=== PATIENT | female | born 1965 | race Caucasian/White ===

== ENCOUNTER → 2017-12-15 09:02 | Outpatient (CLI) | payer OTHER, SELFPAY ==
[2017-12-15 10:01] LABS: Hemoglobin A1C% w Est Avg Glu 5.7 % (4.0-6.0)
[2017-12-15 10:11] LABS: Blood Urea Nitrogen 21 mg/dL (7-17); Carbon Dioxide 35 mmol/L (22-32); Chloride 98 mmol/L (98-107); Cholesterol 270 mg/dL (140-199); Estimated Glomerular Filt Rate > 60.0 mL/min (>60); Glucose 104 mg/dL (70-100); HDL Cholesterol 52 mg/dL (40-60); HEMOLYSIS < 15 (0-50); LDL Cholesterol Calculated 181 mg/dL (<100); Potassium 2.8 mmol/L (3.4-5.1); Sodium 143 mmol/L (137-145); Triglycerides 184 mg/dL (35-150)
[2017-12-15 10:13] LABS: Creatinine Urine Random 208.9 mg/dL
[2017-12-15 10:16] LABS: Microalbumi Creatinin Ratio Ur 6.7 ug/mg CR (<30); Microalbumin Urine Random 1.4 mg/dL (0-1.6)
== END ==
PROVIDERS: Visit Provider Registered Nurse
DX: I10 Essential (primary) hypertension (principal); E66.9 Obesity, unspecified
CPT/HCPCS: 36415; 80048; 80061; 82043; 82570; 83036

== ENCOUNTER → 2019-01-18 13:27 | Outpatient (CLI) | payer OTHER, SELFPAY ==
--- NOTE | 2019-01-18 | DI.RAD.S_ITS ---
PROCEDURE: XR KNEE RT 3V INDICATIONS: RIGHT KNEE PAIN TECHNIQUE: 3 views of the knee were acquired. COMPARISON: None. FINDINGS: Bones: No fractures or dislocations. Small patellar osteophytes. No suspicious bony lesions. Soft tissues: Small joint effusion. No suspicious soft tissue calcifications. IMPRESSION: No fracture or dislocation. Mild osteoarthritis most pronounced in the patellofemoral compartment. Dictated by: Sky Da Silva M.D. on 01/18/2019 at 14:09 Approved by: Sky Da Silva M.D. on 01/18/2019 at 14:10
== END ==
PROVIDERS: PCP Student in an Organized Health Care Education/Training Program; Visit Provider Internal Medicine
DX: M25.561 Pain in right knee (principal); M17.11 Unilateral primary osteoarthritis, right knee; M25.461 Effusion, right knee
CPT/HCPCS: 73562

== ENCOUNTER 2019-04-24 12:09 | Inpatient (IN) | payer OTHER, SELFPAY ==
[2019-04-24] VITALS (8 sets, daily range): BP systolic 100–156; BP diastolic 51–93; PULSE 57–73; RESP 15–21; TEMP 36.7–37.3; O2SAT 98–100; BMI 35.3
[2019-04-24 12:53] LABS: INR 1.1 (0.9-1.3); Prothrombin Time 12.3 SECONDS (10.1-12.7)
[2019-04-24 12:56] LABS: PTT Partial Thromboplastin Tim 27 SECONDS (26.4-36.2)
[2019-04-24 12:59] LABS: Add Manual Diff / Slide Review NO; Basophils Absolute Auto 100 /uL (0-100); Basophils Percent Auto 0.7 % (0-2); Eosinophils Absolute Auto 200 /uL (0-450); Eosinophils Percent Auto 1.8 % (2-4); Hematocrit 29.4 % (36-46); Hemoglobin 8.9 g/dL (12.0-16.0); Lymphocytes Absolute Auto 3700 /uL (1100-4500); Lymphocytes Percent Auto 43.4 % (25-40); Mean Corpuscular HGB Conc 30.2 % (30-36); Mean Corpuscular Hemoglobin 18.8 PG (26-34); Mean Corpuscular Volume 62.3 fL (80-100); Monocytes Absolute Auto 400 /uL (0-900); Monocytes Percent Auto 5.2 % (3-14); Neutrophils Absolute Auto 4200 /uL (1500-7000); Neutrophils Percent Auto 48.9 % (50-75); Platelet Count 434 X10^3/uL (150-400); Red Blood Cell Count 4.71 X10^6/uL (4.0-5.2); Red Cell Distribution Width 20.4 % (11.6-14.8); White Blood Cell Count 8.5 X10^3/uL (4.5-11.0)
[2019-04-24 13:00] LABS: Alanine Aminotransferase 20 IU/L (<35); Albumin 4.7 g/dL (3.5-5.0); Albumin Globulin Ratio 1.3 (1.0-2.8); Alkaline Phosphatase 87 U/L (38-126); Aspartate Aminotransferase 27 IU/L (14-36); Bilirubin Total 0.4 mg/dL (0.2-1.3); Blood Urea Nitrogen 24 mg/dL (7-17); Calcium 11.5 mg/dL (8.4-10.2); Carbon Dioxide 31 mmol/L (22-32); Chloride 97 mmol/L (98-107); Estimated Glomerular Filt Rate > 60.0 mL/min (>60); Globulin 3.6 g/dL (1.7-4.1); Glucose 89 mg/dL (70-100); HEMOLYSIS < 15 (0-50); Sodium 139 mmol/L (137-145); Total Protein 8.3 g/dL (6.3-8.2)
--- NOTE | 2019-04-24 13:03 | DI.CT.S_ITS ---
PROCEDURE: CT ABDOMEN PELVIS W CON INDICATIONS: BRRB, abd pain, multiple abd surgery hx TECHNIQUE: After the administration of intravenous contrast, 5 mm thick sections acquired from the diaphragm to the symphysis. 5 mm coronal and sagittal reformats were acquired. For radiation dose reduction, the following was used: automated exposure control, adjustment of mA and/or kV according to patient size. COMPARISON: None. FINDINGS: Image quality: Excellent. ABDOMEN: Lung bases: Lung bases are clear. Heart size is normal. A small hiatal hernia is incidentally noted. Solid organs: Liver is normal in size and enhancement. Gallbladder has been removed. Biliary system is non dilated. Pancreas enhances normally. Spleen is normal in size and enhancement. No adrenal nodules. Kidneys demonstrate normal size and enhancement, without hydronephrosis. Peritoneum and bowel: Generalized wall thickening and reduced caliber can be seen involving the sigmoid colon and the rectum, including at the level of the anus. Bowel loops otherwise demonstrate normal wall thickness and caliber. No free fluid or air. Nodes and vessels: No retroperitoneal or mesenteric adenopathy by size criteria. Aorta and inferior vena cava are normal in size. Miscellaneous: A mild periumbilical hernia is seen, containing fat. PELVIS: Genitourinary: Bladder wall thickness is normal. Miscellaneous: No inguinal hernias or adenopathy. Bones: No suspicious bony lesions. No vertebral body compression fractures. This patient has transitional lumbar anatomy. For the purposes of this examination, the level with the last pair of ribs is considered to be T12. By this numbering scheme, the S1 level is transitional and lumbarized, particularly on the right side. IMPRESSION: Abnormal distal colon. The appearance is worrisome for ulcerative colitis in this patient with a presenting history of bright red rectal bleeding. Please correlate with known patient history. If clinically appropriate, please consider a lower endoscopy. Incidental note is made of: Small hiatal hernia Cholecystectomy Fat containing periumbilical hernia Partially lumbarized S1 segment Dictated by: Heron Kimble M.D. on 04/24/2019 at 12:30 Approved by: Heron Kimble M.D. on 04/24/2019 at 12:36
[2019-04-24 13:17] LABS: Polychromasia 1+
[2019-04-24 13:18] LABS: Anisocytosis 2+; Hypochromasia 2+; Microcytosis 2+
[2019-04-24] MEDS: ONDANSETRON 4 MG/2 ML INJ IV (13:31)
[2019-04-24] MEDS: SODIUM CHLORIDE 0.9% 1,000 ML 150 ML IV (13:31)
--- NOTE | 2019-04-24 13:55 | ED_ITS ---
HPI - GI Bleed <ROSIE Robins - Last Filed: 04/25/19 02:59> General Chief complaint: GI Bleed Stated complaint: per phy/ rectal bleeding/ pain 1x vomiting 3xmonth Time Seen by Provider: 04/24/19 12:19 Source: patient and family Mode of arrival: Family Vehicle Limitations: no limitations History of Present Illness HPI Narrative: This is a 53-year-old female, nonsmoker, who presents to ED with her daughter with chief complain of bright red rectal bleeding which fills up the toilet bowl for last 3-4 months when she has bowel movements. Patient reports low abdominal pressure discomfort with intermittent chills with nausea and vomiting. Patient denies chest pain, breathing difficulty but at times feels dizzy with changing in position. Patient reports chronic constipation wi th IBS. Patient reports she never had a normal bowel movements in the past and has been having small pebble like stools with significant straining. Patient reports has history of hemorrhoids which has worsened at this time. Patient reports significant abdominal cramping and pressure discomfort in abdomen and rectum region. Patient also has urinary symptoms such urgency. Patient is afraid to eat now because of abdominal discomfort and nausea and has been drinking protein shakes and small amount of soups. Her symptoms has been gotten worse and she has been in bed rest for about a week. Patient states hardly passing flatulence and has increasing belching. Last stool yesterday with a cou ple of al. Patient daily uses stool softener and also takes average 20 pills of [id number] Advils for chronic back pain for last 3-4 years. Patient had colonoscopy in 2006 with GI bleed, nausea/vomiting and abdominal pain but not as intense as now. Related Data Previous Rx's Medication Instructions Recorded docusate sodium 250 mg PO QDAY #30 cap 01/01/16 estradiol 1 mg tablet 1 mg PO QDAY #90 tab 09/07/18 bupropion HCl 150 mg 24 hr tablet, 450 mg PO QAM #90 tab 11/20/18 extended release omeprazole 20 mg capsule,delayed 20 mg PO DAILY #60 cap 11/23/18 release chlorthalidone 25 mg tablet 25 mg PO QAM #14 tab 12/28/18 alprazolam 0.25 mg tablet 0.25 mg PO TID PRN #90 tab 04/12/19 citalopram 20 mg tablet 20 mg PO DAILY #90 tab 04/12/19 Allergies Allergy/AdvReac Type Severity Reaction Status Date / Time codeine Allergy Mild VOMITING Verified 04/24/19 12:27 fluoxetine AdvReac Severe Agitated Verified 04/24/19 12:27 pain contract Allergy Unknown Uncoded 04/24/19 12:27 Review of Systems <Luis CarterROSIE - Last Filed: 04/25/19 02:59> Review of Systems Narrative: General: Denies fever, (+) chills, fatigue, malaise, sweats. HEENT: Denies sinus pain, ear pain, sore throat, difficulty swallowing, dizziness. Respiratory: Denies dyspnea, cough, wheezing, hemoptysis, sputum. Cardiovascular: Denies chest pain, palpitations, orthopnea, edema. Gastrointestinal: See HPI : Reports urinary urgency. Denies dysuria, frequency, incontinence, hematuria, urinary retention. Musculoskeletal: Denies weakness, joint pain or bony pain. Skin: Denies rash, skin lesions, or other. Neurologic: Denies weakness, headache, numbness, change in speech, confusion, seizures, incoordination. Psychiatric: No concerning psychosocial issues. 12-point review of systems is negative except for those stated above. Patient History <Luis CarterROSIE - Last Filed: 04/25/19 02:59> Medical History Anxiety (Chronic 1999) Chronic back pain (Chronic 2008) Depression (Chronic 1999) Endometriosis (Resolved) External hemorrhoid, bleeding (Chronic) Fibroids (Resolved) Hypertension (Chronic) IBS (irritable bowel syndrome) (Chronic 1994) Lumbar spine pain (Chronic) Melanoma of face (Resolved 2013) Migraines (Chronic 1994) Ovarian cyst (Resolved 1984) Urinary incontinence (Chronic) Surgical History Anesthesia (Resolved) History of gynecologic surgery (Resolved 07/07/15) History of ovarian cystectomy (Resolved 1984) Status post delivery (Resolved 1990) Status post delivery (Resolved 1992) Status post colonoscopy (Resolved 10/22/06) Status post hysterectomy (Resolved 2008) Status post laparoscopic cholecystectomy (Resolved 2008) Family History Father Age: 72 Type 1 diabetes Grandfather Cancer Heart disease Hypertension Dementia Grandmother Age: 90 Heart disease Dementia Mother Age: 73 Depression Multiple personality disorder Suicide attempt Sister Age: 47 Depression Sister Homeless Family/Other Family history of thyroid problem Diabetes mellitus Family/Other Diabetes mellitus Family history of thyroid problem Social History household members: spouse and children Smoking Status: Never smoker Smoking Status: Never smoker alcohol intake frequency: 0-2 drinks per day Substance Use Type: does not use Exam <ROSIE Robins - Last Filed: 04/25/19 02:59> Narrative Exam Narrative: GEN: Alert, oriented x 3, well appearing and nourished, and in no acute distress. Head: Normal cephalic, atraumatic. No scalp or temporal tenderness, palpable mass or rash. EYES: Pupils are equal, round, and reactive to light and accommodation. Extraocular muscles are intact bilaterally. There is no subconjunctival hemorr kirit, exudate and sclera non-icteric. ENT: Bilateral auditory canals and tympanic membranes clear. Hearing grossly intact. Nose without bleeding, purulent discharge or deviation. Facial sinuses nontender to palpate. Mucous membrane moist, no mucosal lesion. Throat without erythema, tonsillar hypertrophy or exudate. Uvula in midline, airway patent. Neck: Trachea in midline. No JVD, non-tender without lymphadenopathy. No masses or thyroid megaly. Supple, non-tender and no meningeal signs. CARDIAC: Normal regular rate and rhythm without murmurs, gallops, or rubs. No chest wall tenderness. No peripheral edema, cyanosis or pallor. Capillary refill is less than 2 seconds. RESPIRATORY: Lungs are clear to auscultate bilaterally. No cough, wheezes, rales, or rhonchi. No stridor, respiratory distress, increase work of breathing, or accessary muscle used. ABD: Abdomen soft, mild tender to palpate in lower abdomen and non-distended. No guarding or rebound tenderness to palpate. Bowel sounds are normal in all 4 quadrants. There is no palpable masses or organomegaly. Multiple external hemorrhoids. Positive guaiac stool test. EXT: Full painless ROM of all extremities with no loss of sensation, strength, effusion or edema. SKIN: Warm, dry, normal color for patient. No erythema, lesions or rash over visible areas. BACK: Nontender without deformity or crepitance. No flank tenderness. NEUROLOGICAL: Alert and oriented to place, time and person. Sensation and motor function intact bilaterally. No facial droops, dysphasia. PSYCHIATRIC: Good judgement and reason, without hallucinations, abnormal affect or abnormal behaviors during the examination. Initial Vital Signs Initial Vital Signs: Vital Signs Temperature 98.8 F 04/24/19 12:20 Pulse Rate 73 04/24/19 12:20 Respiratory Rate 15 04/24/19 12:20 Blood Pressure 156/93 H 04/24/19 12:20 Pulse Oximetry 99 04/24/19 12:20 <Margarita Toribio DO - Last Filed: 04/26/19 11:49> Initial Vital Signs Initial Vital Signs: Vital Signs Temperature 98.8 F 04/24/19 12:20 Pulse Rate 73 04/24/19 12:20 Respiratory Rate 15 04/24/19 12:20 Blood Pressure 156/93 H 04/24/19 12:20 Pulse Oximetry 99 04/24/19 12:20 Scores <ROSIE Robins - Last Filed: 04/25/19 02:59> GCS [place] coma scale eye opening: Spontaneous [place] coma scale verbal response: Orientated [place] coma scale motor response: Obey commands [place] coma scale total score: 15 Course <ROSIE Robins - Last Filed: 04/25/19 02:59> Orders Ordered: ED Orders 04/26/19 05:00 CMP [Comprehensive Metabolic Panel] DAILY 04/27/19 05:00 CBC Auto Diff [Complete Blood Count AUTO DIFF] DAILY Magnesium DAILY Acetaminophen (Tylenol) 650 mg PO Q6HR PRN PRN Reason: Fever/Mild Pain (1-3) Alprazolam (Xanax) 0.25 mg PO TID PRN PRN Reason: severe anxiety Last Admin: 04/26/19 04:00 Dose: 0.25 mg Documented by: Admin: 04/25/19 20:07 Dose: 0.25 mg Documented by: Admin: 04/25/19 12:10 Dose: 0.25 mg Documented by: SAL Bupropion HCl (Wellbutrin Xl) 450 mg PO DAILY [facility] Last Admin: 04/26/19 09:47 Dose: 450 mg Documented by: Admin: 04/25/19 08:41 Dose: 450 mg Documented by: SAL Chlorthalidone (Hygroton) 25 mg PO DAILY [facility] Last Admin: 04/26/19 09:47 Dose: 25 mg Documented by: Admin: 04/25/19 08:41 Dose: 25 mg Documented by: SAL Citalopram Hydrobromide (Celexa) 20 mg PO DAILY [facility] Last Admin: 04/26/19 09:47 Dose: 20 mg Documented by: Admin: 04/25/19 08:41 Dose: 20 mg Documented by: SAL Hydromorphone HCl (Dilaudid) 0.5 mg IV Q2H PRN PRN Reason: Breakthrough Pain Last Admin: 04/26/19 09:46 Dose: 0.5 mg Documented by: Admin: 04/26/19 01:01 Dose: 0.5 mg Documented by: Admin: 04/25/19 18:08 Dose: 0.5 mg Documented by: Admin: 04/25/19 08:41 Dose: 0.5 mg Documented by: Admin: 04/25/19 02:14 Dose: 0.5 mg Documented by: Admin: 04/24/19 19:49 Dose: 0.5 mg Documented by: EDWIN Lactated Ringer's (Lactated Ringers) 1,000 mls @ 125 mls/hr IV CONT [facility] Last Admin: 04/26/19 06:52 Dose: 125 mls/hr Documented by: Infusion: 04/26/19 06:52 Dose: 125 mls/hr Documented by: Admin: 04/25/19 23:57 Dose: 125 mls/hr Documented by: Infusion: 04/25/19 21:38 Dose: 125 mls/hr Documented by: Admin: 04/25/19 13:38 Dose: 125 mls/hr Documented by: Infusion: 04/25/19 09:36 Dose: 999 mls/hr Documented by: Infusion: 04/25/19 09:30 Dose: 999 mls/hr Documented by: Infusion: 04/25/19 02:21 Dose: 125 mls/hr Documented by: Admin: 04/25/19 02:15 Dose: 125 mls/hr Documented by: Infusion: 04/25/19 01:45 Dose: 125 mls/hr Documented by: Admin: 04/24/19 17:45 Dose: 125 mls/hr Documented by: HUGO Ondansetron HCl (Zofran) 4 mg IV Q4HR PRN PRN Reason: Nausea And Vomiting Last Admin: 04/25/19 17:03 Dose: 4 mg Documented by: EDWIN Oxycodone HCl (Percolone) 5 mg PO Q3HR PRN PRN Reason: Pain, Moderate (4-6) Last Admin: 04/26/19 06:50 Dose: 5 mg Documented by: Admin: 04/25/19 23:57 Dose: 5 mg Documented by: MARIE Pantoprazole Sodium (Protonix) 40 mg IV BID [facility] Last Admin: 04/26/19 09:54 Dose: 40 mg Documented by: Admin: 04/25/19 20:26 Dose: 40 mg Documented by: Admin: 04/25/19 08:41 Dose: 40 mg Documented by: Admin: 04/24/19 20:35 Dose: 40 mg Documented by: HUGO Polyethylene Glycol/Electrolytes (Golytely Solution) 4,000 ml PO NOW ONE Stop: 04/26/19 14:01 Potassium Chloride (Klor-Con M20) 40 meq PO DAILYCC [facility] Sodium Chloride (Normal Saline 0.9% Flush) 10 ml IV PRN PRN PRN Reason: Flush Sodium Chloride (Normal Saline 0.9% Flush) 10 ml IV BID [facility] Last Admin: 04/26/19 09:48 Dose: 10 ml Documented by: Admin: 04/25/19 20:26 Dose: 10 ml Documented by: EDWIN Discontinued Medications Fentanyl (Sublimaze) 0 mcg IV Q5MIN PRN PRN Reason: Pain, Severe (7-10) Sodium Chloride (Normal Saline 0.9%) 1,000 mls @ 150 mls/hr IV CONT [facility] Last Infusion: 04/24/19 16:31 Dose: 0 mls/hr Documented by: Admin: 04/24/19 13:31 Dose: 150 mls/hr Documented by: GRETCHEN Potassium Chloride 20 meq/ (Sodium Chloride) 260 mls @ 130 mls/hr IV NOW ONE Stop: 04/25/19 09:59 Last Admin: 04/25/19 09:21 Dose: 130 mls/hr Documented by: SAL Cosigned by: NORMA Magnesium Sulfate (Magnesium Sulfate) 2 gm in 50 mls @ 25 mls/hr IV NOW ONE Stop: 04/25/19 08:10 Last Admin: 04/25/19 06:28 Dose: 25 mls/hr Documented by: PIETER Cosigned by: OLVIN Lactated Ringer's (Lactated Ringers) 1,000 mls @ 42 mls/hr IV CONT [facility] Last Admin: 04/25/19 23:27 Dose: Not Given Documented by: MARIE Lorazepam (Ativan) 0.5 mg IV NOW PRN PRN Reason: Anxiety Metoclopramide HCl (Reglan) 10 mg IV NOW PRN PRN Reason: Nausea And Vomiting Morphine Sulfate (Morphine) 4 mg IV NOW ONE Stop: 04/24/19 14:13 Last Admin: 04/24/19 14:58 Dose: 4 mg Documented by: HALI Ondansetron HCl (Zofran) 4 mg IV NOW ONE Stop: 04/24/19 13:04 Last Admin: 04/24/19 13:31 Dose: 4 mg Documented by: GRETCHEN Ondansetron HCl (Zofran) 4 mg IV NOW PRN PRN Reason: Nausea And Vomiting Pantoprazole Sodium (Protonix) 40 mg IV NOW ONE Stop: 04/24/19 15:59 Last Admin: 04/24/19 16:14 Dose: 40 mg Documented by: GRETCHEN Polyethylene Glycol/Electrolytes (Golytely Solution) 4,000 ml PO NOW ONE Stop: 04/24/19 16:09 Last Admin: 04/24/19 17:55 Dose: 4,000 ml Documented by: HUGO Polyethylene Glycol/Electrolytes (Golytely Solution) 2,000 ml PO NOW ONE Stop: 04/25/19 03:26 Last Admin: 04/25/19 03:42 Dose: 2,000 ml Documented by: MPFEFFE Potassium Chloride (Klor-Con M20) 40 meq PO NOW ONE Stop: 04/24/19 14:20 Last Admin: 04/24/19 14:58 Dose: 40 meq Documented by: HALI Vital Signs Vital signs: Vital Signs - 8 hr 04/24/19 12:20 04/24/19 13:00 04/24/19 13:36 Temperature 98.8 F Pulse Rate 73 63 59 L Respiratory Rate 15 18 18 Blood Pressure 156/93 H Blood Pressure [Right Arm] 129/75 131/70 Pulse Oximetry 99 100 99 <Margarita Toribio, - Last Filed: 04/26/19 11:49> Orders Ordered: ED Orders 04/26/19 05:00 CMP [Comprehensive Metabolic Panel] DAILY 04/27/19 05:00 CBC Auto Diff [Complete Blood Count AUTO DIFF] DAILY Magnesium DAILY Acetaminophen (Tylenol) 650 mg PO Q6HR PRN PRN Reason: Fever/Mild Pain (1-3) Alprazolam (Xanax) 0.25 mg PO TID PRN PRN Reason: severe anxiety Last Admin: 04/26/19 04:00 Dose: 0.25 mg Documented by: Admin: 04/25/19 20:07 Dose: 0.25 mg Documented by: Admin: 04/25/19 12:10 Dose: 0.25 mg Documented by: SAL Bupropion HCl (Wellbutrin Xl) 450 mg PO DAILY [facility] Last Admin: 04/26/19 09:47 Dose: 450 mg Documented by: Admin: 04/25/19 08:41 Dose: 450 mg Documented by: SAL Chlorthalidone (Hygroton) 25 mg PO DAILY [facility] Last Admin: 04/26/19 09:47 Dose: 25 mg Documented by: Admin: 04/25/19 08:41 Dose: 25 mg Documented by: SAL Citalopram Hydrobromide (Celexa) 20 mg PO DAILY [facility] Last Admin: 04/26/19 09:47 Dose: 20 mg Documented by: Admin: 04/25/19 08:41 Dose: 20 mg Documented by: SAL Hydromorphone HCl (Dilaudid) 0.5 mg IV Q2H PRN PRN Reason: Breakthrough Pain Last Admin: 01/20/20 09:46 Dose: 0.5 mg Documented by: Admin: 04/26/19 01:01 Dose: 0.5 mg Documented by: Admin: 04/25/19 18:08 Dose: 0.5 mg Documented by: Admin: 04/25/19 08:41 Dose: 0.5 mg Documented by: Admin: 04/25/19 02:14 Dose: 0.5 mg Documented by: Admin: 04/24/19 19:49 Dose: 0.5 mg Documented by: EDWIN Lactated Ringer's (Lactated Ringers) 1,000 mls @ 125 mls/hr IV CONT [facility] Last Admin: 04/26/19 06:52 Dose: 125 mls/hr Documented by: Infusion: 04/26/19 06:52 Dose: 125 mls/hr Documented by: Admin: 04/25/19 23:57 Dose: 125 mls/hr Documented by: Infusion: 04/25/19 21:38 Dose: 125 mls/hr Documented by: Admin: 04/25/19 13:38 Dose: 125 mls/hr Documented by: Infusion: 04/25/19 09:36 Dose: 999 mls/hr Documented by: Infusion: 04/25/19 09:30 Dose: 999 mls/hr Documented by: Infusion: 04/25/19 02:21 Dose: 125 mls/hr Documented by: Admin: 04/25/19 02:15 Dose: 125 mls/hr Documented by: Infusion: 04/25/19 01:45 Dose: 125 mls/hr Documented by: Admin: 04/24/19 17:45 Dose: 125 mls/hr Documented by: HUGO Ondansetron HCl (Zofran) 4 mg IV Q4HR PRN PRN Reason: Nausea And Vomiting Last Admin: 04/25/19 17:03 Dose: 4 mg Documented by: EDWIN Oxycodone HCl (Percolone) 5 mg PO Q3HR PRN PRN Reason: Pain, Moderate (4-6) Last Admin: 04/26/19 06:50 Dose: 5 mg Documented by: Admin: 04/25/19 23:57 Dose: 5 mg Documented by: MARIE Pantoprazole Sodium (Protonix) 40 mg IV BID [facility] Last Admin: 04/26/19 09:54 Dose: 40 mg Documented by: Admin: 04/25/19 20:26 Dose: 40 mg Documented by: Admin: 04/25/19 08:41 Dose: 40 mg Documented by: Admin: 04/24/19 20:35 Dose: 40 mg Documented by: HGUO Polyethylene Glycol/Electrolytes (Golytely Solution) 4,000 ml PO NOW ONE Stop: 04/26/19 14:01 Potassium Chloride (Klor-Con M20) 40 meq PO DAILYCC [facility] Sodium Chloride (Normal Saline 0.9% Flush) 10 ml IV PRN PRN PRN Reason: Flush Sodium Chloride (Normal Saline 0.9% Flush) 10 ml IV BID [facility] Last Admin: 04/26/19 09:48 Dose: 10 ml Documented by: Admin: 04/25/19 20:26 Dose: 10 ml Documented by: EDWIN Discontinued Medications Fentanyl (Sublimaze) 0 mcg IV Q5MIN PRN PRN Reason: Pain, Severe (7-10) Sodium Chloride (Normal Saline 0.9%) 1,000 mls @ 150 mls/hr IV CONT [facility] Last Infusion: 04/24/19 16:31 Dose: 0 mls/hr Documented by: Admin: 04/24/19 13:31 Dose: 150 mls/hr Documented by: GRETCHEN Potassium Chloride 20 meq/ (Sodium Chloride) 260 mls @ 130 mls/hr IV NOW ONE Stop: 04/25/19 09:59 Last Admin: 04/25/19 09:21 Dose: 130 mls/hr Documented by: SAL Cosigned by: NORMA Magnesium Sulfate (Magnesium Sulfate) 2 gm in 50 mls @ 25 mls/hr IV NOW ONE Stop: 04/25/19 08:10 Last Admin: 04/25/19 06:28 Dose: 25 mls/hr Documented by: PIETER Cosigned by: OLVIN Lactated Ringer's (Lactated Ringers) 1,000 mls @ 42 mls/hr IV CONT [facility] Last Admin: 04/25/19 23:27 Dose: Not Given Documented by: MARIE Lorazepam (Ativan) 0.5 mg IV NOW PRN PRN Reason: Anxiety Metoclopramide HCl (Reglan) 10 mg IV NOW PRN PRN Reason: Nausea And Vomiting Morphine Sulfate (Morphine) 4 mg IV NOW ONE Stop: 04/24/19 14:13 Last Admin: 04/24/19 14:58 Dose: 4 mg Documented by: HALI Ondansetron HCl (Zofran) 4 mg IV NOW ONE Stop: 04/24/19 13:04 Last Admin: 04/24/19 13:31 Dose: 4 mg Documented by: GRETCHEN Ondansetron HCl (Zofran) 4 mg IV NOW PRN PRN Reason: Nausea And Vomiting Pantoprazole Sodium (Protonix) 40 mg IV NOW ONE Stop: 04/24/19 15:59 Last Admin: 04/24/19 16:14 Dose: 40 mg Documented by: GRETCHEN Polyethylene Glycol/Electrolytes (Golytely Solution) 4,000 ml PO NOW ONE Stop: 04/24/19 16:09 Last Admin: 04/24/19 17:55 Dose: 4,000 ml Documented by: HUGO Polyethylene Glycol/Electrolytes (Golytely Solution) 2,000 ml PO NOW ONE Stop: 04/25/19 03:26 Last Admin: 04/25/19 03:42 Dose: 2,000 ml Documented by: PIETER Potassium Chloride (Klor-Con M20) 40 meq PO NOW ONE Stop: 04/24/19 14:20 Last Admin: 04/24/19 14:58 Dose: 40 meq Documented by: HALI Vital Signs Vital signs: Vital Signs - 8 hr 04/24/19 12:20 04/24/19 13:00 04/24/19 13:36 Temperature 98.8 F Pulse Rate 73 63 59 L Respiratory Rate 15 18 18 Blood Pressure 156/93 H Blood Pressure [Right Arm] 129/75 131/70 Pulse Oximetry 99 100 99 MDM - GI Bleed <ROSIE Robins - Last Filed: 04/25/19 02:59> Differential Diagnosis Differential diagnosis: Likely hemorrhoids, Upper gastrointestinal hemorrhage, Lower gastrointestinal hemorrhage and other (neoplasm) Medical Records Attestation: I reviewed the patient's medical records. Lab Data Attestation: I reviewed the patient's lab results. Result diagrams: 04/26/19 05:00 04/26/19 05:00 Labs: Lab Results 04/24/19 04/24/19 04/24/19 Range/Units 12:38 12:38 12:38 WBC 8.5 (4.5-11.0) X10^3/uL RBC 4.71 (4.0-5.2) X10^6/uL Hgb 8.9 L (12.0-16.0) g/dL Hct 29.4 L (36-46) % MCV 62.3 L (80-100) fL MCH 18.8 L (26-34) PG MCHC 30.2 (30-36) % RDW 20.4 H (11.6-14.8) % Plt Count 434 H (150-400) X10^3/uL Neut % (Auto) 48.9 L (50-75) % Lymph % (Auto) 43.4 H (25-40) % [place] % (Auto) 5.2 (3-14) % Eos % (Auto) 1.8 L (2-4) % Baso % (Auto) 0.7 (0-2) % Neut # (Auto) 4200 (3352-7088) /uL Lymph # (Auto) 3700 (4474-9837) /uL [place] # (Auto) 400 (0-900) /uL Eos # (Auto) 200 (0-450) /uL Baso # (Auto) 100 (0-100) /uL RBC Morphology See below Polychromasia 1+ H Hypochromasia 2+ H Anisocytosis 2+ H Microcytosis 2+ H PT 12.3 (10.1-12.7) SECONDS INR 1.1 (0.9-1.3) APTT 27 (26.4-36.2) SECONDS Sodium 139 (137-145) mmol/L Potassium 3.0 L (3.4-5.1) mmol/L Chloride 97 L (98-107) mmol/L Carbon Dioxide 31 (22-32) mmol/L BUN 24 H (7-17) mg/dL Creatinine 0.80 (0.52-1.04) mg/dL Estimated GFR > 60.0 (>60) mL/min BUN/Creatinine Ratio 30.0 H (6-22) Glucose 89 (70-100) mg/dL Calcium 11.5 H (8.4-10.2) mg/dL Magnesium (1.6-2.3) mg/dL Total Bilirubin 0.4 (0.2-1.3) mg/dL AST 27 (14-36) IU/L ALT 20 (<35) IU/L Alkaline Phosphatase 87 (38-126) U/L Total Creatine Kinase (30-135) U/L CK-MB (CK-2) CK-MB (CK-2) Rel Index Troponin I (0.01-0.034) ng/mL Total Protein 8.3 H (6.3-8.2) g/dL Albumin 4.7 (3.5-5.0) g/dL Globulin 3.6 (1.7-4.1) g/dL Albumin/Globulin Ratio 1.3 (1.0-2.8) Urine Color Urine Appearance Urine pH (4.5-8.0) Ur Specific [place] (1.000-1.035) Urine Protein (Negative) Urine Glucose (UA) (Negative) g/dL Urine Ketones (NEGATIVE) Urine Occult Blood (Negative) Urine Nitrate (Negative) Urine Bilirubin (NEGATIVE) Urine Urobilinogen (0.2) E.U./dL Ur Leukocyte Esterase (NEGATIVE) Blood Type Antibody Screen Crossmatch 04/24/19 04/24/19 04/24/19 Range/Units 12:38 18:00 20:12 WBC 9.6 (4.5-11.0) X10^3/uL RBC 4.36 (4.0-5.2) X10^6/uL Hgb 8.1 L (12.0-16.0) g/dL Hct 27.0 L (36-46) % MCV 62.0 L (80-100) fL MCH 18.6 L (26-34) PG MCHC 30.0 (30-36) % RDW 20.1 H (11.6-14.8) % Plt Count 391 (150-400) X10^3/uL Neut % (Auto) 50.8 (50-75) % Lymph % (Auto) 41.8 H (25-40) % [place] % (Auto) 4.7 (3-14) % Eos % (Auto) 2.1 (2-4) % Baso % (Auto) 0.6 (0-2) % Neut # (Auto) 4900 (7324-7845) /uL Lymph # (Auto) 4000 (9331-9339) /uL [place] # (Auto) 500 (0-900) /uL Eos # (Auto) 200 (0-450) /uL Baso # (Auto) 100 (0-100) /uL RBC Morphology See below Polychromasia Hypochromasia 2+ H Anisocytosis 3+ H Microcytosis 2+ H PT (10.1-12.7) SECONDS INR (0.9-1.3) APTT (26.4-36.2) SECONDS Sodium (137-145) mmol/L Potassium (3.4-5.1) mmol/L Chloride (98-107) mmol/L Carbon Dioxide (22-32) mmol/L BUN (7-17) mg/dL Creatinine (0.52-1.04) mg/dL Estimated GFR (>60) mL/min BUN/Creatinine Ratio (6-22) Glucose (70-100) mg/dL Calcium (8.4-10.2) mg/dL Magnesium (1.6-2.3) mg/dL Total Bilirubin (0.2-1.3) mg/dL AST (14-36) IU/L ALT (<35) IU/L Alkaline Phosphatase (38-126) U/L Total Creatine Kinase (30-135) U/L CK-MB (CK-2) CK-MB (CK-2) Rel Index Troponin I (0.01-0.034) ng/mL Total Protein (6.3-8.2) g/dL Albumin (3.5-5.0) g/dL Globulin (1.7-4.1) g/dL Albumin/Globulin Ratio (1.0-2.8) Urine Color Yellow Urine Appearance Clear Urine pH 7.5 (4.5-8.0) Ur Specific [place] 1.010 (1.000-1.035) Urine Protein Negative (Negative) Urine Glucose (UA) Negative (Negative) g/dL Urine Ketones Negative (NEGATIVE) Urine Occult Blood Negative (Negative) Urine Nitrate Negative (Negative) Urine Bilirubin Negative (NEGATIVE) Urine Urobilinogen 0.2 (0.2) E.U./dL Ur Leukocyte Esterase Negative (NEGATIVE) Blood Type B Positive Antibody Screen Negative Crossmatch See Detail 04/25/19 04/25/19 04/25/19 Range/Units 05:00 05:00 09:30 WBC 7.5 6.1 (4.5-11.0) X10^3/uL RBC 3.93 L 3.44 L (4.0-5.2) X10^6/uL Hgb 7.4 L 6.5 L* (12.0-16.0) g/dL Hct 24.5 L 21.8 L (36-46) % MCV 62.5 L 63.3 L (80-100) fL MCH 18.9 L 18.8 L (26-34) PG MCHC 30.2 29.7 L (30-36) % RDW 20.3 H 20.2 H (11.6-14.8) % Plt Count 350 298 (150-400) X10^3/uL Neut % (Auto) 44.1 L (50-75) % Lymph % (Auto) 45.9 H (25-40) % [place] % (Auto) 6.0 (3-14) % Eos % (Auto) 3.3 (2-4) % Baso % (Auto) 0.7 (0-2) % Neut # (Auto) 3300 (5048-5273) /uL Lymph # (Auto) 3400 (7549-8254) /uL [place] # (Auto) 400 (0-900) /uL Eos # (Auto) 200 (0-450) /uL Baso # (Auto) 100 (0-100) /uL RBC Morphology See below Polychromasia Hypochromasia 2+ H Anisocytosis 3+ H Microcytosis 2+ H PT (10.1-12.7) SECONDS INR (0.9-1.3) APTT (26.4-36.2) SECONDS Sodium 137 (137-145) mmol/L Potassium 3.2 L (3.4-5.1) mmol/L Chloride 97 L (98-107) mmol/L Carbon Dioxide 31 (22-32) mmol/L BUN 15 (7-17) mg/dL Creatinine 0.80 (0.52-1.04) mg/dL Estimated GFR > 60.0 (>60) mL/min BUN/Creatinine Ratio 18.8 (6-22) Glucose 103 H (70-100) mg/dL Calcium 10.0 (8.4-10.2) mg/dL Magnesium 1.8 (1.6-2.3) mg/dL Total Bilirubin 0.3 (0.2-1.3) mg/dL AST 46 H (14-36) IU/L ALT 29 (<35) IU/L Alkaline Phosphatase 69 (38-126) U/L Total Creatine Kinase (30-135) U/L CK-MB (CK-2) CK-MB (CK-2) Rel Index Troponin I (0.01-0.034) ng/mL Total Protein 6.9 (6.3-8.2) g/dL Albumin 3.9 (3.5-5.0) g/dL Globulin 3.0 (1.7-4.1) g/dL Albumin/Globulin Ratio 1.3 (1.0-2.8) Urine Color Urine Appearance Urine pH (4.5-8.0) Ur Specific [place] (1.000-1.035) Urine Protein (Negative) Urine Glucose (UA) (Negative) g/dL Urine Ketones (NEGATIVE) Urine Occult Blood (Negative) Urine Nitrate (Negative) Urine Bilirubin (NEGATIVE) Urine Urobilinogen (0.2) E.U./dL Ur Leukocyte Esterase (NEGATIVE) Blood Type Antibody Screen Crossmatch 04/25/19 Range/Units 09:30 WBC (4.5-11.0) X10^3/uL RBC (4.0-5.2) X10^6/uL Hgb (12.0-16.0) g/dL Hct (36-46) % MCV (80-100) fL MCH (26-34) PG MCHC (30-36) % RDW (11.6-14.8) % Plt Count (150-400) X10^3/uL Neut % (Auto) (50-75) % Lymph % (Auto) (25-40) % [place] % (Auto) (3-14) % Eos % (Auto) (2-4) % Baso % (Auto) (0-2) % Neut # (Auto) (4681-5962) /uL Lymph # (Auto) (3640-3075) /uL [place] # (Auto) (0-900) /uL Eos # (Auto) (0-450) /uL Baso # (Auto) (0-100) /uL RBC Morphology Polychromasia Hypochromasia Anisocytosis Microcytosis PT (10.1-12.7) SECONDS INR (0.9-1.3) APTT (26.4-36.2) SECONDS Sodium (137-145) mmol/L Potassium (3.4-5.1) mmol/L Chloride (98-107) mmol/L Carbon Dioxide (22-32) mmol/L BUN (7-17) mg/dL Creatinine (0.52-1.04) mg/dL Estimated GFR (>60) mL/min BUN/Creatinine Ratio (6-22) Glucose (70-100) mg/dL Calcium (8.4-10.2) mg/dL Magnesium (1.6-2.3) mg/dL Total Bilirubin (0.2-1.3) mg/dL AST (14-36) IU/L ALT (<35) IU/L Alkaline Phosphatase (38-126) U/L Total Creatine Kinase 79 (30-135) U/L CK-MB (CK-2) TNP CK-MB (CK-2) Rel Index TNP Troponin I < 0.012 (0.01-0.034) ng/mL Total Protein (6.3-8.2) g/dL Albumin (3.5-5.0) g/dL Globulin (1.7-4.1) g/dL Albumin/Globulin Ratio (1.0-2.8) Urine Color Urine Appearance Urine pH (4.5-8.0) Ur Specific [place] (1.000-1.035) Urine Protein (Negative) Urine Glucose (UA) (Negative) g/dL Urine Ketones (NEGATIVE) Urine Occult Blood (Negative) Urine Nitrate (Negative) Urine Bilirubin (NEGATIVE) Urine Urobilinogen (0.2) E.U./dL Ur Leukocyte Esterase (NEGATIVE) Blood Type Antibody Screen Crossmatch Urine Dip Bedside Urine Glucose Negative Bedside Urine Bilirubin - Negative Bedside Urine Ketone - Negative Urine Specific [place] 1.005 Bedside Urine Occult Blood - Negative Bedside Urine pH 8.5 Bedside Urine Protein - Negative Bedside Urine Urobilinogen - Negative Bedside Urine Nitrite - Negative Bedside Urine Leukocytes - Negative Esterase Imaging Data CT scan - abdomen/pelvis: Radiologist's Impression: [address] [address] [address] Scan Report Signed Patient: Frank Vidal RMR#: [id number] : 1965Acct:[id number] Age/Sex: 53 / FDate of Service: 04/24/19 Loc: ED Accession Number: [id number] Procedure: CT abdomen pelvis w con Ordering Provider: Luis Carter PROCEDURE: CT ABDOMEN PELVIS W CON INDICATIONS: BRRB, abd pain, multiple abd surgery hx TECHNIQUE: After the administration of intravenous contrast, 5 mm thick sections acquired from the diaphragm to the symphysis. 5 mm coronal and sagittal reformats were acquired. For radiation dose reduction, the following was used: automated exposure control, adjustment of mA and/or kV according to patient size. COMPARISON: None. FINDINGS: Image quality: Excellent. ABDOMEN: Lung bases: Lung bases are clear. Heart size is normal. A small hiatal hernia is incidentally noted. Solid organs: Liver is normal in size and enhancement. Gallbladder has been removed. Biliary system is non dilated. Pancreas enhances normally. Spleen is normal in size and enhancement. No adrenal nodules. Kidneys demonstrate normal size and enhancement, without hydronephrosis. Peritoneum and bowel: Generalized wall thickening and reduced caliber can be seen involving the sigmoid colon and the rectum, including at the level of the anus. Bowel loops otherwise demonstrate normal wall thickness and caliber. No free fluid or air. Nodes and vessels: No retroperitoneal or mesenteric adenopathy by size criteria. Aorta and inferior vena cava are normal in size. Miscellaneous: A mild periumbilical hernia is seen, containing fat. PELVIS: Genitourinary: Bladder wall thickness is normal. Miscellaneous: No inguinal hernias or adenopathy. Bones: No suspicious bony lesions. No vertebral body compression fractures. This patient has transitional lumbar anatomy. For the purposes of this examination, the level with the last pair of ribs is considered to be T12. By this numbering scheme, the S1 level is transitional and lumbarized, particularly on the right side. IMPRESSION: Abnormal distal colon. The appearance is worrisome for ulcerative colitis in this patient with a presenting history of bright red rectal bleeding. Please correlate with known patient history. If clinically appropriate, please consider a lower endoscopy. Incidental note is made of: Small hiatal hernia Cholecystectomy Fat containing periumbilical hernia Partially lumbarized S1 segment Dictated by: Heron Kimble M.D. on 04/24/2019 at 12:30 Approved by: Heron Kimble M.D. on 04/24/2019 at 12:36 ECG Data Attestation: I personally reviewed and interpreted this ECG as follows: Prior ECG tracings: not available for review Interpretation: SR rate at 73. Normal [place]. No ST elevation or depression [place] int 166, normal QRS duration, QT/QTc 413/438 MDM Narrative Medical decision making narrative: This is 53 year old female who presents to ED with bright red rectal bleeding for last 3-4 months mostly when she has bowel movements. She also states has been taking Advil 20 pills/day over 3-4 years for chronic back pain. Patient reports pressure discomfort in low abdominal region with nausea and vomiting. She reports occasional dizziness with changing in position. Patient has history of IBS and possible ulcerative colitis but has not follow-up with further testing. Last colonoscopy in 2006 due to mild breath similar symptoms. Patient has chronic constipation with very small amount of p ebble like stools. Abdomen exam was soft, mild tenderness in lower abdomen with palpation without distension. Decreased H/H 8.9/29.4 with no leukocytosis. No available CBC to compare. Normal coag. K 3.0 and BUN of 24 with normal GFR and Cr, this may due to upper GI bleed Mildly elevated Ca 11.5. Patient was hydrated with normal saline and medicated with Zofran 4mg, morphine 4mg, oral potassium chloride 40 mEq, pantoprazole IV and started for bowel prep with GoLytely. CT of abd/pelvis shows abnormal distal colon which is worrisome for ulcerative colitis and suggested colonosocpy for further evaluation. Findings were discussed with , general surgeon, and she kindly accepted the patient care for an admission for GI bleed, anemia and for colonoscopy. <Margarita Toribio, - Last Filed: 04/26/19 11:49> Lab Data Labs: Lab Results 04/24/19 04/24/19 04/24/19 Range/Units 12:38 12:38 12:38 WBC 8.5 (4.5-11.0) X10^3/uL RBC 4.71 (4.0-5.2) X10^6/uL Hgb 8.9 L (12.0-16.0) g/dL Hct 29.4 L (36-46) % MCV 62.3 L (80-100) fL MCH 18.8 L (26-34) PG MCHC 30.2 (30-36) % RDW 20.4 H (11.6-14.8) % Plt Count 434 H (150-400) X10^3/uL Neut % (Auto) 48.9 L (50-75) % Lymph % (Auto) 43.4 H (25-40) % [place] % (Auto) 5.2 (3-14) % Eos % (Auto) 1.8 L (2-4) % Baso % (Auto) 0.7 (0-2) % Neut # (Auto) 4200 (7094-3584) /uL Lymph # (Auto) 3700 (5153-6557) /uL [place] # (Auto) 400 (0-900) /uL Eos # (Auto) 200 (0-450) /uL Baso # (Auto) 100 (0-100) /uL RBC Morphology See below Polychromasia 1+ H Hypochromasia 2+ H Anisocytosis 2+ H Microcytosis 2+ H PT 12.3 (10.1-12.7) SECONDS INR 1.1 (0.9-1.3) APTT 27 (26.4-36.2) SECONDS Sodium 139 (137-145) mmol/L Potassium 3.0 L (3.4-5.1) mmol/L Chloride 97 L (98-107) mmol/L Carbon Dioxide 31 (22-32) mmol/L BUN 24 H (7-17) mg/dL Creatinine 0.80 (0.52-1.04) mg/dL Estimated GFR > 60.0 (>60) mL/min BUN/Creatinine Ratio 30.0 H (6-22) Glucose 89 (70-100) mg/dL Calcium 11.5 H (8.4-10.2) mg/dL Magnesium (1.6-2.3) mg/dL Total Bilirubin 0.4 (0.2-1.3) mg/dL AST 27 (14-36) IU/L ALT 20 (<35) IU/L Alkaline Phosphatase 87 (38-126) U/L Total Creatine Kinase (30-135) U/L CK-MB (CK-2) CK-MB (CK-2) Rel Index Troponin I (0.01-0.034) ng/mL Total Protein 8.3 H (6.3-8.2) g/dL Albumin 4.7 (3.5-5.0) g/dL Globulin 3.6 (1.7-4.1) g/dL Albumin/Globulin Ratio 1.3 (1.0-2.8) Urine Color Urine Appearance Urine pH (4.5-8.0) Ur Specific [place] (1.000-1.035) Urine Protein (Negative) Urine Glucose (UA) (Negative) g/dL Urine Ketones (NEGATIVE) Urine Occult Blood (Negative) Urine Nitrate (Negative) Urine Bilirubin (NEGATIVE) Urine Urobilinogen (0.2) E.U./dL Ur Leukocyte Esterase (NEGATIVE) Blood Type Antibody Screen Crossmatch 04/24/19 04/24/19 04/24/19 Range/Units 12:38 18:00 20:12 WBC 9.6 (4.5-11.0) X10^3/uL RBC 4.36 (4.0-5.2) X10^6/uL Hgb 8.1 L (12.0-16.0) g/dL Hct 27.0 L (36-46) % MCV 62.0 L (80-100) fL MCH 18.6 L (26-34) PG MCHC 30.0 (30-36) % RDW 20.1 H (11.6-14.8) % Plt Count 391 (150-400) X10^3/uL Neut % (Auto) 50.8 (50-75) % Lymph % (Auto) 41.8 H (25-40) % [place] % (Auto) 4.7 (3-14) % Eos % (Auto) 2.1 (2-4) % Baso % (Auto) 0.6 (0-2) % Neut # (Auto) 4900 (3556-7524) /uL Lymph # (Auto) 4000 (4218-1898) /uL [place] # (Auto) 500 (0-900) /uL Eos # (Auto) 200 (0-450) /uL Baso # (Auto) 100 (0-100) /uL RBC Morphology See below Polychromasia Hypochromasia 2+ H Anisocytosis 3+ H Microcytosis 2+ H PT (10.1-12.7) SECONDS INR (0.9-1.3) APTT (26.4-36.2) SECONDS Sodium (137-145) mmol/L Potassium (3.4-5.1) mmol/L Chloride (98-107) mmol/L Carbon Dioxide (22-32) mmol/L BUN (7-17) mg/dL Creatinine (0.52-1.04) mg/dL Estimated GFR (>60) mL/min BUN/Creatinine Ratio (6-22) Glucose (70-100) mg/dL Calcium (8.4-10.2) mg/dL Magnesium (1.6-2.3) mg/dL Total Bilirubin (0.2-1.3) mg/dL AST (14-36) IU/L ALT (<35) IU/L Alkaline Phosphatase (38-126) U/L Total Creatine Kinase (30-135) U/L CK-MB (CK-2) CK-MB (CK-2) Rel Index Troponin I (0.01-0.034) ng/mL Total Protein (6.3-8.2) g/dL Albumin (3.5-5.0) g/dL Globulin (1.7-4.1) g/dL Albumin/Globulin Ratio (1.0-2.8) Urine Color Yellow Urine Appearance Clear Urine pH 7.5 (4.5-8.0) Ur Specific [place] 1.010 (1.000-1.035) Urine Protein Negative (Negative) Urine Glucose (UA) Negative (Negative) g/dL Urine Ketones Negative (NEGATIVE) Urine Occult Blood Negative (Negative) Urine Nitrate Negative (Negative) Urine Bilirubin Negative (NEGATIVE) Urine Urobilinogen 0.2 (0.2) E.U./dL Ur Leukocyte Esterase Negative (NEGATIVE) Blood Type B Positive Antibody Screen Negative Crossmatch See Detail 04/25/19 04/25/19 04/25/19 Range/Units 05:00 05:00 09:30 WBC 7.5 6.1 (4.5-11.0) X10^3/uL RBC 3.93 L 3.44 L (4.0-5.2) X10^6/uL Hgb 7.4 L 6.5 L* (12.0-16.0) g/dL Hct 24.5 L 21.8 L (36-46) % MCV 62.5 L 63.3 L (80-100) fL MCH 18.9 L 18.8 L (26-34) PG MCHC 30.2 29.7 L (30-36) % RDW 20.3 H 20.2 H (11.6-14.8) % Plt Count 350 298 (150-400) X10^3/uL Neut % (Auto) 44.1 L (50-75) % Lymph % (Auto) 45.9 H (25-40) % [place] % (Auto) 6.0 (3-14) % Eos % (Auto) 3.3 (2-4) % Baso % (Auto) 0.7 (0-2) % Neut # (Auto) 3300 (1353-1752) /uL Lymph # (Auto) 3400 (4585-4773) /uL [place] # (Auto) 400 (0-900) /uL Eos # (Auto) 200 (0-450) /uL Baso # (Auto) 100 (0-100) /uL RBC Morphology See below Polychromasia Hypochromasia 2+ H Anisocytosis 3+ H Microcytosis 2+ H PT (10.1-12.7) SECONDS INR (0.9-1.3) APTT (26.4-36.2) SECONDS Sodium 137 (137-145) mmol/L Potassium 3.2 L (3.4-5.1) mmol/L Chloride 97 L (98-107) mmol/L Carbon Dioxide 31 (22-32) mmol/L BUN 15 (7-17) mg/dL Creatinine 0.80 (0.52-1.04) mg/dL Estimated GFR > 60.0 (>60) mL/min BUN/Creatinine Ratio 18.8 (6-22) Glucose 103 H (70-100) mg/dL Calcium 10.0 (8.4-10.2) mg/dL Magnesium 1.8 (1.6-2.3) mg/dL Total Bilirubin 0.3 (0.2-1.3) mg/dL AST 46 H (14-36) IU/L ALT 29 (<35) IU/L Alkaline Phosphatase 69 (38-126) U/L Total Creatine Kinase (30-135) U/L CK-MB (CK-2) CK-MB (CK-2) Rel Index Troponin I (0.01-0.034) ng/mL Total Protein 6.9 (6.3-8.2) g/dL Albumin 3.9 (3.5-5.0) g/dL Globulin 3.0 (1.7-4.1) g/dL Albumin/Globulin Ratio 1.3 (1.0-2.8) Urine Color Urine Appearance Urine pH (4.5-8.0) Ur Specific [place] (1.000-1.035) Urine Protein (Negative) Urine Glucose (UA) (Negative) g/dL Urine Ketones (NEGATIVE) Urine Occult Blood (Negative) Urine Nitrate (Negative) Urine Bilirubin (NEGATIVE) Urine Urobilinogen (0.2) E.U./dL Ur Leukocyte Esterase (NEGATIVE) Blood Type Antibody Screen Crossmatch 04/25/19 Range/Units 09:30 WBC (4.5-11.0) X10^3/uL RBC (4.0-5.2) X10^6/uL Hgb (12.0-16.0) g/dL Hct (36-46) % MCV (80-100) fL MCH (26-34) PG MCHC (30-36) % RDW (11.6-14.8) % Plt Count (150-400) X10^3/uL Neut % (Auto) (50-75) % Lymph % (Auto) (25-40) % [place] % (Auto) (3-14) % Eos % (Auto) (2-4) % Baso % (Auto) (0-2) % Neut # (Auto) (6592-5347) /uL Lymph # (Auto) (7083-4687) /uL [place] # (Auto) (0-900) /uL Eos # (Auto) (0-450) /uL Baso # (Auto) (0-100) /uL RBC Morphology Polychromasia Hypochromasia Anisocytosis Microcytosis PT (10.1-12.7) SECONDS INR (0.9-1.3) APTT (26.4-36.2) SECONDS Sodium (137-145) mmol/L Potassium (3.4-5.1) mmol/L Chloride (98-107) mmol/L Carbon Dioxide (22-32) mmol/L BUN (7-17) mg/dL Creatinine (0.52-1.04) mg/dL Estimated GFR (>60) mL/min BUN/Creatinine Ratio (6-22) Glucose (70-100) mg/dL Calcium (8.4-10.2) mg/dL Magnesium (1.6-2.3) mg/dL Total Bilirubin (0.2-1.3) mg/dL AST (14-36) IU/L ALT (<35) IU/L Alkaline Phosphatase (38-126) U/L Total Creatine Kinase 79 (30-135) U/L CK-MB (CK-2) TNP CK-MB (CK-2) Rel Index TNP Troponin I < 0.012 (0.01-0.034) ng/mL Total Protein (6.3-8.2) g/dL Albumin (3.5-5.0) g/dL Globulin (1.7-4.1) g/dL Albumin/Globulin Ratio (1.0-2.8) Urine Color Urine Appearance Urine pH (4.5-8.0) Ur Specific [place] (1.000-1.035) Urine Protein (Negative) Urine Glucose (UA) (Negative) g/dL Urine Ketones (NEGATIVE) Urine Occult Blood (Negative) Urine Nitrate (Negative) Urine Bilirubin (NEGATIVE) Urine Urobilinogen (0.2) E.U./dL Ur Leukocyte Esterase (NEGATIVE) Blood Type Antibody Screen Crossmatch Urine Dip Bedside Urine Glucose Negative Bedside Urine Bilirubin - Negative Bedside Urine Ketone - Negative Urine Specific [place] 1.005 Bedside Urine Occult Blood - Negative Bedside Urine pH 8.5 Bedside Urine Protein - Negative Bedside Urine Urobilinogen - Negative Bedside Urine Nitrite - Negative Bedside Urine Leukocytes - Negative Esterase Discharge Plan Departure Patient Disposition: Admitted as Observation Clinical Impression: Acute GI bleeding Discharge Date/Time: 04/24/19 16:35 Referrals: Tammy Harvey MD [Primary Care Provider] - Admit Date/Time: 04/25/19 14:09 Admit Provider: Kylie Welch
[2019-04-24] MEDS: MORPHINE 4 MG/ML INJ IV (14:58)
[2019-04-24] MEDS: POTASSIUM CHLORIDE 20 MEQ TAB 40 MEQ PO (14:58)
[2019-04-24] MEDS: PANTOPRAZOLE 40 MG VIAL IV ×2 (16:14→20:35)
--- NOTE | 2019-04-24 16:17 | PC.NURSE ---
Luis, [employer] performed hemoccult, it was positive for blood.
--- NOTE | 2019-04-24 16:28 | P.HP_ITS ---
History of Present Illness History of Present Illness Date Patient Seen: 04/24/19 Time Patient Seen: 16:28 Chief complaint: per phy/ rectal bleeding/ pain 1x vomiting 3xmonth Narrative: This is a 53 yo woman with history of obesity, chronic abdominal pain (patient refers to it as IBS), chronic constipation, depression, anxiety, GERD/gastritis, with history of x 4, cholecystectomy, and hysterectomy. She came into the ED today with her daughter for c/o bright red rectal bleeding and clots which fills up the toilet bowl for last 3-4 months when she has bowel movements. She reports lower abdominal pressure and discomfort with intermittent chills with nausea and vomiting. She denies chest pain, breathing difficulty but at times feels dizzy with changing in position. She states that she never has normal bowel movements, but rather they are small pebble like stools with significant straining. She reports a history of hemorrhoids which are bothering her more right now. She reports significant abdominal cramping and pressure with discomfort in the abdomen and rectum region. She describes symptoms of urinary urgency. She is afraid to eat now because of abdominal discomfort and nausea and has been drinking protein shakes and small amount of soups. She feels she is getting worse, and now has significant malaise, and feels she can not keep down much PO intake. She uses stool softener daily and also takes 20 ibuprofen per day for chronic back pain for last 3-4 years. She believes she had a colonoscopy in 2006 for similar symptoms. ROS: General: Denies fever, reports chills, fatigue, malaise, sweats. Reports 13 pound unexplained weight loss in recent months HEENT: Denies sinus pain, ear pain, sore throat, difficulty swallowing, d izziness. Respiratory: Denies dyspnea, cough, wheezing, hemoptysis, sputum. Cardiovascular: Denies chest pain, palpitations, orthopnea, edema. Gastrointestinal: See HPI : Reports urinary urgency. Denies dysuria, frequency, incontinence, hematuria, urinary retention. Musculoskeletal: Reports weakness, denies joint pain or bony pain. Skin: Denies rash, skin lesions, or other. Neurologic: Denies headache, numbness, change in speech, confusion, seizures, incoordination. Psychiatric: Reports depression and anxiety related to deaths of several family members in the past year 12-point review of systems is negative except for those stated above. PE: GENERAL: Pale and ill appearing. Appears stated age. Answers questions promptly and appropriately. Vital signs noted. HENT: Normocephalic, atraumatic. Hearing intact. Oral mucosa is pink and moist. EYES: Conjunctiva pink, sclera white, no periorbital swelling. CARDIOVASCULAR: Regular rate. No pedal edema. RESPIRATORY: Non-tachypneic, breathing comfortably on room air. GASTROINTESTINAL: Abdomen soft, nondistended, moderately TTP in BL lower quadrants Perianal: large soft external hemorrhoids, non-thrombosed, non bleeding; some prolapsing internal hemorrhoids which are excoriated but not actively bleeding NANCY: normal tone; no masses, TTP anterior and posterior midline; Large internal hemorrhoids GENITALURINARY: No flank tenderness. MUSCULOSKELETAL: Equal tone and mass bilaterally. SKIN: Warm, dry, soft, appropriate color for ethnicity. No other lesions, rashes, or wounds. NEURO: Alert and Oriented X 3. No gross sensory deficits, or cognitive issues. PSYCH: perseverating speech, tangential thought processes, depressed mood and affect Patient History Medical History Anxiety (Chronic 1999) Chronic back pain (Chronic 2008) Depression (Chronic 1999) Endometriosis (Resolved) External hemorrhoid, bleeding (Chronic) Fibroids (Resolved) Hypertension (Chronic) IBS (irritable bowel syndrome) (Chronic 1994) Lumbar spine pain (Chronic) Melanoma of face (Resolved 2013) Migraines (Chronic 1994) Ovarian cyst (Resolved 1984) Urinary incontinence (Chronic) Surgical History Anesthesia (Resolved) History of gynecologic surgery (Resolved 07/07/15) History of ovarian cystectomy (Resolved 1984) Status post delivery (Resolved 1990) Status post delivery (Resolved 1992) Status post colonoscopy (Resolved 10/22/06) Status post hysterectomy (Resolved 2008) Status post laparoscopic cholecystectomy (Resolved 2008) Family & Social History Family History Father Age: 72 Type 1 diabetes Grandfather Cancer Heart disease Hypertension Dementia Grandmother Age: 90 Heart disease Dementia Mother Age: 73 Depression Multiple personality disorder Suicide attempt Sister Age: 47 Depression Sister Homeless Family/Other Family history of thyroid problem Diabetes mellitus Family/Other Diabetes mellitus Family history of thyroid problem Safety & Behavioral: Feels Safe in Current Yes Environment Been Physically Hurt or No Threatened By a Person Tobacco & Substance use: Smoking Status Never smoker alcohol intake frequency 0-2 drinks per day Substance Use Type does not use Meds Home Medications and Allergies Home Medications Medication Instructions Recorded Confirmed Type docusate sodium 250 mg PO QDAY #30 cap 01/01/16 04/12/19 Rx estradiol 1 mg tablet 1 mg PO QDAY #90 tab 09/07/18 04/12/19 Rx bupropion HCl 150 mg 24 hr tablet, 450 mg PO QAM #90 tab 11/20/18 04/12/19 Rx extended release omeprazole 20 mg capsule,delayed 20 mg PO DAILY #60 cap 11/23/18 04/12/19 Rx release chlorthalidone 25 mg tablet 25 mg PO QAM #14 tab 12/28/18 04/12/19 Rx alprazolam 0.25 mg tablet 0.25 mg PO TID PRN #90 tab 04/12/19 04/12/19 Rx citalopram 20 mg tablet 20 mg PO DAILY #90 tab 04/12/19 04/12/19 Rx Allergies Allergy/AdvReac Type Severity Reaction Status Date / Time codeine Allergy Mild VOMITING Verified 04/24/19 12:27 fluoxetine AdvReac Severe Agitated Verified 04/24/19 12:27 pain contract Allergy Unknown Uncoded 04/24/19 12:27 Exam Vital Signs (past 8 hours): - 04/24/19 12:20 04/24/19 13:00 04/24/19 13:36 Temperature 98.8 F Pulse Rate 73 63 59 L Respiratory Rate 15 18 18 Blood Pressure 156/93 H Blood Pressure [Right Arm] 129/75 131/70 Pulse Oximetry 99 100 99 04/24/19 15:41 04/24/19 16:00 Temperature 98.3 F Pulse Rate 70 61 Respiratory Rate 18 15 Blood Pressure Blood Pressure [Right Arm] 144/75 H 132/51 L Pulse Oximetry 99 100 Oxygen Delivery Method Room Air Objective Labs Result Diagrams: 04/24/19 12:38 04/24/19 12:38 Labs: Laboratory Results - last 24 hr 04/24/19 04/24/19 04/24/19 12:38 12:38 12:38 WBC 8.5 RBC 4.71 Hgb 8.9 L Hct 29.4 L MCV 62.3 L MCH 18.8 L MCHC 30.2 RDW 20.4 H Plt Count 434 H Neut % (Auto) 48.9 L Lymph % (Auto) 43.4 H [place] % (Auto) 5.2 Eos % (Auto) 1.8 L Baso % (Auto) 0.7 Neut # (Auto) 4200 Lymph # (Auto) 3700 [place] # (Auto) 400 Eos # (Auto) 200 Baso # (Auto) 100 RBC Morphology See below Polychromasia 1+ H Hypochromasia 2+ H Anisocytosis 2+ H Microcytosis 2+ H PT 12.3 INR 1.1 APTT 27 Sodium 139 Potassium 3.0 L Chloride 97 L Carbon Dioxide 31 BUN 24 H Creatinine 0.80 Estimated GFR > 60.0 BUN/Creatinine Ratio 30.0 H Glucose 89 Calcium 11.5 H Total Bilirubin 0.4 AST 27 ALT 20 Alkaline Phosphatase 87 Total Protein 8.3 H Albumin 4.7 Globulin 3.6 Albumin/Globulin Ratio 1.3 Blood Type Antibody Screen 04/24/19 12:38 WBC RBC Hgb Hct MCV MCH MCHC RDW Plt Count Neut % (Auto) Lymph % (Auto) [place] % (Auto) Eos % (Auto) Baso % (Auto) Neut # (Auto) Lymph # (Auto) [place] # (Auto) Eos # (Auto) Baso # (Auto) RBC Morphology Polychromasia Hypochromasia Anisocytosis Microcytosis PT INR APTT Sodium Potassium Chloride Carbon Dioxide BUN Creatinine Estimated GFR BUN/Creatinine Ratio Glucose Calcium Total Bilirubin AST ALT Alkaline Phosphatase Total Protein Albumin Globulin Albumin/Globulin Ratio Blood Type B Positive Antibody Screen Negative Assessment & Plan Assessment and plan (1) Acute GI bleeding: Problem details: Clear liquid diet, bowel prep, upper and lower endoscopy tomorrow once prep is done, recheck hemoglobin tonight and in the morning, type and screen, transfuse if hemoglobin less than 7 or symptomatic Current visit: Yes Status: Acute (2) Major depressive disorder, recurrent episode, moderate with atypical features: Problem details: Continue home meds Current visit: No Status: Acute (3) Essential hypertension: Problem details: Monitor blood pressure Current visit: No Status: None (4) Anemia: Current visit: Yes Status: Acute (5) Abdominal pain: Current visit: Yes Status: Acute (6) Chronic constipation: Current visit: Yes Status: Acute (7) Internal hemorrhoids: Current visit: Yes Status: Acute (8) External hemorrhoids: Current visit: Yes Status: Acute (9) IBS (irritable bowel syndrome): Current visit: No Status: Chronic (10) Urinary urgency: Problem details: Send UA, and culture Current visit: Yes Status: Acute (11) NSAID long-term use: Current visit: Yes Status: Acute Assessment & Plan narrative: This is a 53-year-old woman with chronic abdominal pain, which is now complicated by weight loss, significant anemia, increasing r ectal bleeding and malaise. At this point her symptoms are significant, and her anemia is concerning that she is at risk for significant morbidity a mortality. Therefore we will keep her in the hospital for bowel prep and upper and lower endoscopy. Plan: Clear liquid diet GoLYTELY bowel prep NPO at 6:00 a.m. Repeat labs tonight and in the morning Correct electrolyte Give home psych meds Plan on upper and lower endoscopy tomorrow if bowel prep is completed Hold DVT prophylaxis Send UA and culture No antibiotics for right now PPI double dose Quality VTE Deep Vein Thrombosis/Pulmonary Embolism Present on Admission: No
[2019-04-24] MEDS: LACTATED RINGERS 1,000 ML 125 ML IV (17:45)
[2019-04-24] MEDS: PEG3350/SOD SULF,BICARB,CL/KCL 4,000 ML SOLUTION 4000 ML PO (17:55)
[2019-04-24] MEDS: HYDROMORPHONE 0.5 MG INJ IV (19:49)
[2019-04-24 20:37] LABS: Appearance Urine UA CLEAR; Bilirubin Urine UA NEGATIVE (NEGATIVE); Color Urine UA YELLOW; Glucose Urine UA NEGATIVE (Negative); Ketones Urine UA NEGATIVE (NEGATIVE); Leukocyte Esterase Urine UA NEGATIVE (NEGATIVE); Nitrite Urine UA NEGATIVE (Negative); Occult Blood Urine UA NEGATIVE (Negative); Protein Urine UA NEGATIVE (Negative); Urobilinogen Urine UA 0.2 E.U./dL (0.2)
[2019-04-24 20:39] LABS: pH Urine UA 7.5 (4.5-8.0)
[2019-04-24 20:42] LABS: Add Manual Diff / Slide Review NO; Basophils Absolute Auto 100 /uL (0-100); Basophils Percent Auto 0.6 % (0-2); Eosinophils Absolute Auto 200 /uL (0-450); Eosinophils Percent Auto 2.1 % (2-4); Hemoglobin 8.1 g/dL (12.0-16.0); Lymphocytes Absolute Auto 4000 /uL (1100-4500); Lymphocytes Percent Auto 41.8 % (25-40); Mean Corpuscular Hemoglobin 18.6 PG (26-34); Monocytes Absolute Auto 500 /uL (0-900); Monocytes Percent Auto 4.7 % (3-14); Neutrophils Absolute Auto 4900 /uL (1500-7000); Neutrophils Percent Auto 50.8 % (50-75); Platelet Count 391 X10^3/uL (150-400); Red Blood Cell Count 4.36 X10^6/uL (4.0-5.2); Red Cell Distribution Width 20.1 % (11.6-14.8); White Blood Cell Count 9.6 X10^3/uL (4.5-11.0)
--- NOTE | 2019-04-24 22:44 | PC.NURSE ---
Admit from ER. Bloody stool and constipation for multiple months, new onset vomiting brought patient to ER. Patient is taking bowel prep for AM colonoscopy/EDG. Clear liquid diet until 6am per Dr. Hernandez. Warm blankets and Dilaudid for abdominal pain. Some nausea late in evening but relieved when pain med was given. Hgb came back 8.1. Instructions to call MD for result under 8. Patient in bed, ambulatory to bathroom. Call light within reach.
[2019-04-25] VITALS (31 sets, daily range): BP systolic 79–154; BP diastolic 38–89; PULSE 54–80; RESP 10–20; TEMP 36.1–37.1; O2SAT 91–100
--- NOTE | 2019-04-25 | PATH_ITS ---
[facility] Accession Number: [id number] . 01 Material submitted: . PART A: gastrointestinal site - BIOPSY GASTRIC ANTRUM PART B: gastrointestinal site - GASTRIC POLYPS . 01 Clinical history: . PER PHY/RECTAL BLEEDING/PAIN 1X VOMITING 3X MONTH . 02 Diagnosis: A. Stomach, Antrum, Biopsy: Gastric antral mucosa with mild chronic inflammation and intestinal metaplasia. Intestinal metaplasia present in one of two biopsy fragments. Negative for Helicobacter organisms by immunohistochemistry. Negative for dysplasia or malignancy. . B. Gastric Polyps, Biopsies: Fundic gland polyps. No evidence of Helicobacter organisms on H/E stain. Negative for intestinal metaplasia. Negative for dysplasia and malignancy. [facility] 04/28/2019 1204 Local . 02 Electronically signed: . Neel Nguyen MD, PhD, Pathologist NPI- [id number] . 01 Gross description: . Part A: BIOPSY GASTRIC ANTRUM: Received in formalin are 2 fragment(s) of d[place], soft tissue measuring 0.1 x 0.1 x 0.1 cm to 0.2 x 0.1 x 0.1 cm submitted entirely in 1 cassette(s) Part B: GASTRIC POLYPS: Received in formalin are 2 fragment(s) of dac[place], soft tissue measuring 0.1 x 0.1 x 30.1 cm to 0.2 x 0.2 x 0.2 cm submitted entirely in 1 cassette(s) /[facility] 04/26/2019 1933 Local . 02 Microscopic: . Part A: An immunohistochemical stain was performed to evaluate for Helicobacter organisms and is negative. The control stain showed appropriate reactivity. . * This test was developed and its performance characteristics determined by [facility]. It has not been cleared or approved by the U.S. Food and Drug Administration. The FDA has determined that such clearance or approval is not necessary. This test is used for clinical purposes. It should not be regarded as investigational or for research. . 02 Pathologist provided ICD-10: K31.9, K31.7 . 02 CPT . 124774, 739422, R10144 Performed at: 01 [facility] [address] [id number] MD Patrick Mohr MD Phone: [phone] Performed at: 02 [facility] [address] [place] [id number] MD Joy Bravo MD Phone: [phone]
[2019-04-25] MEDS: HYDROMORPHONE 0.5 MG INJ IV ×3 (02:14→18:08)
[2019-04-25] MEDS: LACTATED RINGERS 1,000 ML 125 ML IV ×3 (02:15→23:57)
[2019-04-25] MEDS: PEG3350/SOD SULF,BICARB,CL/KCL 4,000 ML SOLUTION 2000 ML PO (03:42)
[2019-04-25 05:31] LABS: Add Manual Diff / Slide Review SLIDE REVIEW; Basophils Absolute Auto 100 /uL (0-100); Basophils Percent Auto 0.7 % (0-2); Eosinophils Absolute Auto 200 /uL (0-450); Eosinophils Percent Auto 3.3 % (2-4); Hematocrit 24.5 % (36-46); Hemoglobin 7.4 g/dL (12.0-16.0); Lymphocytes Absolute Auto 3400 /uL (1100-4500); Lymphocytes Percent Auto 45.9 % (25-40); Mean Corpuscular HGB Conc 30.2 % (30-36); Mean Corpuscular Hemoglobin 18.9 PG (26-34); Mean Corpuscular Volume 62.5 fL (80-100); Monocytes Absolute Auto 400 /uL (0-900); Neutrophils Absolute Auto 3300 /uL (1500-7000); Neutrophils Percent Auto 44.1 % (50-75); Platelet Count 350 X10^3/uL (150-400); Red Blood Cell Count 3.93 X10^6/uL (4.0-5.2); Red Cell Distribution Width 20.3 % (11.6-14.8); White Blood Cell Count 7.5 X10^3/uL (4.5-11.0)
[2019-04-25 05:36] LABS: Alanine Aminotransferase 29 IU/L (<35); Albumin 3.9 g/dL (3.5-5.0); Albumin Globulin Ratio 1.3 (1.0-2.8); Alkaline Phosphatase 69 U/L (38-126); Aspartate Aminotransferase 46 IU/L (14-36); BUN Creatinine Ratio 18.8 (6-22); Bilirubin Total 0.3 mg/dL (0.2-1.3); Blood Urea Nitrogen 15 mg/dL (7-17); Carbon Dioxide 31 mmol/L (22-32); Chloride 97 mmol/L (98-107); Estimated Glomerular Filt Rate > 60.0 mL/min (>60); Glucose 103 mg/dL (70-100); HEMOLYSIS < 15 (0-50); Magnesium 1.8 mg/dL (1.6-2.3); Potassium 3.2 mmol/L (3.4-5.1); Sodium 137 mmol/L (137-145); Total Protein 6.9 g/dL (6.3-8.2)
--- NOTE | 2019-04-25 06:03 | PC.NURSE ---
DR. Welch called earlier @ 0320 ordered to give another 2 liters of GoLYTELY to be done by 0600. Pt. already done drinking 2000 ml. of GoLYTELY solution, but her stool still blackish-brown & tarry. She C/O abdominal distention & reported it seems like the GoLYTELY is just set in my stomach & does not go through my intestine . No C/O nausea & no vomiting noted, Dr. Welch notified no new order received. Will monitor.
[2019-04-25] MEDS: MAGNESIUM SULFATE 2 GM/50 ML PIGGYBACK IV (06:28)
[2019-04-25 06:43] LABS: Hypochromasia 2+
[2019-04-25 06:44] LABS: Anisocytosis 3+; Microcytosis 2+
[2019-04-25 06:46] LABS: Anisocytosis 3+; Hypochromasia 2+; Microcytosis 2+
--- NOTE | 2019-04-25 08:04 | P.PN_ITS ---
Subjective Subjective Date Patient Seen: 04/25/19 Time Patient Seen: 08:04 Interval history: Pt took in 6L of golytely prep overnight. Stool is loose, but not clear. Exam Vital Signs (past 8 hours): - 04/25/19 04:10 Temperature 98.4 F Pulse Rate 57 L Respiratory Rate 16 Blood Pressure 118/67 Pulse Oximetry 99 Oxygen Delivery Method Room Air Oxygen Flow Rate 0 Narrative Exam Narrative: GENERAL: Pale and ill appearing. Appears stated age. Answers questions promptly and appropriately. Vital signs noted. HENT: Normocephalic, atraumatic. Hearing intact. Oral mucosa is pink and moist. EYES: Conjunctiva pink, sclera white, no periorbital swelling. CARDIOVASCULAR: Regular rate. No pedal edema. RESPIRATORY: Non-tachypneic, breathing comfortably on room air. GASTROINTESTINAL: Abdomen soft, nondistended, moderately TTP in BL lower quadrants GENITALURINARY: No flank tenderness. MUSCULOSKELETAL: Equal tone and mass bilaterally. SKIN: Warm, dry, soft, appropriate color for ethnicity. No other lesions, rashes, or wounds. NEURO: Alert and Oriented X 3. No gross sensory deficits, or cognitive issues. PSYCH: perseverating speech, tangential thought processes, depressed mood and affect Objective Labs Result Diagrams: 04/25/19 05:00 04/25/19 05:00 Labs: Laboratory Results - last 24 hr 04/24/19 04/24/19 04/24/19 12:38 12:38 12:38 WBC 8.5 RBC 4.71 Hgb 8.9 L Hct 29.4 L MCV 62.3 L MCH 18.8 L MCHC 30.2 RDW 20.4 H Plt Count 434 H Neut % (Auto) 48.9 L Lymph % (Auto) 43.4 H [place] % (Auto) 5.2 Eos % (Auto) 1.8 L Baso % (Auto) 0.7 Neut # (Auto) 4200 Lymph # (Auto) 3700 [place] # (Auto) 400 Eos # (Auto) 200 Baso # (Auto) 100 RBC Morphology See below Polychromasia 1+ H Hypochromasia 2+ H Anisocytosis 2+ H Microcytosis 2+ H PT 12.3 INR 1.1 APTT 27 Sodium 139 Potassium 3.0 L Chloride 97 L Carbon Dioxide 31 BUN 24 H Creatinine 0.80 Estimated GFR > 60.0 BUN/Creatinine Ratio 30.0 H Glucose 89 Calcium 11.5 H Magnesium Total Bilirubin 0.4 AST 27 ALT 20 Alkaline Phosphatase 87 Total Protein 8.3 H Albumin 4.7 Globulin 3.6 Albumin/Globulin Ratio 1.3 Urine Color Urine Appearance Urine pH Ur Specific [place] Urine Protein Urine Glucose (UA) Urine Ketones Urine Occult Blood Urine Nitrate Urine Bilirubin Urine Urobilinogen Ur Leukocyte Esterase Blood Type Antibody Screen Crossmatch 04/24/19 04/24/19 04/24/19 12:38 18:00 20:12 WBC 9.6 RBC 4.36 Hgb 8.1 L Hct 27.0 L MCV 62.0 L MCH 18.6 L MCHC 30.0 RDW 20.1 H Plt Count 391 Neut % (Auto) 50.8 Lymph % (Auto) 41.8 H [place] % (Auto) 4.7 Eos % (Auto) 2.1 Baso % (Auto) 0.6 Neut # (Auto) 4900 Lymph # (Auto) 4000 [place] # (Auto) 500 Eos # (Auto) 200 Baso # (Auto) 100 RBC Morphology See below Polychromasia Hypochromasia 2+ H Anisocytosis 3+ H Microcytosis 2+ H PT INR APTT Sodium Potassium Chloride Carbon Dioxide BUN Creatinine Estimated GFR BUN/Creatinine Ratio Glucose Calcium Magnesium Total Bilirubin AST ALT Alkaline Phosphatase Total Protein Albumin Globulin Albumin/Globulin Ratio Urine Color Yellow Urine Appearance Clear Urine pH 7.5 Ur Specific [place] 1.010 Urine Protein Negative Urine Glucose (UA) Negative Urine Ketones Negative Urine Occult Blood Negative Urine Nitrate Negative Urine Bilirubin Negative Urine Urobilinogen 0.2 Ur Leukocyte Esterase Negative Blood Type B Positive Antibody Screen Negative Crossmatch See Detail 04/25/19 04/25/19 05:00 05:00 WBC 7.5 RBC 3.93 L Hgb 7.4 L Hct 24.5 L MCV 62.5 L MCH 18.9 L MCHC 30.2 RDW 20.3 H Plt Count 350 Neut % (Auto) 44.1 L Lymph % (Auto) 45.9 H [place] % (Auto) 6.0 Eos % (Auto) 3.3 Baso % (Auto) 0.7 Neut # (Auto) 3300 Lymph # (Auto) 3400 [place] # (Auto) 400 Eos # (Auto) 200 Baso # (Auto) 100 RBC Morphology See below Polychromasia Hypochromasia 2+ H Anisocytosis 3+ H Microcytosis 2+ H PT INR APTT Sodium 137 Potassium 3.2 L Chloride 97 L Carbon Dioxide 31 BUN 15 Creatinine 0.80 Estimated GFR > 60.0 BUN/Creatinine Ratio 18.8 Glucose 103 H Calcium 10.0 Magnesium 1.8 Total Bilirubin 0.3 AST 46 H ALT 29 Alkaline Phosphatase 69 Total Protein 6.9 Albumin 3.9 Globulin 3.0 Albumin/Globulin Ratio 1.3 Urine Color Urine Appearance Urine pH Ur Specific [place] Urine Protein Urine Glucose (UA) Urine Ketones Urine Occult Blood Urine Nitrate Urine Bilirubin Urine Urobilinogen Ur Leukocyte Esterase Blood Type Antibody Screen Crossmatch Assessment & Plan Assessment and plan (1) NSAID long-term use: Current visit: Yes Status: Acute (2) Urinary urgency: Problem details: Send UA, and culture Current visit: Yes Status: Acute (3) External hemorrhoids: Current visit: Yes Status: Acute (4) Internal hemorrhoids: Current visit: Yes Status: Acute (5) Chronic constipation: Current visit: Yes Status: Acute (6) Abdominal pain: Current visit: Yes Status: Acute (7) Anemia: Problem details: Hgb now 7.4 from 8.9 on admission. Repeat Hgb set for 10AM. Will transfuse two units if hgb <7 at that time. Current visit: Yes Status: Acute (8) Acute GI bleeding: Problem details: NPO, plan for upper and lower endoscopy this AM around 11:00. Current visit: Yes Status: Acute (9) Major depressive disorder, recurrent episode, moderate with atypical features: Problem details: Continue home meds Current visit: No Status: Acute (10) Essential hypertension: Problem details: Monitor blood pressure Current visit: No Status: None Time Spent With Patient Time with patient: 25 - 35 minutes Quality VTE Deep Vein Thrombosis/Pulmonary Embolism Present on Admission: No
[2019-04-25] MEDS: PANTOPRAZOLE 40 MG VIAL IV ×2 (08:41→20:26)
[2019-04-25] MEDS: CHLORTHALIDONE 25 MG TABLET PO (08:41)
[2019-04-25] MEDS: CITALOPRAM 20 MG TABLET PO (08:41)
[2019-04-25] MEDS: buPROPion XL 150 MG TAB 450 MG PO (08:41)
[2019-04-25] MEDS: POTASSIUM CHLORIDE 20 MEQ in SODIUM CHLORIDE 0.9% 250 ML 130 ML IV (09:21)
[2019-04-25 09:53] LABS: Creatine Kinase 79 U/L (30-135)
--- NOTE | 2019-04-25 10:02 | CM.DANOTE ---
DCP: Case received, EMR reviewed and met with patient. Skip, and other family members in room. Introduced self and role. Was able to briefly obtain baseline history and health information. DCP assessment completed with information currently available. Patient is a 53 year old female who admitted yesterday afternoon to the care of the hospitalist team. PCP: Wes Drew. Payer: confirmed: [facility]. Patient came to the hospital via family vehicle secondary to rectal bleeding, as well as abdominal pain and vomiting. Patient holds diagnosis of acute GI bleed ad well as anemia. She will be having a lower endoscopy today. Patient also has history of depression. Met with patient in her room, she had been up to the restroom shortly prior to visit. She was laying in bed, pleasant, alert and oriented. She is currently employed at [employer], and lives in [place] with her spouse, Skip, who was in room. She is independent with all ADLS. P: DCP to continue to follow closely. Patient should be able to go home when she is medically stable. Alise Carmona RN/Financial Intern
[2019-04-25 10:06] LABS: Troponin I < 0.012 ng/mL (0.01-0.034)
[2019-04-25 10:21] LABS: Hematocrit 21.8 % (36-46); Mean Corpuscular HGB Conc 29.7 % (30-36); Mean Corpuscular Hemoglobin 18.8 PG (26-34); Mean Corpuscular Volume 63.3 fL (80-100); Platelet Count 298 X10^3/uL (150-400); Red Blood Cell Count 3.44 X10^6/uL (4.0-5.2); Red Cell Distribution Width 20.2 % (11.6-14.8); White Blood Cell Count 6.1 X10^3/uL (4.5-11.0)
[2019-04-25 10:23] LABS: Hemoglobin 6.5 g/dL (12.0-16.0)
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
--- NOTE | 2019-04-25 11:08 | DI.RAD.S_ITS ---
PROCEDURE: XR CHEST 1V INDICATIONS: chest pain TECHNIQUE: One view of the chest was acquired. COMPARISON: [facility], , CHEST 1 VIEW, 12/21/2008, 19:11. FINDINGS: Surgical changes and devices: None. Lungs and pleura: Lungs are clear. No pleural effusions or pneumothorax. Mediastinum: Mediastinal contours appear normal. Heart size is normal. Bones and chest wall: No suspicious bony lesions. Age-appropriate bony degenerative changes are seen. Overlying soft tissues appear unremarkable. IMPRESSION: Portable chest within normal limits. Dictated by: Heron Kimble M.D. on 04/25/2019 at 11:54 Approved by: Heron Kimble M.D. on 04/25/2019 at 11:55
[2019-04-25] MEDS: ALPRAZolam 0.25 MG TABLET PO ×2 (12:10→20:07)
--- NOTE | 2019-04-25 14:40 | PC.NURSE ---
Day Shift Alerted by previous shift that bowel prep was not complete. Pt had BM in hat in toilet at change of shift and it was opaque brown liquid stool with bright red blood and a blood clot around quarter size. pt up with SBA. pt c/o pain in abd and NAJERA. she reports NAJERA is related not taking bupropion, this was provided to pt. She received dose of IV dilaudid at 0841. She got up 10-15 min after admin and up to bathroom. In bathrrom she c/o chest pain, tightness in her chest, Little stool and more bright red blood diluted. stool is not clear. Returned pt to bed, check VS, VSS. Notified Dr Welch, stat EKG ordered and order for cardiac labs. Pt in bed and after about 20 min, notified that she is having pain in her R arm, feels like it is inside her arm. VS checked and BP was 83/38 on R arm and 79/49 on L arm. Rechecked a few min later and back up to 102/54. Dr Eagle arrived on floor and updated. Order to start 2 units PRBCs as well. !st unit started at 1000. by the end of the 1st unit infusing, pt is sitting up in bed more and more alert, states she feels better. Started 2nd unit and she tolerated without any transfusion issues. BM drastically slowed down. She did have anxiety issues, medicated with 0.25 mg xanax. She was able to rest. She reports she has not slept last night or the night before for any significant amount of time. Pt down for egd/colonoscopy around 1430. and daughter present on a off during shift. went downstairs with pt for scope.
--- NOTE | 2019-04-25 16:04 | PM.OP.ENDO ---
Operative Date/Time/Diagnoses Date of procedure: 04/25/19 Time of procedure: 16:04 Pre-op diagnosis: GI bleed Post-op diagnosis: other (Large external hemorrhoids, poor prep, no gross evidence of source of bleeding) Procedure & Clinicians Study performed: EGD and colonoscopy to hepatic flexure, biopsies of antrum gastritis and gastric polyps Same procedure as scheduled: Yes Indications: GI bleed, hemoglobin 6.5 Surgeon: Kylie Welch Procedure Notes SCOAP/Timeout: Performed Procedure in detail: The patient was brought to the room and general anesthesia was induced the patient was intubated with an ET tube by . She was then placed in left lateral decubitus position with all bony prominences padded. Once adequately sedated the procedure was begun. A bite block was placed in the mouth to protect the teeth from the scope. The gastroscope was then passed over the tongue and into the esophagus without incident. A tubular view of the esophagus was maintained as the scope was advanced down the esophagus into the stomach. The gastroscope was then passed through the pylorus and into the 1st part of the duodenum. It was flexed into the 2nd part of the duodenum. The duodenal mucosa appeared normal, with no signs of duodenitis or bleeding. There were no lesions seen in the duodenum. The scope was then retracted into the duodenal bulb and then back into the stomach. There was mild gastritis at the antrum and pylorus, and this was biopsied x2 with cold forceps. In the body of the stomach there were several small polyps, these were also biopsied. The scope was flexed to look up at the hiatus, and there was no significant gaping of the mucosa around the scope. Retracted the scope then out of the stomach and into the esophagus. The Z-line appeared regular without significant abnormality. There was no signs of esophagitis. On retracting the scope through the esophagus there were powerful discordant contractions seen around the scope. This may be just secondary to the procedure being done, or baseline esophageal spasm. Once the scope was withdrawn from the mouth the patient was turned and attention was turned to the colonoscopy portion of the procedure. A rectal exam was performed revealing large external hemorrhoids with excoriated prolapsing internal hemorrhoids with stigmata of recent bleeding. The colonoscope was then introduced to the rectum and advanced carefully through the colon. The bowel prep was very poor, and there was solid stool as well as adherent stool to the muhammad of the colon. The scope was advanced to the padded flexure, and no gross blood was seen. The stool appear quite normal. The scope could not be safely advanced any further at this point. The scope was then retracted while rotating side to side and examining each mucosal fold. At the conclusion of the procedure retroflexion was performed and large grade 2-3 internal hemorrhoids with stigmata of bleeding were seen. The scope was then withdrawn from the rectum the procedure was concluded. The patient tolerated the procedure well and was transferred to the PACU in stable condition. Scope withdrawal time: 15 Findings: gastritis, internal hemorrhoids and polyp (Gastric polyps) Specimen(s): other (Gastric polyps, antral biopsies) Complications: none Impression: No significant source of bleeding other than internal and external hemorrhoids, poor view of colon due to poor prep. Post-procedure Plan for aftercare: Repeat bowel prep, and consider Re scope in 1-2 days. Disposition: PACU
[2019-04-25] MEDS: ONDANSETRON 4 MG/2 ML INJ IV (17:03)
--- NOTE | 2019-04-25 17:28 | PC.NURSE ---
Addendum entered by Rosa Castillo R.N. 04/25/19 22:16: Does report pain improved to abdomen although gassy feeling persists. Encouraged warm blankets, position changes, and easy on po fluids. Addendum entered by Rosa Castillo R.N. 04/25/19 22:10: Reports nausea persists as well as bubbly feeling in abdomen. Up to commode multiple times for stool and void. No bloody stools or clots passed this evening shift. Xanax given for c/o nausea. Pt resting quietly in bed with eyes closed on left side. BL calf scd's replaced. Bed alarm set and pt encouraged to call for needs. Addendum entered by Rosa Castillo R.N. 04/25/19 18:28: Dr. Welch has seen pt and pt's spouse this evening shift. Pt off of commode and into bed upon staff's suggestion. 200 cc's liquid stool with golf ball sized solid stool in commode. Pt admits to nausea, but no further emesis. Encouraged pt to go slow with po fluids. Ice chips provided. Pt c/o abdominal pain 8/10 and also states feels gas pain. Encouraged pt to lie on left side with knees drawn up. Warm blankets to abdomen. Refuses scd's at this time. Administered 0.5 mg iv dilaudid to manage pt's pain. Desats with sleep to 86% on room air. Placed on 2L per nc and saturation level increases to mid and upper 90's. Original Note: Pt to room 219 from PACU awake, alert, conversant, pale and c/o nausea. Requests assistance up to commode and has 100 cc emesis. Zofran administered. Lab in to draw CBC as per Dr. Welch. Pt's spouse is present in pt's room and attentive to pt's care.
[2019-04-25 17:29] LABS: Hematocrit 33.2 % (36-46); Hemoglobin 10.2 g/dL (12.0-16.0)
[2019-04-25 17:43] LABS: Creatine Kinase 92 U/L (30-135)
[2019-04-25 17:44] LABS: BUN Creatinine Ratio 15.7 (6-22); Blood Urea Nitrogen 11 mg/dL (7-17); Calcium 10.1 mg/dL (8.4-10.2); Carbon Dioxide 29 mmol/L (22-32); Chloride 104 mmol/L (98-107); Estimated Glomerular Filt Rate > 60.0 mL/min (>60); Glucose 102 mg/dL (70-100); HEMOLYSIS < 15 (0-50); Potassium 3.4 mmol/L (3.4-5.1); Sodium 140 mmol/L (137-145)
[2019-04-25 17:56] LABS: Troponin I < 0.012 ng/mL (0.01-0.034)
[2019-04-25] MEDS: SODIUM CHLORIDE 0.9% FLUSH 10 ML IV (20:26)
[2019-04-25] MEDS: OXYCODONE IR 5 MG TABLET PO (23:57)
[2019-04-26] VITALS (8 sets, daily range): BP systolic 109–119; BP diastolic 55–81; PULSE 55–70; RESP 16–19; TEMP 36.6–37.4; O2SAT 94–98
[2019-04-26] MEDS: HYDROMORPHONE 0.5 MG INJ IV ×2 (01:01→09:46)
[2019-04-26] MEDS: ALPRAZolam 0.25 MG TABLET PO (04:00)
--- NOTE | 2019-04-26 05:59 | PC.NURSE ---
Pt alert and oriented x4. SBA to restroom. Pt refusing tp use call light when getting out of bed. Bed alarm on. Pt reports pain and cramping in abdominal area. Resolved with giving IV dilaudid. Pt also requested xanex for anxiety. Pt reports that she takes xanex TID at home. Pt voiding without difficulty. Pt reports lots of gas in abdomin. Small loose brown bowel movement. Pt has no complaints at this time. WCTM
[2019-04-26 06:05] LABS: Alanine Aminotransferase 35 IU/L (<35); Albumin 3.5 g/dL (3.5-5.0); Albumin Globulin Ratio 1.2 (1.0-2.8); Alkaline Phosphatase 68 U/L (38-126); Aspartate Aminotransferase 36 IU/L (14-36); BUN Creatinine Ratio 14.3 (6-22); Bilirubin Total 0.4 mg/dL (0.2-1.3); Blood Urea Nitrogen 10 mg/dL (7-17); Calcium 9.9 mg/dL (8.4-10.2); Carbon Dioxide 30 mmol/L (22-32); Chloride 101 mmol/L (98-107); Estimated Glomerular Filt Rate > 60.0 mL/min (>60); Glucose 94 mg/dL (70-100); HEMOLYSIS < 15 (0-50); Potassium 3.4 mmol/L (3.4-5.1); Sodium 139 mmol/L (137-145); Total Protein 6.5 g/dL (6.3-8.2)
[2019-04-26 06:17] LABS: Basophils Absolute Auto 0 /uL (0-100); Basophils Percent Auto 0.3 % (0-2); Eosinophils Absolute Auto 300 /uL (0-450); Eosinophils Percent Auto 2.6 % (2-4); Hematocrit 29.2 % (36-46); Hemoglobin 9.1 g/dL (12.0-16.0); Lymphocytes Absolute Auto 2800 /uL (1100-4500); Lymphocytes Percent Auto 25.8 % (25-40); Mean Corpuscular HGB Conc 31.2 % (30-36); Mean Corpuscular Hemoglobin 20.4 PG (26-34); Mean Corpuscular Volume 65.5 fL (80-100); Monocytes Absolute Auto 600 /uL (0-900); Monocytes Percent Auto 5.4 % (3-14); Neutrophils Absolute Auto 7200 /uL (1500-7000); Neutrophils Percent Auto 65.9 % (50-75); Platelet Count 303 X10^3/uL (150-400); Red Blood Cell Count 4.46 X10^6/uL (4.0-5.2); Red Cell Distribution Width 22.5 % (11.6-14.8)
[2019-04-26 06:20] LABS: Add Manual Diff / Slide Review SLIDE REVIEW
[2019-04-26 06:50] LABS: Anisocytosis 3+; Microcytosis 2+
[2019-04-26] MEDS: OXYCODONE IR 5 MG TABLET PO ×4 (06:50→21:13)
[2019-04-26 06:51] LABS: Hypochromasia 2+; Magnesium 2.2 mg/dL (1.6-2.3)
[2019-04-26] MEDS: LACTATED RINGERS 1,000 ML 125 ML IV (06:52)
[2019-04-26 06:53] LABS: Polychromasia 1+
--- NOTE | 2019-04-26 08:25 | P.PN_ITS ---
Subjective Subjective Date Patient Seen: 04/26/19 Time Patient Seen: 08:25 Interval history: Patient feeling better today. Apparently last blood per rectum. No other significant change. Findings on endoscopy show hemorrhoids although large quantity of stool so was difficult to evaluate. Upper endoscopy showed a lot of esophageal spasms but no other changes. No active bleeding. No ulcers. Otherwise feeling better. Less cramping. No other changes. Exam Vital Signs (past 8 hours): - 04/26/19 06:41 04/26/19 06:52 04/26/19 06:57 Temperature 97.8 F Pulse Rate 55 L Respiratory Rate 16 Blood Pressure 112/55 L Pulse Oximetry 94 94 94 Oxygen Delivery Method Nasal Cannula Oxygen Flow Rate 0 Narrative Exam Narrative: Alert female more interactive and less fatigued in appearance no acute distress. Lungs clear. Heart regular rate and rhythm. Abdomen mildly obese positive bowel sounds mild abdominal pain but improved from yesterday. Extremities without cyanosis clubbing edema. Neurologic exam continues to be normal. Psychologically improved today. Objective Labs Result Diagrams: 04/26/19 05:00 04/26/19 05:00 Labs: Laboratory Results - last 24 hr 04/24/19 04/25/19 04/25/19 12:38 09:30 09:30 WBC 6.1 RBC 3.44 L Hgb 6.5 L* Hct 21.8 L MCV 63.3 L MCH 18.8 L MCHC 29.7 L RDW 20.2 H Plt Count 298 Neut % (Auto) Lymph % (Auto) [place] % (Auto) Eos % (Auto) Baso % (Auto) Neut # (Auto) Lymph # (Auto) [place] # (Auto) Eos # (Auto) Baso # (Auto) Sodium Potassium Chloride Carbon Dioxide BUN Creatinine Estimated GFR BUN/Creatinine Ratio Glucose Calcium Magnesium Total Bilirubin AST ALT Alkaline Phosphatase Total Creatine Kinase 79 CK-MB (CK-2) TNP CK-MB (CK-2) Rel Index TNP Troponin I < 0.012 Total Protein Albumin Globulin Albumin/Globulin Ratio Blood Type B Positive Antibody Screen Negative Crossmatch See Detail 04/25/19 04/25/19 04/25/19 17:00 17:00 17:00 WBC RBC Hgb 10.2 L Hct 33.2 L MCV MCH MCHC RDW Plt Count Neut % (Auto) Lymph % (Auto) [place] % (Auto) Eos % (Auto) Baso % (Auto) Neut # (Auto) Lymph # (Auto) [place] # (Auto) Eos # (Auto) Baso # (Auto) Sodium 140 Potassium 3.4 Chloride 104 Carbon Dioxide 29 BUN 11 Creatinine 0.70 Estimated GFR > 60.0 BUN/Creatinine Ratio 15.7 Glucose 102 H Calcium 10.1 Magnesium Total Bilirubin AST ALT Alkaline Phosphatase Total Creatine Kinase 92 CK-MB (CK-2) TNP CK-MB (CK-2) Rel Index TNP Troponin I < 0.012 Total Protein Albumin Globulin Albumin/Globulin Ratio Blood Type Antibody Screen Crossmatch 04/26/19 04/26/19 04/26/19 05:00 05:00 05:00 WBC 11.0 D RBC 4.46 Hgb 9.1 L Hct 29.2 L MCV 65.5 L MCH 20.4 L MCHC 31.2 RDW 22.5 H Plt Count 303 Neut % (Auto) 65.9 D Lymph % (Auto) 25.8 D [place] % (Auto) 5.4 Eos % (Auto) 2.6 Baso % (Auto) 0.3 Neut # (Auto) 7200 H Lymph # (Auto) 2800 [place] # (Auto) 600 Eos # (Auto) 300 Baso # (Auto) 0 Sodium Cancelled 139 Potassium Cancelled 3.4 Chloride Cancelled 101 Carbon Dioxide Cancelled 30 BUN Cancelled 10 Creatinine Cancelled 0.70 Estimated GFR Cancelled > 60.0 BUN/Creatinine Ratio Cancelled 14.3 Glucose Cancelled 94 Calcium Cancelled 9.9 Magnesium 2.2 Total Bilirubin 0.4 AST 36 ALT 35 H Alkaline Phosphatase 68 Total Creatine Kinase CK-MB (CK-2) CK-MB (CK-2) Rel Index Troponin I Total Protein 6.5 Albumin 3.5 Globulin 3.0 Albumin/Globulin Ratio 1.2 Blood Type Antibody Screen Crossmatch Assessment & Plan Assessment & Plan narrative: Chest pain. No recurrence of symptoms. Troponin and CPK were negative on repeat. Do not believe significant cardiac issue. No further workup unless patient has symptoms. I think this was a combination of multiple issues none of which were cardiac. GI bleed. Does not appear to be upper. Lower evaluation was difficult secondary to stool. At this point patient is going to get re-prepped and Libby evaluated tomorrow. Hemorrhoids with only thing found. Will continue to follow as per surgeon. Anemia. Acute blood loss. Patient was 33 yesterday in 29 this morning. Will recheck this afternoon although her bleeding seems to improve. Still concerning with loss. Hypokalemia. Will switch to oral today. Certainly improved. Back pain. Will obtain x-ray today. Follow. Depression. Will discuss with Dr. Vila. I believe this is going to have a huge impact on her ability to get better and I think she will need to be followed by her. We'll see how things go. DVT prophylaxis on SCDs. Disposition certainly will not be leaving until we can get her hematocrit stable. Certain probably Friday or depending on how things go. Quality VTE Deep Vein Thrombosis/Pulmonary Embolism Present on Admission: No
--- NOTE | 2019-04-26 08:31 | DI.RAD.S_ITS ---
PROCEDURE: XR LUMBAR SPINE 2-3V INDICATIONS: chronic back pain TECHNIQUE: 3 views of the lumbar spine were acquired. COMPARISON: [facility], , L-SPINE 2-3 VIEWS, 04/12/2010, 15:54. FINDINGS: Bones: 6 [id number] vertebrae are present, and the report from the similar study on slice 09/15 specify is 6 [id number] vertebral bodies, and this segmentation anatomy will be utilized in this study for consistency. There is normal bony alignment. No vertebral body compression fractures. No suspicious bony lesions. Degenerative disc disease is mild to moderate along the lumbosacral spine and becomes progressively more prominent as the L6-S1 level was approached. Note is made of facet osteoarthritis that becomes more prominent as the lumbosacral junction is reached. Soft tissues: Overlying bowel gas pattern is normal. No suspicious soft tissue calcifications. 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 As noted above the anatomy was described 04/12/10 and the segmentation and description of this study is based on that prior examination. Subluxation has not developed but there has been a mild degree of interval worsening of degenerative disc disease and facet osteoarthritis along the lumbosacral spine. Segmentation anomaly such as is present in this case does predispose to low back pain. Dictated by: Kulwinder Munoz M.D. on 04/26/2019 at 9:22 Approved by: Kulwinder Munoz M.D. on 04/26/2019 at 9:29
[2019-04-26] MEDS: buPROPion XL 150 MG TAB 450 MG PO (09:47)
[2019-04-26] MEDS: CITALOPRAM 20 MG TABLET PO (09:47)
[2019-04-26] MEDS: CHLORTHALIDONE 25 MG TABLET PO (09:47)
[2019-04-26] MEDS: SODIUM CHLORIDE 0.9% FLUSH 10 ML IV ×2 (09:48→22:26)
[2019-04-26] MEDS: PANTOPRAZOLE 40 MG VIAL IV ×2 (09:54→22:26)
--- NOTE | 2019-04-26 15:38 | PM.PNPO.1 ---
Subjective Subjective Date Patient Seen: 04/26/19 Time Patient Seen: 15:38 Interval history: No acute interval events. Yesterday underwent EGD negative colonoscopy nondiagnostic. No bloody bowel movements overnight no emesis. No abdominal pain. Exam Vital Signs (past 8 hours): - 04/26/19 07:50 04/26/19 13:22 Temperature 98.3 F 98.0 F Pulse Rate 62 57 L Respiratory Rate 16 16 Blood Pressure 113/73 109/66 Pulse Oximetry 97 97 Oxygen Delivery Method Nasal Cannula Oxygen Flow Rate 0 Narrative Exam Narrative: General adult female alert oriented no acute distress Chest nonlabored respiration Abdomen soft nontender nondistended Objective Labs Result Diagrams: 04/26/19 05:00 04/26/19 05:00 Labs: Laboratory Results - last 24 hr 04/25/19 04/25/19 04/25/19 17:00 17:00 17:00 WBC RBC Hgb 10.2 L Hct 33.2 L MCV MCH MCHC RDW Plt Count Neut % (Auto) Lymph % (Auto) [place] % (Auto) Eos % (Auto) Baso % (Auto) Neut # (Auto) Lymph # (Auto) [place] # (Auto) Eos # (Auto) Baso # (Auto) RBC Morphology Polychromasia Hypochromasia Anisocytosis Microcytosis Sodium 140 Potassium 3.4 Chloride 104 Carbon Dioxide 29 BUN 11 Creatinine 0.70 Estimated GFR > 60.0 BUN/Creatinine Ratio 15.7 Glucose 102 H Calcium 10.1 Magnesium Total Bilirubin AST ALT Alkaline Phosphatase Total Creatine Kinase 92 CK-MB (CK-2) TNP CK-MB (CK-2) Rel Index TNP Troponin I < 0.012 Total Protein Albumin Globulin Albumin/Globulin Ratio 04/26/19 04/26/19 04/26/19 05:00 05:00 05:00 WBC 11.0 D RBC 4.46 Hgb 9.1 L Hct 29.2 L MCV 65.5 L MCH 20.4 L MCHC 31.2 RDW 22.5 H Plt Count 303 Neut % (Auto) 65.9 D Lymph % (Auto) 25.8 D [place] % (Auto) 5.4 Eos % (Auto) 2.6 Baso % (Auto) 0.3 Neut # (Auto) 7200 H Lymph # (Auto) 2800 [place] # (Auto) 600 Eos # (Auto) 300 Baso # (Auto) 0 RBC Morphology See below Polychromasia 1+ H Hypochromasia 2+ H Anisocytosis 3+ H Microcytosis 2+ H Sodium Cancelled 139 Potassium Cancelled 3.4 Chloride Cancelled 101 Carbon Dioxide Cancelled 30 BUN Cancelled 10 Creatinine Cancelled 0.70 Estimated GFR Cancelled > 60.0 BUN/Creatinine Ratio Cancelled 14.3 Glucose Cancelled 94 Calcium Cancelled 9.9 Magnesium 2.2 Total Bilirubin 0.4 AST 36 ALT 35 H Alkaline Phosphatase 68 Total Creatine Kinase CK-MB (CK-2) CK-MB (CK-2) Rel Index Troponin I Total Protein 6.5 Albumin 3.5 Globulin 3.0 Albumin/Globulin Ratio 1.2 Assessment & Plan Post-op Postoperative Procedures: Procedures Operation Date: 04/25/19 15:05 Actual Procedures Side Surgeon p Esophagogastroduodenoscopy WITH BIOPSY/POLYPECTOMY Not Applicable Kylie Welch MD s Colonoscopy-ATTEMPTED Not Applicable Kylie Welch MD Operation Date: 04/27/19 12:15 <No data on this case meets the specified criteria> Postoperative status narrative: 53-year-old female admitted with GI bleed hemodynamically stable not requiring transfusion. EGD yesterday was negative, colonoscopy was incomplete secondary to inadequate prep. -clear liquid diet, NPO at midnight -bowel prep -colonoscopy 04/27 Quality VTE Deep Vein Thrombosis/Pulmonary Embolism Present on Admission: No
--- NOTE | 2019-04-26 15:43 | CM.DPC ---
DCP Cont: Per MD, pt not medically stable to d/c yet as bowel prep yesterday was not enough to prepare pt for scope and pt to receive additional bowel prep today towards colonoscopy tomorrow. MD had concerns with pt's profound depression and plans to consult with Psychiatrist Dr. Vila today for ongoing assist with med management and treatment. SW called [facility] and confirmed that Dr. Vila aware of pt's admit and confirmed that pt is an established patient of Dr. Vila's and has been attending once a month hour long appointments with her for about a year. Dr. Vila was able to come to the Acute Care for a consult with the pt today and will follow while pt is admitted and will continue to see her in the outpt setting and will let Care Management know if any further needs identified for mental health prior to d/c. Dr. Vila aware that pt has significant grief, trauma, mental health needs to work through senior living. IZABEL updated RN. Plan: SW to follow closely after colonoscopy tomorrow towards determining if pt will still be safe for return home at discharge and any further identified discharge planning needs. Patricia Sharp MSW
[2019-04-26 15:50] LABS: Hematocrit 29.4 % (36-46); Hemoglobin 9.2 g/dL (12.0-16.0)
[2019-04-26] MEDS: PEG3350/SOD SULF,BICARB,CL/KCL 4,000 ML SOLUTION 4000 ML PO (15:54)
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
[2019-04-26] MEDS: MAGNESIUM CITRATE 300 ML SOLUTION PO (22:25)
[2019-04-26] MEDS: CALCIUM CARBONATE 500 MG TAB PO (22:26)
[2019-04-27] VITALS (15 sets, daily range): BP systolic 98–140; BP diastolic 9–82; PULSE 55–64; RESP 11–20; TEMP 35.9–37.3; O2SAT 92–99; BMI 35.3
[2019-04-27] MEDS: OXYCODONE IR 5 MG TABLET PO ×3 (00:03→09:00)
--- NOTE | 2019-04-27 00:51 | PC.NURSE ---
Pt requesting sleep aide. Per Gaudencio MARQUEZ give 3 mg melatonin.
[2019-04-27] MEDS: LACTATED RINGERS 1,000 ML 125 ML IV ×2 (06:28→19:58)
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
[2019-04-27] MEDS: buPROPion XL 150 MG TAB 450 MG PO (09:00)
[2019-04-27] MEDS: POTASSIUM CHLORIDE 20 MEQ TAB 40 MEQ PO (09:00)
[2019-04-27] MEDS: CHLORTHALIDONE 25 MG TABLET PO (09:01)
[2019-04-27] MEDS: CITALOPRAM 20 MG TABLET PO (09:01)
[2019-04-27] MEDS: PANTOPRAZOLE 40 MG VIAL IV ×2 (09:02→20:30)
[2019-04-27] MEDS: SODIUM CHLORIDE 0.9% FLUSH 10 ML IV ×2 (09:02→20:30)
--- NOTE | 2019-04-27 09:02 | PM.PN.1 ---
Subjective Subjective Date Patient Seen: 04/27/19 Time Patient Seen: 09:02 Interval history: The patient is tearful and complaining of pain this morning, and says she is awaiting pain meds. She complains that Crystal Light was put into her bowel prep which was not appealing to her. Exam Vital Signs (past 8 hours): - 04/27/19 05:55 Temperature 98.3 F Pulse Rate 55 L Respiratory Rate 18 Blood Pressure 98/60 Pulse Oximetry 92 Oxygen Delivery Method Room Air Oxygen Flow Rate 0 Narrative Exam Narrative: GENERAL: Tearful. Agitated. Appears stated age. Nontoxic appearing. HENT: Normocephalic, atraumatic. Hearing intact. Oral mucosa is pink and moist. EYES: Conjunctiva pink, sclera white, no periorbital swelling. CARDIOVASCULAR: Slight bradycardia, heart rate 55, similar to previous. No pedal edema. RESPIRATORY: Non-tachypneic, breathing comfortably on room air. GASTROINTESTINAL: Abdomen mildly distended GENITALURINARY: No flank tenderness. MUSCULOSKELETAL: Equal tone and mass bilaterally. SKIN: Warm, dry, soft, appropriate color for ethnicity. No other lesions, rashes, or wounds. NEURO: No gross sensory deficits. PSYCH: Tearful, perseverating, tangential thought processes. Objective Labs Result Diagrams: 04/26/19 15:36 04/26/19 05:00 Labs: Laboratory Results - last 24 hr 04/26/19 04/26/19 05:00 15:36 Hgb 9.2 L Hct 29.4 L RBC Morphology See below Polychromasia 1+ H Hypochromasia 2+ H Anisocytosis 3+ H Microcytosis 2+ H Assessment & Plan Assessment and plan (1) Chronic constipation: Current visit: Yes Status: Acute (2) Abdominal pain: Problem details: Pain meds Current visit: Yes Status: Acute (3) Anemia: Problem details: Hgb stable over the last 2 checks. Patient denies any further bleeding from her bowel movements yesterday and today. Lab still pending this morning. Current visit: Yes Status: Acute (4) Acute GI bleeding: Problem details: NPO, plan for repeat colonoscopy today at 12:15 p.m.. Current visit: Yes Status: Acute (5) Major depressive disorder, recurrent episode, moderate with atypical features: Problem details: Continue home meds Current visit: No Status: Acute Assessment & Plan narrative: This is a 53-year-old woman who came in with an acute GI bleed and history of chronic abdominal pain and chronic constipation. She has been transfused 2 units on this admission, and her hemoglobin seems to be stable for the last 2 checks. We're still awaiting her morning labs, and planning for repeat colonoscopy today. A colonoscopy was attempted on Friday after 6 L of GoLYTELY prep, with solid stool still in the colon. Per the patient she has solid stool come out during her repeat prep yesterday, but no solid stool this morning. She is quite tearful and upset, likely combination of her baseline anxiety and the prolonged hospitalization, as well as distress from her chronic abdominal pain and having to take all the bowel prep again. She is certainly going through a stressful situation, which adds to the difficulty of her baseline depression and anxiety. We'll continue her home antidepressant medications, and any further recs from the psychiatry consult called yesterday. Will keep her hydrated with IV fluids, and NPO until after her colonoscopy procedure today. If I find nothing on her colonoscopy to explain her hemoglobin drop, she may need transfer for small-bowel double balloon enteroscopy or capsule endoscopy. I've discussed this with Dr. Harvey, and she will work on that if were not able to find anything in the colon to explain her bleed. Plan: NPO except for meds, IV fluids Colonoscopy today Do not sit on the toilet for more than 2 minutes at a time if nothing is coming out Walk around frequently Quality VTE Deep Vein Thrombosis/Pulmonary Embolism Present on Admission: No
[2019-04-27 09:27] LABS: Add Manual Diff / Slide Review NO; Basophils Absolute Auto 0 /uL (0-100); Basophils Percent Auto 0.5 % (0-2); Eosinophils Absolute Auto 400 /uL (0-450); Eosinophils Percent Auto 4.8 % (2-4); Hematocrit 32.2 % (36-46); Hemoglobin 9.9 g/dL (12.0-16.0); Lymphocytes Absolute Auto 3100 /uL (1100-4500); Lymphocytes Percent Auto 40.6 % (25-40); Mean Corpuscular HGB Conc 30.9 % (30-36); Mean Corpuscular Hemoglobin 20.3 PG (26-34); Mean Corpuscular Volume 65.8 fL (80-100); Monocytes Absolute Auto 400 /uL (0-900); Monocytes Percent Auto 5.6 % (3-14); Neutrophils Absolute Auto 3700 /uL (1500-7000); Neutrophils Percent Auto 48.5 % (50-75); Platelet Count 340 X10^3/uL (150-400); Red Cell Distribution Width 22.9 % (11.6-14.8); White Blood Cell Count 7.6 X10^3/uL (4.5-11.0)
[2019-04-27 09:41] LABS: Blood Urea Nitrogen 7 mg/dL (7-17); Calcium 10.5 mg/dL (8.4-10.2); Carbon Dioxide 32 mmol/L (22-32); Chloride 102 mmol/L (98-107); Estimated Glomerular Filt Rate > 60.0 mL/min (>60); Glucose 91 mg/dL (70-100); HEMOLYSIS < 15 (0-50); Magnesium 2.1 mg/dL (1.6-2.3); Potassium 3.4 mmol/L (3.4-5.1); Sodium 140 mmol/L (137-145)
[2019-04-27 09:47] LABS: Anisocytosis 2+; Hypochromasia 2+; Polychromasia 1+
[2019-04-27] MEDS: ALPRAZolam 0.25 MG TABLET PO (10:20)
[2019-04-27] MEDS: LACTATED RINGERS 1,000 ML 200 ML IV (10:21)
--- NOTE | 2019-04-27 12:03 | PC.NURSE ---
Addendum entered by Elkin Palomino R.N. 04/27/19 14:59: Patient alert and oriented this shift. Morning meds administered per Dr. Landa. Patient to endoscopy without incident, anticipate return to floor. Original Note: Nurse Note Patient reports latex allergy post admission allergy review. OR called to make aware prior to colonoscopy. Care is ongoing.
--- NOTE | 2019-04-27 12:17 | PM.PREOP ---
Pre-operative Note Interval Note History & Physical reviewed/Exam performed by Physician: Yes Changes to H&P: No ASA Class (for procedural sedation): III
[2019-04-27] MEDS: ONDANSETRON 4 MG/2 ML INJ IV (12:19)
[2019-04-27] MEDS: fentaNYL 250 MCG/5 ML INJ IV (12:23)
[2019-04-27] MEDS: MIDAZOLAM 5 MG/5 ML VIAL IV (12:30)
--- NOTE | 2019-04-27 12:37 | PM.OP.ENDO ---
Operative Date/Time/Diagnoses Date of procedure: 04/27/19 Time of procedure: 12:37 Pre-op diagnosis: GI bleed, chronic constipation Post-op diagnosis: other (incomplete prep) Procedure & Clinicians Study performed: incomplete colonoscopy to rectosigmoid juncition Same procedure as scheduled: No Indications: GI bleed, chronic constipation Surgeon: Kylie Welch Procedure Notes SCOAP/Timeout: Performed Procedure in detail: The patient was brought to the room and placed in left lateral decubitus position with all bony prominences padded. A time-out was performed and then the patient was given procedural sedation starting with 4 mg of Versed and 100 mcg of fentanyl. Total of 5 mg of Versed and 150 micro g of fentanyl were given for the procedure. Vitals were monitored throughout the procedure and remained stable. Once adequately sedated the procedure was begun. A rectal exam was performed revealing large external and internal hemorrhoids with some prolapse of internal hemorrhoids, no active bleeding. The colonoscope was then introduced to the rectum and advanced to rectosigmoid junction. There was a large solid pieces stool which was impassable. I attempted to snare it, was not able to remove it with the snare. At this point the procedure was aborted, and the patient was transferred to the recovery area. We will give some enemas and attempt 1 more time. Sedation minutes: 15 Findings: internal hemorrhoids Specimen(s): none sent Complications: none Impression: Retained solid stool after nearly 10 L of bowel prep. Post-procedure Recommendations: Other recommendation (Enemas in the recovery area and repeat colonoscopy.) Disposition: PACU
[2019-04-27] MEDS: FLEETS ENEMA 2 EACH PR ×2 (13:47→14:04)
--- NOTE | 2019-04-27 14:04 | SUR.PREOP ---
Patient completed first enema without difficulty, self-administered. Patient attempting second enema per orders. Instructed to call nurse when completed. V/U.
[2019-04-27] MEDS: FLEETS ENEMA 1 EACH PR ×2 (14:44→14:45)
--- NOTE | 2019-04-27 14:46 | SUR.PREOP ---
Patient back to bathroom to administer additional two enemas [id number] as ordered. Instructed patient to hold enemas for as long as possible prior to using bathroom. V /U.
--- NOTE | 2019-04-27 16:14 | SUR.PREOP ---
Patient unable to complete prep sufficiently for physician. Physician advising patient that she will need to return to inpatient room to complete an additional prep and will have procedure done the following day. Patient verbalizes understanding. Apologized to patient for delay.
--- NOTE | 2019-04-27 16:17 | CM.DPNOTE ---
DCP: continued: EMR reviewed: noted that Dr. Welch attempted an endoscopy procedure today but this was aborted due to hardened stool. Enemas are in process with plans to try the procedure again. DCP team will continue to follow.
--- NOTE | 2019-04-27 16:28 | SUR.PREOP ---
Report given to SAILAJA Rahman. This nurse transferring patient back to inpatient room.
[2019-04-27] MEDS: HYDROMORPHONE 0.5 MG INJ IV (17:20)
--- NOTE | 2019-04-27 17:40 | PC.NURSE ---
Carol [facility] shift note: 1700 patient returned to room 219 in WC from PACU, Colonoscopy was unsuccessful due to incomplete elimination/clear up. No dizziness, C/O cramping to abdomen, medicated as ordered. at bedside providing supportive care. IVF resumed. Tolerating clear liquid diet.
--- NOTE | 2019-04-27 22:30 | PC.NURSE ---
Carol Ann shift: Moderate amount light brown soft BM, bright blood streak noted with wiping only.
[2019-04-28] VITALS: BP 130/67; PULSE 62; RESP 16; TEMP 36.4; O2SAT 97
[2019-04-28] MEDS: OXYCODONE IR 5 MG TABLET PO ×2 (00:56→20:43)
[2019-04-28] MEDS: LACTATED RINGERS 1,000 ML 125 ML IV ×2 (03:54→15:00)
[2019-04-28 05:41] LABS: Basophils Absolute Auto 100 /uL (0-100); Basophils Percent Auto 0.9 % (0-2); Eosinophils Absolute Auto 500 /uL (0-450); Eosinophils Percent Auto 6.2 % (2-4); Hematocrit 28.9 % (36-46); Lymphocytes Absolute Auto 3200 /uL (1100-4500); Lymphocytes Percent Auto 40.2 % (25-40); Mean Corpuscular Hemoglobin 20.6 PG (26-34); Mean Corpuscular Volume 66.5 fL (80-100); Monocytes Absolute Auto 400 /uL (0-900); Neutrophils Absolute Auto 3800 /uL (1500-7000); Neutrophils Percent Auto 47.7 % (50-75); Platelet Count 301 X10^3/uL (150-400); Red Blood Cell Count 4.34 X10^6/uL (4.0-5.2); Red Cell Distribution Width 23.2 % (11.6-14.8); White Blood Cell Count 8.1 X10^3/uL (4.5-11.0)
[2019-04-28 05:42] LABS: Add Manual Diff / Slide Review SLIDE REVIEW
[2019-04-28 05:47] LABS: BUN Creatinine Ratio 7.5 (6-22); Blood Urea Nitrogen 6 mg/dL (7-17); Calcium 10.1 mg/dL (8.4-10.2); Carbon Dioxide 29 mmol/L (22-32); Chloride 102 mmol/L (98-107); Estimated Glomerular Filt Rate > 60.0 mL/min (>60); Glucose 87 mg/dL (70-100); HEMOLYSIS < 15 (0-50); Magnesium 1.9 mg/dL (1.6-2.3); Potassium 3.5 mmol/L (3.4-5.1); Sodium 138 mmol/L (137-145)
[2019-04-28 06:00] VITALS: BP 108/61; PULSE 51; RESP 16; TEMP 36
[2019-04-28 07:21] LABS: Anisocytosis 2+
--- NOTE | 2019-04-28 07:35 | P.PN_ITS ---
Subjective Subjective Date Patient Seen: 04/28/19 Time Patient Seen: 07:35 Interval history: Patient passed several bloody stools overnight. Hemoglobin remained stable Exam Vital Signs (past 8 hours): - 04/28/19 00:00 04/28/19 06:00 Temperature 97.5 F L 96.8 F L Pulse Rate 62 51 L Respiratory Rate 16 16 Blood Pressure 130/67 108/61 Pulse Oximetry 97 Oxygen Delivery Method Room Air Oxygen Flow Rate 0 Narrative Exam Narrative: GENERAL: Sleeping comfortably HENT: Normocephalic, atraumatic. Hearing intact. Oral mucosa is pink and moist. EYES: Conjunctiva pink, sclera white, no periorbital swelling. CARDIOVASCULAR: Regular rate. No pedal edema. RESPIRATORY: Non-tachypneic, breathing comfortably on room air. GASTROINTESTINAL: Abdomen soft and non-distended GENITALURINARY: No flank tenderness. MUSCULOSKELETAL: Equal tone and mass bilaterally. SKIN: Warm, dry, soft, appropriate color for ethnicity. No other lesions, rashes, or wounds. Objective Labs Result Diagrams: 04/28/19 04:55 04/28/19 04:55 Labs: Laboratory Results - last 24 hr 04/27/19 04/27/19 04/28/19 09:12 09:12 04:55 WBC 7.6 8.1 RBC 4.90 4.34 Hgb 9.9 L 9.0 L Hct 32.2 L 28.9 L MCV 65.8 L 66.5 L MCH 20.3 L 20.6 L MCHC 30.9 31.0 RDW 22.9 H 23.2 H Plt Count 340 301 Neut % (Auto) 48.5 L 47.7 L Lymph % (Auto) 40.6 H 40.2 H Blaine % (Auto) 5.6 5.0 Eos % (Auto) 4.8 H 6.2 H Baso % (Auto) 0.5 0.9 Neut # (Auto) 3700 3800 Lymph # (Auto) 3100 3200 Blaine # (Auto) 400 400 Eos # (Auto) 400 500 H Baso # (Auto) 0 100 RBC Morphology Not Reportable Not Reportable Polychromasia 1+ H Hypochromasia 2+ H Anisocytosis 2+ H 2+ H Sodium 140 Potassium 3.4 Chloride 102 Carbon Dioxide 32 BUN 7 Creatinine 0.70 Estimated GFR > 60.0 BUN/Creatinine Ratio 10.0 Glucose 91 Calcium 10.5 H Magnesium 2.1 04/28/19 04:55 WBC RBC Hgb Hct MCV MCH MCHC RDW Plt Count Neut % (Auto) Lymph % (Auto) Blaine % (Auto) Eos % (Auto) Baso % (Auto) Neut # (Auto) Lymph # (Auto) Blaine # (Auto) Eos # (Auto) Baso # (Auto) RBC Morphology Polychromasia Hypochromasia Anisocytosis Sodium 138 Potassium 3.5 Chloride 102 Carbon Dioxide 29 BUN 6 L Creatinine 0.80 Estimated GFR > 60.0 BUN/Creatinine Ratio 7.5 Glucose 87 Calcium 10.1 Magnesium 1.9 Assessment & Plan Assessment and plan (1) External hemorrhoids: Problem details: Discourage patient from sitting on the toilet for more than 2 minutes at a time Current visit: Yes Status: Acute (2) Internal hemorrhoids: Problem details: Discourage patient from sitting on the toilet for more than 2 minutes at a time Current visit: Yes Status: Acute (3) Chronic constipation: Problem details: Clear liquid diet. Small-bowel follow-through today. Discourage patient from sitting on the toilet for more than 2 minutes at a time Current visit: Yes Status: Acute (4) Abdominal pain: Problem details: Pain meds Current visit: Yes Status: Acute (5) Anemia: Problem details: Hgb stable. Patient continues to put out bloody stool. Current visit: Yes Status: Acute (6) Acute GI bleeding: Problem details: Clear liquid diet. Plan for small-bowel follow-through. Current visit: Yes Status: Acute (7) Major depressive disorder, recurrent episode, moderate with atypical features: Problem details: Continue home meds Current visit: No Status: Acute (8) Essential hypertension: Problem details: Monitor blood pressure Current visit: No Status: None (9) NSAID long-term use: Current visit: Yes Status: Acute Assessment & Plan narrative: This is a 53-year-old woman who came in with an acute GI bleed and history of chronic abdominal pain and chronic constipation. She has been transfused 2 units on this admission, and her hemoglobin seems to be stable for the last few checks. Yesterday I re-attempted colonoscopy after s he had received an additional day of clears an additional bowel prep with 3 more L of GoLYTELY. The patient again had a huge solid stool obstructing her colon and I wasn't able to pass the colonoscope through. After several enemas with minimal stool output we ultimately decided to send her back up to the floor. Overnight she has had several bowel movements, and has had recurrent bleeding. Her hemoglobin is stable right now, and I have ordered a small-bowel follow- through for today for both diagnostic and therapeutic reasons. Hopefully this will show us if there's a particular stenotic area of her bowel, and help to clear out any remaining stool. Depending on the results of that I may consider scoping her this afternoon. The other option is to send her home and do this as an outpatient as her hemoglobin has remained stable. Plan: Clear liquid diet Small-bowel follow-through today Do not sit on the toilet for more than 2 minutes at a time if nothing is coming out Walk around frequently Time Spent With Patient Time with patient: 15-24 minutes Quality VTE Deep Vein Thrombosis/Pulmonary Embolism Present on Admission: No
[2019-04-28] MEDS: PANTOPRAZOLE 40 MG VIAL IV ×2 (07:44→20:48)
[2019-04-28] MEDS: POTASSIUM CHLORIDE 20 MEQ TAB 40 MEQ PO (07:45)
[2019-04-28] MEDS: CITALOPRAM 20 MG TABLET PO (07:45)
[2019-04-28] MEDS: buPROPion XL 150 MG TAB 450 MG PO (07:45)
[2019-04-28] MEDS: CHLORTHALIDONE 25 MG TABLET PO (07:46)
--- NOTE | 2019-04-28 08:00 | DI.RAD.S_ITS ---
PROCEDURE: [place] SMALL BOWEL FOLLOW THROUGH INDICATIONS: partial obstruction of colon COMPARISON: None. FINDINGS: KUB: Preprocedural fairing worker film demonstrates a normal bowel gas pattern. No suspicious abdominal calcifications. Visualized solid organ contours appear normal. No suspicious bony abnormalities. Small bowel: There is normal transit time of barium through the small bowel. Small bowel loops are of normal caliber throughout. Mucosal folds are smooth and of normal thickness. No strictures, intraluminal masses, or extrinsic mass effects are noted. The terminal ileum is identified, and is normal in morphology. IMPRESSION: Normal small bowel follow-through. Normal appearance of the ileocecal valve area and terminal ileum. Dictated by: Kulwinder Munoz M.D. on 04/28/2019 at 9:13 Approved by: Kulwinder Munoz M.D. on 04/28/2019 at 9:14
--- NOTE | 2019-04-28 08:50 | PM.PN.1 ---
Subjective Subjective Date Patient Seen: 04/28/19 Time Patient Seen: 08:50 Interval history: Patient was completing small bowel follow through this morning at time of rounds. I had four enemas yesterday, nothing happened, then after the colonoscopy, I finally released my stool. It had chicken noodle soup in it from last Friday. Patient reports blood followed the stool but then her abdominal pain much improved. NG tube now in place. Plan is for colonoscopy tomorrow. She states that she doesn't have an appetite, some nausea this morning with the contrast, nothing now. Patient needs doctor's note for her insurance company. Exam Vital Signs (past 8 hours): - 04/28/19 06:00 Temperature 96.8 F L Pulse Rate 51 L Respiratory Rate 16 Blood Pressure 108/61 Oxygen Delivery Method Room Air Oxygen Flow Rate 0 Narrative Exam Narrative: GENERAL: Alert and oriented, appearing stated age, in pain. HEENT: Head normocephalic/atraumatic. LUNGS: Clear to ausculation bilaterally, no wheezes, rhonchi or rales. CV: Normal S1 and S2 with regular rate and rhythm, no audible murmurs, rubs or gallops. ABDOMEN: Soft, nontender, nondistended, no organomegaly. Hypoactive bowel sounds. EXTREMITIES: No clubbing, cyanosis, or edema. NEURO: Cranial nerves II through XII grossly intact, no focal deficits. PSYCH: Alert and oriented x 3. SKIN: No concerning lesions. Objective Labs Result Diagrams: 04/28/19 04:55 04/28/19 04:55 Labs: Laboratory Results - last 24 hr 04/27/19 04/27/19 04/28/19 09:12 09:12 04:55 WBC 7.6 8.1 RBC 4.90 4.34 Hgb 9.9 L 9.0 L Hct 32.2 L 28.9 L MCV 65.8 L 66.5 L MCH 20.3 L 20.6 L MCHC 30.9 31.0 RDW 22.9 H 23.2 H Plt Count 340 301 Neut % (Auto) 48.5 L 47.7 L Lymph % (Auto) 40.6 H 40.2 H Denali % (Auto) 5.6 5.0 Eos % (Auto) 4.8 H 6.2 H Baso % (Auto) 0.5 0.9 Neut # (Auto) 3700 3800 Lymph # (Auto) 3100 3200 [place] # (Auto) 400 400 Eos # (Auto) 400 500 H Baso # (Auto) 0 100 RBC Morphology Not Reportable Not Reportable Polychromasia 1+ H Hypochromasia 2+ H Anisocytosis 2+ H 2+ H Sodium 140 Potassium 3.4 Chloride 102 Carbon Dioxide 32 BUN 7 Creatinine 0.70 Estimated GFR > 60.0 BUN/Creatinine Ratio 10.0 Glucose 91 Calcium 10.5 H Magnesium 2.1 04/28/19 04:55 WBC RBC Hgb Hct MCV MCH MCHC RDW Plt Count Neut % (Auto) Lymph % (Auto) Den[place] % (Auto) Eos % (Auto) Baso % (Auto) Neut # (Auto) Lymph # (Auto) [place] # (Auto) Eos # (Auto) Baso # (Auto) RBC Morphology Polychromasia Hypochromasia Anisocytosis Sodium 138 Potassium 3.5 Chloride 102 Carbon Dioxide 29 BUN 6 L Creatinine 0.80 Estimated GFR > 60.0 BUN/Creatinine Ratio 7.5 Glucose 87 Calcium 10.1 Magnesium 1.9 Assessment & Plan Assessment & Plan narrative: Assessment 1. GI bleed. General surgery following. Has underwent EGD/colonoscopy on 04/25, colonoscopy to hepatic flexure secondary to poor prep. EGD significant for possible esophageal spasm. Colonoscopy showed only grade 2-3 internal hemorrhoids with stigmata of bleeding. Repeat colonoscopy yesterday was abandoned secondary to solid stool. Small-bowel follow-through today, colonosocpy tomorrow. Plan: Continue per general surgery. Assessment 2, Anemia, acute blood loss. Hemoglobin/hematocrit trending down again. Plan: General surgery following. Assessment 3: Hypokalemia, resolved. Plan: Continue oral replacement. Assessment 4: Chest pain. No recurrence of symptoms. Troponin and CPK negative on repeat. Etiology likely secondary to combination of multiple issues none of which are cardiac at this point. Plan: No further workup unless patient has symptoms. Assessment 5: Back pain. 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 Subluxation has not developed but there has been a mild degree of interval worsening of degenerative disc disease and facet osteoarthritis along the lumbosacral spine. Radiolation reported that this segmentation anomaly such as is present in this case does predispose to low back pain. Plan: Supportive therapy, pain management as needed. Assessment 6: Depression. Dr. Vila consulting. Plan: Continue per her treatment plan. DVT prophylaxis: SCDs. Code: Full Dispo: Discharge unclear at this point. Will provided medical release note at time of discharge. Quality VTE Deep Vein Thrombosis/Pulmonary Embolism Present on Admission: No
[2019-04-28 09:10] VITALS: BP 106/39; PULSE 55; RESP 18; TEMP 36.9; O2SAT 100
[2019-04-28] MEDS: MAGNESIUM SULFATE 2 GM/50 ML PIGGYBACK IV (09:16)
[2019-04-28] MEDS: ALPRAZolam 0.25 MG TABLET PO ×2 (09:19→18:41)
[2019-04-28] MEDS: HYDROMORPHONE 0.5 MG INJ IV ×6 (09:19→23:00)
[2019-04-28] MEDS: SODIUM CHLORIDE 0.9% FLUSH 10 ML IV ×2 (09:39→20:48)
--- NOTE | 2019-04-28 09:40 | DI.RAD.S_ITS ---
PROCEDURE: XR KUB INDICATIONS: follow up SBFT, look at colon for retained stool/contrast TECHNIQUE: One view of the abdomen acquired. COMPARISON: [facility], , [place] SMALL BOWEL FOLLOW THROUGH, 04/28/2019, 7:57. FINDINGS: Surgical changes and devices: None. Bowel: Small bowel gas pattern is normal, oral contrast from small bowel follow-through examination earlier today remains within the small bowel, which is nondistended. The terminal ileum is visualized, previously the case, and overlap of multiple small bowel loops across the abdomen and pelvis this allows accurate assessment of the colon.. Soft tissues: No suspicious abdominal calcifications. Visualized solid organ contours appear normal in size. Bones: No suspicious bony lesions. IMPRESSION: Expected persistence of oral contrast within the large and small bowel shortly after completion of small bowel follow through examination. If colonic assessment is warranted a dedicated retrograde barium enema should be obtained. Dictated by: Kulwinder Munoz M.D. on 04/28/2019 at 11:15 Approved by: Kulwinder Munoz M.D. on 04/28/2019 at 11:17
--- NOTE | 2019-04-28 10:53 | PC.NURSE ---
Addendum entered by Patricia Ambrose R.N. 04/28/19 15:19: GI/PAIN - given 0.5mg iv dilaudid for oral discomfort and some abd cramping, pt up to br w/300ml stool, clearing to an lissett color with some traces stool particles present. Addendum entered by Patricia Ambrose R.N. 04/28/19 14:46: GI- after ng placed and confirmed by xray, began admin gi prep via ng, pt tolerating approx 2L prior to end of shift, freq liq thin brown stools, not yet clear. Original Note: AM NOTE - pt given meds prior to taken for gi xray, no nausea, did have a 500ml liq brown stool, after return,, incr abd discomfort, anxiety, given prn xanax and 0.5mg iv dilaudid, has had x 2 addl stools, both liq brown, in and dicussed addl prep w/pt and ng ordered to admin prep.
--- NOTE | 2019-04-28 11:08 | CM.DPC ---
DCP Cont: Received call from Dr. Welch, surgeon. She stated that patient was requesting that her HR be called at her work to verify that she is still in hospital. Can verify hospital stay, with limited information. Went and met with patient. Had met her before a few days ago. Was teary. Stated, she is also seeing Dr. Vila, for her sister was murdered, her dad approximately 9 months ago. Patient is requesting that Sky Jackson be called, in HR, so she can ensure that she will stay on their benefits. Received phone number from patient. She mentioned, she probably won't even go anywhere until Friday. Attempted to call Sky at [phone]. Left her a message to call this case manage back, but did not leave any information on patient. P: DCP to continue to follow. Anticipate that patient will be here for a few more days. Alise Carmona RN/Recruitment Officer
[2019-04-28 11:25] VITALS: BP 124/59; PULSE 70; RESP 18; TEMP 37; O2SAT 97
[2019-04-28] MEDS: PEG3350/SOD SULF,BICARB,CL/KCL 4,000 ML SOLUTION 4000 ML PO (11:57)
[2019-04-28] MEDS: LIDOCAINE JELLY 2% 5 ML 1 APPLIC TOP (12:06)
--- NOTE | 2019-04-28 12:21 | DI.RAD.S_ITS ---
PROCEDURE: XR CHEST 1V INDICATIONS: ng placement TECHNIQUE: One view of the chest was acquired. COMPARISON: [facility], , XR CHEST 1V, 04/25/2019, 12:19. [facility], , CHEST 1 VIEW, 12/21/2008, 19:11. FINDINGS: Surgical changes and devices: A esophagogastric tube extends with tip at the gastric antrum area. Oral contrast from small bowel follow-through earlier today can be seen below the diaphragm level. Lungs and pleura: Lungs are clear. No pleural effusions or pneumothorax. Mediastinum: Mediastinal contours appear normal. Heart size is normal considering reduced inspiratory volume. Bones and chest wall: No suspicious bony lesions. Overlying soft tissues appear unremarkable. IMPRESSION: Reduced inspiratory volume, no cardiopulmonary disease is found. Esophagogastric tube extends to the gastric antrum area. Right upper quadrant cholecystectomy clips. Dictated by: Kulwinder Munoz M.D. on 04/28/2019 at 13:03 Approved by: Kulwinder Munoz M.D. on 04/28/2019 at 13:04
--- NOTE | 2019-04-28 12:30 | DI.RAD.S_ITS ---
PROCEDURE: XR KUB INDICATIONS: HAD COLONOSCOPY X2 W FULL PREP, SOLID STOOL STILL PRESENT TECHNIQUE: One view of the abdomen acquired. COMPARISON: [facility], CR, XR KUB, 04/28/2019, 9:47. FINDINGS: Surgical changes and devices: Nasogastric tube in normal position, with tip extending to the gastric antrum. Bowel: Bowel gas pattern is free of evidence of an obstruction or perforation in this patient who has undergone a small bowel follow-through study earlier today. There is a prominent degree of barium oral contrast within the bowel still, as expected. Soft tissues: No suspicious abdominal calcifications. Visualized solid organ contours appear normal in size. Bones: No suspicious bony lesions. IMPRESSION: Nasogastric tube positioning normal with tip at the gastric antrum. Oral contrast from small bowel follow-through examination earlier today remains relatively extensive over the abdomen and pelvis. Dictated by: Kulwinder Munoz M.D. on 04/28/2019 at 13:01 Approved by: Kulwinder Munoz M.D. on 04/28/2019 at 13:03
[2019-04-28 14:01] LABS: Add Manual Diff / Slide Review NO; Basophils Absolute Auto 100 /uL (0-100); Basophils Percent Auto 0.7 % (0-2); Eosinophils Absolute Auto 500 /uL (0-450); Eosinophils Percent Auto 6.3 % (2-4); Hematocrit 29.9 % (36-46); Hemoglobin 9.4 g/dL (12.0-16.0); Lymphocytes Absolute Auto 2500 /uL (1100-4500); Lymphocytes Percent Auto 33.7 % (25-40); Mean Corpuscular HGB Conc 31.3 % (30-36); Mean Corpuscular Hemoglobin 20.8 PG (26-34); Mean Corpuscular Volume 66.6 fL (80-100); Monocytes Absolute Auto 400 /uL (0-900); Monocytes Percent Auto 5.4 % (3-14); Neutrophils Absolute Auto 4000 /uL (1500-7000); Neutrophils Percent Auto 53.9 % (50-75); Platelet Count 332 X10^3/uL (150-400); Red Blood Cell Count 4.49 X10^6/uL (4.0-5.2); Red Cell Distribution Width 23.9 % (11.6-14.8); White Blood Cell Count 7.4 X10^3/uL (4.5-11.0)
[2019-04-28 14:32] LABS: Anisocytosis 2+
[2019-04-28 14:33] LABS: Hypochromasia 2+
[2019-04-28 14:34] LABS: Microcytosis 1+; Polychromasia 1+
[2019-04-28 15:39] VITALS: BMI 35.3
[2019-04-28 16:07] VITALS: BP 131/79; PULSE 59; RESP 20; TEMP 36.4; O2SAT 99
[2019-04-28 19:34] VITALS: BP 131/76; PULSE 54; RESP 21; TEMP 36.8; O2SAT 97
--- NOTE | 2019-04-28 23:32 | PC.NURSE ---
Carol Ann shift note: Patient refused NGT, removed as requested. States she will take Golytely as PO if ordered.
[2019-04-29] VITALS (16 sets, daily range): BP systolic 103–134; BP diastolic 52–81; PULSE 51–70; RESP 12–18; TEMP 36–37.1; O2SAT 94–100; BMI 35.3
--- NOTE | 2019-04-29 | PATH_ITS ---
[facility] Accession Number: [id number] . 01 Material submitted: . PART A: colon - DESCENDING COLON POLYP AT 40CM PART B: colon - COLON BIOPSY AT 35 CM PART C: colon - COLON BIOPSY AT 20 CM . 01 Clinical history: . PER PHY/RECTAL BLEEDING/PAIN 1X VOMITING 3X MONTH . 02 Diagnosis: A. Descending Colon, Polyp at 40 cm, Biopsy: Colonic mucosa with a few small benign lymphoid aggregates and no other diagnostic abnormality. . B. Colon, 35 cm, Biopsy: Colonic mucosa with ischemia-type changes and abundant eosinophils in the submucosa. Please see comment. Negative for granulomas, dysplasia and malignancy. . C. Colon, 20 cm, Biopsy: Colonic mucosa with no diagnostic abnormality. Negative for active, chronic and microscopic colitis. Negative for dysplasia and malignancy. [facility] 05/03/2019 1220 Local . 02 Comment: Part B: The colon biopsy at 35 cm shows ischemia-type changes with ulceration and crypt atrophy. There are also prominent submucosal eosinophils present. No obvious viral cytopathic effects or parasitic organisms are identified. There is no evidence of dysplasia or malignancy. The differential diagnosis of ischemia-type changes includes ischemia due to trauma/prolapse, true vascular ischemia, and ischemia due to infection (i.e., enterohemorrhagic E. coli, C. difficile, etc.). The presence of eosinophils in this biopsy is nonspecific, but may be due to chronic ulceration, infection, medication-related changes or other conditions that cause systemic eosinophilia. . As part of routine quality improvement consultant, Dr. Neel Nguyen also reviewed this case and agrees with the interpretations. Dr. Bravo gave preliminary results to Khushbu in Dr. Welch's office at 9:26 a.m. on 05/03/2019. . 02 Electronically signed: . Joy Bravo MD, Pathologist NPI- [id number] . 01 Gross description: . Part A: DESCENDING COLON POLYP AT 40CM: Received in formalin are 2 fragment(s) of dacosta, soft tissue measuring 0.3 x 0.3 x 0.2 cm to 0.3 x 0.2 x 0.1 cm submitted entirely in 1 cassette(s) Part B: COLON BIOPSY AT 35 CM: Received in formalin are 4 fragment(s) of dacosta, soft tissue measuring 0.3 x 0.3 x 0.2 cm to 0.3 x 0.1 x 0.1 cm submitted entirely in 1 cassette(s) Part C: COLON BIOPSY AT 20 CM: Received in formalin is 1 fragment(s) of dacosta, soft tissue measuring 0.6 x 0.3 x 0.1 cm submitted entirely in 1 cassette(s) /QBJ 04/30/2019 0358 Local . 02 Pathologist provided ICD-10: K92.2, K55.9 . 02 CPT . 361981, [id number], [id number] Performed at: 01 [facility] [address] [id number] MD Patrick Mohr MD Phone: [phone] Performed at: 02 [facility] [place] [id number] [place] [id number] MD Joy Bravo MD Phone: [phone]
[2019-04-29] MEDS: LACTATED RINGERS 1,000 ML 125 ML IV ×3 (00:10→20:24)
--- NOTE | 2019-04-29 00:33 | PC.NURSE ---
Addendum entered by Jolynn Mendiola R.N. 04/29/19 06:30: Up to bathroom earlier and passed just flecks of stool with small amount of liquid rectally. No other stools this shift. Original Note: Patient is alert and oriented. Breath sounds CTA with RA sat of 98%. HRR. Denies nausea. BT hypoactive; did have loose stools with some blood in on previous shift related to Go-Lytely prep. Denies dysuria, frequency or urgency with urination. Able to turn self in bed. Up in room independently. Moderate fall risk so discussed use of bed alarm and patient refuses to have on stating she is steady and denies weakness; states I've been going by myself for the past 5 days. Verbalized agreement to sit on edge of bed when getting up and to call for assist if feeling any dizziness or lightheadedness. Refuses SCD's due to having to get up frequently to bathroom. States abdomen is tender and rates severity as 3/10; had Dilaudid at shift change. BT are hypoactive and abdomen is soft. Plan is to be NPO after 0600 for colonoscopy this morning.
[2019-04-29 05:33] LABS: Basophils Absolute Auto 100 /uL (0-100); Basophils Percent Auto 0.6 % (0-2); Eosinophils Absolute Auto 500 /uL (0-450); Eosinophils Percent Auto 5.6 % (2-4); Hematocrit 27.4 % (36-46); Hemoglobin 8.6 g/dL (12.0-16.0); Lymphocytes Absolute Auto 2800 /uL (1100-4500); Lymphocytes Percent Auto 32.8 % (25-40); Mean Corpuscular HGB Conc 31.5 % (30-36); Mean Corpuscular Hemoglobin 20.9 PG (26-34); Mean Corpuscular Volume 66.2 fL (80-100); Monocytes Absolute Auto 600 /uL (0-900); Monocytes Percent Auto 6.4 % (3-14); Neutrophils Absolute Auto 4700 /uL (1500-7000); Neutrophils Percent Auto 54.6 % (50-75); Platelet Count 292 X10^3/uL (150-400); Red Blood Cell Count 4.14 X10^6/uL (4.0-5.2); Red Cell Distribution Width 23.4 % (11.6-14.8); White Blood Cell Count 8.6 X10^3/uL (4.5-11.0)
[2019-04-29 05:35] LABS: Add Manual Diff / Slide Review SLIDE REVIEW
[2019-04-29 05:42] LABS: Alanine Aminotransferase 28 IU/L (<35); Albumin 3.4 g/dL (3.5-5.0); Albumin Globulin Ratio 1.2 (1.0-2.8); Alkaline Phosphatase 60 U/L (38-126); Aspartate Aminotransferase 27 IU/L (14-36); Bilirubin Total 0.3 mg/dL (0.2-1.3); Blood Urea Nitrogen 7 mg/dL (7-17); Calcium 10.1 mg/dL (8.4-10.2); Carbon Dioxide 30 mmol/L (22-32); Chloride 100 mmol/L (98-107); Estimated Glomerular Filt Rate > 60.0 mL/min (>60); Globulin 2.9 g/dL (1.7-4.1); Glucose 87 mg/dL (70-100); HEMOLYSIS < 15 (0-50); Potassium 3.4 mmol/L (3.4-5.1); Sodium 138 mmol/L (137-145); Total Protein 6.3 g/dL (6.3-8.2)
[2019-04-29] MEDS: PEG3350/SOD SULF,BICARB,CL/KCL 4,000 ML SOLUTION 2000 ML PO (06:10)
--- NOTE | 2019-04-29 06:18 | PC.NURSE ---
This RN spoke with Dr. Conde. New order for 2L golytely via NG. Pt requested NG be removed last evelin. notified and new order to take PO. Pt informed of provider instructions to drink 2L by 0900, then no PO intake after that (NPO). Golytely bottle filled and 2L level marked in black pen. ordered type and screen for 2 units PRBC, Do Not Transfuse at this time. Pt stated she has been able to tolerate previous and golytely and feels hopeful she will be able to drink the remaining 2L at bedside. Provider emphasized its more important that pt stop PO intake by 0900, than consume full 2L. Cup provided for pt use. Will continue to encourage pt and monitor intake. Will report to next nurse all PO intake must stop at 0900.
[2019-04-29] MEDS: buPROPion XL 150 MG TAB 450 MG PO (06:59)
--- NOTE | 2019-04-29 07:26 | P.CONS_ITS ---
History of Present Illness Consult details Date Patient Seen: 04/28/19 Time Patient Seen: 17:10 Chief complaint: per phy/ rectal bleeding/ pain 1x vomiting 3xmonth Reason for consult: depression management Requesting provider: Michael Eagle Narrative: CC: I'm trying not to think about it Updated hospital course: -second scope attempted with inability to visualize, small bowel follow through 04/28 with plan for repeat scope -ongoing bleeding, H&H stable -prn medications: no doses of prn alprazolam on 04/27, 04/28 INTERVIEW: Frank reports feeling ok, NG tube uncomfortable, trying not to think about the possibility of cancer. Period of feeling very anxious yesterday before going to scope, waking up abruptly & having to go down for procedure with no time for prn alprazolam before she left. I was a mess. States that her children & have been very concerned about her; she acknowledges how caring they are but also doesn't want to bother them. Continues to feel depressed but a bit better than 2d ago. Denies SI. Meds Home Medications and Allergies Home Medications Medication Instructions Recorded Confirmed Type docusate sodium 250 mg PO QDAY #30 cap 01/01/16 04/27/19 Rx estradiol 1 mg tablet 1 mg PO QDAY #90 tab 09/07/18 04/27/19 Rx bupropion HCl 150 mg 24 hr tablet, 450 mg PO QAM #90 tab 11/20/18 04/27/19 Rx extended release omeprazole 20 mg capsule,delayed 20 mg PO DAILY #60 cap 11/23/18 04/27/19 Rx release chlorthalidone 25 mg tablet 25 mg PO QAM #14 tab 12/28/18 04/27/19 Rx alprazolam 0.25 mg tablet 0.25 mg PO TID PRN #90 tab 04/12/19 04/27/19 Rx citalopram 20 mg tablet 20 mg PO DAILY #90 tab 04/12/19 04/27/19 Rx Allergies Allergy/AdvReac Type Severity Reaction Status Date / Time latex Allergy Intermediate Rash Verified 04/27/19 12:08 codeine Allergy Mild VOMITING Verified 04/27/19 12:08 fluoxetine AdvReac Severe Agitated Verified 04/27/19 12:08 pain contract Allergy Unknown Uncoded 04/24/19 12:27 Review of Systems Constitutional Constitutional: Reports difficulty sleeping, Reports fatigue, Reports lack of energy and Reports poor appetite Musculoskeletal Musculoskeletal: Reports back pain Psychiatric Psychiatric: Reports as per HPI and Reports anxiety Endocrine Endocrine: Reports fatigue Exam Vital Signs (past 8 hours): - 04/29/19 00:00 04/29/19 04:00 Temperature 97.5 F L 97.1 F L Pulse Rate 68 57 L Respiratory Rate 16 16 Blood Pressure 103/70 118/70 Pulse Oximetry 98 99 Oxygen Delivery Method Room Air Oxygen Flow Rate 0 Narrative Exam Narrative: MENTAL STATUS EXAM: Appearance: improved grooming from previous, hospital garb Behavior: standing up, fair eye contact, no psychomotor slowing, no involuntary movements observed Gait: slow & holding IV pole at times Speech: normal rate & volume Mood: ok Affect: more congruent with content, anxious Thought Process: circumstantial, perseverative Thought Content: denies SI, no evidence of homicidal ideation, denies hallucinations, no evidence of paranoia or delusions Attention: Attentive to interview Orientation: Oriented to person place and time Memory: Intact for interview, not formally tested Insight: fair-Limited Judgment: fair-Limited Objective Labs Result Diagrams: 04/29/19 09:00 04/29/19 04:43 Labs: Laboratory Results - last 24 hr 04/24/19 04/28/19 04/29/19 12:38 12:45 04:43 WBC 7.4 8.6 RBC 4.49 4.14 Hgb 9.4 L 8.6 L Hct 29.9 L 27.4 L MCV 66.6 L 66.2 L MCH 20.8 L 20.9 L MCHC 31.3 31.5 RDW 23.9 H 23.4 H Plt Count 332 292 Neut % (Auto) 53.9 54.6 Lymph % (Auto) 33.7 32.8 [place] % (Auto) 5.4 6.4 Eos % (Auto) 6.3 H 5.6 H Baso % (Auto) 0.7 0.6 Neut # (Auto) 4000 4700 Lymph # (Auto) 2500 2800 [place] # (Auto) 400 600 Eos # (Auto) 500 H 500 H Baso # (Auto) 100 100 RBC Morphology See below Polychromasia 1+ H Hypochromasia 2+ H Anisocytosis 2+ H Microcytosis 1+ H Sodium Potassium Chloride Carbon Dioxide BUN Creatinine Estimated GFR BUN/Creatinine Ratio Glucose Calcium Total Bilirubin AST ALT Alkaline Phosphatase Total Protein Albumin Globulin Albumin/Globulin Ratio Crossmatch See Detail 04/29/19 04/29/19 04:43 06:40 WBC RBC Hgb Hct MCV MCH MCHC RDW Plt Count Neut % (Auto) Lymph % (Auto) [place] % (Auto) Eos % (Auto) Baso % (Auto) Neut # (Auto) Lymph # (Auto) [place] # (Auto) Eos # (Auto) Baso # (Auto) RBC Morphology Polychromasia Hypochromasia Anisocytosis Microcytosis Sodium 138 Potassium 3.4 Chloride 100 Carbon Dioxide 30 BUN 7 Creatinine 0.70 Estimated GFR > 60.0 BUN/Creatinine Ratio 10.0 Glucose 87 Calcium 10.1 Total Bilirubin 0.3 AST 27 ALT 28 Alkaline Phosphatase 60 Total Protein 6.3 Albumin 3.4 L Globulin 2.9 Albumin/Globulin Ratio 1.2 Crossmatch See Detail Assessment & Plan Assessment and plan (1) Acute GI bleeding: Problem details: NPO, repeat colonoscopy today Current visit: Yes Status: Acute (2) Anemia: Problem details: Hgb stable. Patient continues to put out bloody stool. Current visit: Yes Status: Acute (3) Major depressive disorder, recurrent episode, moderate with atypical features: Problem details: Continue home meds Current visit: No Status: Acute (4) Anxiety: Current visit: No Status: None Assessment & Plan narrative: Initial consult assessment: Frank Vidal is a 53-year-old female, followed by myself in outpatient psychiatry clinic, admitted for rectal bleeding and anemia. She has known history of depression & I suspect PTSD. I feel there is some level of passive suicidality in not seeking care for persistent rectal bleeding, but she ultimately agreed to go to hospital with family, and her children provide some protective factors. She is not actively suicidal, and I do not feel that she needs monitoring for self-harm during her medical admission, but I feel that depression & passive SI contributed to significant delay in seeking appropriate care. Multiple losses in the last several years of close relationships (grandmother, sister) are perpetuating factors for depression. She agrees to daily visits during this admission with this continuity writer, and I am hopeful that this can help manage at least some level for anxiety & depression symptoms to help avoid these interfering with her medical care. No current indication for psychotropic medication changes during medical admission, aside from any needed by the primary team (eg NPO status). She has been sensitive to m edication changes in the past year. Also suspect she will need to continue some prn alprazolam for now, she has consistently been taking up to 3-4 times per day recently, and although low dose, would need to monitor for benzodiazepine withdrawal if stopped completely. Update 04/28/19: Some improvement in mood & anxiety symptoms, consistent improvement in anemia may be a helpful factor in this. Less concern about suicidal ideation today; she is more future-oriented. She will continue to need ongoing assessment of mood & safety but this can be accomplished on an outpatient basis. RECOMMENDATIONS: - Continue home psychotropic medications as you are doing: citalopram 20mg daily, bupropion XL 450mg daily, and aloprazolam 0.25mg TID prn severe anxiety - This continuity writer will check-in with patient daily while admitted (with exception of Th/Sat/Sun), and monitor for any active SI; next inpatient visit 04/30/19 - Continue outpatient psychiatric care, will schedule sooner visit upon discharge (next scheduled outpatient visit 06/08/19) Thank you for involving me in this patient's hospital care, I will continue to follow with you. Please contact me at [phone] with any questions or acute concerns. Time Spent With Patient Time with patient: 15-24 minutes
[2019-04-29 07:33] LABS: Anisocytosis 3+; Hypochromasia 2+; Microcytosis 2+
[2019-04-29] MEDS: ALPRAZolam 0.25 MG TABLET PO ×3 (07:42→20:24)
[2019-04-29] MEDS: HYDROMORPHONE 0.5 MG INJ IV (07:42)
[2019-04-29] MEDS: CHLORTHALIDONE 25 MG TABLET PO (07:43)
[2019-04-29] MEDS: SODIUM CHLORIDE 0.9% FLUSH 10 ML IV ×2 (07:44→20:24)
[2019-04-29] MEDS: PANTOPRAZOLE 40 MG VIAL IV ×2 (07:45→20:24)
--- NOTE | 2019-04-29 07:49 | PM.PN.1 ---
Subjective Subjective Date Patient Seen: 04/29/19 Time Patient Seen: 07:50 Interval history: Unable to tolerate NG tube and removed overnight, now using GoLYTELY orally. Reports that her stool is clear and bile colored. Denies any solid stool. Unsure if there's bleeding. Slept poorly, feels a bit more distended today, pain is improved overall. I have had nothing solid to eat for a week now. Reports that she is feeling a little bit emotional, wants to do things right, feeling scared. Exam Vital Signs (past 8 hours): - 04/29/19 00:00 04/29/19 04:00 04/29/19 07:32 Temperature 97.5 F L 97.1 F L 98.0 F Pulse Rate 68 57 L 51 L Respiratory Rate 16 16 18 Blood Pressure 103/70 118/70 133/72 Pulse Oximetry 98 99 97 Oxygen Delivery Method Room Air Oxygen Flow Rate 0 Narrative Exam Narrative: GENERAL: Alert and oriented, appearing stated age, in pain. HEENT: Head normocephalic/atraumatic. NG tube removed. LUNGS: Clear to ausculation bilaterally, no wheezes, rhonchi or rales. CV: Normal S1 and S2 with regular rate and rhythm, no audible murmurs, rubs or gallops. ABDOMEN: Soft, mildly tender, generalized,, mildly distended, no organomegaly. Hypoactive bowel sounds. EXTREMITIES: No clubbing, cyanosis, or edema. NEURO: Cranial nerves II through XII grossly intact, no focal deficits. PSYCH: Alert and oriented x 3. SKIN: No concerning lesions. Objective Labs Result Diagrams: 04/29/19 04:43 04/29/19 04:43 Labs: Laboratory Results - last 24 hr 04/24/19 04/28/19 04/29/19 12:38 12:45 04:43 WBC 7.4 8.6 RBC 4.49 4.14 Hgb 9.4 L 8.6 L Hct 29.9 L 27.4 L MCV 66.6 L 66.2 L MCH 20.8 L 20.9 L MCHC 31.3 31.5 RDW 23.9 H 23.4 H Plt Count 332 292 Neut % (Auto) 53.9 54.6 Lymph % (Auto) 33.7 32.8 [place] % (Auto) 5.4 6.4 Eos % (Auto) 6.3 H 5.6 H Baso % (Auto) 0.7 0.6 Neut # (Auto) 4000 4700 Lymph # (Auto) 2500 2800 [place] # (Auto) 400 600 Eos # (Auto) 500 H 500 H Baso # (Auto) 100 100 RBC Morphology See below See below Polychromasia 1+ H Hypochromasia 2+ H 2+ H Anisocytosis 2+ H 3+ H Microcytosis 1+ H 2+ H Sodium Potassium Chloride Carbon Dioxide BUN Creatinine Estimated GFR BUN/Creatinine Ratio Glucose Calcium Total Bilirubin AST ALT Alkaline Phosphatase Total Protein Albumin Globulin Albumin/Globulin Ratio Blood Type Antibody Screen Crossmatch See Detail 04/29/19 04/29/19 04:43 06:40 WBC RBC Hgb Hct MCV MCH MCHC RDW Plt Count Neut % (Auto) Lymph % (Auto) [place] % (Auto) Eos % (Auto) Baso % (Auto) Neut # (Auto) Lymph # (Auto) [place] # (Auto) Eos # (Auto) Baso # (Auto) RBC Morphology Polychromasia Hypochromasia Anisocytosis Microcytosis Sodium 138 Potassium 3.4 Chloride 100 Carbon Dioxide 30 BUN 7 Creatinine 0.70 Estimated GFR > 60.0 BUN/Creatinine Ratio 10.0 Glucose 87 Calcium 10.1 Total Bilirubin 0.3 AST 27 ALT 28 Alkaline Phosphatase 60 Total Protein 6.3 Albumin 3.4 L Globulin 2.9 Albumin/Globulin Ratio 1.2 Blood Type B Positive Antibody Screen Negative Crossmatch See Detail Assessment & Plan Assessment & Plan narrative: Assessment 1. GI bleed. General surgery following. Has underwent EGD/colonoscopy on 04/25, colonoscopy to hepatic flexure secondary to poor prep. EGD significant for possible esophageal spasm. Colonoscopy showed only grade 2-3 internal hemorrhoids with stigmata of bleeding. Repeat colonoscopy on 04/27/18 was abandoned secondary to solid stool. Small-bowel follow-through showed no obstruction. NG tube was placed to ensure adequate prep, now removed secondary to patient tolerance. Plan for colonoscopy today. Plan: Continue per general surgery. Assessment 2, Anemia, acute blood loss. Hemoglobin/hematocrit trending down again. Plan: General surgery following. Assessment 3: Hypokalemia, resolved. Plan: Continue oral replacement. Assessment 4: Chest pain. No recurrence of symptoms. Troponin and CPK negative on repeat. Etiology likely secondary to combination of multiple issues none of which are cardiac at this point. Plan: No further workup unless patient has symptoms. Assessment 5: Back pain. 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 Subluxation has not developed but there has been a mild degree of interval worsening of degenerative disc disease and facet osteoarthritis along the lumbosacral spine. Radiolation reported that this segmentation anomaly such as is present in this case does predispose to low back pain. Plan: Supportive therapy, pain management as needed. Assessment 6: Depression. Dr. Vila consulting. Plan: Continue per her treatment plan. DVT prophylaxis: SCDs. Code: Full Dispo: Discharge unclear at this point. Will provide medical release note at time of discharge. Quality VTE Deep Vein Thrombosis/Pulmonary Embolism Present on Admission: No
--- NOTE | 2019-04-29 08:05 | PC.NURSE ---
Addendum entered by Patricia Ambrose R.N. 04/29/19 10:48: GI - pt showered, had small thin, liquid lt brown stool w/ some stool residue in hat, viewed by exterminator and pt taken via wc to OR. Verified x2 prbc are available. Original Note: AM NOTE - pt is awake, requesting pain medication for abd discomfort 6 on scale 0/10, mouth and sinus discomfort, given 0.5mg iv dilaudid, denies nausea, pt is completing last of 2L golytely prep, bs clear, BT +, given po meds now and reinforced npo after 9am.
[2019-04-29 09:09] LABS: Add Manual Diff / Slide Review NO; Basophils Absolute Auto 100 /uL (0-100); Basophils Percent Auto 0.8 % (0-2); Eosinophils Absolute Auto 500 /uL (0-450); Eosinophils Percent Auto 6.1 % (2-4); Hematocrit 29.7 % (36-46); Hemoglobin 9.3 g/dL (12.0-16.0); Lymphocytes Absolute Auto 2600 /uL (1100-4500); Lymphocytes Percent Auto 33.4 % (25-40); Mean Corpuscular HGB Conc 31.4 % (30-36); Mean Corpuscular Hemoglobin 20.8 PG (26-34); Mean Corpuscular Volume 66.5 fL (80-100); Monocytes Absolute Auto 500 /uL (0-900); Monocytes Percent Auto 5.9 % (3-14); Neutrophils Absolute Auto 4200 /uL (1500-7000); Neutrophils Percent Auto 53.8 % (50-75); Platelet Count 318 X10^3/uL (150-400); Red Blood Cell Count 4.47 X10^6/uL (4.0-5.2); Red Cell Distribution Width 23.9 % (11.6-14.8); White Blood Cell Count 7.7 X10^3/uL (4.5-11.0)
[2019-04-29 09:19] LABS: Anisocytosis 2+; Ovalocytes 1+
[2019-04-29] MEDS: CITALOPRAM 20 MG TABLET PO (09:47)
--- NOTE | 2019-04-29 10:02 | P.PN_ITS ---
Subjective Subjective Date Patient Seen: 04/29/19 Time Patient Seen: 08:45 Interval history: No acute events overnight. The patient was given additional 4 L of bowel prep via NG tube. She is still putting out brown liquidy stool with some little particles in it. She took 2 more L by mouth this morning, and stopped before I saw her at 8:45 a.m. She is in good spirits, and asked if she could take a shower. Exam Vital Signs (past 8 hours): - 04/29/19 04:00 04/29/19 07:32 Temperature 97.1 F L 98.0 F Pulse Rate 57 L 51 L Respiratory Rate 16 18 Blood Pressure 118/70 133/72 Pulse Oximetry 99 97 Oxygen Delivery Method Room Air Oxygen Flow Rate 0 Narrative Exam Narrative: GENERAL: Alert, comfortable, ambulating in her room HENT: Normocephalic, atraumatic. Hearing intact. Oral mucosa is pink and moist. EYES: Conjunctiva pink, sclera white, no periorbital swelling. CARDIOVASCULAR: Regular rate. No pedal edema. RESPIRATORY: Non-tachypneic, breathing comfortably on room air. GASTROINTESTINAL: Abdomen soft, slightly distended GENITALURINARY: No flank tenderness. MUSCULOSKELETAL: Equal tone and mass bilaterally. SKIN: Warm, dry, soft, appropriate color for ethnicity. No other lesions, rashes, or wounds. NEURO: Alert and Oriented X 3. No gross sensory deficits, or cognitive issues. PSYCH: Appropriate affect and mood. Objective Labs Result Diagrams: 04/29/19 09:00 04/29/19 04:43 Labs: Laboratory Results - last 24 hr 04/24/19 04/28/19 04/29/19 12:38 12:45 04:43 WBC 7.4 8.6 RBC 4.49 4.14 Hgb 9.4 L 8.6 L Hct 29.9 L 27.4 L MCV 66.6 L 66.2 L MCH 20.8 L 20.9 L MCHC 31.3 31.5 RDW 23.9 H 23.4 H Plt Count 332 292 Neut % (Auto) 53.9 54.6 Lymph % (Auto) 33.7 32.8 [place] % (Auto) 5.4 6.4 Eos % (Auto) 6.3 H 5.6 H Baso % (Auto) 0.7 0.6 Neut # (Auto) 4000 4700 Lymph # (Auto) 2500 2800 [place] # (Auto) 400 600 Eos # (Auto) 500 H 500 H Baso # (Auto) 100 100 RBC Morphology See below See below Polychromasia 1+ H Hypochromasia 2+ H 2+ H Anisocytosis 2+ H 3+ H Microcytosis 1+ H 2+ H Ovalocytes Sodium Potassium Chloride Carbon Dioxide BUN Creatinine Estimated GFR BUN/Creatinine Ratio Glucose Calcium Total Bilirubin AST ALT Alkaline Phosphatase Total Protein Albumin Globulin Albumin/Globulin Ratio Blood Type Antibody Screen Crossmatch See Detail 04/29/19 04/29/19 04/29/19 04:43 06:40 09:00 WBC 7.7 RBC 4.47 Hgb 9.3 L Hct 29.7 L MCV 66.5 L MCH 20.8 L MCHC 31.4 RDW 23.9 H Plt Count 318 Neut % (Auto) 53.8 Lymph % (Auto) 33.4 [place] % (Auto) 5.9 Eos % (Auto) 6.1 H Baso % (Auto) 0.8 Neut # (Auto) 4200 Lymph # (Auto) 2600 [place] # (Auto) 500 Eos # (Auto) 500 H Baso # (Auto) 100 RBC Morphology Not Reportable Polychromasia Hypochromasia Anisocytosis 2+ H Microcytosis Ovalocytes 1+ H Sodium 138 Potassium 3.4 Chloride 100 Carbon Dioxide 30 BUN 7 Creatinine 0.70 Estimated GFR > 60.0 BUN/Creatinine Ratio 10.0 Glucose 87 Calcium 10.1 Total Bilirubin 0.3 AST 27 ALT 28 Alkaline Phosphatase 60 Total Protein 6.3 Albumin 3.4 L Globulin 2.9 Albumin/Globulin Ratio 1.2 Blood Type B Positive Antibody Screen Negative Crossmatch See Detail Assessment & Plan Assessment and plan (1) External hemorrhoids: Problem details: Discourage patient from sitting on the toilet for more than 2 minutes at a time Current visit: Yes Status: Acute (2) Internal hemorrhoids: Problem details: Discourage patient from sitting on the toilet for more than 2 minutes at a time Current visit: Yes Status: Acute (3) Chronic constipation: Problem details: NPO. Repeat colonoscopy today Current visit: Yes Status: Acute (4) Abdominal pain: Problem details: Pain meds Current visit: Yes Status: Acute (5) Anemia: Problem details: Hgb stable. Patient continues to put out bloody stool. Current visit: Yes Status: Acute (6) Major depressive disorder, recurrent episode, moderate with atypical features: Problem details: Continue home meds Current visit: No Status: Acute (7) Acute GI bleeding: Problem details: NPO, repeat colonoscopy today Current visit: Yes Status: Acute (8) NSAID long-term use: Current visit: Yes Status: Acute Assessment & Plan narrative: 53-year-old woman with severe chronic constipation, and GI bleed. We have now prepped her for a 3rd time. This time with an NG tube, and per the patient solid stool has past yesterday, and nothing but tiny debris since then. She received another 2 L of prep this morning, and has been NPO since 8:45. We'll plan on colonoscopy today at 11:45 a.m. her hemoglobin recheck this morning was stable. Plan: Colonoscopy today at 11:45 a.m. Time Spent With Patient Time with patient: 15-24 minutes Quality VTE Deep Vein Thrombosis/Pulmonary Embolism Present on Admission: No
--- NOTE | 2019-04-29 11:06 | SUR.HOLD ---
Warm blankets provided. Checked both pre-existing IV sites for patency. Both sites patent. No orders at this time for OR. Call light in reach. SR up x 2 .
[2019-04-29] MEDS: SODIUM CHLORIDE 0.9% 1,000 ML 84 ML IV (11:56)
[2019-04-29] MEDS: ONDANSETRON 4 MG/2 ML INJ IV (11:57)
[2019-04-29 12:15] LABS: Magnesium 1.7 mg/dL (1.6-2.3)
--- NOTE | 2019-04-29 12:59 | P.OP.ENDO_ITS ---
Operative Date/Time/Diagnoses Date of procedure: 04/29/19 Time of procedure: 12:59 Pre-op diagnosis: GI bleed, chronic constipation Post-op diagnosis: other (Tight stenosis at 35cm from the anal verge, ulcerated mucosa, possible stercoral ulcer, possible malignancy) Procedure & Clinicians Study performed: Colonoscopy with cold forceps biopsy x3 and tattooing proximal and distal to the lesion Same procedure as scheduled: Yes Indications: GI bleed, chronic constipation Surgeon: Kylie Welch Procedure Notes SCOAP/Timeout: Performed Procedure in detail: The patient was brought to the room and placed in left lateral decubitus position with all bony prominences padded. A time-out was performed and then the patient was given procedural sedation starting with [4] mg of Versed and [100] mcg of fentanyl. Total of 7 mg of Versed and 250 micro g of fentanyl were given for the entire procedure Vitals were monitored throughout the procedure and remained stable. Once adequately sedated the procedure was begun. A rectal exam was performed revealing external hemorrhoids, and low-grade internal hemorrhoids. The colonoscope was then introduced to the rectum and advanced to the cecum in the usual fashion. There were several tight turns on the way in, but no gross blood was seen, and no solid stool. []The cecum was identified by the appendiceal orifice, the mucosal tri-fold, and the ileocecal valve. There was no blood coming out of the ileocecal valve. The scope was then retracted while rotating side to side and examining each mucosal fold. [At 40 cm there was some mucosal erythema that was biopsied with cold forceps. At 35 cm there was a very tight stenosis of the colon with an associated ulcer and heaped up mucosa. For biopsies were taken of this area. Two of the ulcer, and 2 of the heaped up mucosa. The area was tattooed proximal and distal to the lesion with endo spot endoscopic tattoo with 1 cc at each location, 2 locations proximal and 3 locations distal to lesion. The distal tattoo was not clearly visible under the mucosa, but was seen streaking through the muhammad of the colon distally. A good tattoo was seen proximal to the lesion.] At the conclusion of the procedure retroflexion was performed and [small grade 1-2 internal hemorrhoids without stigmata of bleeding were seen]. The scope was then withdrawn from the rectum the procedure was concluded. The patient tolerated the procedure well and was transferred to the PACU in stable condition. Scope withdrawal time: 40 Sedation minutes: 54 Findings: internal hemorrhoids, possible cancer (Ulcerated lesion at 35 cm), stricture (Ulcerated lesion at 35 cm) and other findings Specimen(s): other (Biopsies of mucosal erythema at 40 cm, biopsies of ulcer and associated heaped up mucosa, biopsies at 20 cm of erythematous mucosa) Complications: none Impression: Tight stenosis associated with ulcerated lesion at 35 cm in the sigmoid colon, possible cancer, possible stercoral ulcer Post-procedure Recommendations: Other recommendation (Return to [facility] floor, will follow up biopsy results, plan of care pending the above) Follow up: as needed Disposition: Acute Care
[2019-04-29] MEDS: MIDAZOLAM 5 MG/5 ML VIAL IV (13:01)
[2019-04-29] MEDS: fentaNYL 250 MCG/5 ML INJ IV (13:02)
[2019-04-29] MEDS: MAGNESIUM SULFATE 2 GM/50 ML PIGGYBACK IV (14:25)
--- NOTE | 2019-04-29 20:38 | PC.NURSE ---
Carol Ann shift note: No BM this shift, up out of bed to BR, voiding. No c/o abdominal pain or cramping this shift. C/O anxiety related to hospitalization and procedures. Understands importance of remaining on clear diet, no nausea. Refused change of IV site, states she is a really hard stick and in the past she requires multiple attempts. States she will prefer IV placement via US. Upon refusal and further anxiety from IV site change, this RN make aware next shift regarding patient IV request. at bedside providing supportive care. Calls appropriately for staff assistance. Call light within reach.
[2019-04-30 01:20] VITALS: BP 146/77; PULSE 58; RESP 18; TEMP 36.7; O2SAT 99
--- NOTE | 2019-04-30 01:41 | PC.NURSE ---
Patient is alert and oriented. Breath sounds CTA with RA sat of 99%. HRR. BP elevated at 146/77. Denies nausea. BT hypoactive; abdomen is soft but tender across lower quadrants and patient states still having some cramping but rates severity as 2/10 and declines need for pain med. Able to turn herself. Is independent in room. Fall risk score is moderate but patient refuses to have bed alarm activated; verbalizes need to call for assistance if feels any dizziness or lightheadedness upon sitting up prior to getting out of bed. Voiding without dysuria, frequency or urgency. Refuses SCD's at this time so reminded to ankle wave when awake. IV's both past expiration date but patient refusing to have IV's restarted.
[2019-04-30] MEDS: LACTATED RINGERS 1,000 ML 125 ML IV ×2 (04:36→18:08)
[2019-04-30 04:45] VITALS: BP 107/56; PULSE 52; RESP 18; TEMP 36.6; O2SAT 96
[2019-04-30 05:27] LABS: Add Manual Diff / Slide Review NO; Basophils Absolute Auto 0 /uL (0-100); Basophils Percent Auto 0.4 % (0-2); Eosinophils Absolute Auto 400 /uL (0-450); Eosinophils Percent Auto 6.1 % (2-4); Hematocrit 28.5 % (36-46); Hemoglobin 8.8 g/dL (12.0-16.0); Lymphocytes Absolute Auto 2400 /uL (1100-4500); Lymphocytes Percent Auto 35.3 % (25-40); Mean Corpuscular HGB Conc 30.9 % (30-36); Mean Corpuscular Hemoglobin 20.8 PG (26-34); Mean Corpuscular Volume 67.3 fL (80-100); Monocytes Absolute Auto 400 /uL (0-900); Neutrophils Absolute Auto 3600 /uL (1500-7000); Neutrophils Percent Auto 52.2 % (50-75); Platelet Count 295 X10^3/uL (150-400); Red Blood Cell Count 4.24 X10^6/uL (4.0-5.2); Red Cell Distribution Width 23.3 % (11.6-14.8); White Blood Cell Count 6.8 X10^3/uL (4.5-11.0)
[2019-04-30 05:30] LABS: BUN Creatinine Ratio 7.1 (6-22); Blood Urea Nitrogen 5 mg/dL (7-17); Calcium 10.4 mg/dL (8.4-10.2); Carbon Dioxide 31 mmol/L (22-32); Chloride 103 mmol/L (98-107); Estimated Glomerular Filt Rate > 60.0 mL/min (>60); Glucose 92 mg/dL (70-100); HEMOLYSIS < 15 (0-50); Potassium 3.2 mmol/L (3.4-5.1); Sodium 141 mmol/L (137-145)
[2019-04-30 05:32] LABS: Magnesium 1.9 mg/dL (1.6-2.3)
[2019-04-30] MEDS: buPROPion XL 150 MG TAB 450 MG PO (05:45)
[2019-04-30 05:57] LABS: Anisocytosis 2+; Hypochromasia 1+; Microcytosis 1+
--- NOTE | 2019-04-30 06:25 | PM.PN.1 ---
Subjective Subjective Date Patient Seen: 04/30/19 Time Patient Seen: 06:26 Interval history: Patient is feeling better this morning, continuing on clear liquids. Still having some dull abdominal pain but nothing like 2 days ago. She does have an appetite, would like to eat solid food but understands the reasons behind her clear diet. Denies any nausea or vomiting. Denies having passed as her colonoscopy. Slept okay last night. Exam Vital Signs (past 8 hours): - 04/30/19 01:20 04/30/19 04:45 Temperature 98.1 F 97.9 F Pulse Rate 58 L 52 L Respiratory Rate 18 18 Blood Pressure 146/77 H 107/56 L Pulse Oximetry 99 96 Oxygen Delivery Method Room Air Oxygen Flow Rate 0 Narrative Exam Narrative: GENERAL: Alert and oriented, appearing stated age, in pain. HEENT: Head normocephalic/atraumatic. NG tube removed. LUNGS: Clear to ausculation bilaterally, no wheezes, rhonchi or rales. CV: Normal S1 and S2 with regular rate and rhythm, no audible murmurs, rubs or gallops. ABDOMEN: Soft, mildly tender, generalized, mildly distended, no organomegaly. Active bowel sounds. EXTREMITIES: No clubbing, cyanosis, or edema. NEURO: Cranial nerves II through XII grossly intact, no focal deficits. PSYCH: Alert and oriented x 3. SKIN: No concerning lesions. Objective Labs Result Diagrams: 04/30/19 04:55 04/30/19 04:55 Labs: Laboratory Results - last 24 hr 04/24/19 04/29/19 04/29/19 12:38 04:43 06:40 WBC RBC Hgb Hct MCV MCH MCHC RDW Plt Count Neut % (Auto) Lymph % (Auto) [place] % (Auto) Eos % (Auto) Baso % (Auto) Neut # (Auto) Lymph # (Auto) [place] # (Auto) Eos # (Auto) Baso # (Auto) RBC Morphology See below Hypochromasia 2+ H Anisocytosis 3+ H Microcytosis 2+ H Ovalocytes Sodium Potassium Chloride Carbon Dioxide BUN Creatinine Estimated GFR BUN/Creatinine Ratio Glucose Calcium Magnesium Blood Type B Positive Antibody Screen Negative Crossmatch See Detail See Detail 04/29/19 04/29/19 04/30/19 09:00 09:00 04:55 WBC 7.7 6.8 RBC 4.47 4.24 Hgb 9.3 L 8.8 L Hct 29.7 L 28.5 L MCV 66.5 L 67.3 L MCH 20.8 L 20.8 L MCHC 31.4 30.9 RDW 23.9 H 23.3 H Plt Count 318 295 Neut % (Auto) 53.8 52.2 Lymph % (Auto) 33.4 35.3 [place] % (Auto) 5.9 6.0 Eos % (Auto) 6.1 H 6.1 H Baso % (Auto) 0.8 0.4 Neut # (Auto) 4200 3600 Lymph # (Auto) 2600 2400 [place] # (Auto) 500 400 Eos # (Auto) 500 H 400 Baso # (Auto) 100 0 RBC Morphology Not Reportable See below Hypochromasia 1+ H Anisocytosis 2+ H 2+ H Microcytosis 1+ H Ovalocytes 1+ H Sodium Potassium Chloride Carbon Dioxide BUN Creatinine Estimated GFR BUN/Creatinine Ratio Glucose Calcium Magnesium 1.7 Blood Type Antibody Screen Crossmatch 04/30/19 04/30/19 04:55 04:55 WBC RBC Hgb Hct MCV MCH MCHC RDW Plt Count Neut % (Auto) Lymph % (Auto) [place] % (Auto) Eos % (Auto) Baso % (Auto) Neut # (Auto) Lymph # (Auto) [place] # (Auto) Eos # (Auto) Baso # (Auto) RBC Morphology Hypochromasia Anisocytosis Microcytosis Ovalocytes Sodium 141 Potassium 3.2 L Chloride 103 Carbon Dioxide 31 BUN 5 L Creatinine 0.70 Estimated GFR > 60.0 BUN/Creatinine Ratio 7.1 Glucose 92 Calcium 10.4 H Magnesium 1.9 Blood Type Antibody Screen Crossmatch Assessment & Plan Assessment & Plan narrative: Assessment 1. GI bleed. General surgery following. Has underwent EGD/colonoscopy on 04/25, colonoscopy to hepatic flexure secondary to poor prep. EGD significant for possible esophageal spasm. Colonoscopy showed only grade 2-3 internal hemorrhoids with stigmata of bleeding. Repeat colonoscopy on 04/27/18 was abandoned secondary to solid stool. Small-bowel follow-through showed no obstruction. NG tube was placed to ensure adequate prep, removed secondary to patient tolerance. Colonoscopy on 04/30/18 showed an ulcerated lesion at 35 cm with tight stenosis. Biopsies are pending. Plan: Continue per general surgery. Assessment 2, Anemia, acute blood loss. Hemoglobin/hematocrit trending down again, likely secondary to bleeding colonic ulcer, concern for malignancy. Plan: General surgery following. Assessment 3: Hypokalemia, worsened, likely secondary to NPO status and prep. Plan: Will add 40 meq K rider to IV fluids and trend BMP. May continue oral potassium at 40 meq as well. Assessment 4: Chest pain. No recurrence of symptoms. Troponin and CPK negative on repeat. Etiology likely secondary to combination of multiple issues none of which are cardiac at this point. Plan: No further workup unless patient has symptoms. Assessment 5: Back pain. 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 Subluxation has not developed but there has been a mild degree of interval worsening of degenerative disc disease and facet osteoarthritis along the lumbosacral spine. Radiolation reported that this segmentation anomaly such as is present in this case does predispose to low back pain. Plan: Supportive therapy, pain management as needed. Assessment 6: Depression. Dr. Vila consulting. Plan: Continue per her treatment plan. DVT prophylaxis: SCDs. Code: Full Dispo: Discharge unclear at this point. Will provide medical release note at time of discharge. Quality VTE Deep Vein Thrombosis/Pulmonary Embolism Present on Admission: No
[2019-04-30 08:00] VITALS: BP 126/87; PULSE 53; RESP 16; TEMP 36.3; O2SAT 98
[2019-04-30] MEDS: MAGNESIUM OXIDE 400 MG TABLET PO ×2 (08:02→21:13)
[2019-04-30] MEDS: CHLORTHALIDONE 25 MG TABLET PO (08:03)
[2019-04-30] MEDS: POTASSIUM CHLORIDE 40 MEQ in LACTATED RINGERS 1,000 ML 125 MEQ IV (08:03)
[2019-04-30] MEDS: CITALOPRAM 20 MG TABLET PO (08:03)
[2019-04-30] MEDS: POTASSIUM CHLORIDE 20 MEQ TAB 40 MEQ PO (08:03)
[2019-04-30] MEDS: PANTOPRAZOLE 40 MG VIAL IV ×2 (08:04→21:13)
[2019-04-30] MEDS: SODIUM CHLORIDE 0.9% FLUSH 10 ML IV ×2 (08:05→21:13)
[2019-04-30] MEDS: HYDROMORPHONE 0.5 MG INJ IV (08:17)
[2019-04-30] MEDS: ALPRAZolam 0.25 MG TABLET PO ×3 (08:18→21:13)
[2019-04-30] MEDS: ONDANSETRON 4 MG/2 ML INJ IV (08:25)
--- NOTE | 2019-04-30 10:52 | DIET.PN ---
Addendum entered by Christie Fowler 04/30/19 12:15: Pt unwilling to consume high protein jello r/t it containing artificial sweetener, unwilling to drink apple juice, vegetable broth, or beef broth. Kitchen will send chicken broth, cranberry juice, regular jello, and Ensure drinks. Dietary options are limited at this point with priority on having clear bowels for successful upcoming resection as well as nutrition optimization. Pt did not tolerate NG tube for bowel prep per sinus px so nutrition support not likely option for nourishment. pt reports having a cracked tooth with loose temporary filling. Original Note: Dietary Progress Note Assessment: 53y F admitted for rectal bleeding x1mo, vomiting x3mo, general fatigue, having been through extensive bowel prep since 04/25 with little POs for past 3w. Pt was in good spirits this am (pain in good control via dilaudid) but feeling some sadness and anxiety not knowing whether or not she has malignancy and what tx looks like. Pt reports for last few months has come home from work and slept until the next day. Has been doing protein shakes (premier protein) for past month because hasn't been able to tolerate solids. HT: 157.4cm WT: 87.6kg UBW: 10# loss in 3mo (5%) BMI: 35.4 Labs: hgb 8.8 L trending down, K+ 3.2 L, Calcium 10.5 H MNA: 7 malnourished Joseluis: 20 Nutrition Diagnosis: Acute Moderate Protein Calorie Malnutrition r/t altered GI function (possible colonic ulcer or malignancy) aeb pt intake <50% EERs for 1 mo, 5% unintentional wt loss, and mild muscle wasting with projection of liquid diet for next week r/t possible colon resection. Interventions: 1. Recc ONS Ensure Surgery bid (breakfast/dinner) and high protein jello c Ensure Enlive (lunch) to optimize nutrition per Dr. Conde request providing 1100kcal (61% of needs) and 76g PRO (87% of needs) in addition to other items on clear liquid meal trays (juice, jello, broth). Will continue until pt diet advances or becomes NPO for procedure. Diet Order: Fiber free clears/fulls, nutrition optimization for likely colon resection procedure on 05/05 EER: 1800kcal, 87g PRO (1g/kg), 3L fluids (35mL/kg) Monitoring/Evaluations: labs, POs, ONS acceptance
[2019-04-30] MEDS: OXYCODONE IR 5 MG TABLET PO ×3 (10:56→17:41)
[2019-04-30 12:00] VITALS: BP 111/71; PULSE 57; RESP 16; TEMP 36.8; O2SAT 97
--- NOTE | 2019-04-30 13:06 | CM.DPC ---
DCP: continued: Case received this morning and discussed in Team Rounds. Pt was admitted 04/24 to care of [facility] team. Dr. Welch is following her. PCP Dr. Persaud is consulting. UR RN team including manager medical writing Yuliana noted confusion as to why pt might need to stay on until next week for a surgical procedure and thus Yuliana reached out to Dr. Welch to ask for some clarity re the POC going forward. Spoke now by phone with Dr. Welch who clarified need and plan. She noted that a colon resection was planned now for Thursday 05/04 as the pathology report needed to be in place before she would know how extensive the resection would be. She also stated that she felt it medically necessary to keep pt in the hospital setting until then as if she were to d/c to home she would likely quickly become full of stool again. 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 Thanked her for the call and the update and have passed on the information now to UR RN Patrick and Still Worker Helper Yuliana. Checked in then with pt and her , at bedside. Pt reports she is quite comfortable with this plan and very grateful to the staff. Did ask her about the HR issues that she had discussed with [facility]ancia on 04/28 and let her know that Blanche had left a vm but with no response. Pt says she has been in contact with her HR dept via email and that she is unsure if medical records will need to be sent or ?. Gave her the full [employer] desk number in case something is needed from this dept. She and her say they will likely need notes from Dr. Harvey and perhaps Dr. Welch. They are aware that if clinical records are needed these can be accessed by Medical Records dept. Pt notes that she has an [employer] plan which will also help pay her while she recovers. Pt during this conversation appears at ease, is smiling. P: Surgery planned for Friday with Dr. Welch, as per above and DCP team will follow post surgery for assist with any d/c needs that arise at that time.
--- NOTE | 2019-04-30 15:47 | CM.DPC ---
DCP Cont: Went in to speak with patient at Dr. 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 Patient in agreement that I will come back by on Friday morning to help determine what the patient needs and help her get those documents/letters so that she can turn them in to her employer. Brenna Spangler, Care Security Door Installer
--- NOTE | 2019-04-30 16:37 | DI.RAD.S_ITS ---
PROCEDURE: XR CHEST FOR PICC 1V INDICATIONS: Picc placement COMPARISON: None. FINDINGS: PICC was placed by the intravenous therapy team from the left side. Fluoroscopic spot film demonstrates the tip of PICC projecting to the area of SVC Jenny junction IMPRESSION: Tip of PICC projects to the area of SVC right atrial junction Dictated by: Skyler Watkins M.D. on 04/30/2019 at 16:18 Approved by: Skyler Watkins M.D. on 04/30/2019 at 16:18
--- NOTE | 2019-04-30 16:50 | P.PN_ITS ---
Subjective Subjective Date Patient Seen: 04/30/19 Time Patient Seen: 16:50 Interval history: No acute events overnight. The patient has not passed any stool today. She having minimal pain. She denies nausea or vomiting. Exam Vital Signs (past 8 hours): - 04/30/19 12:00 Temperature 98.3 F Pulse Rate 57 L Respiratory Rate 16 Blood Pressure 111/71 Pulse Oximetry 97 Oxygen Delivery Method Room Air Oxygen Flow Rate 0 Narrative Exam Narrative: GENERAL: Alert, comfortable, resting in her bed HENT: Normocephalic, atraumatic. Hearing intact. Oral mucosa is pink and moist. EYES: Conjunctiva pink, sclera white, no periorbital swelling. CARDIOVASCULAR: Regular rate. No pedal edema. RESPIRATORY: Non-tachypneic, breathing comfortably on room air. GASTROINTESTINAL: Abdomen soft, slightly distended GENITALURINARY: No flank tenderness. MUSCULOSKELETAL: Equal tone and mass bilaterally. SKIN: Warm, dry, soft, appropriate color for ethnicity. No other lesions, rashes, or wounds. NEURO: Alert and Oriented X 3. No gross sensory deficits, or cognitive issues. PSYCH: Appropriate affect and mood. Objective Labs Result Diagrams: 04/30/19 04:55 04/30/19 04:55 Labs: Laboratory Results - last 24 hr 04/30/19 04/30/19 04/30/19 04:55 04:55 04:55 WBC 6.8 RBC 4.24 Hgb 8.8 L Hct 28.5 L MCV 67.3 L MCH 20.8 L MCHC 30.9 RDW 23.3 H Plt Count 295 Neut % (Auto) 52.2 Lymph % (Auto) 35.3 [place] % (Auto) 6.0 Eos % (Auto) 6.1 H Baso % (Auto) 0.4 Neut # (Auto) 3600 Lymph # (Auto) 2400 [place] # (Auto) 400 Eos # (Auto) 400 Baso # (Auto) 0 RBC Morphology See below Hypochromasia 1+ H Anisocytosis 2+ H Microcytosis 1+ H Sodium 141 Potassium 3.2 L Chloride 103 Carbon Dioxide 31 BUN 5 L Creatinine 0.70 Estimated GFR > 60.0 BUN/Creatinine Ratio 7.1 Glucose 92 Calcium 10.4 H Magnesium 1.9 Assessment & Plan Assessment and plan (1) NSAID long-term use: Current visit: Yes Status: Acute (2) Acute GI bleeding: Problem details: NPO, repeat colonoscopy today Current visit: Yes Status: Acute (3) Chronic constipation: Problem details: NPO. Repeat colonoscopy today Current visit: Yes Status: Acute (4) Colonic ulcer: Current visit: Yes Status: Acute (5) Stenosis of colon: Problem details: severe, obstructing Current visit: Yes Status: Acute (6) Large bowel obstruction: Current visit: Yes Status: Acute (7) Abdominal pain: Problem details: Pain meds Current visit: Yes Status: Acute (8) Anemia: Problem details: Hgb stable. Patient continues to put out bloody stool. Current visit: Yes Status: Acute Assessment & Plan narrative: Based on yesterday's colonoscopy procedure we have established a diagnosis of large bowel obstruction. The patient has a very tight stenosis of her sigmoid colon, which was the reason we had great difficulty getting her bowel prepped. On the third colonoscopy, after 16 Liters of bowel prep, much of which was given via NGT, the stool which was lodged in the narrowed colon finally had passed and I was able to push the colonoscope through the stenosis to examine the rest of the colon. The obstructing lesion is in the sigmoid colon is at about 35cm from the anal verge. It is nearly circumferential and is firm and densely scarred with surrounding heaped up mucosa. I biopsied the heavy scar and the heaped up mucosa surrounding it. The patient will need a colon resection on this hospital admission, however the extent of her operation will depend on the pathology result, which is expected on Friday. If it is cancer, she will require an oncologic resection including lymph nodes. If it is a stercoral ulcer, she will require a short segment resection to relieve the obstruction. I have scheduled her for a partial colectomy on Friday morning. In the interim, she can not safely go home because she is at high risk to re-obstruct and to bleed from this mass. She has already bled down to 6.5 hgb, requiring blood transfusion on this admission. If she re-obstructs prior to Friday, we will need to re-prep her with NGT and possibly with gastrografin prior to surgery. I am planning to keep her on clears and allow non-clear liquid supplements to improve her catabolic state prior to surgery. I spent a long time discussing surgery with the patient and her . I explained that after the colon resection she will need to stay in the hospital for probably 3-5 days until she has return of bowel function. I've explained that she may need a diverting ostomy depending on how the bowel looks at the time of anastomosis. I've explained she has a higher risk for leakage given her poor nutritional state, but we will try to improve that over the next few days while she is waiting for the pathology result prior to surgery. I explained that she will need about 2 weeks at home to recover after surgery, before going back to work. I've explained that she will need about 6 weeks of no lifting more than 10 lb and no straining the abdomen after surgery. I've explained that she may have chronic diarrhea, but the colon usually upregulates to normal function about [address] Schultz will be covering for me for the next few days, but I will come by on Friday evening to discuss the pathology results with the patient and her , and to finalize plans for surgery on Friday. Plan: clear liquid diet non-clear protein supplement liquids ambulate frequently use SCD's when not ambulating unable to give DVT ppx because of bleeding risk daily labs PICC line (nurses unable to get another IV in) follow up pathology colon resection on Friday, pending pathology results Time Spent With Patient Time with patient: Greater than 35 minutes Quality VTE Deep Vein Thrombosis/Pulmonary Embolism Present on Admission: No
[2019-04-30 17:10] VITALS: BP 124/76; PULSE 61; RESP 18; TEMP 37.2; O2SAT 97
--- NOTE | 2019-04-30 17:18 | P.CONS_ITS ---
History of Present Illness Consult details Date Patient Seen: 04/28/19 Time Patient Seen: 17:10 Chief complaint: per phy/ rectal bleeding/ pain 1x vomiting 3xmonth Reason for consult: depression management Requesting provider: Michael Eagle Narrative: CC: I've got to stay positive pt's Suresh present for interview today with her consent; History is obtained from all parties. Updated hospital course: 1 dose alprazolam 04/29 Scope completed 04/29 with biopsies taken, ulcerated area located INTERVIEW: Frank reports feeling ok, present for our interview today & she is michael elena forward to him meeting this quality analyst/technical writer. Discussed results of scope, and plan for surgery on Friday. She reports mood as ok, but worried about what biopsy results will be, and trying to avoid thinking about potential of colon cancer. Validated her efforts in not looking up things that could worsen anxiety. Worried about her coping with her illness. She denies SI; we reviewed concept of parts that part of her may feel better off but another part of her very much wants to live & knows how much her family would be in pain if she were to . Framed ongoing work around depression & anxiety, but also some improvement noted over course of hospital stay (could be in part from improvement in anemia). Meds Home Medications and Allergies Home Medications Medication Instructions Recorded Confirmed Type docusate sodium 250 mg PO QDAY #30 cap 01/01/16 04/27/19 Rx estradiol 1 mg tablet 1 mg PO QDAY #90 tab 09/07/18 04/27/19 Rx bupropion HCl 150 mg 24 hr tablet, 450 mg PO QAM #90 tab 11/20/18 04/27/19 Rx extended release omeprazole 20 mg capsule,delayed 20 mg PO DAILY #60 cap 11/23/18 04/27/19 Rx release chlorthalidone 25 mg tablet 25 mg PO QAM #14 tab 12/28/18 04/27/19 Rx alprazolam 0.25 mg tablet 0.25 mg PO TID PRN #90 tab 04/12/19 04/27/19 Rx citalopram 20 mg tablet 20 mg PO DAILY #90 tab 04/12/19 04/27/19 Rx Allergies Allergy/AdvReac Type Severity Reaction Status Date / Time latex Allergy Intermediate Rash Verified 04/27/19 12:08 codeine Allergy Mild VOMITING Verified 04/27/19 12:08 fluoxetine AdvReac Severe Agitated Verified 04/27/19 12:08 pain contract Allergy Unknown Uncoded 04/24/19 12:27 Review of Systems Constitutional Constitutional: Reports difficulty sleeping, Reports fatigue, Reports lack of energy and Reports poor appetite Musculoskeletal Musculoskeletal: Reports back pain Psychiatric Psychiatric: Reports as per HPI and Reports anxiety Endocrine Endocrine: Reports fatigue Exam Vital Signs (past 8 hours): - 04/30/19 12:00 Temperature 98.3 F Pulse Rate 57 L Respiratory Rate 16 Blood Pressure 111/71 Pulse Oximetry 97 Oxygen Delivery Method Room Air Oxygen Flow Rate 0 Narrative Exam Narrative: MENTAL STATUS EXAM: Appearance: improved grooming from previous, hospital garb Behavior: lying in bed, fair eye contact, no psychomotor slowing, no involuntary movements observed Gait: not observed Speech: normal rate & volume Mood: ok Affect: more congruent with content, anxious, normal range Thought Process: circumstantial, perseverative Thought Content: denies SI, no evidence of homicidal ideation, denies hallucinations, no evidence of paranoia or delusions Attention: Attentive to interview Orientation: Oriented to person place and time Memory: Intact for interview, not formally tested Insight: fair-Limited Judgment: fair-Limited Objective Labs Result Diagrams: 04/30/19 04:55 04/30/19 04:55 Labs: Laboratory Results - last 24 hr 04/30/19 04/30/19 04/30/19 04:55 04:55 04:55 WBC 6.8 RBC 4.24 Hgb 8.8 L Hct 28.5 L MCV 67.3 L MCH 20.8 L MCHC 30.9 RDW 23.3 H Plt Count 295 Neut % (Auto) 52.2 Lymph % (Auto) 35.3 [place] % (Auto) 6.0 Eos % (Auto) 6.1 H Baso % (Auto) 0.4 Neut # (Auto) 3600 Lymph # (Auto) 2400 [place] # (Auto) 400 Eos # (Auto) 400 Baso # (Auto) 0 RBC Morphology See below Hypochromasia 1+ H Anisocytosis 2+ H Microcytosis 1+ H Sodium 141 Potassium 3.2 L Chloride 103 Carbon Dioxide 31 BUN 5 L Creatinine 0.70 Estimated GFR > 60.0 BUN/Creatinine Ratio 7.1 Glucose 92 Calcium 10.4 H Magnesium 1.9 Assessment & Plan Assessment and plan (1) Acute GI bleeding: Problem details: NPO, repeat colonoscopy today Current visit: Yes Status: Acute (2) Anemia: Problem details: Hgb stable. Patient continues to put out bloody stool. Current visit: Yes Status: Acute (3) Major depressive disorder, recurrent episode, moderate with atypical features: Problem details: Continue home meds Current visit: No Status: Acute (4) Anxiety: Current visit: No Status: None Assessment & Plan narrative: Initial consult assessment: Frank Vidal is a 53-year-old female, followed by myself in outpatient psychiatry clinic, admitted for rectal bleeding and anemia. She has known history of depression & I suspect PTSD. I feel there is some level of passive suicidality in not seeking care for persistent rectal bleeding, but she ultimately agreed to go to hospital with family, and her children provide some protective factors. She is not actively suicidal, and I do not feel that she needs monitoring for self-harm during her medical admission, but I feel that depression & passive SI contributed to significant delay in seeking appropriate care. Multiple losses in the last several years of close relationships (gr andmother, sister) are perpetuating factors for depression. She agrees to daily visits during this admission with this quality analyst/technical writer, and I am hopeful that this can help manage at least some level for anxiety & depression symptoms to help avoid these interfering with her medical care. No current indication for psychotropic medication changes during medical admission, aside from any needed by the primary team (eg NPO status). She has been sensitive to medication changes in the past year. Also suspect she will need to continue some prn alprazolam for now, she has consistently been taking up to 3-4 times per day recently, and although low dose, would need to monitor for benzodiazepine withdrawal if stopped completely. Update 04/30/19: Some improvement in mood & anxiety symptoms, consistent improvem ent in anemia may be a helpful factor in this. Less concern about suicidal ideation today; she continues to be future-oriented. She agrees for this quality analyst/technical writer to continue to follow during medical hospitalization, and I feel this could help support medical treatment & avoid worsening anxiety or depression that could interfere with medical care. Particularly with awaiting pathology results & plan for surgery on Friday, she will benefit from additional support & some supportive therapy during her stay. RECOMMENDATIONS: - Continue home psychotropic medications as you are doing: citalopram 20mg rocio ly, bupropion XL 450mg daily, and aloprazolam 0.25mg TID prn severe anxiety - This quality analyst/technical writer will check-in with patient regularly while admitted (with exception of Th/Sat/Sun), and monitor for any active SI; next inpatient visit 05/03/19 - Continue outpatient psychiatric care, will schedule sooner visit upon discharge (next scheduled outpatient visit 06/08/19) Thank you for involving me in this patient's hospital care, I will continue to follow with you. Please contact me at [phone] with any questions or acute concerns. PSYCHOTHERAPY INTERVENTIONS PERFORMED: Supportive interventions to bolster adaptive coping mechanisms. Validation of her efforts in emotional expression, and practice facilitating this especially around difficult emotions. GOAL: Decrease symptoms of anxiety measured by rating scales & clinical impression PROGRESS TOWARD GOAL: min DURATION OF PSYCHOTHERAPY: 18 minutes with pt & Time Spent With Patient Time with patient: 15-24 minutes
[2019-04-30 20:10] VITALS: BP 118/78; PULSE 57; RESP 17; TEMP 36.9; O2SAT 97
--- NOTE | 2019-04-30 23:21 | PC.NURSE ---
Patient got PICC line inserted in left upper arm. Off and on complaints of lower abdominal pain. Vitals stable, room air, call light within reach.
[2019-05-01] MEDS: LACTATED RINGERS 1,000 ML 125 ML IV ×2 (02:49→10:43)
[2019-05-01 02:50] VITALS: BP 117/69; PULSE 52; RESP 18; TEMP 36.6; O2SAT 97
--- NOTE | 2019-05-01 03:32 | PC.NURSE ---
Patient is alert and oriented. Breath sounds CTA with RA sat of 97%. HRR but bradycardic at 52 bpm. Denies nausea. BT present and abdomen is soft; denies tenderness. Voiding on toilet; denies dysuria, frequency or urgency. Independent with mobility. Fall risk is moderate but patient refuses bed alarm; verbalizes agreement to sit on edge of bed prior to standing and if any dizziness or lightheadedness she will call for assistance. Refusing to wear SCD's so reminded importance of ankle waving.
[2019-05-01] MEDS: ESTRADIOL 1 MG TABLET PO (05:34)
[2019-05-01] MEDS: CITALOPRAM 20 MG TABLET PO (05:34)
[2019-05-01] MEDS: CHLORTHALIDONE 25 MG TABLET PO (05:34)
[2019-05-01] MEDS: buPROPion XL 150 MG TAB 450 MG PO (05:34)
[2019-05-01] MEDS: SODIUM CHLORIDE 0.9% FLUSH 10 ML IV ×4 (05:35→20:44)
[2019-05-01 06:00] VITALS: BP 111/69; PULSE 49; RESP 18; TEMP 36.3; O2SAT 98
[2019-05-01 06:00] LABS: Add Manual Diff / Slide Review NO; Basophils Absolute Auto 100 /uL (0-100); Basophils Percent Auto 0.9 % (0-2); Eosinophils Absolute Auto 400 /uL (0-450); Eosinophils Percent Auto 5.4 % (2-4); Hematocrit 29.9 % (36-46); Hemoglobin 9.1 g/dL (12.0-16.0); Lymphocytes Absolute Auto 2800 /uL (1100-4500); Mean Corpuscular HGB Conc 30.5 % (30-36); Mean Corpuscular Hemoglobin 20.6 PG (26-34); Mean Corpuscular Volume 67.3 fL (80-100); Monocytes Absolute Auto 400 /uL (0-900); Monocytes Percent Auto 5.5 % (3-14); Neutrophils Absolute Auto 3700 /uL (1500-7000); Neutrophils Percent Auto 50.2 % (50-75); Platelet Count 305 X10^3/uL (150-400); Red Blood Cell Count 4.45 X10^6/uL (4.0-5.2); Red Cell Distribution Width 24.4 % (11.6-14.8); White Blood Cell Count 7.4 X10^3/uL (4.5-11.0)
[2019-05-01 06:08] LABS: BUN Creatinine Ratio 7.1 (6-22); Blood Urea Nitrogen 5 mg/dL (7-17); Calcium 10.6 mg/dL (8.4-10.2); Carbon Dioxide 29 mmol/L (22-32); Chloride 105 mmol/L (98-107); Estimated Glomerular Filt Rate > 60.0 mL/min (>60); Glucose 82 mg/dL (70-100); HEMOLYSIS < 15 (0-50); Magnesium 1.7 mg/dL (1.6-2.3); Potassium 3.8 mmol/L (3.4-5.1); Sodium 140 mmol/L (137-145)
[2019-05-01 06:52] LABS: Anisocytosis 2+; Hypochromasia 1+; Ovalocytes 1+
[2019-05-01] MEDS: OXYCODONE IR 5 MG TABLET PO ×4 (07:38→19:23)
[2019-05-01] MEDS: POTASSIUM CHLORIDE 20 MEQ TAB 40 MEQ PO (08:15)
[2019-05-01] MEDS: PANTOPRAZOLE 40 MG VIAL IV ×2 (08:15→20:44)
[2019-05-01] MEDS: MAGNESIUM OXIDE 400 MG TABLET PO ×2 (08:15→20:44)
[2019-05-01] MEDS: MAGNESIUM SULFATE 2 GM/50 ML PIGGYBACK IV (08:15)
[2019-05-01 08:40] VITALS: BP 124/74; PULSE 70; RESP 18; TEMP 36.7; O2SAT 99
[2019-05-01] MEDS: ALPRAZolam 0.25 MG TABLET PO ×2 (11:29→19:22)
--- NOTE | 2019-05-01 11:58 | P.PN_ITS ---
Subjective Subjective Date Patient Seen: 05/01/19 Time Patient Seen: 11:30 Interval history: Patient 53-year-old female with: Lesion that led to secondary bleeding and obstruction. Biopsies are pending and are planning a hemicolon he on Friday patient feeling okay moving things through may be getting a little too much IV fluids again 150 an hour lactated Ringer's at think hydration is significantly addressed. Will Hep-Lock her IV since she is taking clear fluids well and potassium is normalized renal functions good will relook at those again in the morning. Review of systems a 14 points negative except as above. Lengthy discussion about her depression issues which she has a dressing appropriately with psychiatry and will continue with current regimen there. Exam Vital Signs (past 8 hours): - 05/01/19 06:00 05/01/19 08:40 Temperature 97.4 F L 98.1 F Pulse Rate 49 L 70 Respiratory Rate 18 18 Blood Pressure 111/69 124/74 Pulse Oximetry 98 99 Oxygen Delivery Method Room Air Oxygen Flow Rate 0 Narrative Exam Narrative: Patient sitting in bed comfortably answering questions clearly PERRLA EOMs intact Neck without mass Lungs clear Heart with regular rate rhythm Abdominal discomfort mid upper. No rebound guarding or as significant mass Neuro intact symmetrical to motor fine touch speech is clear Psych reviewed as above Objective Labs Result Diagrams: 05/01/19 05:35 05/01/19 05:35 Labs: Laboratory Results - last 24 hr 05/01/19 05/01/19 05:35 05:35 WBC 7.4 RBC 4.45 Hgb 9.1 L Hct 29.9 L MCV 67.3 L MCH 20.6 L MCHC 30.5 RDW 24.4 H Plt Count 305 Neut % (Auto) 50.2 Lymph % (Auto) 38.0 Hudspeth % (Auto) 5.5 Eos % (Auto) 5.4 H Baso % (Auto) 0.9 Neut # (Auto) 3700 Lymph # (Auto) 2800 Hudspeth # (Auto) 400 Eos # (Auto) 400 Baso # (Auto) 100 RBC Morphology See below Hypochromasia 1+ H Anisocytosis 2+ H Ovalocytes 1+ H Sodium 140 Potassium 3.8 Chloride 105 Carbon Dioxide 29 BUN 5 L Creatinine 0.70 Estimated GFR > 60.0 BUN/Creatinine Ratio 7.1 Glucose 82 Calcium 10.6 H Magnesium 1.7 Assessment & Plan Assessment & Plan narrative: Assessment 1. Colon lesion concerning for possibility of inflammatory or cancerous issues will that led to some significant an obstruction. Moving things through nail with clear liquids and have partial colectomy scheduled for Friday. Assessment 2. History of hypokalemia will monitor electrolytes and renal function and over the next couple of days as she approaches preoperative stretch. Assessment 3. Anemia secondary to colon lesion monitoring period Assessment 4. Significant depression issues is had major family losses over the course of last year her grandmother who raised her father and her sister and I think with calmed with respect to those things and so was not in a frail mind to address her own physical issues as they developed. Is getting psych care now with psychiatry Dr. Vila feeling much better and making significant progress along those fronts. Quality VTE Deep Vein Thrombosis/Pulmonary Embolism Present on Admission: No
[2019-05-01 12:45] VITALS: BP 115/72; PULSE 55; RESP 16; TEMP 36.8; O2SAT 96
--- NOTE | 2019-05-01 13:21 | P.PN_ITS ---
Subjective Subjective Date Patient Seen: 05/01/19 Time Patient Seen: 13:21 Interval history: The patient is a woman with significant stricture ring of her sigmoid colon. She has also been having rectal bleeding. The bleeding now has ceased she said no abdominal pain at this time. She is tolerating clear liquids with some protein supplements. Exam Vital Signs (past 8 hours): - 05/01/19 06:00 05/01/19 08:40 Temperature 97.4 F L 98.1 F Pulse Rate 49 L 70 Respiratory Rate 18 18 Blood Pressure 111/69 124/74 Pulse Oximetry 98 99 Oxygen Delivery Method Room Air Oxygen Flow Rate 0 Narrative Exam Narrative: Operative no apparent distress. Abdomen is protuberant nontender without mass. Objective Labs Result Diagrams: 05/01/19 05:35 05/01/19 05:35 Labs: Laboratory Results - last 24 hr 05/01/19 05/01/19 05:35 05:35 WBC 7.4 RBC 4.45 Hgb 9.1 L Hct 29.9 L MCV 67.3 L MCH 20.6 L MCHC 30.5 RDW 24.4 H Plt Count 305 Neut % (Auto) 50.2 Lymph % (Auto) 38.0 Isabella % (Auto) 5.5 Eos % (Auto) 5.4 H Baso % (Auto) 0.9 Neut # (Auto) 3700 Lymph # (Auto) 2800 Isabella # (Auto) 400 Eos # (Auto) 400 Baso # (Auto) 100 RBC Morphology See below Hypochromasia 1+ H Anisocytosis 2+ H Ovalocytes 1+ H Sodium 140 Potassium 3.8 Chloride 105 Carbon Dioxide 29 BUN 5 L Creatinine 0.70 Estimated GFR > 60.0 BUN/Creatinine Ratio 7.1 Glucose 82 Calcium 10.6 H Magnesium 1.7 Assessment & Plan Assessment & Plan narrative: Sigmoid colon narrowing. Probably benign but awaiting path. Will order bowel prep for Friday. Quality VTE Deep Vein Thrombosis/Pulmonary Embolism Present on Admission: No
--- NOTE | 2019-05-01 13:32 | PC.NURSE ---
Day shift: Pt tolerating clear liquid diet as well as PO fluids like water and cranberry juice. Denies nausea. Call light in reach. Independent in room. Heparin locked per Dr Canales.
[2019-05-01 16:18] VITALS: BP 120/68; PULSE 62; RESP 18; TEMP 36.5; O2SAT 96
[2019-05-01 20:24] VITALS: BP 125/64; PULSE 48; RESP 18; TEMP 36.6; O2SAT 96
[2019-05-02 00:04] VITALS: BP 121/70; PULSE 50; RESP 16; TEMP 36.4; O2SAT 97
--- NOTE | 2019-05-02 02:44 | PC.NURSE ---
Patient is alert and oriented. Breath sounds CTA with RA sat of 97%. HRR but remaining bradycardic at 50 bpm. Denies nausea. Having 3/10 lower abdominal cramping but declines offer of pain medication stating it is tolerable at this time. Denies dysuria, frequency or urgency. Up to bathroom independently. Fall risk score is moderate but patient refusing bed alarm and has verbalized agreement to sit on edge of bed prior to getting up and calling for assistance is feeling any dizziness or lightheadedness. BT present but hypoactive. Has had no recent active bleeding. Independent with bed mobility. Refusing SCD's so reminded to ankle wave when awake.
[2019-05-02] MEDS: OXYCODONE IR 5 MG TABLET PO ×4 (02:57→20:40)
[2019-05-02 05:14] VITALS: BP 118/76; PULSE 50; RESP 16; TEMP 36.2; O2SAT 96
[2019-05-02] MEDS: CITALOPRAM 20 MG TABLET PO (05:19)
[2019-05-02] MEDS: buPROPion XL 150 MG TAB 450 MG PO (05:19)
[2019-05-02] MEDS: SODIUM CHLORIDE 0.9% FLUSH 10 ML IV ×3 (05:19→20:41)
[2019-05-02] MEDS: CHLORTHALIDONE 25 MG TABLET PO (05:19)
[2019-05-02 05:49] LABS: Add Manual Diff / Slide Review NO; Basophils Absolute Auto 0 /uL (0-100); Basophils Percent Auto 0.7 % (0-2); Eosinophils Absolute Auto 300 /uL (0-450); Eosinophils Percent Auto 4.5 % (2-4); Hematocrit 29.9 % (36-46); Hemoglobin 9.4 g/dL (12.0-16.0); Lymphocytes Absolute Auto 2400 /uL (1100-4500); Lymphocytes Percent Auto 36.2 % (25-40); Mean Corpuscular HGB Conc 31.4 % (30-36); Mean Corpuscular Hemoglobin 21.1 PG (26-34); Mean Corpuscular Volume 67.1 fL (80-100); Monocytes Absolute Auto 400 /uL (0-900); Monocytes Percent Auto 6.3 % (3-14); Neutrophils Absolute Auto 3500 /uL (1500-7000); Neutrophils Percent Auto 52.3 % (50-75); Platelet Count 280 X10^3/uL (150-400); Red Blood Cell Count 4.46 X10^6/uL (4.0-5.2); White Blood Cell Count 6.6 X10^3/uL (4.5-11.0)
[2019-05-02 05:56] LABS: Blood Urea Nitrogen 7 mg/dL (7-17); Calcium 10.8 mg/dL (8.4-10.2); Carbon Dioxide 30 mmol/L (22-32); Chloride 103 mmol/L (98-107); Estimated Glomerular Filt Rate > 60.0 mL/min (>60); Glucose 81 mg/dL (70-100); HEMOLYSIS < 15 (0-50); Potassium 3.7 mmol/L (3.4-5.1); Sodium 140 mmol/L (137-145)
[2019-05-02 06:06] LABS: Anisocytosis 2+; Hypochromasia 2+; Ovalocytes 1+
[2019-05-02 06:07] LABS: Microcytosis 1+
[2019-05-02] MEDS: POTASSIUM CHLORIDE 20 MEQ TAB 40 MEQ PO (09:09)
[2019-05-02] MEDS: MAGNESIUM OXIDE 400 MG TABLET PO ×2 (09:10→20:36)
[2019-05-02] MEDS: ALPRAZolam 0.25 MG TABLET PO ×2 (09:10→15:37)
[2019-05-02] MEDS: PANTOPRAZOLE 40 MG VIAL IV ×2 (09:11→20:36)
[2019-05-02 09:38] VITALS: BP 113/72; PULSE 58; RESP 16; TEMP 36.6; O2SAT 98
[2019-05-02 12:23] VITALS: BP 116/70; PULSE 59; RESP 16; TEMP 36.7; O2SAT 98
[2019-05-02] MEDS: ACETAMINOPHEN 325 MG TABLET 650 MG PO (12:33)
--- NOTE | 2019-05-02 13:54 | CM.DPNOTE ---
DCP: continued: plan remains for a colon resection on Friday: 05/[address] Welch. CM research assistant professor Brenna has agreed to see pt on Friday at the request of Dr. Welch for assist in contacting her HR dept and getting any needed infor to them so that pt can obtain available benefits while she recovers. Dr. Vila, who sees pt at the [facility] for major depressive disorder and anxiety, was consulted and saw pt the evening of the . See her detailed consult note. She plans to see pt again on Wednesday 05/03 and to follow frequently while pt is in the hospital. She will also follow her more frequently after d/c in the clinic setting. Pathology is still pending. Prep for surgery begins tomorrow per Dr. Schultz, seeing pt today.
[2019-05-02 16:35] VITALS: BP 118/84; PULSE 60; RESP 17; TEMP 36.8; O2SAT 97
[2019-05-02 20:14] VITALS: BP 117/67; PULSE 57; RESP 19; TEMP 36.6; O2SAT 96
[2019-05-02] MEDS: HYDROMORPHONE 0.5 MG INJ IV (20:33)
[2019-05-02] MEDS: BISACODYL 5 MG TABLET 10 MG PO (20:57)
[2019-05-03] VITALS: BP 105/63; PULSE 52; RESP 18; TEMP 36.3; O2SAT 98
[2019-05-03 04:32] VITALS: BP 120/72; PULSE 53; RESP 16; TEMP 36.7; O2SAT 97
[2019-05-03] MEDS: CHLORTHALIDONE 25 MG TABLET PO (05:28)
[2019-05-03] MEDS: CITALOPRAM 20 MG TABLET PO (05:28)
[2019-05-03] MEDS: buPROPion XL 150 MG TAB 450 MG PO (05:28)
[2019-05-03] MEDS: SODIUM CHLORIDE 0.9% FLUSH 10 ML IV ×3 (05:33→21:19)
[2019-05-03] MEDS: OXYCODONE IR 5 MG TABLET PO ×6 (05:33→23:54)
[2019-05-03 05:59] LABS: Add Manual Diff / Slide Review NO; Basophils Absolute Auto 100 /uL (0-100); Eosinophils Absolute Auto 300 /uL (0-450); Eosinophils Percent Auto 5.1 % (2-4); Hematocrit 30.5 % (36-46); Hemoglobin 9.6 g/dL (12.0-16.0); Lymphocytes Absolute Auto 2100 /uL (1100-4500); Lymphocytes Percent Auto 36.7 % (25-40); Mean Corpuscular HGB Conc 31.4 % (30-36); Mean Corpuscular Hemoglobin 21.1 PG (26-34); Mean Corpuscular Volume 67.2 fL (80-100); Monocytes Absolute Auto 400 /uL (0-900); Monocytes Percent Auto 6.5 % (3-14); Neutrophils Absolute Auto 2900 /uL (1500-7000); Neutrophils Percent Auto 50.7 % (50-75); Platelet Count 280 X10^3/uL (150-400); Red Blood Cell Count 4.55 X10^6/uL (4.0-5.2); Red Cell Distribution Width 25.3 % (11.6-14.8); White Blood Cell Count 5.7 X10^3/uL (4.5-11.0)
[2019-05-03 06:12] LABS: BUN Creatinine Ratio 11.3 (6-22); Blood Urea Nitrogen 9 mg/dL (7-17); Calcium 10.7 mg/dL (8.4-10.2); Carbon Dioxide 28 mmol/L (22-32); Chloride 104 mmol/L (98-107); Estimated Glomerular Filt Rate > 60.0 mL/min (>60); Glucose 89 mg/dL (70-100); HEMOLYSIS < 15 (0-50); Potassium 3.5 mmol/L (3.4-5.1); Sodium 139 mmol/L (137-145)
[2019-05-03 06:18] LABS: Anisocytosis 2+; Hypochromasia 1+; Microcytosis 2+; Ovalocytes 1+
[2019-05-03 06:19] LABS: Poikilocytosis 1+
[2019-05-03 07:50] VITALS: BP 118/63; PULSE 60; RESP 16; TEMP 36.2; O2SAT 97
[2019-05-03] MEDS: POTASSIUM CHLORIDE 20 MEQ TAB 40 MEQ PO (08:05)
[2019-05-03] MEDS: PANTOPRAZOLE 40 MG VIAL IV ×2 (08:05→21:19)
[2019-05-03] MEDS: ALPRAZolam 0.25 MG TABLET PO ×2 (08:06→21:19)
[2019-05-03] MEDS: BISACODYL 5 MG TABLET 10 MG PO (08:06)
[2019-05-03] MEDS: ACETAMINOPHEN 325 MG TABLET 650 MG PO (08:18)
[2019-05-03] MEDS: MAGNESIUM OXIDE 400 MG TABLET PO ×2 (08:37→21:13)
[2019-05-03] MEDS: MAGNESIUM CITRATE 300 ML SOLUTION 150 ML PO (12:04)
--- NOTE | 2019-05-03 12:09 | PC.NURSE ---
AM NOTE - pt is alert, ambul indep room, did have a liq brown stool with some small clotted particles this am, does have cramping discomfort at times 5 on scale 0/10, hypo bt,abd soft, denies nausea, given 5mg oxycodone and prn xanax this am, reported provided effective relief discomfort, at lunch started mg+ citrate.
--- NOTE | 2019-05-03 12:44 | CM.DPC ---
DCP Cont: Patient called this case investigator's desk this morning. She gave an alternate name and phone number for [facility] personal service workers in HR. Chirinos is contact at patient's employment. Her phone number is: [phone]. Patient indicated that she will need information, such as approximately how much longer patient will be in hospital. Brenna was already in patient's room, for she was getting more information from patient as to what her employment needs to have sent to them. Gave Brenna Chirinos's phone number. She will contact her. She has already left her a message. Patient stated, she thinks that she could possibly be here for another week, according to the doctor. Patient stated that she probably will not be able to return to work until after spring break, which is in July, and that they don't have light duty jobs. She is also needing information for her [employer] insurance. P: DCP to continue to follow. Brenna is working with patient's employer to give them the information that they need. Alise Carmona RN/Park Activities Coordinator
[2019-05-03 12:56] VITALS: BP 117/61; PULSE 61; RESP 16; TEMP 36.7; O2SAT 97
[2019-05-03] MEDS: ERYTHROMYCIN BASE 250 MG TABLET 1000 MG PO ×3 (14:05→21:18)
[2019-05-03] MEDS: NEOMYCIN 500 MG TABLET 1000 MG PO ×3 (14:06→21:18)
[2019-05-03 15:30] VITALS: BP 111/66; PULSE 66; RESP 17; TEMP 36.9; O2SAT 99
[2019-05-03] MEDS: ONDANSETRON 4 MG/2 ML INJ IV ×2 (16:15→21:13)
--- NOTE | 2019-05-03 17:08 | PM.PN.1 ---
Subjective Subjective Date Patient Seen: 05/03/19 Time Patient Seen: 17:09 Interval history: No acute events overnight. Patient is taking her bowel prep, and having liquid stool output. Exam Vital Signs (past 8 hours): - 05/03/19 12:56 05/03/19 15:30 Temperature 98.1 F 98.4 F Pulse Rate 61 66 Respiratory Rate 16 17 Blood Pressure 117/61 111/66 Pulse Oximetry 97 99 Oxygen Delivery Method Room Air Oxygen Flow Rate 0 Narrative Exam Narrative: GENERAL: Alert, comfortable, resting in her bed HENT: Normocephalic, atraumatic. Hearing intact. Oral mucosa is pink and moist. EYES: Conjunctiva pink, sclera white, no periorbital swelling. CARDIOVASCULAR: Regular rate. No pedal edema. RESPIRATORY: Non-tachypneic, breathing comfortably on room air. GASTROINTESTINAL: Abdomen soft, slightly distended; well-healed Pfannenstiel incision normal scar, and scars from prior cholecystectomy GENITALURINARY: No flank tenderness. MUSCULOSKELETAL: Equal tone and mass bilaterally. SKIN: Warm, dry, soft, appropriate color for ethnicity. No other lesions, rashes, or wounds. NEURO: Alert and Oriented X 3. No gross sensory deficits, or cognitive issues. PSYCH: Appropriate affect and mood. Objective Labs Result Diagrams: 05/03/19 05:48 05/03/19 05:48 Labs: Laboratory Results - last 24 hr 04/29/19 05/03/19 05/03/19 06:40 05:48 05:48 WBC 5.7 RBC 4.55 Hgb 9.6 L Hct 30.5 L MCV 67.2 L MCH 21.1 L MCHC 31.4 RDW 25.3 H Plt Count 280 Neut % (Auto) 50.7 Lymph % (Auto) 36.7 Victoria % (Auto) 6.5 Eos % (Auto) 5.1 H Baso % (Auto) 1.0 Neut # (Auto) 2900 Lymph # (Auto) 2100 Victoria # (Auto) 400 Eos # (Auto) 300 Baso # (Auto) 100 RBC Morphology See below Hypochromasia 1+ H Poikilocytosis 1+ H Anisocytosis 2+ H Microcytosis 2+ H Ovalocytes 1+ H Sodium 139 Potassium 3.5 Chloride 104 Carbon Dioxide 28 BUN 9 Creatinine 0.80 Estimated GFR > 60.0 BUN/Creatinine Ratio 11.3 Glucose 89 Calcium 10.7 H Magnesium 2.0 Crossmatch See Detail Assessment & Plan Assessment and plan (1) Large bowel obstruction: Current visit: Yes Status: Acute (2) Stenosis of colon: Problem details: severe, obstructing Current visit: Yes Status: Acute (3) Colonic ulcer: Current visit: Yes Status: Acute Assessment & Plan narrative: This is a 53-year-old woman who has large bowel obstruction from an ulcerated sigmoid stricture. The pathology result came back today for her biopsy which shows that it is most likely benign. I discussed with the patient this evening that we will plan on taking out that segment of her colon tomorrow. I inquired about her nutritional intake over the weekend, it sounds like she is taking very minimal of the protein supplements or recommended to her. She said that she did not like the taste, and took may be half of a protein supplement about 3 times. I told her that unfortunately this does increase the risk that she is going to have a leak from the anastomosis will reconnect her colon. I've explained to her that I may do a diverting ileostomy but ultimately decided that in the operating room tomorrow. We discussed at length the risks of laparoscopic, possible open sigmoid colectomy. Risk of bleeding, perforation, damage to nearby structures, leak, need for diverting ileostomy, need for additional procedures, prolonged hospitalization. The patient desires to proceed with her surgery Plan: IV fluids, NPO after midnight A.m. labs Laparoscopic possible open sigmoid colectomy tomorrow Quality VTE Deep Vein Thrombosis/Pulmonary Embolism Present on Admission: No
[2019-05-03] MEDS: SODIUM CHLORIDE 0.9% 1,000 ML 100 ML IV (17:21)
[2019-05-03 17:51] LABS: Alanine Aminotransferase 24 IU/L (<35); Albumin 4.1 g/dL (3.5-5.0); Albumin Globulin Ratio 1.3 (1.0-2.8); Alkaline Phosphatase 65 U/L (38-126); Aspartate Aminotransferase 29 IU/L (14-36); BUN Creatinine Ratio 12.2 (6-22); Bilirubin Total 0.3 mg/dL (0.2-1.3); Blood Urea Nitrogen 11 mg/dL (7-17); Carbon Dioxide 23 mmol/L (22-32); Chloride 102 mmol/L (98-107); Estimated Glomerular Filt Rate > 60.0 mL/min (>60); Globulin 3.2 g/dL (1.7-4.1); Glucose 93 mg/dL (70-100); HEMOLYSIS < 15 (0-50); Potassium 3.8 mmol/L (3.4-5.1); Sodium 138 mmol/L (137-145); Total Protein 7.3 g/dL (6.3-8.2)
[2019-05-03 20:11] VITALS: BP 104/67; PULSE 88; RESP 18; TEMP 36.6; O2SAT 97
--- NOTE | 2019-05-03 22:48 | PC.NURSE ---
pt finished her MagCitrate. liquid stools, no active bleeding. clear liquid diet. pt reports nausea with meds. administered zofran. pain 4/10, oxycodone 5mg. pt reports pain relief. pt will be NPO after midnight. IVF. independent in room. call light in reach.
[2019-05-04] VITALS (20 sets, daily range): BP systolic 102–175; BP diastolic 55–99; PULSE 52–93; RESP 8–20; TEMP 35.9–37.9; O2SAT 92–100; BMI 35.3
--- NOTE | 2019-05-04 | PATH_ITS ---
[facility] Accession Number: [id number] . 01 Material submitted: . colon - PORTION SIGMOID COLON . 02 Diagnosis: Sigmoid Colon, Segmental Resection: 1. Segment of colon with patchy ischemic changes including areas of ulceration and patchy small foci of healed/healing erosions with crypt atrophy. 2. Patchy serositis is also present. 3. Diverticulosis. 4. Pigmented material consistent with tattoo ink. 5. No evidence of dysplasia or malignancy. MRV 05/10/2019 1637 Local . 02 Comment: There are numerous scattered eosinophils in the mucosa and submucosa, favored to be a reactive process in the setting of ischemia. No obvious parasitic organisms or viral cytopathic effects are identified. There is no evidence of vasculitis or thrombosis. The non-ischemic colonic mucosa is unremarkable and shows no crypt architectural distortion. . 02 Electronically signed: . Joy Bravo MD, Pathologist NPI- [id number] . 01 Gross description: . Received in formalin, labeled portion of sigmoid, is an opened unoriented segment of colon (length-8.3 cm, diameter-2.5 cm) with attached adipose tissue (up to 6.5 cm in depth). One resection margin is received stapled and the other is opened. Both resection margins are focally tattooed. The mucosa is dacosta, smooth and shiny with normal folds. No obvious nodules, masses, lesions or ulcers are identified. Multiple possible lymph nodes (0.1-0.2 cm) are identified. The resection margins are inked blue. Section code: (A1) stapled resection margin en face; (A2) opposite resection margin en face; (A3-A35) colon segment, serially sectioned and entirely submitted from the stapled resection margin; (A36) multiple intact lymph nodes. ([id number]) /MRV 05/10/2019 1637 Local . 02 Pathologist provided ICD-10: K55.9 . 02 CPT . 553834 Performed at: 01 [facility] [address] [address] [id number] MD Patrick Mohr MD Phone: [phone] Performed at: [address] [facility] [id number] [place], [place] [id number] MD Joy Bravo MD Phone: [phone]
[2019-05-04] MEDS: SODIUM CHLORIDE 0.9% 1,000 ML 100 ML IV (03:35)
[2019-05-04] MEDS: OXYCODONE IR 5 MG TABLET PO ×4 (03:39→21:00)
[2019-05-04] MEDS: ONDANSETRON 4 MG/2 ML INJ IV ×2 (03:47→14:30)
--- NOTE | 2019-05-04 04:00 | PC.NURSE ---
Pt. C/O anxiety, states I'm worried about my surgery today. Also C/O abdominal pain rated pain level 5, medicated with 5 mg. of Oxycodone with sips of water. After taking her pill she C/O nausea, no emesis noted. Administered 4 mg. of IVP Zofran. Will cont. POC & monitor.
[2019-05-04] MEDS: buPROPion XL 150 MG TAB 450 MG PO (05:30)
[2019-05-04] MEDS: CHLORTHALIDONE 25 MG TABLET PO (05:30)
[2019-05-04] MEDS: CITALOPRAM 20 MG TABLET PO (05:30)
--- NOTE | 2019-05-04 07:11 | PC.NURSE ---
Day shift: Pt off unit at this time. Pt having anxiety at this time. Saline locked. Report given to ADVERTISING REPRESENTATIVE by MICHAEL RN. Chart is with Pt.
[2019-05-04] MEDS: LACTATED RINGERS 1,000 ML 42 ML IV ×2 (07:20→10:07)
[2019-05-04] MEDS: SCOPOLAMINE 1 PATCH TOP (07:20)
[2019-05-04] MEDS: ACETAMINOPHEN 325 MG TABLET 975 MG PO (07:20)
[2019-05-04] MEDS: GABAPENTIN 300 MG CAPSULE PO (07:21)
[2019-05-04] MEDS: MIDAZOLAM 2 MG/2 ML VIAL IV (07:56)
[2019-05-04] MEDS: PIPERACILLIN-TAZO 3.375 GM/50 ML FROZ.PIGGY IV (07:58)
[2019-05-04] MEDS: FAMOTIDINE 20 MG/50 ML PIGGYBACK 200 MG IV (08:27)
--- NOTE | 2019-05-04 08:45 | SUR.OPER ---
Lithotomy on padded OR bed. [place] Pad Positioner under torso. Head on pillow, arms padded and tucked at sides. Legs secured in padded yellow fins stirrups.
--- NOTE | 2019-05-04 10:25 | PC.NURSE ---
Day shift: Pt remain off of AC unit at this time.
--- NOTE | 2019-05-04 11:20 | DIET.PN ---
Dietary Progress Note Assessment: 53y F admitted for rectal bleeding x1mo, vomiting x3mo, general fatigue, having been through extensive bowel prep since 04/25 with little POs for past 3w. Pt in surgery this morning c Dr. Conde for colon resection c possible temporary end colostomy tbd in procedure. Pt reports consuming ~10% ONS drinks recommended over the weekend, as she didn't like taste, further deteriorating nutrition status. Fiber-free Liquid diet necessary over the weekend r/t severe colon stricture and pt past difficulty c bowel prep to ensure adequate prep for today. Pt reports for last few months has come home from work and slept until the next day. Has been doing protein shakes (premier protein) for past month because hasn't been able to tolerate solids. HT: 157.4cm WT: 87.6kg UBW: 10# loss in 3mo (5%) BMI: 35.4 Labs: hgb 9.6 L holding, K+ 3.8, Calcium 11 H MNA: 7 malnourished Joseluis: 20 Nutrition Diagnosis: Acute Moderate Protein Calorie Malnutrition r/t altered GI function (possible colonic ulcer or malignancy) aeb pt intake <50% EERs for 1 mo, 5% unintentional wt loss, and mild muscle wasting with projection of liquid diet for next week r/t colon resection. Interventions: 1. Continue ONS protein supplements as tolerated and accepted when safe to do so. If pt unwilling to drink variety supplied by dietary department, recc pt bring those she will tolerate from home to support PCM and positive nitrogen balance. Diet Order: NPO r/t resection today EER: 1800kcal, 87g PRO (1g/kg), 3L fluids (35mL/kg) Monitoring/Evaluations: labs, POs, ONS acceptance
[2019-05-04] MEDS: BUPIVACAINE 0.25% W/ EPI 30 ML VIAL INJ (11:37)
--- NOTE | 2019-05-04 11:51 | PM.OP.1 ---
Operative Date/Time/Diagnoses Date of procedure: 05/04/19 Time of procedure: 11:51 Pre-op diagnosis: ischemic obstructing stercoral ulcer, chronic constipation Post-op diagnosis: same Procedure & Clinicians Procedure: laparoscopic splenic flexure mobilization, sigmoid colon resection, end colostomy creation Same procedure as scheduled: Yes Indications: ischemic stercoral ulcer, large bowel stenosis with partial obstruction, chronic constipation Surgeon: Kylie Welch Road Worker: Prakash Landa Anesthesia Type: General Operative Notes Findings: tattoos present proximal and distal to ulcer Specimen(s): other Prosthetic devices, grafts, tissues, transplants, or devices: sigmoid colon, opened on back table to ensure ulcer was included Estimated Blood Loss (mL): 25 Blood products transfused: none Procedure in detail: The patient was brought into the operating room and placed supine on the OR table. Sequential compression devices were placed on both legs and turned on. Appropriate perioperative antibiotics were given prior to the start of surgery. General anesthesia was induced the patient was intubated. A triana catheter was placed in sterile fashion and the patient was positioned in low lithotomy, modified Ruben Voss position. The abdomen and perineum were prepped and draped in sterile fashion. Surgical time-out was conducted. Local anesthetic was injected under the skin just superior to the umbilicus and a 5 mm vertical incision was made at this site. The umbilical stalk was grasped with a Johnny and elevated. A Veress needle was passed through the fascia into proper position. The position was tested with a saline drop test which was appropriate for intra-abdominal Veress needle placement. The abdomen was then insufflated in the usual fashion. Once insufflated to 15 mm Hg the Veress needle was removed and a 5 mm optical trocar was placed under direct vision using a 5 mm 30 degree scope. Once the camera was inside the abdomen I took a look around. There was no injury from port placement. Two additional ports were placed in a similar fashion in the right upper abdomen, right lower abdomen, and left mid abdomen. Dense adhesions were seen in the pelvis, consistent with history of four C sections and hysterectomy. I began taking down adhesions using a laparoscopic [place] Ligasure. Once the adhesions were down, were able to see that the patient had quite a high splenic flexure. Dissection was undertaken to mobilize the splenic flexure in order to have adequate length for resection and ostomy creation. After about 25 minutes of dissection we had adequate length on the colon. The transverse colon was noted to be dilated and floppy with faint haustral markings. Attention was then turned to the pelvis and the patient was placed in steep Trendelenburg position with the right side down. We began mobilizing the sigmoid colon. The tattooed markers were found, and the entire sigmoid between the markers was dissected out, and the mesentery was opened and divided along the edge of the colon for the entire involved length of colon. Once the sigmoid colon was dissected out circumferentially, the right lower quadrant port was upsized to 12mm, and an Endo-PLACIDO blue load stapler was brought into field. Using the Endo-PLACIDO stapler we transected the sigmoid just below the distal tattoo lisa using one 65 mm blue load stapler. Hemostasis was ensured using Ligasure for two bleeders on the edge of the bowel and mesentery. I then used the Lisandro Melvin suture passer to close the 12mm port site. I passed an 0 Vicryl suture across the fascia to close the 12mm port. Attention was then turned to the anterior abdominal wall. The pre-marked site for colostomy was identified and injected with local anesthetic. A 1.5 cm circumferential incision was made with a 15 blade through the skin, and dissection was carried down to the fascia. The fascia was identified and opened with a cruciate incision using cautery. I then used a denver clamp to split the muscle, and picked up the posterior fascia with hemostats. I opened the posterior fascia with metzenbaum scissors, and was able to pass two of my fingers through the opening into the abdomen. We then re-insufflated the abdomen and passed the proximal end of the divided colon through the ostomy site under direct vision. We then desufflated the abdomen, and turned attention to the colon. The divided colon was pulled up through the abdominal wall until the proximal tattoos were seen. A bowel clamp was placed between the two proximal tattoos and the colon was divided with Guy scissors. The specimen was examined on the back table and the ischemic ulcer was seen within the specimen. I then brooked the colostomy and sutured it to the fascia proximal and distal. I then sutured the bowel edge to the skin edge circumferentially. Local anesthetic was injected at the ostomy site and each of the port sites. The port sites were closed with 4-0 Monocryl, and steri strips were placed across the skin at each site, and then bandaids were used to cover each site. The patient was then awakened from anesthesia, and extubated. Needle sponge, and instrument counts were correct x 2 at the end of the case. The patient was transferred to the PACU in stable condition. Complications: none Post-operative Condition: stable Disposition: PACU
[2019-05-04] MEDS: fentaNYL 100 MCG/2 ML INJ IV ×2 (12:26→12:42)
--- NOTE | 2019-05-04 12:33 | PC.NURSE ---
Day shift: Accidentallyprocessed the transfer for the orders. EXERCISER HORSE made aware as well as charge master coordinator.
--- NOTE | 2019-05-04 13:05 | PM.PN.1 ---
Subjective Subjective Date Patient Seen: 05/04/19 Time Patient Seen: 13:05 Exam Vital Signs (past 8 hours): - 05/04/19 05:25 05/04/19 07:20 05/04/19 11:50 Temperature 98.6 F 97.4 F L 98.0 F Pulse Rate 60 58 L 72 Respiratory Rate 20 16 19 Blood Pressure 113/60 102/64 146/84 H Pulse Oximetry 99 97 92 05/04/19 11:55 05/04/19 12:00 05/04/19 12:05 Temperature Pulse Rate 71 69 72 Respiratory Rate 12 17 17 Blood Pressure 158/96 H 155/94 H 157/85 H Pulse Oximetry 100 100 98 05/04/19 12:10 05/04/19 12:15 05/04/19 12:20 Temperature Pulse Rate 74 74 74 Respiratory Rate 18 18 15 Blood Pressure 154/94 H 157/93 H 151/89 H Pulse Oximetry 98 96 97 05/04/19 12:25 05/04/19 12:35 05/04/19 12:55 Temperature Pulse Rate 83 81 72 Respiratory Rate 8 L 15 17 Blood Pressure 158/98 H 175/99 H 173/95 H Pulse Oximetry 95 99 95 Oxygen Delivery Method Room Air Oxygen Flow Rate 1 Objective Labs Result Diagrams: 05/03/19 05:48 05/03/19 15:20 Labs: Laboratory Results - last 24 hr 05/03/19 05/03/19 15:20 15:20 Sodium 138 Potassium 3.8 Chloride 102 Carbon Dioxide 23 BUN 11 Creatinine 0.90 Estimated GFR > 60.0 BUN/Creatinine Ratio 12.2 Glucose 93 Calcium 11.0 H Total Bilirubin 0.3 AST 29 ALT 24 Alkaline Phosphatase 65 Total Protein 7.3 Albumin 4.1 Globulin 3.2 Albumin/Globulin Ratio 1.3 Blood Type B Positive Antibody Screen Negative Assessment & Plan Assessment & Plan narrative: Assessment 1. GI bleed. General surgery following. Has underwent EGD/colonoscopy on 04/25, colonoscopy to hepatic flexure secondary to poor prep. EGD significant for possible esophageal spasm. Colonoscopy showed only grade 2-3 internal hemorrhoids with stigmata of bleeding. Repeat colonoscopy on 04/27/18 was abandoned secondary to solid stool. Small-bowel follow-through showed no obstruction. NG tube was placed to ensure adequate prep, removed secondary to patient tolerance. Colonoscopy on 04/30/18 showed an ulcerated lesion at 35 cm with tight stenosis. Biopsies are pending. Plan: Continue per general surgery. Assessment 2, Anemia, acute blood loss. Hemoglobin/hematocrit trending down again, likely secondary to bleeding colonic ulcer, concern for malignancy. Plan: General surgery following. Assessment 3: Hypokalemia, worsened, likely secondary to NPO status and prep. Plan: Will add 40 meq K rider to IV fluids and trend BMP. May continue oral potassium at 40 meq as well. Assessment 4: Chest pain. No recurrence of symptoms. Troponin and CPK negative on repeat. Etiology likely secondary to combination of multiple issues none of which are cardiac at this point. Plan: No further workup unless patient has symptoms. Assessment 5: Back pain. 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 Subluxation has not developed but there has been a mild degree of interval worsening of degenerative disc disease and facet osteoarthritis along the lumbosacral spine. Radiolation reported that this segmentation anomaly such as is present in this case does predispose to low back pain. Plan: Supportive therapy, pain management as needed. Assessment 6: Depression. Dr. Vila consulting. Plan: Continue per her treatment plan. DVT prophylaxis: SCDs. Code: Full Dispo: Discharge unclear at this point. Will provide medical release note at time of discharge. Quality VTE Deep Vein Thrombosis/Pulmonary Embolism Present on Admission: No
--- NOTE | 2019-05-04 13:28 | PC.NURSE ---
Day shift: Pt back on unit at 1330. Drowsy at this time. Glynn patent. A&Ox3. Pain ABD 11/14 will medicate per JUN. On continuous O2 monitor at this time.
[2019-05-04] MEDS: ACETAMINOPHEN 325 MG TABLET 650 MG PO ×2 (13:38→17:53)
[2019-05-04] MEDS: ALPRAZolam 0.25 MG TABLET PO (13:38)
[2019-05-04] MEDS: HYDROMORPHONE 0.5 MG INJ IV (13:38)
[2019-05-04] MEDS: SODIUM CHLORIDE 0.9% FLUSH 10 ML IV (13:39)
--- NOTE | 2019-05-04 14:32 | CM.DPC ---
DCP Cont: Spoke to Candis at [facility], HR Department (ph: [phone]) in regards to the letter they need in regards to the patient's time off. Michellejoyce is requesting a letter from Dr. Welch with an admission date, an anticipated release from the hospital date and a reason for her hospitalization. She asked that this letter be faxed to her at [phone]. Called [address] Welch's office to confirm a letter could be signed by her if one was made ready for her signature after the patient's surgery and was informed that Dr. Welch left a message yesterday for her practice office associate to handle compiling this letter. I then gave the RN the fax number above and she confirmed the letter would be sent to them before the end of the day today. Brenna Spangler, Care Sales And Merchandising Associate
[2019-05-04] MEDS: KETOROLAC 15 MG/ML VIAL IV (16:44)
[2019-05-04] MEDS: LACTATED RINGERS 1,000 ML 100 ML IV (16:44)
--- NOTE | 2019-05-04 17:11 | P.EN_ITS ---
Event Note Date Patient Seen: 05/04/19 Time Patient Seen: 17:11 Event Note: Patient was in surgery at time of rounds. [facility] Dr. Hernandez regarding surgery and concerns regarding patient's GI dysmotility. Will start work-up for possibly hyperparthyroidism and see patient again in the morning.
[2019-05-04] MEDS: PANTOPRAZOLE 40 MG VIAL IV (20:53)
[2019-05-04] MEDS: PHENYLEPH/MINERAL OIL/PETROLAT 57 GM OINT 1 APPLIC PR (20:59)
[2019-05-04] MEDS: HEPARIN 5,000 UNIT/ML VIAL 5000 UNIT SUBCUT (21:28)
[2019-05-04] MEDS: MAGNESIUM OXIDE 400 MG TABLET PO (21:28)
[2019-05-05] VITALS (8 sets, daily range): BP systolic 99–135; BP diastolic 54–82; PULSE 54–65; RESP 16–20; TEMP 36.4–37.2; O2SAT 94–98
[2019-05-05] MEDS: KETOROLAC 15 MG/ML VIAL IV ×4 (00:22→23:57)
[2019-05-05] MEDS: ACETAMINOPHEN 325 MG TABLET 650 MG PO ×4 (00:25→18:26)
[2019-05-05] MEDS: LACTATED RINGERS 1,000 ML 100 ML IV (00:28)
[2019-05-05] MEDS: buPROPion XL 150 MG TAB 450 MG PO (05:38)
[2019-05-05] MEDS: CITALOPRAM 20 MG TABLET PO (05:39)
[2019-05-05] MEDS: CHLORTHALIDONE 25 MG TABLET PO (05:39)
[2019-05-05 05:55] LABS: Add Manual Diff / Slide Review NO; Basophils Absolute Auto 100 /uL (0-100); Basophils Percent Auto 0.6 % (0-2); Eosinophils Absolute Auto 0 /uL (0-450); Hematocrit 27.5 % (36-46); Hemoglobin 8.5 g/dL (12.0-16.0); Lymphocytes Absolute Auto 1900 /uL (1100-4500); Lymphocytes Percent Auto 20.2 % (25-40); Mean Corpuscular HGB Conc 31.1 % (30-36); Mean Corpuscular Hemoglobin 21.2 PG (26-34); Mean Corpuscular Volume 68.2 fL (80-100); Monocytes Absolute Auto 500 /uL (0-900); Monocytes Percent Auto 5.2 % (3-14); Neutrophils Absolute Auto 6900 /uL (1500-7000); Platelet Count 240 X10^3/uL (150-400); Red Blood Cell Count 4.03 X10^6/uL (4.0-5.2); Red Cell Distribution Width 24.9 % (11.6-14.8); White Blood Cell Count 9.3 X10^3/uL (4.5-11.0)
[2019-05-05 06:07] LABS: BUN Creatinine Ratio 14.4 (6-22); Blood Urea Nitrogen 13 mg/dL (7-17); Calcium 10.2 mg/dL (8.4-10.2); Carbon Dioxide 26 mmol/L (22-32); Chloride 105 mmol/L (98-107); Estimated Glomerular Filt Rate > 60.0 mL/min (>60); Glucose 114 mg/dL (70-100); HEMOLYSIS < 15 (0-50); Potassium 3.8 mmol/L (3.4-5.1); Sodium 138 mmol/L (137-145)
[2019-05-05] MEDS: OXYCODONE IR 5 MG TABLET PO ×5 (06:08→21:53)
[2019-05-05 06:20] LABS: Anisocytosis 2+; Hypochromasia 2+; Poikilocytosis 1+
[2019-05-05 06:25] LABS: Microcytosis 1+; Ovalocytes 1+
--- NOTE | 2019-05-05 07:05 | P.PN_ITS ---
Subjective Subjective Date Patient Seen: 05/05/19 Time Patient Seen: 07:30 Interval history: No acute events overnight. Pain controlled on PO pain meds. Denies nausea. Denies ostomy output. Exam Vital Signs (past 8 hours): - 05/05/19 00:00 05/05/19 00:38 05/05/19 06:39 Temperature 99.0 F 97.6 F Pulse Rate 59 L 60 55 L Respiratory Rate 18 16 Blood Pressure 99/54 L 106/59 L Pulse Oximetry 94 94 Oxygen Delivery Method Room Air Oxygen Flow Rate 0 Narrative Exam Narrative: GENERAL: Alert, comfortable, resting in her bed HENT: Normocephalic, atraumatic. Hearing intact. Oral mucosa is pink and moist. EYES: Conjunctiva pink, sclera white, no periorbital swelling. CARDIOVASCULAR: Regular rate. No pedal edema. RESPIRATORY: Non-tachypneic, breathing comfortably on room air. GASTROINTESTINAL: Abdomen soft, slightly distended; ostomy bag in place with ostomy sweat; no gas in the bag; no stool in the bag; incisional dressings in place GENITALURINARY: No flank tenderness. MUSCULOSKELETAL: Equal tone and mass bilaterally. SKIN: Warm, dry, soft, appropriate color for ethnicity. No other lesions, rashes, or wounds. NEURO: Alert and Oriented X 3. No gross sensory deficits, or cognitive issues. PSYCH: Appropriate affect and mood. Objective Labs Result Diagrams: 05/05/19 05:30 05/05/19 05:30 Labs: Laboratory Results - last 24 hr 05/05/19 05/05/19 05:30 05:30 WBC 9.3 D RBC 4.03 Hgb 8.5 L Hct 27.5 L MCV 68.2 L MCH 21.2 L MCHC 31.1 RDW 24.9 H Plt Count 240 Neut % (Auto) 74.0 D Lymph % (Auto) 20.2 L [place] % (Auto) 5.2 Eos % (Auto) 0.0 L Baso % (Auto) 0.6 Neut # (Auto) 6900 Lymph # (Auto) 1900 [place] # (Auto) 500 Eos # (Auto) 0 Baso # (Auto) 100 RBC Morphology See below Hypochromasia 2+ H Poikilocytosis 1+ H Anisocytosis 2+ H Microcytosis 1+ H Ovalocytes 1+ H Sodium 138 Potassium 3.8 Chloride 105 Carbon Dioxide 26 BUN 13 Creatinine 0.90 Estimated GFR > 60.0 BUN/Creatinine Ratio 14.4 Glucose 114 H Calcium 10.2 Magnesium 2.0 Assessment & Plan Assessment and plan (1) Colostomy present: Current visit: Yes Status: Acute (2) Chronic constipation: Current visit: Yes Status: Acute Assessment & Plan narrative: This is a 53 year old woman, POD#1 s/p laparoscopic Endy's procedure with end colostomy. No ostomy output has occurred yet, consistent with expected delay in colon motility. Will continue PO clears/fulls, and gradually advance bowel regimen. Ostomy teaching is planned for tomorrow. Plan: ostomy teaching clears/fulls as tolerated DVT ppx repeat cbc tomorrow ambulate frequently Time Spent With Patient Time with patient: 15-24 minutes Quality VTE Deep Vein Thrombosis/Pulmonary Embolism Present on Admission: No
--- NOTE | 2019-05-05 07:56 | PC.NURSE ---
VO Dr Welch Remove triana once patient up and walking. Ambulate patient ADAT to full liquids if tolerated Start another dose of Tordol 15mg x3 once doses completed
[2019-05-05] MEDS: HEPARIN 5,000 UNIT/ML VIAL 5000 UNIT SUBCUT ×2 (08:15→21:18)
[2019-05-05] MEDS: PANTOPRAZOLE 40 MG VIAL IV ×2 (08:15→21:02)
[2019-05-05] MEDS: POTASSIUM CHLORIDE 20 MEQ TAB 40 MEQ PO (08:15)
[2019-05-05] MEDS: PHENYLEPH/MINERAL OIL/PETROLAT 57 GM OINT 1 APPLIC PR (08:19)
[2019-05-05] MEDS: SODIUM CHLORIDE 0.9% FLUSH 10 ML IV ×2 (08:25→21:39)
[2019-05-05] MEDS: MAGNESIUM OXIDE 400 MG TABLET PO ×2 (08:25→21:16)
--- NOTE | 2019-05-05 08:36 | PM.PN.1 ---
Subjective Subjective Date Patient Seen: 05/05/19 Time Patient Seen: 08:36 Interval history: Patient is feeling better this morning, sleeping just prior to interview. Reports the usual pain. Has an appetite and would like to advance her diet. Denies nausea or vomiting. Maki in place, has not tried ambulating yet. Colostomy in place, clean, dry, and intact. Exam Vital Signs (past 8 hours): - 05/05/19 00:38 05/05/19 06:39 05/05/19 08:13 Temperature 97.6 F 98.1 F Pulse Rate 60 55 L 55 L Respiratory Rate 16 20 Blood Pressure 106/59 L 113/61 Pulse Oximetry 94 97 Oxygen Delivery Method Room Air Oxygen Flow Rate 0 Narrative Exam Narrative: GENERAL: Alert and oriented, appearing stated age, in pain. HEENT: Head normocephalic/atraumatic. NG tube removed. LUNGS: Clear to ausculation bilaterally, no wheezes, rhonchi or rales. CV: Normal S1 and S2 with regular rate and rhythm, no audible murmurs, rubs or gallops. ABDOMEN: Soft, mildly tender, generalized, mildly distended, colostomy bag in place, clean, dry, intact. Surgical incisions with dressings in place, clean, dry, intact. No organomegaly. Hypoactive bowel sounds. EXTREMITIES: No clubbing, cyanosis, or edema. NEURO: Cranial nerves II through XII grossly intact, no focal deficits. PSYCH: Alert and oriented x 3. Objective Labs Result Diagrams: 05/05/19 05:30 05/05/19 05:30 Labs: Laboratory Results - last 24 hr 05/05/19 05/05/19 05:30 05:30 WBC 9.3 D RBC 4.03 Hgb 8.5 L Hct 27.5 L MCV 68.2 L MCH 21.2 L MCHC 31.1 RDW 24.9 H Plt Count 240 Neut % (Auto) 74.0 D Lymph % (Auto) 20.2 L [place] % (Auto) 5.2 Eos % (Auto) 0.0 L Baso % (Auto) 0.6 Neut # (Auto) 6900 Lymph # (Auto) 1900 [place] # (Auto) 500 Eos # (Auto) 0 Baso # (Auto) 100 RBC Morphology See below Hypochromasia 2+ H Poikilocytosis 1+ H Anisocytosis 2+ H Microcytosis 1+ H Ovalocytes 1+ H Sodium 138 Potassium 3.8 Chloride 105 Carbon Dioxide 26 BUN 13 Creatinine 0.90 Estimated GFR > 60.0 BUN/Creatinine Ratio 14.4 Glucose 114 H Calcium 10.2 Magnesium 2.0 Assessment & Plan Assessment & Plan narrative: Assessment 1. GI bleed secondary to stercoral ulcer. General surgery following. Status post EGD x1, colonoscopy x3 and most recently laparoscopic splenic flexure mobilization, sigmoid colon resection and end colostomy creation, POD #1. Plan: Continue per general surgery. Have discussed stercoral ulcer in this young patient with Dr. Welch. Certainly, she has delayed GI transit and chronic constipation, etiology unclear. Differential diagnosis includes primary dysfunction of the colonic smooth muscle or neural innervation or secondary dyssynergy defecation including but not limited to colon cancer, inflammatory disease, diabetes, hypothyroidism, hyperparathyroidism, panhypopituitarism, diet, dehydration, etc.. She has had some chronically elevated calciums (mild) raising the possiblility of parathyroid disease. PTH/calcium pending. If negative, will proceed with further work-up, possibly as an outpatient. Assessment 2, Anemia, acute blood loss. Hemoglobin/hematocrit trending down post operatively. Plan: General surgery following. Assessment 3: Acute moderate protein calorie malnutrition secondary to colon prep and surgery. Plan: Advancing diet as tolerated per surgery. Assessment 4: Hypokalemia, resolved, Plan: Continue potassium 40 meq PO qd. Assessment 5: Chest pain. No recurrence of symptoms. Troponin and CPK negative on repeat. Etiology likely secondary to combination of multiple issues none of which are cardiac at this point. Plan: No further workup unless patient has symptoms. Assessment 6: Back pain. 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 Subluxation has not developed but there has been a mild degree of interval worsening of degenerative disc disease and facet osteoarthritis along the lumbosacral spine. Radiolation reported that this segmentation anomaly such as is present in this case does predispose to low back pain. Plan: Supportive therapy, pain management as needed. Assessment 7: Depression. Dr. Vila consulting. Plan: Continue per her treatment plan. DVT prophylaxis: SCDs. Code: Full Quality VTE Deep Vein Thrombosis/Pulmonary Embolism Present on Admission: No
[2019-05-05] MEDS: ALPRAZolam 0.25 MG TABLET PO (10:13)
[2019-05-05] MEDS: DOCUSATE 100 MG CAPSULE PO ×2 (14:23→21:15)
--- NOTE | 2019-05-05 20:32 | PC.NURSE ---
Ostomy Nurse Consult Note Mrs. Vidal in bed with visitors, they left and I was able to speak with Mrs. Vidal and assess her stoma. Her stoma is moist and somewhat dark in color. The sutures are intact. I text Dr. Welch with my assessment of the stoma color. Dr. Welch states she tattooed the colon and this is why the stoma is somewhat dark. The stoma measures 29mm. I placed a Convatec 57mm moldable two piece wafer with a clear non-filtered transparent pouch. There was scant serosanguenous drainage. The jr-stomal skin is intact yet for some bruising at the 7:00 position. There are multiple bandaids on her abdomen at the laprascopic sites. Mrs. Vidal talked a lot about her family history with recent deaths in the last 1-2 years of very close family members: sister (murdered) father ( during surgery) grandmother, daughter -in-laws father (suicide) and her beloved dog. She is currently seeing for counseling and she states she likes him. She is also very appreciative of Dr. Welch and states that her , Suresh, is also very pleased with Dr. Welch's care as she has spent time with him explaining the surgery and her care. I will return tomorrow morning at [address] Welch so we can assess the stoma together. I will also spend this time starting on some teaching. I told Mrs. Vidal the plan for the next couple of days with me helping her learn how to care for her stoma. She did look at the stoma this evening and asked questions regarding the pouching system. I feel that she will do well with self care. I will return tomorrow morning. I did tell Melvin her nurse that the stoma is dark because of the tattoo.
[2019-05-06] MEDS: buPROPion XL 150 MG TAB 450 MG PO (05:27)
[2019-05-06] MEDS: CHLORTHALIDONE 25 MG TABLET PO (05:28)
[2019-05-06] MEDS: CITALOPRAM 20 MG TABLET PO (05:28)
[2019-05-06 05:45] LABS: Add Manual Diff / Slide Review NO; Basophils Absolute Auto 100 /uL (0-100); Eosinophils Absolute Auto 200 /uL (0-450); Eosinophils Percent Auto 2.6 % (2-4); Hematocrit 28.2 % (36-46); Hemoglobin 8.6 g/dL (12.0-16.0); Lymphocytes Absolute Auto 3200 /uL (1100-4500); Lymphocytes Percent Auto 41.3 % (25-40); Mean Corpuscular HGB Conc 30.4 % (30-36); Mean Corpuscular Hemoglobin 20.9 PG (26-34); Mean Corpuscular Volume 68.6 fL (80-100); Monocytes Absolute Auto 400 /uL (0-900); Monocytes Percent Auto 5.2 % (3-14); Neutrophils Absolute Auto 3900 /uL (1500-7000); Neutrophils Percent Auto 49.9 % (50-75); Platelet Count 208 X10^3/uL (150-400); Red Blood Cell Count 4.11 X10^6/uL (4.0-5.2); Red Cell Distribution Width 25.2 % (11.6-14.8); White Blood Cell Count 7.8 X10^3/uL (4.5-11.0)
[2019-05-06 05:55] LABS: BUN Creatinine Ratio 12.5 (6-22); Blood Urea Nitrogen 10 mg/dL (7-17); Calcium 10.5 mg/dL (8.4-10.2); Carbon Dioxide 30 mmol/L (22-32); Chloride 103 mmol/L (98-107); Estimated Glomerular Filt Rate > 60.0 mL/min (>60); Glucose 85 mg/dL (70-100); HEMOLYSIS < 15 (0-50); Magnesium 1.9 mg/dL (1.6-2.3); Potassium 3.6 mmol/L (3.4-5.1); Sodium 138 mmol/L (137-145)
[2019-05-06 06:00] VITALS: BP 129/75; PULSE 50; RESP 16; TEMP 36.5; O2SAT 97
[2019-05-06 06:16] LABS: Anisocytosis 2+; Hypochromasia 2+; Microcytosis 2+; Ovalocytes 1+; Poikilocytosis 1+
--- NOTE | 2019-05-06 06:42 | PC.NURSE ---
Pt is doing well. Only complained of some abdominal pain that was relieved with scheduled Toradol. Denied use of other pain meds/tylenol. Left PICC is C/D/I, flushing well. Refused SCDs, educated on DVT/stroke risks and pt verbalized understanding. Colostomy= no output and no gas Denies nausea Pt requesting her Estradiol be ordered and given later this morning. Will pass along to day shift.
[2019-05-06 08:00] VITALS: BP 129/74; PULSE 53; RESP 14; TEMP 36.6; O2SAT 96
--- NOTE | 2019-05-06 08:05 | PM.PN.1 ---
Subjective Subjective Date Patient Seen: 05/06/19 Time Patient Seen: 08:05 Interval history: Feeling better this morning. Due for a pain pill but otherwise reports that pain is uncontrolled with medications. Colostomy bag has been changed once, draining light brown fluid, very scant output. Tolerated clear liquid diet yesterday, no nausea vomiting. Hungry for complete this morning. Has been ambulating, denies dizziness. Exam Vital Signs (past 8 hours): - 05/06/19 06:00 Temperature 97.7 F Pulse Rate 50 L Respiratory Rate 16 Blood Pressure 129/75 Pulse Oximetry 97 Oxygen Delivery Method Room Air Oxygen Flow Rate 0 Narrative Exam Narrative: GENERAL: Alert and oriented, appearing stated age, in pain. HEENT: Head normocephalic/atraumatic. NG tube removed. LUNGS: Clear to ausculation bilaterally, no wheezes, rhonchi or rales. CV: Normal S1 and S2 with regular rate and rhythm, no audible murmurs, rubs or gallops. ABDOMEN: Soft, mildly tender, generalized, mildly distended, colostomy bag in place, clean, dry, intact. Surgical incisions with dressings in place, clean, dry, intact. No organomegaly. Hypoactive bowel sounds. EXTREMITIES: No clubbing, cyanosis, or edema. NEURO: Cranial nerves II through XII grossly intact, no focal deficits. PSYCH: Alert and oriented x 3. Objective Labs Result Diagrams: 05/06/19 05:30 05/06/19 05:30 Labs: Laboratory Results - last 24 hr 05/06/19 05/06/19 05:30 05:30 WBC 7.8 RBC 4.11 Hgb 8.6 L Hct 28.2 L MCV 68.6 L MCH 20.9 L MCHC 30.4 RDW 25.2 H Plt Count 208 Neut % (Auto) 49.9 L D Lymph % (Auto) 41.3 H D [place] % (Auto) 5.2 Eos % (Auto) 2.6 Baso % (Auto) 1.0 Neut # (Auto) 3900 Lymph # (Auto) 3200 [place] # (Auto) 400 Eos # (Auto) 200 Baso # (Auto) 100 RBC Morphology See below Hypochromasia 2+ H Poikilocytosis 1+ H Anisocytosis 2+ H Microcytosis 2+ H Ovalocytes 1+ H Sodium 138 Potassium 3.6 Chloride 103 Carbon Dioxide 30 BUN 10 Creatinine 0.80 Estimated GFR > 60.0 BUN/Creatinine Ratio 12.5 Glucose 85 Calcium 10.5 H Magnesium 1.9 Assessment & Plan Assessment & Plan narrative: Assessment 1. GI bleed secondary to stercoral ulcer. General surgery following. Status post EGD x1, colonoscopy x3 and most recently laparoscopic splenic flexure mobilization, sigmoid colon resection and end colostomy creation, POD #2. Plan: Continue per general surgery. Have discussed stercoral ulcer in this young patient with Dr. Welch. Certainly, she has delayed GI transit and chronic constipation, etiology unclear. Differential diagnosis includes primary dysfunction of the colonic smooth muscle or neural innervation or secondary dyssynergy defecation including but not limited to colon cancer, inflammatory disease, diabetes, hypothyroidism, hyperparathyroidism, panhypopituitarism, diet, dehydration, etc.. She has had some chronically elevated calciums (mild) raising the possibility of parathyroid disease. PTH/calcium still pending. If negative, will proceed with further work-up, possibly as an outpatient. Assessment 2, Anemia, acute blood loss. Hemoglobin/hematocrit trending up. Plan: General surgery following. Assessment 3: Acute moderate protein calorie malnutrition secondary to colon prep and surgery. Plan: Advancing diet as tolerated per surgery. Assessment 4: Hypokalemia, resolved, Plan: Continue potassium 40 meq PO qd. Assessment 5: Chest pain. No recurrence of symptoms. Troponin and CPK negative on repeat. Etiology likely secondary to combination of multiple issues none of which are cardiac at this point. Plan: No further workup unless patient has symptoms. Assessment 6: Back pain. 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 Subluxation has not developed but there has been a mild degree of interval worsening of degenerative disc disease and facet osteoarthritis along the lumbosacral spine. Radiolation reported that this segmentation anomaly such as is present in this case does predispose to low back pain. Plan: Supportive therapy, pain management as needed. Assessment 7: Depression. Dr. Vila consulting. Plan: Continue per her treatment plan. DVT prophylaxis: SCDs. Code: Full Quality VTE Deep Vein Thrombosis/Pulmonary Embolism Present on Admission: No
[2019-05-06] MEDS: OXYCODONE IR 5 MG TABLET PO ×4 (08:28→19:06)
[2019-05-06] MEDS: DOCUSATE 100 MG CAPSULE PO ×2 (08:29→21:02)
[2019-05-06] MEDS: HEPARIN 5,000 UNIT/ML VIAL 5000 UNIT SUBCUT ×2 (08:30→21:04)
[2019-05-06] MEDS: KETOROLAC 15 MG/ML VIAL IV ×2 (08:44→15:46)
[2019-05-06] MEDS: PANTOPRAZOLE 40 MG VIAL IV ×2 (08:44→21:13)
[2019-05-06] MEDS: SODIUM CHLORIDE 0.9% FLUSH 10 ML IV ×3 (08:45→21:16)
--- NOTE | 2019-05-06 09:26 | PM.PN.1 ---
Subjective Subjective Date Patient Seen: 05/06/19 Time Patient Seen: 09:26 Interval history: No acute events overnight. Patient has started to experience some nausea this morning, but no vomiting. She is having some intra-abdominal gas pains, but no gas in the ostomy bag. Exam Vital Signs (past 8 hours): - 05/06/19 06:00 Temperature 97.7 F Pulse Rate 50 L Respiratory Rate 16 Blood Pressure 129/75 Pulse Oximetry 97 Oxygen Delivery Method Room Air Oxygen Flow Rate 0 Narrative Exam Narrative: GENERAL: Alert, comfortable, resting in her bed HENT: Normocephalic, atraumatic. Hearing intact. Oral mucosa is pink and moist. EYES: Conjunctiva pink, sclera white, no periorbital swelling. CARDIOVASCULAR: Regular rate. No pedal edema. RESPIRATORY: Non-tachypneic, breathing comfortably on room air. GASTROINTESTINAL: Abdomen soft, slightly distended; ostomy bag in place with ostomy sweat; no gas in the bag; no stool in the bag; incisional dressings in place; ostomy maroon, mucocutaneous border intact GENITALURINARY: No flank tenderness. MUSCULOSKELETAL: Equal tone and mass bilaterally. SKIN: Warm, dry, soft, appropriate color for ethnicity. No other lesions, rashes, or wounds. NEURO: Alert and Oriented X 3. No gross sensory deficits, or cognitive issues. PSYCH: Appropriate affect and mood. Objective Labs Result Diagrams: 05/06/19 05:30 05/06/19 05:30 Labs: Laboratory Results - last 24 hr 05/06/19 05/06/19 05:30 05:30 WBC 7.8 RBC 4.11 Hgb 8.6 L Hct 28.2 L MCV 68.6 L MCH 20.9 L MCHC 30.4 RDW 25.2 H Plt Count 208 Neut % (Auto) 49.9 L D Lymph % (Auto) 41.3 H D [place] % (Auto) 5.2 Eos % (Auto) 2.6 Baso % (Auto) 1.0 Neut # (Auto) 3900 Lymph # (Auto) 3200 [place] # (Auto) 400 Eos # (Auto) 200 Baso # (Auto) 100 RBC Morphology See below Hypochromasia 2+ H Poikilocytosis 1+ H Anisocytosis 2+ H Microcytosis 2+ H Ovalocytes 1+ H Sodium 138 Potassium 3.6 Chloride 103 Carbon Dioxide 30 BUN 10 Creatinine 0.80 Estimated GFR > 60.0 BUN/Creatinine Ratio 12.5 Glucose 85 Calcium 10.5 H Magnesium 1.9 Assessment & Plan Assessment and plan (1) Colostomy present: Current visit: Yes Status: Acute Assessment & Plan narrative: 53-year-old woman postop day 2 from laparoscopic Endy's procedure with end colostomy for stenotic, bleeding stercoral ulcer, and colonic dysmotility. So far no ostomy output, although the patient says she feels some crampy abdominal pain which is usually consistent with return of bowel function. So hopefully we will see some stool output today. She is complaining of some nausea, so we will need to go slow with oral intake until she has which an about return of bowel function. Plan: Ostomy nurse to see today Dispo planning, pending return of bowel function Ambulate frequently DVT prophylaxis Increased bowel regimen today P.o. as tolerated Restart IV fluids of p.o. is not tolerated Time Spent With Patient Time with patient: 15-24 minutes Quality VTE Deep Vein Thrombosis/Pulmonary Embolism Present on Admission: No
[2019-05-06] MEDS: POTASSIUM CHLORIDE 20 MEQ TAB 40 MEQ PO (09:42)
[2019-05-06] MEDS: SENNOSIDES 8.6 MG TABLET 17.2 MG PO ×2 (09:42→21:03)
[2019-05-06] MEDS: MAGNESIUM OXIDE 400 MG TABLET PO ×2 (09:43→21:09)
--- NOTE | 2019-05-06 10:25 | PC.NURSE ---
Ostomy Nurse Consult Note Dr. Welch and here to assess Frank's stoma this morning. It is actually pinking up. I left the appliance in place that I placed last night. There was no effluent or gas, but she said it was just emptied. I brought a 45mm Convatec Wafer and pouch in the room as this will be a better fit when I change the appliance tomorrow or if she needs to have it change later today. Frank was awake and eager to begin her ostomy teaching session. Frank sat up in the chair. I gave her the [employer] New Patient Colostomy Guide. Frank measured a stoma on the model and molded and placed a wafer and pouch as well as was instructed on emptying. We reviewed and did the crusting technique on the back of our hands. I reviewed stoma powder and barrier rings. Tomorrow her Suresh will be here at 1:00 and I will continue with ostomy teaching. Frank seems confident in learning how to care for her ostomy. We will continue to assess her progress and the possible need for home health.
[2019-05-06] MEDS: ACETAMINOPHEN 325 MG TABLET 650 MG PO ×2 (12:15→18:23)
[2019-05-06 13:05] VITALS: BP 110/45; PULSE 54; RESP 13; TEMP 36.7; O2SAT 97
[2019-05-06 14:24] LABS: Parathyroid Hormone, Intact 97 pg/mL (14-64)
--- NOTE | 2019-05-06 15:03 | DIET.PN ---
Dietary Progress Note Assessment: 53y F admitted for rectal bleeding x1mo, vomiting x3mo, general fatigue, having been through extensive bowel prep since 04/25 with little POs for past 3w. Pt in surgery this morning c Dr. Conde for colon resection c possible temporary end colostomy tbd in procedure. Pt tolerating full liquids, understands slow progression important. Discussed pt's low PRO intake and why it is important for her healing and immune system. Pt agreeable to strawberry yogurt and will have bring in home protein shake (banana premier protein) which is w/in full liquid parameters. Pt excited to eat real food soon. HT: 157.4cm WT: 87.6kg UBW: 10# loss in 3mo (5%) BMI: 35.4 Labs: hgb 8.6 L holding, Calcium 10.5 H MNA: 7 malnourished Joseluis: 20 Nutrition Diagnosis: Acute Moderate Protein Calorie Malnutrition r/t altered GI function (possible colonic ulcer or malignancy) aeb pt intake <50% EERs for 1 mo, 5% unintentional wt loss, and mild muscle wasting with projection of liquid diet for next week r/t colon resection. Interventions: 1. pt willing to have strawberry yogurt tid to support PCM and healing. 2. Pt will bring in banana Premier Protein as pt prefers this to what we have in house. Diet Order: full liquid EER: 1800kcal, 87g PRO (1g/kg), 3L fluids (35mL/kg) Monitoring/Evaluations: labs, POs, ONS acceptance
[2019-05-06 15:37] VITALS: BP 120/61; PULSE 53; RESP 20; TEMP 36.9; O2SAT 98
--- NOTE | 2019-05-06 16:40 | PC.NURSE ---
Addendum entered by Raquel Sims R.N. 05/06/19 19:32: Ambulated in hallway with at side. NO nausea, tolerating Full liquid diet, BS active. No gas or BM noted to ostomy bag. Original Note: Carol Ann shift note: Patient awake, alert, calm, and pleasant. IS teaching performed. Up out of bed to BR, independently. Encouraged to ambulate outside the room, longer distance. States will wait for . Pain to lower abdomen, adequately controlled with ordered medications. Appears in good spirits, keeping distracted to reading materials, Ipad, and visitors. Call appropriately for staff assistance. Call light within reach.
[2019-05-06 20:17] VITALS: BP 95/52; PULSE 52; RESP 18; TEMP 37.1
[2019-05-06] MEDS: ALPRAZolam 0.25 MG TABLET PO (21:17)
[2019-05-06 22:04] VITALS: BP 114/70; PULSE 56
[2019-05-07] VITALS (7 sets, daily range): BP systolic 100–134; BP diastolic 59–79; PULSE 53–58; RESP 12–18; TEMP 36–36.9; O2SAT 94–98
[2019-05-07] MEDS: KETOROLAC 15 MG/ML VIAL IV ×2 (00:22→08:33)
[2019-05-07] MEDS: ACETAMINOPHEN 325 MG TABLET 650 MG PO ×4 (00:22→23:45)
[2019-05-07] MEDS: CITALOPRAM 20 MG TABLET PO (05:27)
[2019-05-07] MEDS: CHLORTHALIDONE 25 MG TABLET PO (05:27)
[2019-05-07] MEDS: buPROPion XL 150 MG TAB 450 MG PO (05:27)
[2019-05-07 05:56] LABS: Basophils Absolute Auto 100 /uL (0-100); Basophils Percent Auto 1.2 % (0-2); Eosinophils Absolute Auto 500 /uL (0-450); Eosinophils Percent Auto 6.8 % (2-4); Hematocrit 29.1 % (36-46); Lymphocytes Absolute Auto 3100 /uL (1100-4500); Lymphocytes Percent Auto 40.7 % (25-40); Mean Corpuscular HGB Conc 30.8 % (30-36); Mean Corpuscular Hemoglobin 21.3 PG (26-34); Mean Corpuscular Volume 69.1 fL (80-100); Monocytes Absolute Auto 500 /uL (0-900); Monocytes Percent Auto 7.1 % (3-14); Neutrophils Absolute Auto 3400 /uL (1500-7000); Neutrophils Percent Auto 44.2 % (50-75); Platelet Count 207 X10^3/uL (150-400); Red Blood Cell Count 4.21 X10^6/uL (4.0-5.2); White Blood Cell Count 7.7 X10^3/uL (4.5-11.0)
[2019-05-07 05:58] LABS: BUN Creatinine Ratio 13.8 (6-22); Blood Urea Nitrogen 11 mg/dL (7-17); Calcium 10.6 mg/dL (8.4-10.2); Carbon Dioxide 29 mmol/L (22-32); Chloride 105 mmol/L (98-107); Estimated Glomerular Filt Rate > 60.0 mL/min (>60); Glucose 92 mg/dL (70-100); HEMOLYSIS < 15 (0-50); Magnesium 1.9 mg/dL (1.6-2.3); Sodium 140 mmol/L (137-145)
[2019-05-07 06:02] LABS: Add Manual Diff / Slide Review SLIDE REVIEW
[2019-05-07 06:57] LABS: Anisocytosis 2+; Hypochromasia 2+; Microcytosis 1+
[2019-05-07 06:58] LABS: Rouleaux 1+
--- NOTE | 2019-05-07 07:20 | PM.PN.1 ---
Subjective Subjective Date Patient Seen: 05/07/19 Time Patient Seen: 07:26 Interval history: Feeling better this morning, continues to get stronger, ambulating well with assistance of her . Appetite is improving, denies nausea or vomiting. Pain controlled with medications. Exam Vital Signs (past 8 hours): - 05/07/19 00:15 05/07/19 05:30 Temperature 96.8 F L 97.4 F L Pulse Rate 55 L 55 L Respiratory Rate 12 12 Blood Pressure 111/62 102/65 Pulse Oximetry 94 98 Oxygen Delivery Method Room Air Oxygen Flow Rate 0 Narrative Exam Narrative: GENERAL: Alert and oriented, appearing stated age, in pain. HEENT: Head normocephalic/atraumatic. NG tube removed. LUNGS: Clear to ausculation bilaterally, no wheezes, rhonchi or rales. CV: Normal S1 and S2 with regular rate and rhythm, no audible murmurs, rubs or gallops. ABDOMEN: Soft, mildly tender, generalized, mildly distended, colostomy bag in place, clean, dry, intact. Surgical incisions with dressings in place, clean, dry, intact. No organomegaly. Hypoactive bowel sounds. EXTREMITIES: No clubbing, cyanosis, or edema. NEURO: Cranial nerves II through XII grossly intact, no focal deficits. PSYCH: Alert and oriented x 3. Objective Labs Result Diagrams: 05/07/19 05:30 05/07/19 05:30 Labs: Laboratory Results - last 24 hr 05/04/19 05/07/19 05/07/19 14:30 05:30 05:30 WBC 7.7 RBC 4.21 Hgb 9.0 L Hct 29.1 L MCV 69.1 L MCH 21.3 L MCHC 30.8 RDW 26.0 H Plt Count 207 Neut % (Auto) 44.2 L Lymph % (Auto) 40.7 H [place] % (Auto) 7.1 Eos % (Auto) 6.8 H Baso % (Auto) 1.2 Neut # (Auto) 3400 Lymph # (Auto) 3100 [place] # (Auto) 500 Eos # (Auto) 500 H Baso # (Auto) 100 RBC Morphology See below Hypochromasia 2+ H Anisocytosis 2+ H Microcytosis 1+ H Rouleaux 1+ H Sodium 140 Potassium 4.0 Chloride 105 Carbon Dioxide 29 BUN 11 Creatinine 0.80 Estimated GFR > 60.0 BUN/Creatinine Ratio 13.8 Glucose 92 Calcium 10.6 H Magnesium 1.9 PTH Intact 97 H Calcium (PTH Intact) 10.0 Assessment & Plan Assessment & Plan narrative: Assessment 1. GI bleed secondary to stercoral ulcer. General surgery following. Status post EGD x1, colonoscopy x3 and most recently laparoscopic splenic flexure mobilization, sigmoid colon resection and end colostomy creation, POD #3. Plan: Continue per general surgery. Have discussed stercoral ulcer in this young patient with Dr. Welch. Certainly, she has delayed GI transit and chronic constipation, etiology unclear. Differential diagnosis includes primary dysfunction of the colonic smooth muscle or neural innervation or secondary dyssynergy defecation including but not limited to colon cancer, inflammatory disease, diabetes, hypothyroidism, hyperparathyroidism, panhypopituitarism, diet, dehydration, etc.. She has had some chronically elevated calciums (mild) raising the possibility of parathyroid disease. PTH/calcium still pending. If negative, will proceed with further work-up, possibly as an outpatient. Assessment 2: Hyperparathyroidism, new. Likely underlying etiology of severe and chronic constipation. Plan: Have arranged outpatient endocrinology follow-up. Will also arrange for outpatient ENT consult for definitive treatment. Assessment 3, Anemia, acute blood loss. Hemoglobin/hematocrit trending up. Plan: General surgery following. Assessment 4: Acute moderate protein calorie malnutrition secondary to colon prep and surgery. Plan: Advancing diet as tolerated per surgery. Assessment 5: Hypokalemia, resolved, Plan: Continue potassium 40 meq PO qd. Assessment 6: Chest pain. No recurrence of symptoms. Troponin and CPK negative on repeat. Etiology likely secondary to combination of multiple issues none of which are cardiac at this point. Plan: No further workup unless patient has symptoms. Assessment 7: Back pain. 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 Subluxation has not developed but there has been a mild degree of interval worsening of degenerative disc disease and facet osteoarthritis along the lumbosacral spine. Radiolation reported that this segmentation anomaly such as is present in this case does predispose to low back pain. Plan: Supportive therapy, pain management as needed. Assessment 8: Depression. Dr. Vila consulting. Plan: Continue per her treatment plan. DVT prophylaxis: SCDs. Code: Full Quality VTE Deep Vein Thrombosis/Pulmonary Embolism Present on Admission: No
[2019-05-07] MEDS: POTASSIUM CHLORIDE 20 MEQ TAB 40 MEQ PO (08:32)
[2019-05-07] MEDS: SENNOSIDES 8.6 MG TABLET 17.2 MG PO ×2 (08:33→20:48)
[2019-05-07] MEDS: DOCUSATE 100 MG CAPSULE PO ×2 (08:34→20:48)
[2019-05-07] MEDS: HEPARIN 5,000 UNIT/ML VIAL 5000 UNIT SUBCUT ×2 (08:34→20:48)
[2019-05-07] MEDS: PANTOPRAZOLE 40 MG VIAL IV ×2 (08:34→20:48)
[2019-05-07] MEDS: MAGNESIUM OXIDE 400 MG TABLET PO ×2 (08:35→20:49)
[2019-05-07] MEDS: SODIUM CHLORIDE 0.9% FLUSH 10 ML IV ×2 (08:39→20:49)
[2019-05-07] MEDS: ONDANSETRON 4 MG/2 ML INJ IV (11:07)
[2019-05-07] MEDS: ALPRAZolam 0.25 MG TABLET PO (11:07)
[2019-05-07] MEDS: OXYCODONE IR 5 MG TABLET PO ×3 (11:07→23:45)
--- NOTE | 2019-05-07 11:15 | PC.NURSE ---
Recieved report form off going RN. Patient resting in bed after shower. Patient is A/O x 3. Reports dull pain in umbilical region of abdomen. Colostomy site is CDI, wound site is dark, small amount of yellow liquid in colostomy bag. Skin surrounding site is WNL. Patient reports feeling nausea after shower. Patient also request medication for anxiety. Will follow up with prescribed medications. PICC site is clean, dsg is slightly moist following shower, intact.
--- NOTE | 2019-05-07 15:07 | PC.NURSE ---
Ostomy Nurse Consult Note Suresh here for ostomy training. Frank's stoma is moist pinking up even more than yesterday, darkness due to being tattooed during surgery. Stomas measures 29mm, stomal sutures intact. Andressa-stomal skin intact. Stoma is in a crease when Frank sits up. Frank states that she is producing gas and was able to burp the pouch. She is currently on a full liquid and has yellow liquid effluent, no stool. I feel she won't produce stool until her diet is advanced to soft. She sat up in the chair and I had her remove her appliance and clean her stoma and andressa-stomal skin. Since her stoma is in a crease she will need convexity but I used an tamiko ring and a flat Convatec 45mm moldable wafer. I had Frank mold her wafer and I placed the tamiko and Frank placed the appliance around her stoma and attached the pouch. She did a great job and feel that she will be able to manage this at home, especially with her to help out. Suresh asked great questions and verbalized understanding of how the stoma works as well as the appliances. Suresh practiced on the model using a convatec moldable appliance as well as using a cut to fit appliance. We all reviewed the crusting technique as well as the anatomy of the colostomy. I feel very confident in Suresh and Frank's understanding and display of removing and applying an ostomy appliance. I will order some sample products and will follow up with them in clinic. I will have supplies ready in her room if she discharges over the weekend.
--- NOTE | 2019-05-07 15:08 | CM.DPC ---
DCP Cont: Stopped in to speak to the patient at the request of Dr. Welch. Dr. Welch stated to me this patient had some concerns about her [employer] insurance needing some sort of documentation regarding her hospital stay. Patient states she received an email from someone in her HR Department (she couldn't remember who emailed her) stating because she plans to use this benefit, she needs to send them a letter regarding her stay. When I asked what the letter needed to state, she said she has not contacted them yet to find out what it is they need. I informed the patient that she needs to call them to discuss this so that she is clear on what it is they need. I also informed her that depending on what it is they are needing, she would need to ask Dr. Welch's office to provide it to her for them. She stated she understood this and she intended on calling them in the next day or 2 once she is feeling better. I discussed all of this with my Security And Privacy Consultant, Yuliana who agreed this was a good plan for the patient. Brenna Spangler, Care Manager Community
--- NOTE | 2019-05-07 15:34 | CM.DPC ---
DCP: continued. Met with pt and her after their ostomy teach session with fur finisher seamstress specialist: Eva Alford, here to see pt in partnership with [facility]. Prior to this meeting did confer with Eva who saw pt yesterday and again today with her now assisting with the ostomy teach process. She noted that they both had done extremely will and pt is well on track to return home when her bowel function has full returned and she is eating etc. Currently a small amt of liquid yellow fluid was in the pouch. Eva states this in not considered a bowel movement. She has changed the ostomy wafer and pouch type a couple of times and expects to order supplies for pt that are not available in the hospital but will better suit pt's specific home needs She anticipates pt will be here through the weekend. Asked about HH. She says pt is doing so well she will recommend direct followup with her in clinic. Pt and her seemed very relaxed and confident during our conversation. Pt praises the teaching Eva has given her and agrees that she much prefers following up with Eva in clinic instead of having HH staff in her home. Dr. Harvey and Dr. Welch or rounding partners will continue to see pt daily and Dr. Vila continues to see pt and advise on best management of her mental health issues. P: home when deemed stable for same. No Home Health per above. Followup in clinic with all providers and followup ostomy care with SAILAJA Velasquez at the [facility].
--- NOTE | 2019-05-07 16:03 | PM.PN.1 ---
Subjective Subjective Date Patient Seen: 05/07/19 Time Patient Seen: 16:03 Interval history: No acute events overnight. The patient has passed some gas into her ostomy bag, but no stool thus far. She is getting ostomy teaching again today. Exam Vital Signs (past 8 hours): - 05/07/19 09:00 05/07/19 12:00 05/07/19 15:50 Temperature 97.3 F L 98.4 F 97.1 F L Pulse Rate 53 L 58 L 56 L Respiratory Rate 14 16 Blood Pressure 134/79 110/67 113/67 Pulse Oximetry 98 98 97 Oxygen Delivery Method Room Air Oxygen Flow Rate 0 Narrative Exam Narrative: GENERAL: Alert, comfortable, resting in her bed HENT: Normocephalic, atraumatic. Hearing intact. Oral mucosa is pink and moist. EYES: Conjunctiva pink, sclera white, no periorbital swelling. CARDIOVASCULAR: Regular rate. No pedal edema. RESPIRATORY: Non-tachypneic, breathing comfortably on room air. GASTROINTESTINAL: Abdomen soft, slightly distended; ostomy bag in place with ostomy sweat; no gas in the bag; no stool in the bag; incisional dressings in place; ostomy maroon, mucocutaneous border intact GENITALURINARY: No flank tenderness. MUSCULOSKELETAL: Equal tone and mass bilaterally. SKIN: Warm, dry, soft, appropriate color for ethnicity. No other lesions, rashes, or wounds. NEURO: Alert and Oriented X 3. No gross sensory deficits, or cognitive issues. PSYCH: Appropriate affect and mood. Objective Labs Result Diagrams: 05/07/19 05:30 05/07/19 05:30 Labs: Laboratory Results - last 24 hr 05/07/19 05/07/19 05:30 05:30 WBC 7.7 RBC 4.21 Hgb 9.0 L Hct 29.1 L MCV 69.1 L MCH 21.3 L MCHC 30.8 RDW 26.0 H Plt Count 207 Neut % (Auto) 44.2 L Lymph % (Auto) 40.7 H [place] % (Auto) 7.1 Eos % (Auto) 6.8 H Baso % (Auto) 1.2 Neut # (Auto) 3400 Lymph # (Auto) 3100 [place] # (Auto) 500 Eos # (Auto) 500 H Baso # (Auto) 100 RBC Morphology See below Hypochromasia 2+ H Anisocytosis 2+ H Microcytosis 1+ H Rouleaux 1+ H Sodium 140 Potassium 4.0 Chloride 105 Carbon Dioxide 29 BUN 11 Creatinine 0.80 Estimated GFR > 60.0 BUN/Creatinine Ratio 13.8 Glucose 92 Calcium 10.6 H Magnesium 1.9 Assessment & Plan Assessment and plan (1) Colostomy present: Current visit: Yes Status: Acute Assessment & Plan narrative: 53-year-old woman postop day 3 from laparoscopic Endy's procedure with end colostomy for stenotic, bleeding stercoral ulcer, and colonic dysmotility. So far no stool output from the ostomy, although she has had gas in the bag today. She is intermittently complaining of some nausea, but she is taking in enough liquids to prevent dehydration at this point. Plan: Ostomy nurse to see again today Dispo planning, pending return of bowel function Ambulate frequently DVT prophylaxis Increased bowel regimen again today P.o. as tolerated Restart IV fluids of p.o. is not tolerated Time Spent With Patient Time with patient: 15-24 minutes Quality VTE Deep Vein Thrombosis/Pulmonary Embolism Present on Admission: No
[2019-05-07] MEDS: polyethylene glycoL 3350 17 GM POWD.PACK PO ×2 (17:38→20:48)
[2019-05-07] MEDS: PSYLLIUM HUSK 1 PACKET PO (20:48)
[2019-05-08 04:10] VITALS: BP 105/66; PULSE 53; RESP 16; TEMP 36.4; O2SAT 96
[2019-05-08] MEDS: CHLORTHALIDONE 25 MG TABLET PO (06:33)
[2019-05-08] MEDS: OXYCODONE IR 5 MG TABLET PO ×5 (06:33→23:52)
[2019-05-08] MEDS: CITALOPRAM 20 MG TABLET PO (06:33)
[2019-05-08] MEDS: buPROPion XL 150 MG TAB 450 MG PO (06:33)
[2019-05-08] MEDS: ACETAMINOPHEN 325 MG TABLET 650 MG PO ×3 (06:33→23:50)
--- NOTE | 2019-05-08 08:33 | P.PN_ITS ---
Subjective Subjective Date Patient Seen: 05/08/19 Time Patient Seen: 08:35 Interval history: Feeling better again this morning, continues to get stronger, ambulating well with assistance of her . Appetite is improving, denies nausea or vomiting. Pain controlled with medications. Exam Vital Signs (past 8 hours): - 05/08/19 04:10 Temperature 97.6 F Pulse Rate 53 L Respiratory Rate 16 Blood Pressure 105/66 Pulse Oximetry 96 Oxygen Delivery Method Room Air Oxygen Flow Rate 0 Narrative Exam Narrative: GENERAL: Alert and oriented, appearing stated age, in pain. HEENT: Head normocephalic/atraumatic. NG tube removed. LUNGS: Clear to ausculation bilaterally, no wheezes, rhonchi or rales. CV: Normal S1 and S2 with regular rate and rhythm, no audible murmurs, rubs or gallops. ABDOMEN: Soft, mildly tender, generalized, mildly distended, colostomy bag in place, clean, dry, intact. Surgical incisions with dressings in place, clean, dry, intact. No organomegaly. Hypoactive bowel sounds. EXTREMITIES: No clubbing, cyanosis, or edema. NEURO: Cranial nerves II through XII grossly intact, no focal deficits. PSYCH: Alert and oriented x 3. Objective Labs Result Diagrams: 05/07/19 05:30 05/07/19 05:30 Assessment & Plan Assessment & Plan narrative: Assessment 1. GI bleed secondary to stercoral ulcer. General surgery following. Status post EGD x1, colonoscopy x3 and most recently laparoscopic splenic flexure mobilization, sigmoid colon resection and end colostomy creation, POD #4. Plan: Continue per general surgery. Assessment 2: Hyperparathyroidism, new. Likely underlying etiology of severe and chronic constipation. Plan: Have arranged outpatient endocrinology follow-up. Will also arrange for outpatient ENT consult for definitive treatment. Assessment 3, Anemia, acute blood loss. Hemoglobin/hematocrit trending up. Plan: General surgery following. Assessment 4: Acute moderate protein calorie malnutrition secondary to colon prep and surgery. Plan: Advancing diet as tolerated per surgery. Assessment 5: Hypokalemia, resolved, Plan: Continue potassium 40 meq PO qd. Assessment 6: Chest pain. No recurrence of symptoms. Troponin and CPK negative on repeat. Etiology likely secondary to combination of multiple issues none of which are cardiac at this point. Plan: No further workup unless patient has symptoms. Assessment 7: Back pain. 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 Subluxation has not developed but there has been a mild degree of interval worsening of degenerative disc disease and facet osteoarthritis along the jacquelin mbosacral spine. Radiolation reported that this segmentation anomaly such as is present in this case does predispose to low back pain. Plan: Supportive therapy, pain management as needed. Assessment 8: Depression. Dr. Vila consulting. Plan: Continue per her treatment plan. DVT prophylaxis: SCDs. Code: Full Quality VTE Deep Vein Thrombosis/Pulmonary Embolism Present on Admission: No
[2019-05-08 09:30] VITALS: BP 111/75; PULSE 65; TEMP 36.2; O2SAT 97
[2019-05-08] MEDS: PSYLLIUM HUSK 1 PACKET PO ×2 (09:52→21:35)
[2019-05-08] MEDS: polyethylene glycoL 3350 17 GM POWD.PACK PO ×3 (09:52→21:35)
[2019-05-08] MEDS: PANTOPRAZOLE 40 MG VIAL IV ×2 (09:52→21:35)
[2019-05-08] MEDS: POTASSIUM CHLORIDE 20 MEQ TAB 40 MEQ PO (09:53)
[2019-05-08] MEDS: ALPRAZolam 0.25 MG TABLET PO (09:54)
[2019-05-08] MEDS: SODIUM CHLORIDE 0.9% FLUSH 10 ML IV ×2 (09:55→21:39)
[2019-05-08] MEDS: HEPARIN 5,000 UNIT/ML VIAL 5000 UNIT SUBCUT ×2 (09:55→21:35)
[2019-05-08] MEDS: DOCUSATE 100 MG CAPSULE PO ×2 (09:56→21:35)
[2019-05-08] MEDS: MAGNESIUM OXIDE 400 MG TABLET PO ×2 (09:56→21:35)
[2019-05-08] MEDS: SENNOSIDES 8.6 MG TABLET 17.2 MG PO ×2 (09:56→21:35)
--- NOTE | 2019-05-08 10:52 | PC.NURSE ---
Addendum entered by Patricia Ambrose R.N. 05/08/19 14:52: MS - up ambul hallway w/spouse standby, gait steady. Addendum entered by Patricia Ambrose R.N. 05/08/19 11:45: GI/MS - Dr. Landa in and pt diet will adv to general, no bm this am, pt has been in chair throughout am and enc ambul in hallway, up independently before lunch, gait steady,'I'll take another walk this afternoon when my is here. Original Note: AM NOTE - pt is alert, looking at tablet this am, states pain 4-5 on scale 0/10, abd soft, tender, bt are hypo, no nausea, charlette full liq, stoma pink w/small qty serous drainage in bag, discussed mobilization and pt up to chair for breakfast, enc ambl, after meal, given oxycodone 5mg.
--- NOTE | 2019-05-08 11:45 | PM.PNPO.1 ---
Subjective Subjective Date Patient Seen: 05/08/19 Time Patient Seen: 11:45 Interval history: No acute overnight events. Continues to pass gas an ostomy no stool output. Ambulatory. Tolerating a diet. Pain is well controlled. Exam Vital Signs (past 8 hours): - 05/08/19 04:10 05/08/19 09:30 Temperature 97.6 F 97.2 F L Pulse Rate 53 L 65 Respiratory Rate 16 Blood Pressure 105/66 111/75 Pulse Oximetry 96 97 Oxygen Delivery Method Room Air Oxygen Flow Rate 0 Narrative Exam Narrative: General adult female alert oriented no acute distress Abdomen soft appropriately tender to palpation incision clean dry intact. Ostomy productive of gas no stool Objective Labs Result Diagrams: 05/07/19 05:30 05/07/19 05:30 Assessment & Plan Post-op Postoperative Procedures: Procedures Operation Date: 04/25/19 15:05 Actual Procedures Side Surgeon p Esophagogastroduodenoscopy WITH BIOPSY/POLYPECTOMY Not Applicable Kylie Welch MD s Colonoscopy-ATTEMPTED Not Applicable Kylie Welch MD Operation Date: 04/27/19 12:15 Actual Procedures Side Surgeon p Colonoscopy to the sigmoid colon Not Applicable Kylie Welch MD Operation Date: 04/27/19 16:45 <No data on this case meets the specified criteria> Operation Date: 04/29/19 11:45 Actual Procedures Side Surgeon p Colonoscopy with biopsies x 3 and tatooing Kylie Welch MD Operation Date: 05/04/19 07:45 Actual Procedures Side Surgeon p Laparoscopically Assisted Partial Colectomy poss. open Not Applicable Kylie Welch MD Postoperative status narrative: 53-year-old female postoperative day 4 status post laparoscopic Endy's procedure for stercoral ulcer doing well. Tolerating a diet ostomy is productive of gas but no stool yet, await full return of bowel function -regular diet -ambulate -Lovenox for VTE prophylaxis -continue ostomy teaching Quality VTE Deep Vein Thrombosis/Pulmonary Embolism Present on Admission: No
[2019-05-08 13:00] VITALS: BP 111/70; PULSE 64; RESP 14; TEMP 36.7; O2SAT 96
[2019-05-08 16:07] VITALS: BP 106/65; PULSE 106; RESP 20; TEMP 36.3; O2SAT 97
[2019-05-08 22:00] VITALS: BP 142/90; PULSE 77; RESP 19; TEMP 36.6; O2SAT 97
[2019-05-08 23:45] VITALS: BP 119/70; PULSE 57; RESP 18; TEMP 36.8; O2SAT 99
[2019-05-09] MEDS: ALPRAZolam 0.25 MG TABLET PO ×2 (03:56→12:58)
[2019-05-09 04:30] VITALS: BP 118/78; PULSE 56; RESP 18; TEMP 36.6; O2SAT 100
--- NOTE | 2019-05-09 04:34 | PC.NURSE ---
Noc Note: Pt requested prn Oxycodone for pain x1 and xanax x1 this shift. Pt reports difficulty sleeping reporting thoughts circling in her head and feeling anxious about post discharge care of the ostomy. Reassurance given and pt given an opportunity to voice her thoughts and concerns.
[2019-05-09] MEDS: buPROPion XL 150 MG TAB 450 MG PO (05:38)
[2019-05-09] MEDS: CITALOPRAM 20 MG TABLET PO (05:38)
[2019-05-09] MEDS: ACETAMINOPHEN 325 MG TABLET 650 MG PO ×2 (05:39→12:05)
[2019-05-09] MEDS: CHLORTHALIDONE 25 MG TABLET PO (05:48)
--- NOTE | 2019-05-09 08:47 | PM.PN.1 ---
Subjective Subjective Date Patient Seen: 05/09/19 Time Patient Seen: 08:47 Interval history: Continues to do well. Still no stool output, but passing gas into ostomy bag. Aambulating well with assistance of her . Appetite is improving, denies nausea or vomiting. Pain controlled with medications. Exam Vital Signs (past 8 hours): - 05/09/19 04:30 Temperature 97.8 F Pulse Rate 56 L Respiratory Rate 18 Blood Pressure 118/78 Pulse Oximetry 100 Oxygen Delivery Method Room Air Oxygen Flow Rate 0 Narrative Exam Narrative: GENERAL: Alert and oriented, appearing stated age, in pain. HEENT: Head normocephalic/atraumatic. NG tube removed. LUNGS: Clear to ausculation bilaterally, no wheezes, rhonchi or rales. CV: Normal S1 and S2 with regular rate and rhythm, no audible murmurs, rubs or gallops. ABDOMEN: Soft, appropriately tender, generalized, mildly distended, colostomy bag in place, clean, dry, intact. Surgical incisions with dressings in place, clean, dry, intact. No organomegaly. Hypoactive bowel sounds. EXTREMITIES: No clubbing, cyanosis, or edema. NEURO: Cranial nerves II through XII grossly intact, no focal deficits. PSYCH: Alert and oriented x 3. Objective Labs Result Diagrams: 05/07/19 05:30 05/07/19 05:30 Assessment & Plan Assessment & Plan narrative: Assessment 1. GI bleed secondary to stercoral ulcer. General surgery following. Status post EGD x1, colonoscopy x3 and most recently laparoscopic splenic flexure mobilization, sigmoid colon resection and end colostomy creation, POD #5. Plan: Continue per general surgery. Assessment 2: Hyperparathyroidism, new. Likely underlying etiology of severe and chronic constipation. Plan: Have arranged outpatient endocrinology follow-up. Will also arrange for outpatient ENT consult for definitive treatment. Assessment 3, Anemia, acute blood loss. Hemoglobin/hematocrit trending up. Plan: General surgery following. Assessment 4: Acute moderate protein calorie malnutrition secondary to colon prep and surgery. Plan: Advancing diet as tolerated per surgery. Assessment 5: Hypokalemia, resolved, Plan: Continue potassium 40 meq PO qd. Assessment 6: Chest pain. No recurrence of symptoms. Troponin and CPK negative on repeat. Etiology likely secondary to combination of multiple issues none of which are cardiac at this point. Plan: No further workup unless patient has symptoms. Assessment 7: Back pain. 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 Subluxation has not developed but there has been a mild degree of interval worsening of degenerative disc disease and facet osteoarthritis along the lumbosacral spine. Radiolation reported that this segmentation anomaly such as is present in this case does predispose to low back pain. Plan: Supportive therapy, pain management as needed. Assessment 8: Depression. Dr. Vila consulting. Plan: Continue per her treatment plan. DVT prophylaxis: SCDs. Code: Full Quality VTE Deep Vein Thrombosis/Pulmonary Embolism Present on Admission: No
[2019-05-09] MEDS: OXYCODONE IR 5 MG TABLET PO ×2 (09:52→12:58)
[2019-05-09] MEDS: SENNOSIDES 8.6 MG TABLET 17.2 MG PO (09:53)
[2019-05-09] MEDS: PSYLLIUM HUSK 1 PACKET PO (09:54)
[2019-05-09] MEDS: polyethylene glycoL 3350 17 GM POWD.PACK PO (09:54)
[2019-05-09] MEDS: PANTOPRAZOLE 40 MG VIAL IV (09:56)
[2019-05-09] MEDS: DOCUSATE 100 MG CAPSULE PO (09:57)
[2019-05-09] MEDS: POTASSIUM CHLORIDE 20 MEQ TAB 40 MEQ PO (09:57)
[2019-05-09] MEDS: HEPARIN 5,000 UNIT/ML VIAL 5000 UNIT SUBCUT (09:57)
[2019-05-09] MEDS: SODIUM CHLORIDE 0.9% FLUSH 10 ML IV (10:01)
[2019-05-09] MEDS: MAGNESIUM OXIDE 400 MG TABLET PO (10:02)
[2019-05-09 11:05] LABS: BUN Creatinine Ratio 14.4 (6-22); Blood Urea Nitrogen 13 mg/dL (7-17); Calcium 11.4 mg/dL (8.4-10.2); Carbon Dioxide 27 mmol/L (22-32); Chloride 101 mmol/L (98-107); Estimated Glomerular Filt Rate > 60.0 mL/min (>60); Glucose 119 mg/dL (70-100); HEMOLYSIS < 15 (0-50); Sodium 138 mmol/L (137-145)
[2019-05-09 11:06] LABS: Add Manual Diff / Slide Review NO; Basophils Absolute Auto 100 /uL (0-100); Basophils Percent Auto 0.6 % (0-2); Eosinophils Absolute Auto 900 /uL (0-450); Eosinophils Percent Auto 10.3 % (2-4); Hematocrit 33.3 % (36-46); Hemoglobin 10.4 g/dL (12.0-16.0); Lymphocytes Absolute Auto 2600 /uL (1100-4500); Lymphocytes Percent Auto 29.5 % (25-40); Mean Corpuscular HGB Conc 31.1 % (30-36); Mean Corpuscular Hemoglobin 21.2 PG (26-34); Mean Corpuscular Volume 68.2 fL (80-100); Monocytes Absolute Auto 500 /uL (0-900); Monocytes Percent Auto 5.4 % (3-14); Neutrophils Absolute Auto 4800 /uL (1500-7000); Neutrophils Percent Auto 54.2 % (50-75); Platelet Count 272 X10^3/uL (150-400); Red Blood Cell Count 4.89 X10^6/uL (4.0-5.2); Red Cell Distribution Width 25.9 % (11.6-14.8)
[2019-05-09 11:10] VITALS: BP 117/56; PULSE 60; RESP 16; O2SAT 99
[2019-05-09 11:48] LABS: Anisocytosis 2+; Hypochromasia 2+; Microcytosis 1+
[2019-05-09 11:49] LABS: Rouleaux 1+
--- NOTE | 2019-05-09 12:09 | PC.NURSE ---
Addendum entered by Patricia Ambrose R.N. 05/09/19 13:55: DC - reviewed dc instructions w/pt and spouse, script oxycodone provided, reprinted home med list with last dosages, pt verified with [facility]ao that meds were successfully retransmitted, belongings gathered, included colostomy supplies, wafers and pouches, clothing, cell phone, tablet and intelligence engineer, glasses, own pillow, tsf to and escorted to family car by scraper meat. Addendum entered by Patricia Ambrose R.N. 05/09/19 12:28: SCRIPTS - Dr. Welch called and saw note regarding scripts and she will retransmit to [facility] in [place]. Original Note: AM NOTE - pt up indep in room, pain managed with oxycodone, pt has medium brown soft stool in colostomy bag, denies nausea, Dr. Landa in and pt will dc home, after breakfast, pt picc dc'd, pt showered, bandaids removed, steristrips intact, gathered colostomy supplies for pt to take home until she sees Eva Ferraro on Friday, given oxycodone for abd discomfort 4 on scale 0/10, has some l upper shoulder discomfort and given tylenol at lunch, pt states that her insurance changed and she no longer uses [facility] that Dr. Landa transmitted her scripts to this am, called Elziabeth at [phone] and MD is in surgery and left msg to retransmit to the [facility] pharmacy in [place].
--- NOTE | 2019-05-09 12:31 | PM.DS.1 ---
History of Present Illness History of Present Illness Date Patient Seen: 05/09/19 Time Patient Seen: 12:31 Chief complaint: per phy/ rectal bleeding/ pain 1x vomiting 3xmonth Narrative: This is a 53 yo woman with history of obesity, chronic abdominal pain (patient refers to it as IBS), chronic constipation, depression, anxiety, GERD/gastritis, with history of x 4, cholecystectomy, and hysterectomy. She came into the ED today with her daughter for c/o bright red rectal bleeding and clots which fills up the toilet bowl for last 3-4 months when she has bowel movements. She reports lower abdominal pressure and discomfort with intermittent chills with nausea and vomiting. She denies chest pain, breathing difficulty but at times feels dizzy with changing in position. She states that she never has normal bowel movements, but rather they are small pebble like stools with significant straining. She reports a history of hemorrhoids which are bothering her more right now. She reports significant abdominal cramping and pressure with discomfort in the abdomen and rectum region. She describes symptoms of urinary urgency. She is afraid to eat now because of abdominal discomfort and nausea and has been drinking protein shakes and small amount of soups. She feels she is getting worse, and now has significant malaise, and feels she can not keep down much PO intake. She uses stool softener daily and also takes 20 ibuprofen per day for chronic back pain for last 3-4 years. She believes she had a colonoscopy in 2006 for similar symptoms. ROS: General: Denies fever, reports chills, fatigue, malaise, sweats. Reports 13 pound unexplained weight loss in recent months HEENT: Denies sinus pain, ear pain, sore throat, difficulty swallowing, dizziness. Respiratory: Denies dyspnea, cough, wheezing, hemoptysis, sputum. Cardiovascular: Denies chest pain, palpitations, orthopnea, edema. Gastrointestinal: See HPI : Reports urinary urgency. Denies dysuria, frequency, incontinence, hematuria, urinary retention. Musculoskeletal: Reports weakness, denies joint pain or bony pain. Skin: Denies rash, skin lesions, or other. Neurologic: Denies headache, numbness, change in speech, confusion, seizures, incoordination. Psychiatric: Reports depression and anxiety related to deaths of several family members in the past year 12-point review of systems is negative except for those stated above. PE: GENERAL: Pale and ill appearing. Appears stated age. Answers questions promptly and appropriately. Vital signs noted. HENT: Normocephalic, atraumatic. Hearing intact. Oral mucosa is pink and moist. EYES: Conjunctiva pink, sclera white, no periorbital swelling. CARDIOVASCULAR: Regular rate. No pedal edema. RESPIRATORY: Non-tachypneic, breathing comfortably on room air. GASTROINTESTINAL: Abdomen soft, nondistended, moderately TTP in BL lower quadrants Perianal: large soft external hemorrhoids, non-thrombosed, non bleeding; some prolapsing internal hemorrhoids which are excoriated but not actively bleeding NANCY: normal tone; no masses, TTP anterior and posterior midline; Large internal hemorrhoids GENITALURINARY: No flank tenderness. MUSCULOSKELETAL: Equal tone and mass bilaterally. SKIN: Warm, dry, soft, appropriate color for ethnicity. No other lesions, rashes, or wounds. NEURO: Alert and Oriented X 3. No gross sensory deficits, or cognitive issues. PSYCH: perseverating speech, tangential thought processes, depressed mood and affect Discharge Providers Provider Date of admission: 04/25/19 14:09 Discharge Date: 05/09/19 Primary care physician: Tammy Harvey MD Consults: 04/24/19 17:20 Consult to Dietitian, Adult Routine Comment: Reason For Exam: Weight loss 10+ lbs in 3 months 04/29/19 15:25 Consult to Dietitian, Adult Routine Comment: PT WILL LIKELY HAVE COLON RESECTION ON FRIDAY Reason For Exam: NEED NUTRITIONAL OPTIMIZATION ON CLEARS OR FULLS 05/04/19 16:39 Consult to Ostomy Specialist Routine Comment: I contacted Eva Ferraro. She is coming . Consulting Provider: Discharge provider: Kylie Welch MD Summary Hospital Course Discharge Diagnosis: Chronic constipation, colonic dysmotility, acute GI bleed, obstructing stercoral ulcer of sigmoid colon, hypercalcemia, hyperparathyroidism Hospital Course: Pt was admitted for obstructive symptoms and GI bleed. Plan was made to perform colonoscopy and EGD. The patient was transfused 2 units of blood for symptomatic anemia with Hgb level 6.5. After six liters of bowel prep, EGD was done, but colonoscopy could not be done because of solid stool in the colon that could not be moved. A second attempt was made at colonoscopy after two days and additional six liters of prep. The colon was still obstructed with solid stool. An NGT was then placed and the patient was prepped again with gastrografin and 6 liters of golytely. SBFT showed passage of contrast through the colon, and solid stool was finally passed during the prep. Successful colonoscopy was performed, and a very tight stenosis was found with friable bleeding ulcerated mucosa. This very narrowed area had been completely obstructed with inspisated stool on the first and second colonoscopy. Biopsies were taken. Tattoos were placed proximal and distal to the obstructing lesion. The patient was then placed on clear liquid diet with protein supplementation. Pathology results returned as benign, and the patient was then taken to the OR for resection. End colostomy was made because of the patient's severe dysmotility and high risk for anastomotic leak. The patient did well post operatively, but did not have any stool output from the ostomy until POD#5 with docusate, senna, miralax, and Metamucil bowel regimen. During hospitalization the patient was noted to have hypercalcemia. PTH levels were checked and found to be high. Status at Discharge Cognitive/behavioral status at discharge: at baseline, oriented Functional status at discharge: independent ambulation Overall status at discharge: patient is progressing back to baseline Time Spent with Patient Time spent: Less than 30 minutes Exam Vital Signs (past 8 hours): - 05/09/19 11:10 Pulse Rate 60 Respiratory Rate 16 Blood Pressure 117/56 L Pulse Oximetry 99 Oxygen Delivery Method Room Air Oxygen Flow Rate 0 Narrative Exam Narrative: GENERAL: Alert and oriented, appearing stated age HEENT: Head normocephalic/atraumatic. ABDOMEN: Soft, appropriately tender, colostomy bag in place, clean, dry, intact. Surgical incisions with dressings in place, clean, dry, intact. EXTREMITIES: No clubbing, cyanosis, or edema. NEURO: Cranial nerves II through XII grossly intact, no focal deficits. PSYCH: Alert and oriented x 3. Objective Labs Result Diagrams: 05/09/19 10:40 05/09/19 10:40 Labs: Laboratory Results - last 24 hr 05/09/19 05/09/19 10:40 10:40 WBC 9.0 RBC 4.89 Hgb 10.4 L Hct 33.3 L MCV 68.2 L MCH 21.2 L MCHC 31.1 RDW 25.9 H Plt Count 272 Neut % (Auto) 54.2 Lymph % (Auto) 29.5 [place] % (Auto) 5.4 Eos % (Auto) 10.3 H Baso % (Auto) 0.6 Neut # (Auto) 4800 Lymph # (Auto) 2600 [place] # (Auto) 500 Eos # (Auto) 900 H Baso # (Auto) 100 RBC Morphology See below Hypochromasia 2+ H Anisocytosis 2+ H Microcytosis 1+ H Rouleaux 1+ H Sodium 138 Potassium 4.0 Chloride 101 Carbon Dioxide 27 BUN 13 Creatinine 0.90 Estimated GFR > 60.0 BUN/Creatinine Ratio 14.4 Glucose 119 H Calcium 11.4 H Discharge Plan Discharge Plan Patient Disposition: Home Discharge comment: Drink plenty of water to keep yourself hydrated. If you feel dry mouth or notice your urine becomes darker, increase your fluid intake. Take your prescription pain medication as needed so you are able to cough, take deep breaths, sleep well, and get up to walk around. You may also take Tylenol, but please avoid NSAIDs such as Aleve, Ibuprofen, Advil, Aspirin. Take your bowel regimen as recommended. If you are having copious loose stool, you may wean down the bowel medications. We will discuss titration of your bowel regimen at your follow up appointment. Bowel regimen: Docusate 100mg twice daily Senna two tabs twice daily Miralax 17g three times daily, hold if having loose stool Metamucil 2 tspn mixed in 8 oz of water twice daily Keep active with light activity such as gentle exercise and taking walks. Avoid lifting over 10lbs, abdominal core work, or very strenuous activity. Avoid being sedentary for prolonged periods. You may shower. After showering, keep a dry dressing over your incisional wounds as needed. If you notice any redness or drainage from the wounds, call our office and speak to Dr. Welch, or the doctor instrumentation and controls technician. If you have any other concerns about your surgery or post operative care, please call the surgeon's office number and speak to the office nurse or the surgeon instrumentation and controls technician. If you become severely ill with significant chest pain, shortness of breath, significant bleeding, or other life threatening symptoms, please call 911 or go to the ER right away. Continue to follow the instructions given by the ostomy nurse regarding care and management of your ostomy site. Discharge orders & Medications Prescriptions: New oxycodone 5 mg tablet 5 mg PO Q8H PRN (Reason: Postoperative pain) Qty: 20 RF: 0 docusate sodium 100 mg capsule 100 mg PO BID Qty: 60 RF: 6 sennosides [Senna Lax] 8.6 mg tablet 17.2 mg PO BID Qty: 120 RF: 6 polyethylene glycol 3350 [Miralax] 17 gram/dose powder 17 gram PO TID Qty: 510 RF: 6 omeprazole 20 mg capsule,delayed release(DR/EC) 20 mg PO BID Qty: 60 RF: 6 Continued chlorthalidone 25 mg tablet 25 mg PO QAM Qty: 14 RF: 0 alprazolam 0.25 mg tablet 0.25 mg PO TID PRN (Reason: severe anxiety ) Qty: 90 RF: 2 citalopram 20 mg tablet 20 mg PO DAILY Qty: 90 RF: 1 estradiol [Estrace] 1 mg tablet 1 mg PO QDAY Qty: 90 RF: 3 bupropion HCl 150 mg tablet extended release 24 hr 450 mg PO QAM Qty: 90 RF: 5 Discontinued omeprazole 20 mg capsule,delayed release(DR/EC) 20 mg PO DAILY Qty: 60 RF: 1 docusate sodium 250 MG capsule 250 mg PO QDAY Qty: 30 RF: 2 Follow up/Referrals: Tammy Harvey MD [Primary Care Provider] - Kylie Welch MD [Physician] - (FridayMay 11 at 9:45 a.m. You will be seeing Dr. Welch and Eva Ferraro at this appointment.) Diet/Activity/Treatments Diet: Regular and Full Liquid Skin/Wound/Dressing Care Report to your healthcare provider any signs of infection, such as:: chills, fever, night sweats, increased pain, unusual drainage and unusual redness Visit Report/Discharge Packet Instructions: How to Care for Your Colostomy or Ileostomy, DI for Colectomy, DI for Gastroesophageal Reflux Disease (GERD), DI for Prescription Opioid Use, Oxycodone, Colostomy / Ileostomy, [facility]: Wound Care Discharge Data Primary Care Provider: Tammy Harvey Quality VTE Deep Vein Thrombosis/Pulmonary Embolism Present on Admission: No
--- NOTE | 2019-05-10 15:24 | CM.DPC ---
DCP Cont: Received a phone call from Candis Ruby at [facility]. Asking me where letter is that she requested a week ago from us. I informed Candis that this department had been informed by the patient's surgeon a letter was no longer needed. Candis then stated that they did not give that message to anyone (including the patient) and they had in fact, been waiting for a letter from us all week. I informed Candis that I would type her a generic letter stating the dates the patient was admitted and fax it to her attention at [phone]. Letter typed and faxed, fax confirmation scanned in. Brenna Spangler, [facility] Individualized Education Plan Aide
== END 2019-05-09 14:04 | disposition home or self-care (01) | DRG 330 ==
LOC: ED 16:00 → AC 16:05
PROVIDERS: Family Medicine; Specialist; Admitting Provider Surgery; Emergency Provider Nurse Practitioner Family; PCP Student in an Organized Health Care Education/Training Program; Visit Provider Surgery
PROC: 0DJ08ZZ Inspection of Upper Intestinal Tract, Via Natural or Artificial Opening Endoscopic (ICD-10-PCS; CPT 43235; principal; 2019-04-25 15:05)
PROC: 0DJD8ZZ Inspection of Lower Intestinal Tract, Via Natural or Artificial Opening Endoscopic (ICD-10-PCS; CPT 45378; 2019-04-25 15:05)
PROC: 0DJD8ZZ Inspection of Lower Intestinal Tract, Via Natural or Artificial Opening Endoscopic (ICD-10-PCS; CPT 45378; principal; 2019-04-27 12:15)
PROC: 0DTE0ZZ Resection of Large Intestine, Open Approach (ICD-10-PCS; principal; 2019-05-04 07:45)
DX: K63.3 Ulcer of intestine (principal); K56.609 Unspecified intestinal obstruction, unspecified as to partial versus complete obstruction; D62 Acute posthemorrhagic anemia; F33.8 Other recurrent depressive disorders; K55.9 Vascular disorder of intestine, unspecified; E44.0 Moderate protein-calorie malnutrition; M54.9 Dorsalgia, unspecified; K64.8 Other hemorrhoids; Q79.9 Congenital malformation of musculoskeletal system, unspecified; Q68.0 Congenital deformity of sternocleidomastoid muscle; Z91.11 Patient's noncompliance with dietary regimen; R39.15 Urgency of urination; K21.9 Gastro-esophageal reflux disease without esophagitis; K59.09 Other constipation; F41.9 Anxiety disorder, unspecified; E87.6 Hypokalemia; E21.3 Hyperparathyroidism, unspecified; I10 Essential (primary) hypertension; R07.89 Other chest pain; K58.9 Irritable bowel syndrome, unspecified; Z68.33 Body mass index [BMI] 33.0-33.9, adult; Z79.1 Long term (current) use of non-steroidal anti-inflammatories (NSAID); Z93.3 Colostomy status
CPT/HCPCS: 36415; 36430; 36573; 36592; 71045; 72100; 74018; 74177; 74248; 80048; 80053; 81003; 82310; 82550; 82962; 83735; 83970; 84484; 85014; 85018; 85025; 85027; 85610; 85730; 86850; 86900; 86901; 90833; 93005; 93010; 94762; 96361; 96374; 96375; 99232; 99233; 99285; G0378; P9016; A9270; C9113; J0330; J1100; J1170; J1642; J1644; J1885; J2250; J2270; J2405; J2543; J2704; J3010; J3480; Q9967

== ENCOUNTER 2019-07-30 20:15 | Observation (INO) | payer OTHER, SELFPAY ==
[2019-05-17 10:08] VITALS: BMI 35.3
[2019-07-30 20:24] VITALS: BP 136/77; PULSE 72; RESP 18; TEMP 37.1; O2SAT 98
--- NOTE | 2019-07-30 20:37 | ED.GENADULT ---
HPI - General Adult General Chief complaint: Abdominal Pain Stated complaint: STOMA DOES NOT LOOK NORMAL Time Seen by Provider: 07/30/19 20:26 Source: patient Mode of arrival: Ambulatory Limitations: no limitations History of Present Illness HPI narrative: 53-year-old female sent to the emergency department for evaluation of potential complications to her ostomy. She underwent a colostomy at the end of April for an ischemic stercoral ulcer and chronic dysmotility of the colon. The general surgeon received of the picture of a potential discoloration of the ostomy from the ostomy nurse earlier today. She was informed come to the emergency department. I received a call from the operative surgeon as the patient arrived recommending that we obtain labs and a CT scan. Patient states she is not having any abdominal pain. Has not had any output from the ostomy for the past couple days however this is not new for her given her slow motility. No fevers. Related Data Previous Rx's Medication Instructions Recorded estradiol 1 mg tablet 1 mg PO QDAY #90 tab 09/07/18 bupropion HCl 150 mg 24 hr tablet, 450 mg PO QAM #90 tab 11/20/18 extended release chlorthalidone 25 mg tablet 25 mg PO QAM #14 tab 12/28/18 citalopram 20 mg tablet 20 mg PO DAILY #90 tab 04/12/19 oxycodone 5 mg PO Q8H PRN #20 tab 05/07/19 docusate sodium 100 mg PO BID #60 cap 05/09/19 omeprazole 20 mg PO BID #60 cap 05/09/19 polyethylene glycol 3350 [Miralax] 17 gram PO TID #510 gram 05/09/19 sennosides [Senna Lax] 17.2 mg PO BID #120 tab 05/09/19 alprazolam 0.5 mg tablet 0.5 mg PO BID PRN #60 tab 07/09/19 Allergies Allergy/AdvReac Type Severity Reaction Status Date / Time latex Allergy Intermediate Rash Verified 06/17/19 15:02 codeine Allergy Mild VOMITING Verified 06/17/19 15:02 fluoxetine AdvReac Severe Agitated Verified 06/17/19 15:02 pain contract Allergy Unknown Uncoded 06/17/19 15:02 Review of Systems Constitutional Constitutional: Denies fever(s) Cardiovascular Cardiovascular: Denies chest pain and Denies dyspnea Respiratory Respiratory: Denies dyspnea Gastrointestinal Gastrointestinal: Denies abdominal pain and Denies vomiting Comments: Discoloration of the ostomy Integumentary/Breasts Skin/Breast: Denies rash Neurologic Neurologic: Denies behavioral changes Psychiatric Psychiatric: Denies behavioral changes Hematologic/Lymphatic Hematologic/Lymphatic: Denies easy bleeding and Denies easy bruising Patient History Medical History Anxiety (Chronic 1999) Chronic back pain (Chronic 2008) Depression (Chronic 1999) Endometriosis (Resolved) External hemorrhoid, bleeding (Chronic) Fibroids (Resolved) Hypertension (Chronic) IBS (irritable bowel syndrome) (Chronic 1994) Lumbar spine pain (Chronic) Melanoma of face (Resolved 2013) Migraines (Chronic 1994) Ovarian cyst (Resolved 1984) Urinary incontinence (Chronic) Surgical History Anesthesia (Resolved) History of gynecologic surgery (Resolved 07/07/15) History of ovarian cystectomy (Resolved 1984) Status post delivery (Resolved 1990) Status post delivery (Resolved 1992) Status post colonoscopy (Resolved 10/22/06) Status post hysterectomy (Resolved 2008) Status post laparoscopic cholecystectomy (Resolved 2008) Family History Father Age: 72 Type 1 diabetes Grandfather Cancer Heart disease Hypertension Dementia Grandmother Age: 90 Heart disease Dementia Mother Age: 73 Depression Multiple personality disorder Suicide attempt Sister Age: 47 Depression Sister Homeless Family/Other Family history of thyroid problem Diabetes mellitus Family/Other Diabetes mellitus Family history of thyroid problem Social History household members: spouse and children Smoking Status: Never smoker Smoking Status: Never smoker alcohol intake frequency: 0-2 drinks per day Substance Use Type: does not use Exam Initial Vital Signs Initial Vital Signs: Vital Signs Temperature 98.7 F 07/30/19 20:24 Pulse Rate 72 07/30/19 20:24 Respiratory Rate 18 07/30/19 20:24 Blood Pressure 136/77 07/30/19 20:24 Pulse Oximetry 98 07/30/19 20:24 Const General: cooperative and comfortable Limitations: mental status not altered HENMT Head: normal to inspection and normocephalic Resp Effort & Inspection: normal respiratory effort Cardio Rate: regular rate GI Inspection: non-distended Palpation: soft and No tender Other: The ostomy site does have a dusky appearance to it . Skin Lesions: no lesions Rashes: no rashes Extrem General: capillary refill normal Psych Appearance: grossly normal and well kempt Scores GCS Rosa coma scale eye opening: Spontaneous [place] coma scale verbal response: Orientated Rosa coma scale motor response: Obey commands [place] coma scale total score: 15 Course Orders Ordered: ED Orders 07/30/19 20:45 CT abdomen pelvis w con Stat 07/30/19 20:54 Complete Blood Count AUTO DIFF Stat Comprehensive Metabolic Panel Stat Lactate (Lactic Acid) Stat Lipase Stat Sodium Chloride (Normal Saline 0.9%) 1,000 mls @ 150 mls/hr IV CONT MABLE Last Admin: 07/30/19 21:04 Dose: 150 mls/hr Documented by: JILLIAN Vital Signs Vital signs: Vital Signs - 8 hr 07/30/19 20:24 07/30/19 21:19 Temperature 98.7 F Pulse Rate 72 69 Respiratory Rate 18 14 Blood Pressure 136/77 Blood Pressure [Right Arm] 127/67 Pulse Oximetry 98 97 Medical Decision Making Medical Records Medical records reviewed: Yes I reviewed the patient's medical records. Lab Data Lab results reviewed: Yes I reviewed the patient's lab results. Result diagrams: 07/30/19 20:54 07/30/19 20:54 Labs: Lab Results 07/30/19 07/30/19 07/30/19 Range/Units 20:54 20:54 20:54 WBC 9.0 (4.5-11.0) X10^3/uL RBC 4.56 (4.0-5.2) X10^6/uL Hgb 11.1 L (12.0-16.0) g/dL Hct 34.5 L (36-46) % MCV 75.5 L (80-100) fL MCH 24.4 L (26-34) PG MCHC 32.3 (30-36) % RDW 19.6 H (11.6-14.8) % Plt Count 315 (150-400) X10^3/uL Neut % (Auto) 52.9 (50-75) % Lymph % (Auto) 38.8 (25-40) % [place] % (Auto) 5.4 (3-14) % Eos % (Auto) 2.1 (2-4) % Baso % (Auto) 0.8 (0-2) % Neut # (Auto) 4800 (5694-8305) /uL Lymph # (Auto) 3500 (4481-8424) /uL [place] # (Auto) 500 (0-900) /uL Eos # (Auto) 200 (0-450) /uL Baso # (Auto) 100 (0-100) /uL Sodium 137 (137-145) mmol/L Potassium 2.9 L (3.4-5.1) mmol/L Chloride 99 (98-107) mmol/L Carbon Dioxide 31 (22-32) mmol/L BUN 22 H (7-17) mg/dL Creatinine 1.10 H (0.52-1.04) mg/dL Estimated GFR 52.4 L (>60) mL/min BUN/Creatinine Ratio 20.0 (6-22) Glucose 123 H (70-100) mg/dL Lactate 1.6 (0.7-2.1) mmol/L Calcium 11.2 H (8.4-10.2) mg/dL Total Bilirubin 0.3 (0.2-1.3) mg/dL AST 31 (14-36) IU/L ALT 24 (<35) IU/L Alkaline Phosphatase 68 (38-126) U/L Total Protein 8.1 (6.3-8.2) g/dL Albumin 4.5 (3.5-5.0) g/dL Globulin 3.6 (1.7-4.1) g/dL Albumin/Globulin Ratio 1.3 (1.0-2.8) Lipase 191 (23-300) U/L Imaging Data CT scan - abdomen/pelvis: Radiologist's Impression: [address] [address] [address] Scan Report Signed Patient: Frank Vidal RMR#: [id number] : 1965Acct:[id number] Age/Sex: 53 / FDate of Service: 07/30/19 Loc: ED Accession Number: [id number] Procedure: CT abdomen pelvis w con Ordering Provider: Doug Wells D.O. PROCEDURE: CT ABDOMEN PELVIS W CON INDICATIONS: History of colostomy and constipation eval for obstruction TECHNIQUE: After the administration of intravenous contrast, 5 mm thick sections acquired from the diaphragm to the symphysis. 5 mm coronal and sagittal reformats were acquired. For radiation dose reduction, the following was used: automated exposure control, adjustment of mA and/or kV according to patient size. COMPARISON: [facility], CT, CT ABDOMEN PELVIS W CON, 04/24/2019, 13:16. FINDINGS: Image quality: Excellent. ABDOMEN: Lung bases: Lung bases are clear. Heart size is normal. Solid organs: Liver is normal in size and enhancement. Gallbladder gallbladder is absent.. Biliary system is non dilated. Pancreas enhances normally. Spleen is normal in size and enhancement. No adrenal nodules. Kidneys demonstrate normal size and enhancement, without hydronephrosis. Peritoneum and bowel: Postsurgical changes compatible with partial left colectomy with left lower quadrant colostomy formation. Small fat-containing peristomal hernia is noted. There is mild inflammatory change in the parastomal herniated fat. No free fluid or air. The appendix is normal. Nodes and vessels: No retroperitoneal or mesenteric adenopathy by size criteria. Aorta and inferior vena cava are normal in size. Miscellaneous: Small fat-containing umbilical hernia. PELVIS: Genitourinary: Bladder wall thickness is normal. Miscellaneous: No inguinal hernias or adenopathy. Bones: No suspicious bony lesions. No vertebral body compression fractures. Left hemisacralization of the L5 vertebral body stable compared to prior exam. IMPRESSION: 1. Postsurgical changes compatible with partial left colectomy and left lower quadrant colostomy formation. Small fat-containing parastomal hernia with mild inflammatory stranding involving the herniated fat. 2. No dilated loops of bowel. 3. No free fluid or free air. 4. The appendix is normal. 5. No abscess. Dictated by: Batsheva Rodriguez MD, PhD on 07/30/2019 at 21:37 Approved by: Batsheva Rodriguez MD, PhD on 07/30/2019 at 21:45 [facility] Narrative Medical decision making narrative: Nontoxic appearing, afebrile, lactate and white count unremarkable. CT scan has findings as described above. evaluated patient in the emergency department and will admit for observation. Discharge Plan Departure Patient Disposition: Admitted as Observation Clinical Impression: Complication of ostomy Admit Date/Time: 07/30/19 23:17 Admit Provider: Kylie Welch
--- NOTE | 2019-07-30 20:45 | DI.CT.S_ITS ---
PROCEDURE: CT ABDOMEN PELVIS W CON INDICATIONS: History of colostomy and constipation eval for obstruction TECHNIQUE: After the administration of intravenous contrast, 5 mm thick sections acquired from the diaphragm to the symphysis. 5 mm coronal and sagittal reformats were acquired. For radiation dose reduction, the following was used: automated exposure control, adjustment of mA and/or kV according to patient size. COMPARISON: [facility], CT, CT ABDOMEN PELVIS W CON, 04/24/2019, 13:16. FINDINGS: Image quality: Excellent. ABDOMEN: Lung bases: Lung bases are clear. Heart size is normal. Solid organs: Liver is normal in size and enhancement. Gallbladder gallbladder is absent.. Biliary system is non dilated. Pancreas enhances normally. Spleen is normal in size and enhancement. No adrenal nodules. Kidneys demonstrate normal size and enhancement, without hydronephrosis. Peritoneum and bowel: Postsurgical changes compatible with partial left colectomy with left lower quadrant colostomy formation. Small fat-containing peristomal hernia is noted. There is mild inflammatory change in the parastomal herniated fat. No free fluid or air. The appendix is normal. Nodes and vessels: No retroperitoneal or mesenteric adenopathy by size criteria. Aorta and inferior vena cava are normal in size. Miscellaneous: Small fat-containing umbilical hernia. PELVIS: Genitourinary: Bladder wall thickness is normal. Miscellaneous: No inguinal hernias or adenopathy. Bones: No suspicious bony lesions. No vertebral body compression fractures. Left hemisacralization of the L5 vertebral body stable compared to prior exam. IMPRESSION: 1. Postsurgical changes compatible with partial left colectomy and left lower quadrant colostomy formation. Small fat-containing parastomal hernia with mild inflammatory stranding involving the herniated fat. 2. No dilated loops of bowel. 3. No free fluid or free air. 4. The appendix is normal. 5. No abscess. Dictated by: Batsheva Rodriguez MD, PhD on 07/30/2019 at 21:37 Approved by: Batsheva Rodriguez MD, PhD on 07/30/2019 at 21:45
[2019-07-30] MEDS: SODIUM CHLORIDE 0.9% 1,000 ML 150 ML IV (21:04)
[2019-07-30 21:10] LABS: Add Manual Diff / Slide Review NO; Basophils Absolute Auto 100 /uL (0-100); Basophils Percent Auto 0.8 % (0-2); Eosinophils Absolute Auto 200 /uL (0-450); Eosinophils Percent Auto 2.1 % (2-4); Hematocrit 34.5 % (36-46); Hemoglobin 11.1 g/dL (12.0-16.0); Lymphocytes Absolute Auto 3500 /uL (1100-4500); Lymphocytes Percent Auto 38.8 % (25-40); Mean Corpuscular HGB Conc 32.3 % (30-36); Mean Corpuscular Hemoglobin 24.4 PG (26-34); Mean Corpuscular Volume 75.5 fL (80-100); Monocytes Absolute Auto 500 /uL (0-900); Monocytes Percent Auto 5.4 % (3-14); Neutrophils Absolute Auto 4800 /uL (1500-7000); Neutrophils Percent Auto 52.9 % (50-75); Platelet Count 315 X10^3/uL (150-400); Red Blood Cell Count 4.56 X10^6/uL (4.0-5.2); Red Cell Distribution Width 19.6 % (11.6-14.8)
[2019-07-30 21:15] LABS: Lactate (Lactic Acid) 1.6 mmol/L (0.7-2.1)
[2019-07-30 21:16] LABS: Alanine Aminotransferase 24 IU/L (<35); Albumin 4.5 g/dL (3.5-5.0); Albumin Globulin Ratio 1.3 (1.0-2.8); Alkaline Phosphatase 68 U/L (38-126); Aspartate Aminotransferase 31 IU/L (14-36); Bilirubin Total 0.3 mg/dL (0.2-1.3); Blood Urea Nitrogen 22 mg/dL (7-17); Calcium 11.2 mg/dL (8.4-10.2); Carbon Dioxide 31 mmol/L (22-32); Chloride 99 mmol/L (98-107); Estimated Glomerular Filt Rate 52.4 mL/min (>60); Globulin 3.6 g/dL (1.7-4.1); Glucose 123 mg/dL (70-100); HEMOLYSIS 23 (0-50); Lipase 191 U/L (23-300); Potassium 2.9 mmol/L (3.4-5.1); Sodium 137 mmol/L (137-145); Total Protein 8.1 g/dL (6.3-8.2)
[2019-07-30 21:19] VITALS: BP 127/67; PULSE 69; RESP 14; O2SAT 97
--- NOTE | 2019-07-30 22:55 | P.HP_ITS ---
History of Present Illness History of Present Illness Date Patient Seen: 07/30/19 Time Patient Seen: 22:56 Chief complaint: STOMA DOES NOT LOOK NORMAL Narrative: This is a 53 yo woman with history of hypercalcemia, hyperparathyroidism, chronic constipation, and colonic dysmotility, complicated by obstructing and bleeding stercoral ulcer and emergency surgery for colon resection and colstomy creation three months ago. Since then the patient has been maintained on an extensive bowel regimen. Over the past few weeks she stopped using her Metamucil and decreased her Miralax to twice daily. She noticed her bowel movements decreased to once every 2-3 days. This week she began an increased level of activity which included moving heavy furniture. She started feeling some pain in the left side of her abdomen and she noticed that her colostomy appeared cole in size and darker in color. She has not had ostomy output since Friday. She was told to come into the ER by the ostomy nurse who sees her in the community. In the ER, she has hypokalemia, elevated creatinine, and a CT scan which shows a parastomal hernia. She c/o left abdominal pain. She denies nausea, vomiting, or generalized abdominal pain. She denies fevers, cough, shortness of breath, or any sick contacts. She says she has been strictly self isolating at home. ROS: Thirteen system review is otherwise negative other than as mentioned below and in HPI. PE: GENERAL: Alert, comfortable. Appears stated age. Answers questions promptly and appropriately. Vital signs noted. HENT: Normocephalic, atraumatic. Hearing intact. Oral mucosa is pink and moist. EYES: Conjunctiva pink, sclera white, no periorbital swelling. CARDIOVASCULAR: Regular rate. No pedal edema. RESPIRATORY: Non-tachypneic, breathing comfortably on room air. GASTROINTESTINAL: Abdomen soft, rounded, non-tympanic, non-tender; colostomy is partially prolapsed. The mucosa is dusky and dry. The colostomy is reducible on digital exam; the fascial opening is patent; no stool is palpable in the colon GENITALURINARY: No flank tenderness. MUSCULOSKELETAL: Equal tone and mass bilaterally. SKIN: Warm, dry, soft, appropriate color for ethnicity. No other lesions, rashes, or wounds. NEURO: Alert and Oriented X 3. No gross sensory deficits, or cognitive issues. PSYCH: Appropriate affect and mood. Patient History Medical History Anxiety (Chronic 1999) Chronic back pain (Chronic 2008) Depression (Chronic 1999) Endometriosis (Resolved) External hemorrhoid, bleeding (Chronic) Fibroids (Resolved) Hypertension (Chronic) IBS (irritable bowel syndrome) (Chronic 1994) Lumbar spine pain (Chronic) Melanoma of face (Resolved 2013) Migraines (Chronic 1994) Ovarian cyst (Resolved 1984) Urinary incontinence (Chronic) Surgical History Anesthesia (Resolved) History of gynecologic surgery (Resolved 07/07/15) History of ovarian cystectomy (Resolved 1984) Status post delivery (Resolved 1990) Status post delivery (Resolved 1992) Status post colonoscopy (Resolved 10/22/06) Status post hysterectomy (Resolved 2008) Status post laparoscopic cholecystectomy (Resolved 2008) Family & Social History Family History Father Age: 72 Type 1 diabetes Grandfather Cancer Heart disease Hypertension Dementia Grandmother Age: 90 Heart disease Dementia Mother Age: 73 Depression Multiple personality disorder Suicide attempt Sister Age: 47 Depression Sister Homeless Family/Other Family history of thyroid problem Diabetes mellitus Family/Other Diabetes mellitus Family history of thyroid problem Social History: household members spouse,children Safety & Behavioral: Feels Safe in Current Yes Environment Tobacco & Substance use: Smoking Status Never smoker alcohol intake frequency 0-2 drinks per day Substance Use Type does not use Meds Home Medications and Allergies Home Medications Medication Instructions Recorded Confirmed Type estradiol 1 mg tablet 1 mg PO QDAY #90 tab 09/07/18 06/17/19 Rx bupropion HCl 150 mg 24 hr tablet, 450 mg PO QAM #90 tab 11/20/18 06/17/19 Rx extended release chlorthalidone 25 mg tablet 25 mg PO QAM #14 tab 12/28/18 06/17/19 Rx citalopram 20 mg tablet 20 mg PO DAILY #90 tab 04/12/19 06/17/19 Rx oxycodone 5 mg PO Q8H PRN #20 tab 05/07/19 06/17/19 Rx docusate sodium 100 mg PO BID #60 cap 05/09/19 06/17/19 Rx omeprazole 20 mg PO BID #60 cap 05/09/19 06/17/19 Rx polyethylene glycol 3350 [Miralax] 17 gram PO TID #510 gram 05/09/19 06/17/19 Rx sennosides [Senna Lax] 17.2 mg PO BID #120 tab 05/09/19 06/17/19 Rx alprazolam 0.5 mg tablet 0.5 mg PO BID PRN #60 tab 07/09/19 Rx Allergies Allergy/AdvReac Type Severity Reaction Status Date / Time latex Allergy Intermediate Rash Verified 06/17/19 15:02 codeine Allergy Mild VOMITING Verified 06/17/19 15:02 fluoxetine AdvReac Severe Agitated Verified 06/17/19 15:02 pain contract Allergy Unknown Uncoded 06/17/19 15:02 Exam Vital Signs (past 8 hours): - 07/30/19 20:24 07/30/19 21:19 Temperature 98.7 F Pulse Rate 72 69 Respiratory Rate 18 14 Blood Pressure 136/77 Blood Pressure [Right Arm] 127/67 Pulse Oximetry 98 97 Oxygen Delivery Method Room Air Objective Imaging CT scan - abdomen: Radiologist's impression: [place] [address] CT Scan Report Signed Patient: Frank Vidal RMR#: [id number] : 1965Acct:[id number] Age/Sex: 53 / FDate of Service: 07/30/19 Loc: ED Accession Number: [id number] Procedure: CT abdomen pelvis w con Ordering Provider: Doug Wells D.O. PROCEDURE: CT ABDOMEN PELVIS W CON INDICATIONS: History of colostomy and constipation eval for obstruction TECHNIQUE: After the administration of intravenous contrast, 5 mm thick sections acquired from the diaphragm to the symphysis. 5 mm coronal and sagittal reformats were acquired. For radiation dose reduction, the following was used: automated exposure control, adjustment of mA and/or kV according to patient size. COMPARISON: [facility], CT, CT ABDOMEN PELVIS W CON, 04/24/2019, 13:16. FINDINGS: Image quality: Excellent. ABDOMEN: Lung bases: Lung bases are clear. Heart size is normal. Solid organs: Liver is normal in size and enhancement. Gallbladder gallbladder is absent.. Biliary system is non dilated. Pancreas enhances normally. Spleen is normal in size and enhancement. No adrenal nodules. Kidneys demonstrate normal size and enhancement, without hydronephrosis. Peritoneum and bowel: Postsurgical changes compatible with partial left colectomy with left lower quadrant colostomy formation. Small fat-containing peristomal hernia is noted. There is mild inflammatory change in the parastomal herniated fat. No free fluid or air. The appendix is normal. Nodes and vessels: No retroperitoneal or mesenteric adenopathy by size criteria. Aorta and inferior vena cava are normal in size. Miscellaneous: Small fat-containing umbilical hernia. PELVIS: Genitourinary: Bladder wall thickness is normal. Miscellaneous: No inguinal hernias or adenopathy. Bones: No suspicious bony lesions. No vertebral body compression fractures. Left hemisacralization of the L5 vertebral body stable compared to prior exam. IMPRESSION: 1. Postsurgical changes compatible with partial left colectomy and left lower quadrant colostomy formation. Small fat-containing parastomal hernia with mild inflammatory stranding involving the herniated fat. 2. No dilated loops of bowel. 3. No free fluid or free air. 4. The appendix is normal. 5. No abscess. Dictated by: Batsheva Rodriguez MD, PhD on 07/30/2019 at 21:37 Approved by: Batsheva Rodriguez MD, PhD on 07/30/2019 at 21:45 Labs Result Diagrams: 07/30/19 20:54 07/30/19 20:54 Labs: Laboratory Results - last 24 hr 07/30/19 07/30/19 07/30/19 20:54 20:54 20:54 WBC 9.0 RBC 4.56 Hgb 11.1 L Hct 34.5 L MCV 75.5 L MCH 24.4 L MCHC 32.3 RDW 19.6 H Plt Count 315 Neut % (Auto) 52.9 Lymph % (Auto) 38.8 [place] % (Auto) 5.4 Eos % (Auto) 2.1 Baso % (Auto) 0.8 Neut # (Auto) 4800 Lymph # (Auto) 3500 [place] # (Auto) 500 Eos # (Auto) 200 Baso # (Auto) 100 Sodium 137 Potassium 2.9 L Chloride 99 Carbon Dioxide 31 BUN 22 H Creatinine 1.10 H Estimated GFR 52.4 L BUN/Creatinine Ratio 20.0 Glucose 123 H Lactate 1.6 Calcium 11.2 H Total Bilirubin 0.3 AST 31 ALT 24 Alkaline Phosphatase 68 Total Protein 8.1 Albumin 4.5 Globulin 3.6 Albumin/Globulin Ratio 1.3 Lipase 191 Assessment & Plan Assessment and plan (1) Complication of ostomy: Current visit: Yes Status: Acute (2) Colonic dysmotility: Current visit: No Status: Acute (3) Hyperparathyroidism: Current visit: No Status: Acute (4) Hypercalcemia: Current visit: No Status: Acute (5) Chronic constipation: Current visit: No Status: Acute (6) Colonic ischemia: Current visit: Yes Status: Acute (7) Colostomy prolapse: Current visit: Yes Status: Acute (8) Parastomal hernia with obstruction and without gangrene: Current visit: Yes Status: Acute (9) Hypokalemia: Current visit: Yes Status: Acute (10) Creatinine elevation: Current visit: Yes Status: Acute Assessment & Plan narrative: This is a 53 yo woman with complex medical and surgical history detailed above. She returns to the ER with ischemic appearing colostomy, paratsomal hernia, and obstipation. I have reduced her obstruction in the ER, but I am concerned that she is hyperkalemic with elevated creatinine, and I am concerned she will re-obstruct as soon as she returns to normal activity. I will keep her for overnight observation to correct her electrolytes, rehydrate her, and restart her bowel regimen. Tomorrow we will begin having her get up and ambulate. If she re-herniates and re-obstructs she may need to go ahead with surgical correction of her obstruction. 45 minutes were spent in chart review and face to face with the patient. More than 50% of the time was spent in counseling and co-ordination of care regarding colostomy dysfunction, obstruction, bowel regimen, the need for workup of her hypercalcemia and hyperparathyroidism, and the risk of herniation. Plan: Admit to obs IV fluids correct electrolytes clear liquid diet PO Metamucil TID Miralax TID Senna BID Docusate BID DVT ppx home meds COVID-19 COVID-19 status: Not tested Time Spent With Patient Time with patient: Greater than 35 minutes Quality VTE Deep Vein Thrombosis/Pulmonary Embolism Present on Admission: No
[2019-07-31] VITALS: BP 131/72; PULSE 59; RESP 15; O2SAT 99
[2019-07-31 00:25] VITALS: BP 132/83; PULSE 66; RESP 15; TEMP 36.8; O2SAT 97
[2019-07-31] MEDS: LACTATED RINGERS 1,000 ML 125 ML IV (00:40)
[2019-07-31] MEDS: polyethylene glycoL 3350 17 GM POWD.PACK PO ×2 (00:42→00:54)
[2019-07-31] MEDS: POTASSIUM CHLORIDE 20 MEQ TAB 40 MEQ PO ×2 (00:43→08:15)
[2019-07-31] MEDS: DOCUSATE 100 MG CAPSULE PO (00:43)
[2019-07-31] MEDS: SENNOSIDES 8.6 MG TABLET 17.2 MG PO (00:43)
[2019-07-31] MEDS: PSYLLIUM HUSK 1 PACKET PO (00:43)
[2019-07-31 00:55] VITALS: BMI 30.9
[2019-07-31 05:30] VITALS: BP 105/65; PULSE 55; RESP 16; TEMP 36.4; O2SAT 97
[2019-07-31 05:47] LABS: BUN Creatinine Ratio 20.9 (6-22); Blood Urea Nitrogen 19 mg/dL (7-17); Calcium 10.8 mg/dL (8.4-10.2); Carbon Dioxide 32 mmol/L (22-32); Chloride 101 mmol/L (98-107); Estimated Glomerular Filt Rate > 60.0 mL/min (>60); Glucose 92 mg/dL (70-100); HEMOLYSIS < 15 (0-50); Potassium 3.3 mmol/L (3.4-5.1); Sodium 139 mmol/L (137-145)
--- NOTE | 2019-07-31 06:49 | PC.ADMIT ---
Patient arrived on unit via wheelchair at 0024. Patient is alert and orientated. VSS. Lung sounds clear. Patient's stoma was purple w/ some pink but did have some output hard stool. Patient was given bowel regimen upon admission to the floor. Bowel tones are hypoactive in all 4 quadrants. Patient has no complaints of pain. Patient was educated about the use of call light, bed is low and locked and call light within reach. Patient is a stand by assist. [email or web address] [address] Admission Note: The patient,Frank Vidal,53 y/o, was given written information regarding hospital policies, unit procedures and contact persons. Patient's smoking status: Never smoker. Vital Signs - 8 hr 07/31/19 00:00 07/31/19 00:25 07/31/19 05:30 Temperature 98.2 F 97.6 F Pulse Rate 59 L 66 55 L Respiratory Rate 15 15 16 Blood Pressure 132/83 105/65 Blood Pressure [Right Arm] 131/72 Pulse Oximetry 99 97 97
[2019-07-31] MEDS: CITALOPRAM 20 MG TABLET PO (09:11)
[2019-07-31] MEDS: PANTOPRAZOLE 20 MG TABLET PO (09:12)
[2019-07-31] MEDS: buPROPion XL 150 MG TAB 450 MG PO (09:14)
--- NOTE | 2019-07-31 09:24 | P.PN_ITS ---
Subjective Subjective Date Patient Seen: 07/31/19 Time Patient Seen: 09:24 Interval history: Copious ostomy output over night. Pain resolved. No further evidence of stomal prolapse. Exam Vital Signs (past 8 hours): - 07/31/19 05:30 Temperature 97.6 F Pulse Rate 55 L Respiratory Rate 16 Blood Pressure 105/65 Pulse Oximetry 97 Oxygen Delivery Method Room Air Oxygen Flow Rate 0 Narrative Exam Narrative: GENERAL: Alert and oriented, comfortable HEENT: Head normocephalic/atraumatic. CV: NSR, no LE edema Pulm: breathing comfortably on room air; non tachypneic ABDOMEN: Soft, nondistended, nontender, ostomy appliance in place with copious stool in the bag EXTREMITIES: No clubbing, cyanosis, or edema. NEURO: Cranial nerves II through XII grossly intact, no focal deficits. PSYCH: Alert and oriented x 3. Objective Labs Result Diagrams: 07/30/19 20:54 07/31/19 05:20 Labs: Laboratory Results - last 24 hr 07/30/19 07/30/19 07/30/19 20:54 20:54 20:54 WBC 9.0 RBC 4.56 Hgb 11.1 L Hct 34.5 L MCV 75.5 L MCH 24.4 L MCHC 32.3 RDW 19.6 H Plt Count 315 Neut % (Auto) 52.9 Lymph % (Auto) 38.8 [place] % (Auto) 5.4 Eos % (Auto) 2.1 Baso % (Auto) 0.8 Neut # (Auto) 4800 Lymph # (Auto) 3500 [place] # (Auto) 500 Eos # (Auto) 200 Baso # (Auto) 100 Sodium 137 Potassium 2.9 L Chloride 99 Carbon Dioxide 31 BUN 22 H Creatinine 1.10 H Estimated GFR 52.4 L BUN/Creatinine Ratio 20.0 Glucose 123 H Lactate 1.6 Calcium 11.2 H Magnesium Total Bilirubin 0.3 AST 31 ALT 24 Alkaline Phosphatase 68 Total Protein 8.1 Albumin 4.5 Globulin 3.6 Albumin/Globulin Ratio 1.3 Lipase 191 07/31/19 05:20 WBC RBC Hgb Hct MCV MCH MCHC RDW Plt Count Neut % (Auto) Lymph % (Auto) [place] % (Auto) Eos % (Auto) Baso % (Auto) Neut # (Auto) Lymph # (Auto) [place] # (Auto) Eos # (Auto) Baso # (Auto) Sodium 139 Potassium 3.3 L Chloride 101 Carbon Dioxide 32 BUN 19 H Creatinine 0.91 Estimated GFR > 60.0 BUN/Creatinine Ratio 20.9 Glucose 92 Lactate Calcium 10.8 H Magnesium 2.0 Total Bilirubin AST ALT Alkaline Phosphatase Total Protein Albumin Globulin Albumin/Globulin Ratio Lipase Assessment & Plan Assessment and plan (1) Complication of ostomy: Current visit: Yes Status: Acute (2) Colonic dysmotility: Current visit: No Status: Acute (3) Hyperparathyroidism: Current visit: No Status: Acute (4) Hypercalcemia: Current visit: No Status: Acute (5) Chronic constipation: Current visit: No Status: Acute (6) Colonic ischemia: Current visit: Yes Status: Acute (7) Colostomy prolapse: Current visit: Yes Status: Acute (8) Parastomal hernia with obstruction and without gangrene: Current visit: Yes Status: Acute (9) Hypokalemia: Problem details: up to 3.3 after repletion from 2.9, will give another 40mEq before dispo Current visit: Yes Status: Acute (10) Creatinine elevation: Problem details: Improved with hydration Current visit: Yes Status: Acute Assessment & Plan narrative: This is a 53 yo woman with complex medical and surgical history detailed in H and P. Returned to ER last night with ischemia of her colostomy and parastomal hernia which I reduced in the ER. Over night her colostomy became productive and her obstructive symptoms resolved with no recurrence of stomal prolapse or pain at the site. Plan: Replete potassium (K is 3.3) Dispo today pending tolerates PO, pain is well controlled, and pt is able to implement bowel regimen and activity restrictions at home Pt will need to be seen by endocrinology regarding her hyperparathyroidism and hypercalcemia; she needs to get a Sitz marker study (ordered by me), and follow up for discussion of colostomy takedown after these things are accomplished. If her obstructive and ischemic symptoms return prior to completing her pre operative workup,we may be forced to go ahead with subtotal colectomy rather than colostomy takedown due to severe unresolved dysmotility now complicated by parastomal hernia and stomal ischemia. For now the hernia is reduced and the transient ischemia has improved. We have discussed this in detail today. I will forward this information to her primary physician as well. COVID-19 COVID-19 status: Not tested Time Spent With Patient Time with patient: 25 - 35 minutes Quality VTE Deep Vein Thrombosis/Pulmonary Embolism Present on Admission: No
--- NOTE | 2019-07-31 10:48 | CM.DANOTE ---
Patient is a 53 year old female who was admitted on 07/30/19 for Stoma Issues. Pt has [facility] [employer] for insurance and her PCP is Dr. Tammy Harvey. EMR was reviewed. Per Surgeon, pt with a hx of colon resection and was admitted overnight for observation due to obstruction and possible need for surgical intervention. Per MD, pt is medically stable to d/c home today and has improved and ambulated well. Per RN, no concerns at this time. Pt was last admitted in Apr 2019 and was able to d/c home with new ostomy and no HH needed at that time as pt and spouse were able to participate in CG training with filtration operator Eva Jones and close outpt follow up with Eva for ongoing ostomy care. Pt lives with spouse in [place] and is independent with ADL's and does not use any equipment to ambulate and is employed with the [place] [employer]. Pt was improving and healing but began increasing her activity level and reducing her bowel regimen. Pt established with Dr. Vila at [facility] for profound depression and has continued with her outpt appointments for ongoing support. Plan: Patient to d/c home via spouse POV later today and no SW needs at this time. SHELBY Arreola Discharge Planning/Care Management CM Discharge Assessment Start: 07/31/19 10:46 Freq: Status: Active Protocol: Document 07/31/19 10:46 BF (Rec: 07/31/19 10:48 BF [id number]) Discharge Planning Assessment Assigned Senior Professional Services Consultant SHELBY Gomez DPOA/Assigned Designee Name spouse informally Contact Information [phone] Advance Directives? No Advance Directives on File No History Provided By Patient,Medical Record Has Patient been admitted in last 30 No days? Prior Living Arrangements House Household Members spouse,children Type of transporation used prior to Drives own vehicle admit Independent with ADL's Yes Is patient alert and oriented? Yes Caregiver for Another No Community Services used prior to Wound Care admission: Comment Home pending possible surgery Barriers to Discharge No Discharge Plan Home Transportation Arrangement Spouse Referrals Initiated None needed Review Status In Process Please Provide Date Initial DC 07/31/19 Assessment Was Performed Next Review Type Continued Stay Review
--- NOTE | 2019-07-31 11:59 | PC.NURSE ---
Discharge: Pt ready to d/c home. No nausea or pain, up in room indep. Copious amts of stool via ostomy and has changed appliance x3. No meds. Clear liquids tolerated with out problems. Seen by MD and given instructions. Understands she should not be doing any lifting greater than 10 pounds and md note was read and she expressed understanding. Spouse here for filler picker downstairs. Instructions reviewed and has no questions. Pt d/c home via auto w/spouse.
--- NOTE | 2019-08-03 12:17 | PC.NURSE ---
Late entry: NS stopped 07/30 0038 LR stopped 07/30 1100
== END 2019-07-31 11:30 | disposition home or self-care (01) ==
LOC: ED 22:45 → AC 23:18
PROVIDERS: Admitting Provider Surgery; Emergency Provider Emergency Medicine; PCP Student in an Organized Health Care Education/Training Program; Referring Provider Emergency Medicine; Visit Provider Surgery
DX: K43.3 Parastomal hernia with obstruction, without gangrene (principal); K94.09 Other complications of colostomy; E87.6 Hypokalemia; K59.09 Other constipation; K59.9 Functional intestinal disorder, unspecified; E21.3 Hyperparathyroidism, unspecified; K55.9 Vascular disorder of intestine, unspecified
CPT/HCPCS: 36415; 74177; 80048; 80053; 83605; 83690; 83735; 85025; 96360; 96361; 99218; 99224; 99284; G0378

== ENCOUNTER → 2019-08-31 11:42 | Outpatient (CLI) | payer OTHER, SELFPAY | PROVIDERS: PCP Student in an Organized Health Care Education/Training Program; Referring Provider Surgery; Visit Provider Surgery | DX: K59.9 Functional intestinal disorder, unspecified (principal); Z53.8 Procedure and treatment not carried out for other reasons ==

== ENCOUNTER → 2019-09-05 11:19 | Outpatient (CLI) | payer OTHER, SELFPAY ==
--- NOTE | 2019-09-05 | DI.RAD.S_ITS ---
PROCEDURE: XR KUB INDICATIONS: bowel dysmotility TECHNIQUE: One view of the abdomen acquired. COMPARISON: [facility], CR, XR KUB, 04/28/2019, 12:35. [facility], CR, XR KUB, 04/28/2019, 9:47. FINDINGS: Surgical changes and devices: Right upper quadrant cholecystectomy clips, ostomy site right midabdomen. Several scattered rounded radiodensities are seen in the expected position of the colon, 2 on the right near the hepatic flexure, one at the left upper quadrant near the splenic flexure and an additional marker near a left lower abdominal ostomy site. An additional marker appears present at the right lower quadrant well to the right of midline, below and above 2 right-sided lateral pelvic phleboliths. Bowel: Bowel gas pattern is normal. Soft tissues: No suspicious abdominal calcifications. Visualized solid organ contours appear normal in size. Bones: No suspicious bony lesions. IMPRESSION: Radiodense rounded ring markers as discussed, possibly related to a colon transit study. The information above should assist in interpreting the study but baseline information is not provided for review in terms of when the number of markers that may have been ingested. The ordering health care provider may have this information and intended to interpret the findings based on that information. Please correlate clinically. There are multiple methods of performing a Sitzmark evaluation and the detailed administration information is necessary for accurate interpretation. Dictated by: Kulwinder Munoz M.D. on 09/06/2019 at 12:52 Approved by: Kulwinder Munoz M.D. on 09/06/2019 at 13:01
== END ==
PROVIDERS: PCP Student in an Organized Health Care Education/Training Program; Referring Provider Surgery; Visit Provider Surgery
DX: K59.8 Other specified functional intestinal disorders (principal); Z90.49 Acquired absence of other specified parts of digestive tract
CPT/HCPCS: 74018

== ENCOUNTER 2019-09-29 20:32 | Inpatient (IN) | payer OTHER, SELFPAY ==
[2019-09-29 20:42] VITALS: BP 131/87; PULSE 110; RESP 24; TEMP 37.3; O2SAT 99
--- NOTE | 2019-09-29 20:44 | DI.CT.S_ITS ---
PROCEDURE: CT ABDOMEN PELVIS W CON INDICATIONS: Colostomy with revision/take down now with vomiting TECHNIQUE: After the administration of oral and intravenous contrast, 5 mm thick sections acquired from the diaphragms to the symphysis. 5 mm thick coronal and sagittal reformats were performed. For radiation dose reduction, the following was used: automated exposure control, adjustment of mA and/or kV according to patient size. COMPARISON: [facility], CT, CT ABDOMEN PELVIS W CON, 07/30/2019, 21:15. [facility], CT, CT ABDOMEN PELVIS W CON, 04/24/2019, 13:16. FINDINGS: Image quality: Excellent. ABDOMEN: Lung bases: Lung bases are clear. Heart size is normal. Solid organs: Liver is normal in size and enhancement. Gallbladder has been previously resected. Biliary system is non-dilated. Pancreas enhances normally. Spleen is normal in size and enhancement. No adrenal nodules. Kidneys are normal in size and enhancement, without hydronephrosis. Peritoneum and bowel: Stomach, small bowel, and colon loops are normal in caliber and wall thickness. No free fluid or air. There is prominent colonic obstipation through the colon to the ostomy site left mid abdomen. Mild edema adjacent to the colostomy course through the subcutaneous fat is present. Nodes and vessels: No retroperitoneal or mesenteric adenopathy. Aorta and inferior vena cava are normal in caliber. Miscellaneous: No ventral hernias. PELVIS: Genitourinary: Bladder wall thickness is normal. Miscellaneous: No inguinal hernias or adenopathy. Bones: No suspicious bony lesions. No vertebral body compression fractures. IMPRESSION: Prominent colonic obstipation through the entire colon to the ostomy site. Mild adjacent edema at the ostomy site but no abscess or volvulus is suspected. Dictated by: Kulwinder Munoz M.D. on 09/30/2019 at 10:59 Approved by: Kulwinder Munoz M.D. on 09/30/2019 at 11:01
[2019-09-29] MEDS: SODIUM CHLORIDE 0.9% 1,000 ML 125 ML IV (21:00)
--- NOTE | 2019-09-29 21:07 | ED.GENADULT ---
HPI - General Adult General Chief complaint: Abdominal Pain Stated complaint: vomiting, but has no BM Time Seen by Provider: 09/29/19 20:43 Source: patient Mode of arrival: Ambulatory Limitations: no limitations History of Present Illness HPI narrative: 54-year-old female. Has had multiple abdominal surgeries to include a bowel resection. Has a left-sided ostomy since April. Here for evaluation of nausea and some vomiting abdominal pain and decreased output from her stoma. Patient states that at baseline she does go several days without having bowel movements however she feels like it has been longer than normal. Has generalized abdominal pain. All of her symptoms started within the past couple days. No fevers. Has not tried anything for symptoms prior to arrival. She states that she does have a hernia around her stoma which had to be reduced in the past by General surgery. Related Data Home Medications Medication Instructions Recorded Confirmed furosemide 20 mg tablet 20 mg PO DAILY 09/29/19 09/30/19 Previous Rx's Medication Instructions Recorded estradiol 1 mg tablet 1 mg PO QDAY #90 tab 09/07/18 bupropion HCl 150 mg 24 hr tablet, 450 mg PO QAM #90 tab 11/20/18 extended release omeprazole 20 mg PO BID #60 cap 05/09/19 polyethylene glycol 3350 [Miralax] 17 gram PO TID #510 gram 05/09/19 citalopram 20 mg tablet 20 mg PO DAILY #90 tab 09/29/19 diazepam 5 mg tablet 5 mg PO BID #30 tab 09/29/19 Allergies Allergy/AdvReac Type Severity Reaction Status Date / Time latex Allergy Intermediate Rash Verified 09/29/19 07:57 codeine Allergy Mild VOMITING Verified 09/29/19 07:57 fluoxetine AdvReac Severe Agitated Verified 09/29/19 07:57 pain contract Allergy Unknown Uncoded 09/29/19 07:57 Review of Systems Constitutional Constitutional: Denies fever(s) Cardiovascular Cardiovascular: Denies chest pain and Denies dyspnea Respiratory Respiratory: Denies dyspnea Gastrointestinal Gastrointestinal: Reports abdominal pain, Reports nausea and Reports vomiting Comments: Decreased output from her stoma Genitourinary Genitourinary: Denies dysuria Genitourinary: Denies dysuria Musculoskeletal Musculoskeletal: Denies arthralgias and Denies myalgias Integumentary/Breasts Skin/Breast: Denies rash Neurologic Neurologic: Denies behavioral changes Psychiatric Psychiatric: Denies behavioral changes Hematologic/Lymphatic Hematologic/Lymphatic: Denies easy bleeding and Denies easy bruising Patient History Medical History Anxiety (Chronic 1999) Chronic back pain (Chronic 2008) Depression (Chronic 1999) Endometriosis (Resolved) External hemorrhoid, bleeding (Chronic) Fibroids (Resolved) Hypertension (Chronic) IBS (irritable bowel syndrome) (Chronic 1994) Lumbar spine pain (Chronic) Melanoma of face (Resolved 2013) Migraines (Chronic 1994) Ovarian cyst (Resolved 1984) Urinary incontinence (Chronic) Surgical History Anesthesia (Resolved) History of gynecologic surgery (Resolved 07/07/15) History of ovarian cystectomy (Resolved 1984) Status post delivery (Resolved 1990) Status post delivery (Resolved 1992) Status post colonoscopy (Resolved 10/22/06) Status post hysterectomy (Resolved 2008) Status post laparoscopic cholecystectomy (Resolved 2008) Family History Father Age: 72 Type 1 diabetes Grandfather Cancer Heart disease Hypertension Dementia Grandmother Age: 90 Heart disease Dementia Mother Age: 73 Depression Multiple personality disorder Suicide attempt Sister Age: 47 Depression Sister Homeless Family/Other Family history of thyroid problem Diabetes mellitus Family/Other Diabetes mellitus Family history of thyroid problem Social History household members: spouse and children Smoking Status: Never smoker alcohol intake: never Smoking Status: Never smoker alcohol intake frequency: 0-2 drinks per day Substance Use Type: does not use Exam Initial Vital Signs Initial Vital Signs: Vital Signs Temperature 99.1 F 09/29/19 20:42 Pulse Rate 110 H 09/29/19 20:42 Respiratory Rate 24 09/29/19 20:42 Blood Pressure 131/87 09/29/19 20:42 Pulse Oximetry 99 09/29/19 20:42 Const General: cooperative and comfortable Limitations: mental status not altered HENMT Head: normal to inspection and normocephalic Resp Effort & Inspection: normal respiratory effort Auscultation: clear to auscultation bilaterally Cardio Rate: tachycardic Rhythm: regular rhythm Pulses: radial pulses present GI Palpation: soft and tender (Diffusely tender) Other: Stoma on the left side of the abdomen appears well. Does have a small amount of brown fecal material around it. Skin Lesions: no lesions Rashes: no rashes Neuro General: patient alert and patient awake Extrem General: capillary refill normal Psych Appearance: grossly normal and well kempt Course Orders Ordered: ED Orders 09/29/19 20:44 CT abdomen pelvis w con Stat 09/29/19 20:52 Complete Blood Count AUTO DIFF Stat Comprehensive Metabolic Panel Stat Lactate (Lactic Acid) Stat Lipase Stat Bupropion HCl (Wellbutrin Xl) 450 mg PO DAILY [facility] Citalopram Hydrobromide (Celexa) 20 mg PO DAILY [facility] Diazepam (Valium) 5 mg PO BID [facility] Hydromorphone HCl (Dilaudid) 0.5 mg IV Q2H PRN PRN Reason: Pain, Severe (7-10) Hydromorphone HCl (Dilaudid) 1 mg IV Q4H PRN PRN Reason: Breakthrough Pain Last Admin: 09/30/19 02:14 Dose: 1 mg Documented by: DIMITRI Sodium Chloride (Normal Saline 0.9%) 1,000 mls @ 125 mls/hr IV CONT [facility] Last Admin: 09/30/19 01:34 Dose: 125 mls/hr Documented by: DIMITRI Ondansetron HCl (Zofran) 4 mg IV Q4HR PRN PRN Reason: Nausea And Vomiting Pantoprazole Sodium (Protonix) 20 mg PO BID MABLE Discontinued Medications Hydromorphone HCl (Dilaudid) 0.5 mg IV NOW ONE Stop: 09/29/19 22:34 Last Admin: 09/29/19 22:37 Dose: 0.5 mg Documented by: AMY Hydromorphone HCl (Dilaudid) 0.5 mg IV NOW ONE Stop: 09/30/19 00:36 Last Admin: 09/30/19 00:43 Dose: 0.5 mg Documented by: AMY Sodium Chloride (Normal Saline 0.9%) 1,000 mls @ 125 mls/hr IV CONT [facility] Last Infusion: 09/30/19 00:56 Dose: 0 mls/hr Documented by: Admin: 09/29/19 21:00 Dose: 125 mls/hr Documented by: ROSITA Morphine Sulfate (Morphine) 4 mg IV NOW ONE Stop: 09/29/19 21:01 Last Admin: 09/29/19 21:15 Dose: Not Given Documented by: ЕКАТЕРИНА Morphine Sulfate (Morphine) 4 mg IV NOW ONE Stop: 09/29/19 21:15 Last Admin: 09/29/19 21:26 Dose: 4 mg Documented by: ЕКАТЕРИНА Ondansetron HCl (Zofran) 4 mg IV NOW ONE Stop: 09/29/19 21:01 Last Admin: 09/29/19 21:16 Dose: 4 mg Documented by: JILLIAN Ondansetron HCl (Zofran) 4 mg IV NOW ONE Stop: 09/30/19 00:25 Last Admin: 09/30/19 00:43 Dose: 4 mg Documented by: AMY Vital Signs Vital signs: Vital Signs - 8 hr 09/29/19 20:42 09/29/19 22:52 Temperature 99.1 F Pulse Rate 110 H 64 Respiratory Rate 24 16 Blood Pressure 131/87 Blood Pressure [Left Arm] 131/87 Pulse Oximetry 99 95 Medical Decision Making Medical Records Medical records reviewed: Yes I reviewed the patient's medical records. Lab Data Lab results reviewed: Yes I reviewed the patient's lab results. Result diagrams: 09/29/19 20:52 09/29/19 20:52 Labs: Lab Results 09/29/19 09/29/19 09/29/19 Range/Units 20:52 20:52 20:52 WBC 19.2 H (4.5-11.0) X10^3/uL RBC 4.82 (4.0-5.2) X10^6/uL Hgb 11.7 L (12.0-16.0) g/dL Hct 36.3 (36-46) % MCV 75.4 L (80-100) fL MCH 24.3 L (26-34) PG MCHC 32.2 (30-36) % RDW 17.8 H (11.6-14.8) % Plt Count 501 H (150-400) X10^3/uL Neut % (Auto) 81.8 H (50-75) % Lymph % (Auto) 14.0 L (25-40) % [place] % (Auto) 3.5 (3-14) % Eos % (Auto) 0.2 L (2-4) % Baso % (Auto) 0.5 (0-2) % Neut # (Auto) 89377 H (0496-3195) /uL Lymph # (Auto) 2700 (5488-7105) /uL [place] # (Auto) 700 (0-900) /uL Eos # (Auto) 0 (0-450) /uL Baso # (Auto) 100 (0-100) /uL Sodium 136 L (137-145) mmol/L Potassium 3.3 L (3.4-5.1) mmol/L Chloride 97 L (98-107) mmol/L Carbon Dioxide 26 (22-32) mmol/L BUN 26 H (7-17) mg/dL Creatinine 0.95 (0.52-1.04) mg/dL Estimated GFR > 60.0 (>60) mL/min BUN/Creatinine Ratio 27.4 H (6-22) Glucose 141 H (70-100) mg/dL Lactate 3.8 H (0.7-2.1) mmol/L Calcium 11.6 H (8.4-10.2) mg/dL Total Bilirubin 0.5 (0.2-1.3) mg/dL AST 66 H (14-36) IU/L ALT 42 H (<35) IU/L Alkaline Phosphatase 114 (38-126) U/L Total Protein 8.0 (6.3-8.2) g/dL Albumin 4.7 (3.5-5.0) g/dL Globulin 3.3 (1.7-4.1) g/dL Albumin/Globulin Ratio 1.4 (1.0-2.8) Lipase 130 (23-300) U/L 09/29/19 Range/Units 23:10 WBC (4.5-11.0) X10^3/uL RBC (4.0-5.2) X10^6/uL Hgb (12.0-16.0) g/dL Hct (36-46) % MCV (80-100) fL MCH (26-34) PG MCHC (30-36) % RDW (11.6-14.8) % Plt Count (150-400) X10^3/uL Neut % (Auto) (50-75) % Lymph % (Auto) (25-40) % [place] % (Auto) (3-14) % Eos % (Auto) (2-4) % Baso % (Auto) (0-2) % Neut # (Auto) (2525-7747) /uL Lymph # (Auto) (7825-3635) /uL [place] # (Auto) (0-900) /uL Eos # (Auto) (0-450) /uL Baso # (Auto) (0-100) /uL Sodium (137-145) mmol/L Potassium (3.4-5.1) mmol/L Chloride (98-107) mmol/L Carbon Dioxide (22-32) mmol/L BUN (7-17) mg/dL Creatinine (0.52-1.04) mg/dL Estimated GFR (>60) mL/min BUN/Creatinine Ratio (6-22) Glucose (70-100) mg/dL Lactate 2.0 (0.7-2.1) mmol/L Calcium (8.4-10.2) mg/dL Total Bilirubin (0.2-1.3) mg/dL AST (14-36) IU/L ALT (<35) IU/L Alkaline Phosphatase (38-126) U/L Total Protein (6.3-8.2) g/dL Albumin (3.5-5.0) g/dL Globulin (1.7-4.1) g/dL Albumin/Globulin Ratio (1.0-2.8) Lipase (23-300) U/L Imaging Data CT scan - abdomen/pelvis: Radiologist's Impression: Large colonic fecal retention proximal to the colostomy. There is fat peristomal fat stranding which could be related to recent surgery versus infection MDM Narrative Medical decision making narrative: Afebrile however does have a leukocytosis. No definitive source for this leukocytosis was found. Initially had an elevated lactate but after 1 L of fluids repeat lactate was much improved. CT scan does show large colonic fecal retention proximal to the stoma. I did discuss the case with Dr. Welch who was on-call for General surgery and is also the patient's surgeon who stated that it is not uncommon for her to go several days without having a bowel movement. We discussed the elevated lactate and a leukocytosis of decision made to hold on any antibiotics. Plan will be is to admit the patient and give fluids overnight with re-evaluation in the morning discuss this with the patient. She expressed understanding and agreement. Discharge Plan Departure Patient Disposition: Admitted as Observation Clinical Impression: Dehydration Abdominal pain Qualifiers: Abdominal location: generalized Qualified Code(s): R10.84 - Generalized abdominal pain Fecal retention Qualifiers: Constipation type: unspecified constipation type Qualified Code(s): K59.00 - Constipation, unspecified Leukocytosis Qualifiers: Leukocytosis type: unspecified Qualified Code(s): D72.829 - Elevated white blood cell count, unspecified Discharge Date/Time: 09/30/19 01:01 Admit Date/Time: 09/30/19 00:16 Admit Provider: Kylie Welch
[2019-09-29 21:11] LABS: Add Manual Diff / Slide Review NO; Basophils Absolute Auto 100 /uL (0-100); Basophils Percent Auto 0.5 % (0-2); Eosinophils Absolute Auto 0 /uL (0-450); Eosinophils Percent Auto 0.2 % (2-4); Hematocrit 36.3 % (36-46); Hemoglobin 11.7 g/dL (12.0-16.0); Lymphocytes Absolute Auto 2700 /uL (1100-4500); Mean Corpuscular HGB Conc 32.2 % (30-36); Mean Corpuscular Hemoglobin 24.3 PG (26-34); Mean Corpuscular Volume 75.4 fL (80-100); Monocytes Absolute Auto 700 /uL (0-900); Monocytes Percent Auto 3.5 % (3-14); Neutrophils Absolute Auto 15700 /uL (1500-7000); Neutrophils Percent Auto 81.8 % (50-75); Platelet Count 501 X10^3/uL (150-400); Red Blood Cell Count 4.82 X10^6/uL (4.0-5.2); Red Cell Distribution Width 17.8 % (11.6-14.8); White Blood Cell Count 19.2 X10^3/uL (4.5-11.0)
[2019-09-29] MEDS: ONDANSETRON 4 MG/2 ML INJ IV (21:16)
[2019-09-29 21:22] LABS: Lactate (Lactic Acid) 3.8 mmol/L (0.7-2.1)
[2019-09-29 21:23] LABS: Alanine Aminotransferase 42 IU/L (<35); Albumin 4.7 g/dL (3.5-5.0); Albumin Globulin Ratio 1.4 (1.0-2.8); Alkaline Phosphatase 114 U/L (38-126); Aspartate Aminotransferase 66 IU/L (14-36); BUN Creatinine Ratio 27.4 (6-22); Bilirubin Total 0.5 mg/dL (0.2-1.3); Blood Urea Nitrogen 26 mg/dL (7-17); Calcium 11.6 mg/dL (8.4-10.2); Carbon Dioxide 26 mmol/L (22-32); Chloride 97 mmol/L (98-107); Estimated Glomerular Filt Rate > 60.0 mL/min (>60); Globulin 3.3 g/dL (1.7-4.1); Glucose 141 mg/dL (70-100); HEMOLYSIS < 15 (0-50); Lipase 130 U/L (23-300); Potassium 3.3 mmol/L (3.4-5.1); Sodium 136 mmol/L (137-145)
[2019-09-29] MEDS: MORPHINE 2 MG/ML INJ 4 MG IV (21:26)
[2019-09-29] MEDS: HYDROMORPHONE 0.5 MG INJ IV (22:37)
[2019-09-29 22:52] VITALS: BP 131/87; PULSE 64; RESP 16; O2SAT 95
[2019-09-29 23:08] LABS: Reflexed Lactate in 2 Hours Y
[2019-09-30] VITALS (8 sets, daily range): BP systolic 104–142; BP diastolic 56–84; PULSE 59–91; RESP 14–24; TEMP 36.1–36.6; O2SAT 96–98; BMI 33.8
[2019-09-30] MEDS: HYDROMORPHONE 0.5 MG INJ IV ×7 (00:43→21:41)
[2019-09-30] MEDS: ONDANSETRON 4 MG/2 ML INJ IV ×3 (00:43→15:39)
[2019-09-30 00:52] LABS: RBC Urine None Seen (0-5/HPF)
[2019-09-30 00:54] LABS: Appearance Urine UA CLEAR; Bilirubin Urine UA 1+ (NEGATIVE); Glucose Urine UA NEGATIVE (Negative); Ketones Urine UA TRACE (NEGATIVE); Leukocyte Esterase Urine UA TRACE (NEGATIVE); Nitrite Urine UA NEGATIVE (Negative); Occult Blood Urine UA NEGATIVE (Negative); Protein Urine UA TRACE (Negative); Urobilinogen Urine UA 0.2 E.U./dL (0.2)
[2019-09-30 01:08] LABS: Color Urine UA Amber; pH Urine UA 6.5 (4.5-8.0)
[2019-09-30 01:12] LABS: Ictotest Urine Negative (Negative)
[2019-09-30 01:13] LABS: Bacteria Urine Occasional (0-1); Culture Indicated Urine Specimen Cultured; Squamous Epithelial Cell Urine 1-5 /HPF (0-5/HPF); WBC Urine 0-1/HPF (0-5/HPF)
[2019-09-30] MEDS: SODIUM CHLORIDE 0.9% 1,000 ML 125 ML IV ×2 (01:34→07:00)
[2019-09-30] MEDS: HYDROMORPHONE 1 MG INJ IV (02:14)
--- NOTE | 2019-09-30 02:41 | PC.ADMIT ---
Addendum entered by Jolynn Mendiola R.N. 09/30/19 05:53: Up to bathroom and emptied an additional 650cc loose brown stool from ostomy. Complains of nausea; medicated with Zofran. Dr Welch in to see patient and informed of stools. Addendum entered by Jolynn Mendiola R.N. 09/30/19 05:37: Had 3 large, formed chunks of stool from ostomy after which stool exploded from ostomy going all over patient/floor. Assisted to take shower and now is again in bathroom as ostomy bag is filling up again. Medicated earlier for 9/10 abdominal pain which is now down to 6/10. Original Note: Patient admitted to room 205 per wheelchair from ER at 0105. States she came in with excruciating abdominal pain, nausea and vomiting. Is alert and oriented; anxious. Breath sounds CTA with RA sat of 97%; states she feels SOB due to abdominal pain. Placed on continuous pulse oximetry per MD order. HRR. Denies nausea at present time but states when pain gets out of control she starts retching and vomiting bile. BT present and abdomen is soft but has not had BM since 09/24; ostomy to LUQ with no stool or flatus in bag. Complained of diffuse abdominal pain rating severity as 7/10 despite having had Dilaudid prior to coming to acute care; Dr Welch informed and order received for IV Dilaudid for breakthrough pain. Dilaudid was given and patient states it feels better but still at 6/10. Is able to move self in bed. SBA when out of bed for safety. Fall risk score is moderate and bed alarm is activated. Oriented to bed controls and call light. [email or web address] Admission Note: The patient,Frank Vidal,54 y/o, was given written information regarding hospital policies, unit procedures and contact persons. Patient's smoking status: Never smoker. Vital Signs - 8 hr 09/29/19 20:42 09/29/19 22:52 09/30/19 00:41 Temperature 99.1 F Pulse Rate 110 H 64 84 Respiratory Rate 24 16 24 Blood Pressure 131/87 Blood Pressure [Left Arm] 131/87 142/65 H Pulse Oximetry 99 95 98 09/30/19 01:05 Temperature 97.4 F L Pulse Rate 65 Respiratory Rate 18 Blood Pressure 132/84 Blood Pressure [Left Arm] Pulse Oximetry 97
--- NOTE | 2019-09-30 05:42 | P.HP_ITS ---
History of Present Illness History of Present Illness Date Patient Seen: 09/30/19 Time Patient Seen: 09:58 Chief complaint: vomiting, but has no BM Narrative: This patient is well known to me. She is a 54 yo woman with history of hypercalcemia, hyperparathyroidism, chronic constipation, and colonic dysmotility, complicated by obstructing and bleeding stercoral ulcer and emergency surgery for colon resection and colstomy creation in April 2019. Since then the patient has been maintained on a bowel regimen with varying degrees of compliance and varying degrees of success. She was admitted to the hospital in July with obstructive symptoms, and a protruding ostomy. She was found to have a parastomal hernia, which was reduced in the ER, and she was kept for observation. She was able to pass gas and stool, and was discharged on the following day. She was instructed to maintain her bowel regimen. She continues to have 4-5 days of constipation, with subsequent passage of hard stool followed by liquid. She tends to become nauseated and vomits when she gets severely backed up. She had a Sitz Marker study which was read as normal. She continues her endocrine workup with Dr. Fitch. No recommendation for parathyroidectomy has been made. She again had an episode of severe constipation, nausea, and vomiting last night, and was admitted through the ER for IV fluids for dehydration, pain control, and antiemetics. This morning, she passed a lot of stool, and remains very fatigued. She reports ongoing nausea whenever she has pain. She has been requiring IV dilaudid for pain during the night. ROS: As per HPI. Thirteen system review is otherwise negative other than as mentioned below and in HPI. PE: GENERAL: Alert, uncomfortable. In mild distress. Answers questions promptly and appropriately. Vital signs noted. HENT: Normocephalic, atraumatic. Hearing intact. Oral mucosa is pink and moist. EYES: Conjunctiva pink, sclera white, no periorbital swelling. CARDIOVASCULAR: Regular rate. No pedal edema. RESPIRATORY: Non-tachypneic, breathing comfortably on room air. Abdomen: Soft, distended, mild diffuse TTP, ostomy pouch in place. MUSCULOSKELETAL: Equal tone and mass bilaterally. SKIN: Warm, dry, soft, appropriate color for ethnicity. No other lesions, rashes, or wounds. NEURO: Alert and Oriented X 3. No gross sensory deficits, or cognitive issues. PSYCH: perseveration; hypervigilant Patient History Medical History Anxiety (Chronic 1999) Chronic back pain (Chronic 2008) Depression (Chronic 1999) Endometriosis (Resolved) External hemorrhoid, bleeding (Chronic) Fibroids (Resolved) Hypertension (Chronic) IBS (irritable bowel syndrome) (Chronic 1994) Lumbar spine pain (Chronic) Melanoma of face (Resolved 2013) Migraines (Chronic 1994) Ovarian cyst (Resolved 1984) Urinary incontinence (Chronic) Surgical History Anesthesia (Resolved) History of gynecologic surgery (Resolved 07/07/15) History of ovarian cystectomy (Resolved 1984) Status post delivery (Resolved 1990) Status post delivery (Resolved 1992) Status post colonoscopy (Resolved 10/22/06) Status post hysterectomy (Resolved 2008) Status post laparoscopic cholecystectomy (Resolved 2008) Family & Social History Family History Father Age: 72 Type 1 diabetes Grandfather Cancer Heart disease Hypertension Dementia Grandmother Age: 90 Heart disease Dementia Mother Age: 73 Depression Multiple personality disorder Suicide attempt Sister Age: 47 Depression Sister Homeless Family/Other Family history of thyroid problem Diabetes mellitus Family/Other Diabetes mellitus Family history of thyroid problem Social History: household members spouse,children Prior Living Arrangements House Safety & Behavioral: Feels Safe in Current Yes Environment Been Physically Hurt or No Threatened By a Person Suicidal Ideation Description None Tobacco & Substance use: Smoking Status Never smoker alcohol intake never alcohol intake frequency 0-2 drinks per day Substance Use Type does not use Meds Home Medications and Allergies Home Medications Medication Instructions Recorded Confirmed Type estradiol 1 mg tablet 1 mg PO QDAY #90 tab 09/07/18 09/30/19 Rx bupropion HCl 150 mg 24 hr tablet, 450 mg PO QAM #90 tab 11/20/18 09/30/19 Rx extended release omeprazole 20 mg PO BID #60 cap 05/09/19 09/30/19 Rx polyethylene glycol 3350 [Miralax] 17 gram PO TID #510 gram 05/09/19 09/30/19 Rx citalopram 20 mg tablet 20 mg PO DAILY #90 tab 09/29/19 09/30/19 Rx diazepam 5 mg tablet 5 mg PO BID #30 tab 09/29/19 09/30/19 Rx furosemide 20 mg tablet 20 mg PO DAILY 09/29/19 09/30/19 History Allergies Allergy/AdvReac Type Severity Reaction Status Date / Time latex Allergy Intermediate Rash Verified 09/29/19 07:57 codeine Allergy Mild VOMITING Verified 09/29/19 07:57 fluoxetine AdvReac Severe Agitated Verified 09/29/19 07:57 pain contract Allergy Unknown Uncoded 09/29/19 07:57 Exam Vital Signs (past 8 hours): - 09/29/19 22:52 09/30/19 00:41 09/30/19 01:05 Temperature 97.4 F L Pulse Rate 64 84 65 Respiratory Rate 16 24 18 Blood Pressure 132/84 Blood Pressure [Left Arm] 131/87 142/65 H Pulse Oximetry 95 98 97 09/30/19 04:30 Temperature 97.6 F Pulse Rate 91 H Respiratory Rate 18 Blood Pressure 122/67 Blood Pressure [Left Arm] Pulse Oximetry 96 Oxygen Delivery Method Room Air Oxygen Flow Rate [address] scan - abdomen: Radiologist's impression: [place] [address] CT Scan Report Signed Patient: Frank Vidal RMR#: [id number] : 1965Acct:[id number] Age/Sex: 54 / FDate of Service: 09/29/19 Loc: ZS107-8 Accession Number: [id number] Procedure: CT abdomen pelvis w con Ordering Provider: Doug Wells D.O. PROCEDURE: CT ABDOMEN PELVIS W CON INDICATIONS: Colostomy with revision/take down now with vomiting TECHNIQUE: After the administration of oral and intravenous contrast, 5 mm thick sections acquired from the diaphragms to the symphysis. 5 mm thick coronal and sagittal reformats were performed. For radiation dose reduction, the following was used: automated exposure control, adjustment of mA and/or kV according to patient size. COMPARISON: [facility], CT, CT ABDOMEN PELVIS W CON, 07/30/2019, 21:15. [facility], CT, CT ABDOMEN PELVIS W CON, 04/24/2019, 13:16. FINDINGS: Image quality: Excellent. ABDOMEN: Lung bases: Lung bases are clear. Heart size is normal. Solid organs: Liver is normal in size and enhancement. Gallbladder has been previously resected. Biliary system is non-dilated. Pancreas enhances normally. Spleen is normal in size and enhancement. No adrenal nodules. Kidneys are normal in size and enhancement, without hydronephrosis. Peritoneum and bowel: Stomach, small bowel, and colon loops are normal in caliber and wall thickness. No free fluid or air. There is prominent colonic obstipation through the colon to the ostomy site left mid abdomen. Mild edema adjacent to the colostomy course through the subcutaneous fat is present. Nodes and vessels: No retroperitoneal or mesenteric adenopathy. Aorta and inferior vena cava are normal in caliber. Miscellaneous: No ventral hernias. PELVIS: Genitourinary: Bladder wall thickness is normal. Miscellaneous: No inguinal hernias or adenopathy. Bones: No suspicious bony lesions. No vertebral body compression fractures. IMPRESSION: Prominent colonic obstipation through the entire colon to the ostomy site. Mild adjacent edema at the ostomy site but no abscess or volvulus is suspected. Dictated by: Kulwinder Munoz M.D. on 09/30/2019 at 10:59 Approved by: Kulwinder Munoz M.D. on 09/30/2019 at 11:01 Labs Result Diagrams: 10/01/19 05:50 10/01/19 05:50 Labs: Laboratory Results - last 24 hr 09/29/19 09/29/19 09/29/19 20:52 20:52 20:52 WBC 19.2 H RBC 4.82 Hgb 11.7 L Hct 36.3 MCV 75.4 L MCH 24.3 L MCHC 32.2 RDW 17.8 H Plt Count 501 H Neut % (Auto) 81.8 H Lymph % (Auto) 14.0 L [place] % (Auto) 3.5 Eos % (Auto) 0.2 L Baso % (Auto) 0.5 Neut # (Auto) 79913 H Lymph # (Auto) 2700 [place] # (Auto) 700 Eos # (Auto) 0 Baso # (Auto) 100 Sodium 136 L Potassium 3.3 L Chloride 97 L Carbon Dioxide 26 BUN 26 H Creatinine 0.95 Estimated GFR > 60.0 BUN/Creatinine Ratio 27.4 H Glucose 141 H Lactate 3.8 H Calcium 11.6 H Total Bilirubin 0.5 AST 66 H ALT 42 H Alkaline Phosphatase 114 Total Protein 8.0 Albumin 4.7 Globulin 3.3 Albumin/Globulin Ratio 1.4 Lipase 130 Urine Color Urine Appearance Urine pH Ur Specific [place] Urine Protein Urine Glucose (UA) Urine Ketones Urine Occult Blood Urine Nitrate Urine Bilirubin Ur Bilirubin Confirm Urine Urobilinogen Ur Leukocyte Esterase Urine RBC Urine WBC Ur Squamous Epith Cells Urine Bacteria Ur Culture Indicated? 09/29/19 09/30/19 23:10 00:45 WBC RBC Hgb Hct MCV MCH MCHC RDW Plt Count Neut % (Auto) Lymph % (Auto) [place] % (Auto) Eos % (Auto) Baso % (Auto) Neut # (Auto) Lymph # (Auto) [place] # (Auto) Eos # (Auto) Baso # (Auto) Sodium Potassium Chloride Carbon Dioxide BUN Creatinine Estimated GFR BUN/Creatinine Ratio Glucose Lactate 2.0 Calcium Total Bilirubin AST ALT Alkaline Phosphatase Total Protein Albumin Globulin Albumin/Globulin Ratio Lipase Urine Color [place] Urine Appearance Clear Urine pH 6.5 Ur Specific [place] 1.010 Urine Protein Trace H Urine Glucose (UA) Negative Urine Ketones Trace H Urine Occult Blood Negative Urine Nitrate Negative Urine Bilirubin 1+ H Ur Bilirubin Confirm Negative Urine Urobilinogen 0.2 Ur Leukocyte Esterase Trace H Urine RBC None seen Urine WBC 0-1/hpf Ur Squamous Epith Cells 1-5 /hpf Urine Bacteria Occasional (0-1) Ur Culture Indicated? Specimen cultured Assessment & Plan Assessment and plan (1) Colonic dysmotility: Status: Acute (2) Hyperparathyroidism: Status: Acute (3) Hypercalcemia: Status: Acute (4) Chronic constipation: Status: Acute (5) Colonic ischemia: Status: Acute (6) Hypokalemia: Status: Acute (7) Creatinine elevation: Problem details: Improved with hydration Status: Acute Assessment & Plan narrative: This is a 53 yo woman with complex medical and surgical history detailed in H and P. Returned to ER last night with nausea, vomiting, and obstipation. This morning she put out a significant amount of stool from her ostomy, and feels somewhat better, although still quite fatigued, and still ?spitting up bile when she takes anything PO. I have been trying to get a gastric emptying study and small-bowel follow-through on her, but have had trouble getting them as an outpatient. I am concerned about her nausea vomiting without obstruction on her CT scan. I am also concerned about her electrolytes, and this repetitive pattern of ill ability to pass stool, followed by explosive passage of stool, associated with nausea vomiting. I am also concerned with her hypercalcemia and that this is not been definitively worked up and diagnosed. Plan: IV fluids, NPO except for clear Will plan on gastric emptying study, small-bowel follow-through, and SPECT scan once the patient is feeling better Replete potassium (K is 3.2) COVID-19 COVID-19 status: Not tested Time Spent With Patient Time with patient: 25 - 35 minutes Quality VTE Deep Vein Thrombosis/Pulmonary Embolism Present on Admission: No
[2019-09-30 06:13] LABS: Add Manual Diff / Slide Review NO; Basophils Absolute Auto 0 /uL (0-100); Basophils Percent Auto 0.2 % (0-2); Eosinophils Absolute Auto 0 /uL (0-450); Hematocrit 35.2 % (36-46); Lymphocytes Absolute Auto 1600 /uL (1100-4500); Lymphocytes Percent Auto 8.2 % (25-40); Mean Corpuscular HGB Conc 31.2 % (30-36); Mean Corpuscular Hemoglobin 23.7 PG (26-34); Monocytes Absolute Auto 700 /uL (0-900); Monocytes Percent Auto 3.7 % (3-14); Neutrophils Absolute Auto 17500 /uL (1500-7000); Neutrophils Percent Auto 87.9 % (50-75); Platelet Count 467 X10^3/uL (150-400); Red Blood Cell Count 4.63 X10^6/uL (4.0-5.2); Red Cell Distribution Width 18.1 % (11.6-14.8); White Blood Cell Count 19.9 X10^3/uL (4.5-11.0)
[2019-09-30 06:24] LABS: BUN Creatinine Ratio 26.9 (6-22); Blood Urea Nitrogen 28 mg/dL (7-17); Calcium 10.4 mg/dL (8.4-10.2); Carbon Dioxide 25 mmol/L (22-32); Chloride 96 mmol/L (98-107); Estimated Glomerular Filt Rate 55.6 mL/min (>60); Glucose 159 mg/dL (70-100); HEMOLYSIS < 15 (0-50); Phosphorous 3.9 mg/dL (2.5-4.5); Potassium 3.2 mmol/L (3.4-5.1); Sodium 135 mmol/L (137-145)
[2019-09-30 06:37] LABS: Procalcitonin 0.13 ng/mL (<0.5)
[2019-09-30] MEDS: diazePAM 5 MG TABLET PO ×2 (08:12→20:40)
[2019-09-30] MEDS: CITALOPRAM 20 MG TABLET PO (08:12)
[2019-09-30] MEDS: PANTOPRAZOLE 20 MG TABLET PO ×2 (08:12→20:40)
[2019-09-30] MEDS: buPROPion XL 150 MG TAB 450 MG PO (08:12)
--- NOTE | 2019-09-30 10:36 | CM.DANOTE ---
DCP: Case received, EMR reviewed and met with patient. Introduced self and role. Was able to converse with patient in her room and obtain information regarding her baseline activity level, as well as living situation. DCP assessment completed with information currently available. Patient is a 54 year old female who admitted early this morning to the care of the hospitalist team. PCP: Dr. Harvey. Payer: confirmed: [facility] Patient came to the hospital via private vehicle secondary to having some abdominal discomfort, and concerns of not having a BM for several days. Patient has a left sided ostomy. She has been here recently as well. She did have a large BM early this morning, according to patient. Patient is independent, alert and oriented. She resides in [place] with her , Skip, and her 26 year old son. She is currently employed at [place] [employer], but has not been working lately secondary to health issues. P: DCP to continue to follow. She should be able to go home once deemed medically stable. Alise Carmona RN/Show Worker
[2019-09-30] MEDS: KCL 40 MEQ IN NS 1,000 ML 125 MEQ IV ×2 (14:23→22:40)
--- NOTE | 2019-09-30 15:43 | DIET.PN ---
Dietary Progress Note Pt and daughter, Sonia, in room when RD visited. Pt reports eating healthier than ever before since having colostomy in Apr 2019. Pt has good understanding of foods which she can tolerate, avoids garlic, broccoli and other foods which increase odor of stoma. Pt feels oatmeal may be the culprit. We discussed ensuring adequate hydration and if eating soluble fiber foods like oatmeal to thin them to baby first food consistency. Pt reports mostly just drinking water for fluids, avoiding artificial sweeteners. Pt currently experiencing belching and epigastric burning so avoiding all PO except plain water today. Pts daughter suggested iced green or herbal tea which pt agreed to try. RD okayed pt's daughter bringing in iced tea with understanding that it must fit clear liquid diet order. Discussed pts electrolyte needs, pt open to trying pulp free coconut water at home.
--- NOTE | 2019-09-30 15:49 | DI.NM.S_ITS ---
PROCEDURE: NM GASTRIC EMPTYING STUDY RADIOPHARMACEUTICAL: 1.0 mCi Tc-99m sulfur colloid in an egg sandwich. INDICATIONS: vomiting; GI dysmotility, not obstructed TECHNIQUE: A Tc-99m labeled sulfur colloid labeled egg sandwich or oatmeal was served to the patient. Anterior and posterior planar images of the abdomen were obtained at 0 minutes and 30 minutes, then at hourly intervals up to 4 hours. The patient was upright and ambulating during the interval. COMPARISON: [facility], CT, CT ABDOMEN PELVIS W CON, 09/29/2019, 22:15. FINDINGS: The stomach has normal size, morphology, and position. There is normal emptying of solid gastric contents from the stomach by visual inspection. No gastroesophageal reflux is visualized. The percentage of tracer retained at specific time points are as follows: Time point Percent gastric retention Normal range 30 minutes 90% 70% or more 1 hour 69% 30% to 90% 2 hours 41% 60% or less 3 hours 29% 30% or less 4 hours 12% 10% or less IMPRESSION: Mildly delayed gastric emptying time suggesting mild gastroparesis. Dictated by: Diann Cook M.D. on 10/01/2019 at 15:31 Approved by: Diann Cook M.D. on 10/01/2019 at 15:34
--- NOTE | 2019-09-30 16:07 | DI.NM.S_ITS ---
PROCEDURE: NM PARATHYROID SPECT RADIOPHARMACEUTICAL: 26.8 mCi Tc-99m sestamibi IV. INDICATIONS: symptomatic hypercalcemia, hyperparathyroidism TECHNIQUE: After intravenous administration of Tc-99m sestamibi, anterior planar images of the neck and mediastinum were obtained at approximately 10 minutes and 2-3 hours. SPECT images were acquired after the 10 minute planar images. COMPARISON: None. FINDINGS: On the early images, the thyroid gland is bilobed and has normal size and morphology. There is focal increased activity in the inferior poles of the left and right thyroid bed. The delayed images show preferential tracer retention in the inferior left thyroid bed, and to a lesser degree, the inferior pole of the right thyroid bed, suggesting parathyroid adenomas. The SPECT images demonstrate focal increased activity in the inferior left thyroid bed and possibly inferior right thyroid bed. IMPRESSION: 1. There is a focal uptake and preferential tracer retention in the inferior pole of the left thyroid bed, consistent with a parathyroid adenoma. 2. A possible parathyroid adenoma may present in the inferior pole of the right thyroid bed. 3. A dynamic CT using parathyroid protocol is suggested for further evaluation. Dictated by: Diann Cook M.D. on 10/04/2019 at 15:04 Approved by: Diann Cook M.D. on 10/04/2019 at 15:11
--- NOTE | 2019-09-30 19:11 | PC.NURSE ---
Pt ambulated in hallways today. still having nausea w/sips of water. pain5-7/10 controlled with IV diluadid. ostomy is moist and beefy. pt having liquid stools out. call light in reach.
[2019-09-30] MEDS: SODIUM CHLORIDE 0.9% FLUSH 10 ML IV (20:47)
[2019-10-01] MEDS: HYDROMORPHONE 0.5 MG INJ IV ×4 (01:17→19:06)
--- NOTE | 2019-10-01 01:24 | PC.NURSE ---
Addendum entered by Jolynn Mendiola R.N. 10/01/19 05:32: States pain is back up to 7/10 (given Dilaudid earlier by Zhang Vanegas RN) so medicated again with 0.5mg IV Dilaudid. Original Note: Patient seen and assessed at 0000. Is alert and oriented. Breath sounds CTA with RA sat of 96% and denies further SOB since she has begun stooling; is on continuous oximetry per MD order. HRR although intermittently bradycardic with rate in upper 50's. Denies nausea. BT present; abdomen is soft but tender although denies pain. Ostomy to LUQ of abdomen. Voiding without dysuria, frequency or urgency. Able to turn self in bed. Out of bed with SBA for safety. Fall risk score is low but alarm is on for nighttime safety as patient doesn't always remember to call for help. Currently is complaining of 7/10 abdominal pain and was medicated with Dilaudid per Zhang Vanegas RN.
[2019-10-01 04:37] VITALS: BP 117/78; PULSE 66; RESP 20; TEMP 36.2; O2SAT 90
[2019-10-01 06:06] LABS: Add Manual Diff / Slide Review NO; Basophils Absolute Auto 100 /uL (0-100); Basophils Percent Auto 0.5 % (0-2); Eosinophils Absolute Auto 100 /uL (0-450); Eosinophils Percent Auto 0.7 % (2-4); Hematocrit 27.2 % (36-46); Hemoglobin 8.9 g/dL (12.0-16.0); Lymphocytes Absolute Auto 2500 /uL (1100-4500); Lymphocytes Percent Auto 23.8 % (25-40); Mean Corpuscular HGB Conc 32.7 % (30-36); Mean Corpuscular Hemoglobin 24.7 PG (26-34); Mean Corpuscular Volume 75.6 fL (80-100); Monocytes Absolute Auto 700 /uL (0-900); Monocytes Percent Auto 6.5 % (3-14); Neutrophils Absolute Auto 7200 /uL (1500-7000); Neutrophils Percent Auto 68.5 % (50-75); Platelet Count 319 X10^3/uL (150-400); Red Cell Distribution Width 17.9 % (11.6-14.8); White Blood Cell Count 10.6 X10^3/uL (4.5-11.0)
[2019-10-01 06:14] LABS: Blood Urea Nitrogen 12 mg/dL (7-17); Calcium 9.3 mg/dL (8.4-10.2); Carbon Dioxide 33 mmol/L (22-32); Chloride 103 mmol/L (98-107); Estimated Glomerular Filt Rate > 60.0 mL/min (>60); Glucose 103 mg/dL (70-100); HEMOLYSIS < 15 (0-50); Magnesium 2.2 mg/dL (1.6-2.3); Phosphorous 1.5 mg/dL (2.5-4.5); Potassium 3.2 mmol/L (3.4-5.1); Sodium 137 mmol/L (137-145)
[2019-10-01] MEDS: KCL 40 MEQ IN NS 1,000 ML 125 MEQ IV (06:36)
[2019-10-01 07:23] VITALS: BP 98/54; PULSE 61; RESP 16; TEMP 36.2; O2SAT 100
[2019-10-01] MEDS: POTASSIUM PHOSPHATE 15 MMOL in DEXTROSE 5% IN WATER 250 ML 63.75 ML IV ×2 (09:05→19:31)
--- NOTE | 2019-10-01 11:22 | PM.PN.1 ---
Subjective Subjective Date Patient Seen: 10/01/19 Time Patient Seen: 16:15 Interval history: The patient continued to have abdominal pain overnight, and got several doses of Dilaudid. She has not had any vomiting, although she says she does ?spit up bile? whenever she tries to drink something. She had a gastric emptying study today which required her to eat an XL sandwich, which she kept down. She says she has continued to have liquid stool output from the ostomy throughout the day. Exam Vital Signs (past 8 hours): - 10/01/19 04:37 10/01/19 07:23 Temperature 97.2 F L 97.1 F L Pulse Rate 66 61 Respiratory Rate 20 16 Blood Pressure 117/78 98/54 L Pulse Oximetry 90 L 100 Oxygen Delivery Method Room Air Oxygen Flow Rate 0 Narrative Exam Narrative: GENERAL: Alert, comfortable CARDIOVASCULAR: Regular rate. No pedal edema. RESPIRATORY: Non-tachypneic, breathing comfortably on room air. GASTROINTESTINAL: Abdomen soft, rounded, digitized ostomy, and found it non obstructed, and no palpable stool in the colon GENITALURINARY: No flank tenderness. MUSCULOSKELETAL: Equal tone and mass bilaterally. SKIN: Warm, dry, soft, appropriate color for ethnicity. No other lesions, rashes, or wounds. NEURO: Alert and Oriented X 3. No gross sensory deficits, or cognitive issues. PSYCH: Appropriate affect and mood. Objective Labs Result Diagrams: 10/01/19 05:50 10/01/19 05:50 Labs: Laboratory Results - last 24 hr 10/01/19 10/01/19 05:50 05:50 WBC 10.6 RBC 3.60 L Hgb 8.9 L Hct 27.2 L MCV 75.6 L MCH 24.7 L MCHC 32.7 RDW 17.9 H Plt Count 319 Neut % (Auto) 68.5 Lymph % (Auto) 23.8 L [place] % (Auto) 6.5 Eos % (Auto) 0.7 L Baso % (Auto) 0.5 Neut # (Auto) 7200 H Lymph # (Auto) 2500 [place] # (Auto) 700 Eos # (Auto) 100 Baso # (Auto) 100 Sodium 137 Potassium 3.2 L Chloride 103 Carbon Dioxide 33 H BUN 12 Creatinine 0.63 Estimated GFR > 60.0 BUN/Creatinine Ratio 19.0 Glucose 103 H Calcium 9.3 Phosphorus 1.5 L D Magnesium 2.2 Assessment & Plan Assessment and plan (1) Colonic dysmotility: Status: Acute (2) Hyperparathyroidism: Status: Acute (3) Hypercalcemia: Status: Acute (4) Chronic constipation: Status: Acute (5) Colonic ischemia: Status: Acute (6) Hypokalemia: Status: Acute (7) Creatinine elevation: Problem details: Improved with hydration Status: Acute Assessment & Plan narrative: This is a 53 yo woman with complex medical and surgical history detailed in H and P. She was readmitted with nausea, vomiting, and obstipation. Yesterday she suddenly had a high volume of stool from her ostomy, and felt somewhat better, although still quite fatigued, and ?not feeling well?. Her phosphorus was significantly low this morning and her calcium was normal for the 1st time since I have known her. I was finally able to get a gastric emptying study today, which showed mildly delayed emptying. She is kept down all the food from the gastric emptying study, and is about to have a small-bowel follow-through. I digitized her ostomy and again convince myself that it is not obstructed, but I believe she has another poor motility in her colon that even a nonobstructive ostomy site is enough to overcome her poor colonic motility. This seems to be occurring on a regular basis, and is consistent with her obstructed bowel function which she has experienced through most of her life. We had a discussion this afternoon about whether not to continue evaluating her dysmotility or go ahead and re-connect her with an ileorectal anastomosis. Am leaning towards the latter, although I would like to go ahead and get the small-bowel follow-through before we decide to do that. I contacted Dr. Harvey, but she is on vacation. I will contact 1 of her partners in ask them to weigh in on the electrolyte abnormalities, and the overall picture. This is been a significant stressor for the patient and she regularly sees Dr. Vila for psychiatric care. She is currently on her home medications, but may need to be seen by Dr. Vila during this admission. Plan: IV fluids, cut down to 80 per hour Replete potassium and Phos, we will recheck electrolytes this afternoon Will go ahead with small-bowel follow-through Would still like to get nuclear medicine scan of parathyroids, but may not be able to do that until Friday Will consider possible colon resection on this admission, depending on the results of the small-bowel follow-through Will ask Dr. Jarrell to a consult as Dr. Harvey is out of town, will consider Dr. Vila to see the patient in house if needed COVID-19 COVID-19 status: Not tested Time Spent With Patient Time with patient: 25 - 35 minutes
[2019-10-01 12:10] VITALS: BP 107/49; PULSE 62; RESP 16; TEMP 36.1; O2SAT 97
--- NOTE | 2019-10-01 12:47 | PC.NURSE ---
Day Shift Pt was to not have pills prior to gastric emptying study. She wanted to make sure she took them later. They are not given at this time but plan to give after her nuc med test is complete.
--- NOTE | 2019-10-01 15:33 | DI.RAD.S_ITS ---
PROCEDURE: [place] SMALL BOWEL FOLLOW THROUGH INDICATIONS: dysmotility; evaluate for delayed passage of contrast COMPARISON: [facility], , [place] SMALL BOWEL FOLLOW THROUGH, 04/28/2019, 7:57. FINDINGS: KUB: Preprocedural berry picker film demonstrates a normal bowel gas pattern. No suspicious abdominal calcifications. Visualized solid organ contours appear normal. No suspicious bony abnormalities. Surgical clips are noted in the right upper abdomen. Colostomy is noted in the left lower abdomen. Small bowel: There is transit of barium through the small bowel, opacifying the colon to the level of the colostomy. Small bowel loops are of normal caliber throughout. Mucosal folds are smooth and of normal thickness. No strictures, intraluminal masses, or extrinsic mass effects are noted. The terminal ileum is identified, and is normal in morphology. IMPRESSION: There is transit of oral contrast from the stomach through the small bowel and into the colon to the level of the left abdominal wall colostomy. Nonobstructive bowel gas pattern. Dictated by: Jt Solorio M.D. on 10/01/2019 at 19:10 Approved by: Jt Solorio M.D. on 10/01/2019 at 19:12
[2019-10-01] MEDS: ONDANSETRON 4 MG/2 ML INJ IV (16:45)
[2019-10-01 16:51] LABS: BUN Creatinine Ratio 18.8 (6-22); Blood Urea Nitrogen 12 mg/dL (7-17); Calcium 10.5 mg/dL (8.4-10.2); Carbon Dioxide 31 mmol/L (22-32); Chloride 102 mmol/L (98-107); Estimated Glomerular Filt Rate > 60.0 mL/min (>60); Glucose 97 mg/dL (70-100); HEMOLYSIS < 15 (0-50); Magnesium 2.1 mg/dL (1.6-2.3); Phosphorous 1.2 mg/dL (2.5-4.5); Potassium 2.9 mmol/L (3.4-5.1); Sodium 138 mmol/L (137-145)
[2019-10-01 17:00] VITALS: BP 127/72; PULSE 69; RESP 18; TEMP 36.8; O2SAT 99
[2019-10-01] MEDS: CITALOPRAM 20 MG TABLET PO (17:26)
[2019-10-01] MEDS: buPROPion XL 150 MG TAB 450 MG PO (17:27)
[2019-10-01] MEDS: PANTOPRAZOLE 20 MG TABLET PO (17:27)
[2019-10-01] MEDS: diazePAM 5 MG TABLET PO (17:28)
--- NOTE | 2019-10-01 17:55 | PM.CN ---
History of Present Illness Consult details Date Patient Seen: 10/01/19 Time Patient Seen: 17:55 Chief complaint: vomiting, but has no BM Reason for consult: Continuity of care & psychotropic med management Requesting provider: Joselyn Jarrell Narrative: CC: it's been the worst day HOSPITAL COURSE: Admitted 09/30/19 with severe abdominal pain, nausea, vomiting, obstipation. Also electrolyte abnormalities, and needing further workups that are not happening as outpatient. As in Dr. Welch's H&P: history of hypercalcemia, hyperparathyroidism, chronic constipation, and colonic dysmotility, complicated by obstructing and bleeding stercoral ulcer and emergency surgery for colon resection and colstomy creation in April 2019. I last saw patient on 09/29/19, we planned to switch from alprazolam to diazepam with school of scheduled longer acting agent to provide better control of anxiety. Interview: Frank reports having worst day, nuclear medicine scan was terrible, in pain, not able to eat anything or take any medications. ?History of am grumpy, I hate being like this!? She relays course of events prior to admission, following our visit earlier on 1 stay. She has tried at least 1 dose of diazepam and does not feel that it works well for her, wondering about going back to the alprazolam especially while in hospital since she knows that works. Ongoing pain, as well as worries about it her overall medical status, her . Meds Home Medications and Allergies Home Medications Medication Instructions Recorded Confirmed Type estradiol 1 mg tablet 1 mg PO QDAY #90 tab 09/07/18 09/30/19 Rx bupropion HCl 150 mg 24 hr tablet, 450 mg PO QAM #90 tab 11/20/18 09/30/19 Rx extended release omeprazole 20 mg PO BID #60 cap 05/09/19 09/30/19 Rx polyethylene glycol 3350 [Miralax] 17 gram PO TID #510 gram 05/09/19 09/30/19 Rx citalopram 20 mg tablet 20 mg PO DAILY #90 tab 09/29/19 09/30/19 Rx diazepam 5 mg tablet 5 mg PO BID #30 tab 09/29/19 09/30/19 Rx furosemide 20 mg tablet 20 mg PO DAILY 09/29/19 09/30/19 History Allergies Allergy/AdvReac Type Severity Reaction Status Date / Time latex Allergy Intermediate Rash Verified 09/29/19 07:57 codeine Allergy Mild VOMITING Verified 09/29/19 07:57 fluoxetine AdvReac Severe Agitated Verified 09/29/19 07:57 pain contract Allergy Unknown Uncoded 09/29/19 07:57 Review of Systems Constitutional Constitutional: Reports fatigue Gastrointestinal Gastrointestinal: Reports abdominal pain, Reports nausea and Reports vomiting (bile) Psychiatric Psychiatric: Reports as per HPI Endocrine Endocrine: Reports fatigue Exam Vital Signs (past 8 hours): - 10/01/19 12:10 10/01/19 17:00 Temperature 96.9 F L 98.3 F Pulse Rate 62 69 Respiratory Rate 16 18 Blood Pressure 107/49 L 127/72 Pulse Oximetry 97 99 Oxygen Delivery Method Room Air Oxygen Flow Rate 0 Narrative Exam Narrative: MENTAL STATUS EXAM Appearance: Hair washed, wearing hospital garb, reasonably groomed for hospital stay, appears stated age Behavior: Sitting up in hospital bed, cooperative, fair eye contact, no psychomotor agitation or slowing, no tremor or involuntary movements observed; more irritable than baseline Gait: Not observed Speech: Normal rate, volume, and carlos Mood: Grouchy Affect: Congruent with content, mildly irritable and labile Thought Process: Linear, logical, goal-directed Thought Content: Denies suicidal ideation, no evidence of HI/AVH, no evidence of paranoia or delusions Attention: Attentive to interview Orientation: Oriented to person place and time Memory: Intact for interview, not formally tested Insight: Fair Judgment: Fair Objective Labs Result Diagrams: 10/01/19 05:50 10/01/19 16:30 Labs: Laboratory Results - last 24 hr 10/01/19 10/01/19 10/01/19 05:50 05:50 16:30 WBC 10.6 RBC 3.60 L Hgb 8.9 L Hct 27.2 L MCV 75.6 L MCH 24.7 L MCHC 32.7 RDW 17.9 H Plt Count 319 Neut % (Auto) 68.5 Lymph % (Auto) 23.8 L [place] % (Auto) 6.5 Eos % (Auto) 0.7 L Baso % (Auto) 0.5 Neut # (Auto) 7200 H Lymph # (Auto) 2500 [place] # (Auto) 700 Eos # (Auto) 100 Baso # (Auto) 100 Sodium 137 138 Potassium 3.2 L 2.9 L Chloride 103 102 Carbon Dioxide 33 H 31 BUN 12 12 Creatinine 0.63 0.64 Estimated GFR > 60.0 > 60.0 BUN/Creatinine Ratio 19.0 18.8 Glucose 103 H 97 Calcium 9.3 10.5 H Phosphorus 1.5 L D 1.2 L Magnesium 2.2 2.1 Assessment & Plan Assessment and plan (1) Major depressive disorder, recurrent episode, moderate with atypical features: Problem details: Continue home meds Status: Acute (2) Anxiety: Status: None (3) Abdominal pain: Qualifiers: Abdominal location: generalized Qualified Code(s): R10.84 - Generalized abdominal pain Status: Acute (4) Nausea & vomiting: Status: Acute (5) Colonic dysmotility: Status: Acute Assessment & Plan narrative: ASSESSMENT: Alan Vidal is a 54-year-old female, with complex medical and surgical history, currently admitted for severe abdominal pain, nausea vomiting, and electrolyte abnormalities. Psychiatrically, she has history of trauma and active diagnoses of depression and anxiety. Given long standing anxiety symptoms, I feel that current medical issues are not the cause of specific psychiatric symptoms, although certainly are a perpetuating factor for worsening anxiety due to the stress. Endocrinology issues can certainly contribute, but I do not feel they are a major factor in her psychiatric symptoms. We did try to switch her to long-acting scheduled benzodiazepine 2 days ago, although I feel that this is not necessary and restarting alprazolam which she knows works well for her will be helpful in the context of improving anxiety during her hospital stay. We can revisit planned to switch to long-acting scheduled agent as outpatient. Bupropion can potentially contribute to constipation, so we could consider decreased from 450 mg to 300 mg to see if this provided any benefit, although she has been on this agent for a long time and at 450 mg dose for at least the past year so I I am not sure this would make meaningful difference in constipation and could run the risk of worsening depression. RECOMMENDATIONS: - stop diazepam - restart alprazolam 0.25 mg b.i.d. as needed severe anxiety and 0.5 mg at bedtime - continue citalopram 20 mg daily - Continue bupropion XL 450 mg each morning for now Thank you for involving me in this patient's care. I am happy to continue to follow her while she is in the hospital, I am not typically on campus over the weekend but can be reached via cell and will plan to check back in with this patient on FridayOctober 03. Time Spent With Patient Time with patient: 15-24 minutes
--- NOTE | 2019-10-01 18:08 | PC.NURSE ---
Addendum entered by Rosa Castillo R.N. 10/01/19 23:43: Dual lumen midline placed by [facility] PICC. Ready to use per Boyd RN. Potassium phosphate and potassium rider infusing as per Dr. Welch with rate as ordered. Pt tolerates this well. Copious amount liquid brown stool which pt manages independently in bathroom. No further c/o anxiety or nausea. Continues with pressured speech and engages staff often in conversation. Reports abdominal pain 5/10 and much improved this late evening. Addendum entered by Rosa Castillo R.N. 10/01/19 20:46: PICC nurse here for placement. Informed PICC RN, Boyd, of pt's plan of care. Xanax given to pt to treat pt's anxiety. Addendum entered by Rosa Castillo R.N. 10/01/19 19:31: Offered and encouraged ensure as a nutritional dense food source for pt and as Dr. Welch recommends. Pt refuses stating doesn't like. Addendum entered by Rosa Castillo R.N. 10/01/19 19:13: Pt now much calmer, no longer tearful and expressing understanding for need for iv electrolyte replacement run at rate intended. Pt cooperative with care and agreeable to PICC nurse placing line this evening shift. Sipping water without complaints. Dilaudid iv for abdominal pain 8/10. Original Note: Pt returned from xray @ beginning of shift and goes right into shower without discussing with staff. Showers self. Returns to bed independently. Spouse is present in pt's room. Pt is tearful and expresses multiple complaints to staff. Pt's speech is pressured. C/o nausea, c/o iv hurting with infusion, c/o abdominal pain, c/o thirst and hunger. Asks questions of staff repeatedly re when can meds be given and diet resumed. Discussion with Dr. Welch regarding pt's meds and pt's resuming diet as xrays are still in progress including to xray test technician. Per Dr. Welch, okay to give pt full liquids and meds one hour following 1615 xray. This was clarified with Dr. Welch a second time as environmental field services technician states xrays to follow for hours. Per Dr. Welch, okay to give narcotic pain meds as well to manage pt's pain. Dr. Jarrell has checked in with this communications writer and Dr. Vila has seen pt this evening shift. Dry heaves without emesis. Pt did report chest pain prior to emesis which has resolved and Dr. Welch has been informed. Zofran given to pt to treat c/o nausea and intermittent xrays continue. Sipping broth. Copious amounts of liquid brown stool per ostomy. PICC line ordered per Dr. Welch as MD was informed pt barely able to tolerate phos infusion d/t c/o pain at iv site. The site to pt's right forearm is without redness, or edema. Able to draw blood easily and flush easily with saline. Decreased rate of infusion for pt's tolerance and MD was made aware. Pt informed need for PICC line to proceed with electrolyte infusion as ordered and at rate as ordered. Pt is tearful but accepts this explanation.
[2019-10-01] MEDS: SODIUM CHLORIDE 0.9% FLUSH 10 ML IV (19:07)
[2019-10-01 20:04] VITALS: BP 113/63; PULSE 71; RESP 16; TEMP 37.1; O2SAT 97
[2019-10-01] MEDS: ALPRAZolam 0.5 MG TABLET PO (20:38)
[2019-10-01] MEDS: POTASSIUM CHLORIDE 60 MEQ in SODIUM CHLORIDE 0.9% 500 ML 88.333 ML IV (21:47)
[2019-10-01 23:25] VITALS: BP 111/57; PULSE 77; RESP 16; TEMP 36.3; O2SAT 97
--- NOTE | 2019-10-02 00:13 | PC.NURSE ---
Addendum entered by Jolynn Mendiola R.N. 10/02/19 01:08: Complaining of 7/10 abdominal pain so medicated with IV Dilaudid Original Note: Patient is alert and oriented. Breath sounds CTA with RA sat of 97%. HRR. Denies nausea at present time but was nauseated on previous shift. BT hypoactive; abdomen remains tender and soft. Ostomy in LUQ. Voiding without dysuria, frequency or urgency. Is able to move self in bed and has been independent in room; did request patient call for assistance at night for safety and she verbalizes understanding. Fall risk score moderate; patient is steady on her feet.
[2019-10-02] MEDS: HYDROMORPHONE 0.5 MG INJ IV ×3 (01:06→22:46)
[2019-10-02 06:19] VITALS: BP 101/62; PULSE 59; RESP 16; TEMP 36.5; O2SAT 98
[2019-10-02] MEDS: SODIUM CHLORIDE 0.9% FLUSH 10 ML IV (06:26)
[2019-10-02 06:50] LABS: Add Manual Diff / Slide Review NO; Basophils Absolute Auto 0 /uL (0-100); Basophils Percent Auto 0.4 % (0-2); Eosinophils Absolute Auto 200 /uL (0-450); Eosinophils Percent Auto 1.8 % (2-4); Hematocrit 27.9 % (36-46); Lymphocytes Absolute Auto 3500 /uL (1100-4500); Lymphocytes Percent Auto 32.6 % (25-40); Mean Corpuscular HGB Conc 32.1 % (30-36); Mean Corpuscular Hemoglobin 24.7 PG (26-34); Mean Corpuscular Volume 76.9 fL (80-100); Monocytes Absolute Auto 700 /uL (0-900); Monocytes Percent Auto 6.8 % (3-14); Neutrophils Absolute Auto 6300 /uL (1500-7000); Neutrophils Percent Auto 58.4 % (50-75); Platelet Count 322 X10^3/uL (150-400); Red Blood Cell Count 3.63 X10^6/uL (4.0-5.2); Red Cell Distribution Width 18.6 % (11.6-14.8); White Blood Cell Count 10.8 X10^3/uL (4.5-11.0)
[2019-10-02 06:58] LABS: BUN Creatinine Ratio 14.3 (6-22); Blood Urea Nitrogen 10 mg/dL (7-17); Calcium 9.9 mg/dL (8.4-10.2); Carbon Dioxide 30 mmol/L (22-32); Chloride 104 mmol/L (98-107); Estimated Glomerular Filt Rate > 60.0 mL/min (>60); Glucose 105 mg/dL (70-100); HEMOLYSIS < 15 (0-50); Magnesium 2.2 mg/dL (1.6-2.3); Phosphorous 2.6 mg/dL (2.5-4.5); Potassium 3.4 mmol/L (3.4-5.1); Sodium 138 mmol/L (137-145)
[2019-10-02 07:55] VITALS: BP 102/76; PULSE 60; RESP 16; TEMP 36.1; O2SAT 97
--- NOTE | 2019-10-02 08:31 | CM.DPC ---
DCP: continued. Case received, EMR reviewed. Plan for d/c to home setting when stable is noted. Dr. Welch, as of yesterday afternoon, has consulted with pt's PCP team. Dr. Harvey is on vacation and her partners are consulting (although no note yet from same.). Dr. Vila, who follows pt closely [facility] (saw pt in clinic 09/28) was consulted by Dr. Jarrell and saw pt last evening. She is following to help pt manage her ongoing diagnoses of depression and anxiety. Dr. Welch notes ongoing concerns about pt's progress and states in her last progress note that pt may need a colon resection during this stay. Marking Machine Operator Christie has seen pt who struggles with longstanding gastric motility difficulties. P: DCP team will continue to follow as POC unfolds. Will discuss today in Team Rounds.
[2019-10-02] MEDS: PANTOPRAZOLE 20 MG TABLET PO ×2 (08:48→20:55)
[2019-10-02] MEDS: CITALOPRAM 20 MG TABLET PO (08:48)
[2019-10-02] MEDS: buPROPion XL 150 MG TAB 450 MG PO (08:48)
[2019-10-02] MEDS: KCL 40 MEQ IN NS 1,000 ML 80 MEQ IV (08:48)
[2019-10-02] MEDS: POTASSIUM CHLORIDE 60 MEQ in SODIUM CHLORIDE 0.9% 500 ML 88.333 ML IV (08:49)
--- NOTE | 2019-10-02 09:41 | PM.PN.1 ---
Subjective Subjective Date Patient Seen: 10/02/19 Time Patient Seen: 09:42 Interval history: No acute overnight events. Tolerated liquid diet is having ostomy output. Has chronic abdominal pain no nausea vomiting or fever. Exam Vital Signs (past 8 hours): - 10/02/19 06:19 10/02/19 07:55 Temperature 97.7 F 96.9 F L Pulse Rate 59 L 60 Respiratory Rate 16 16 Blood Pressure 101/62 102/76 Pulse Oximetry 98 97 Oxygen Delivery Method Room Air Oxygen Flow Rate 0 Narrative Exam Narrative: General adult female alert oriented no acute distress Abdomen soft nontender colostomy recently changed Objective Labs Result Diagrams: 10/02/19 06:30 10/02/19 06:30 Labs: Laboratory Results - last 24 hr 10/01/19 10/02/19 10/02/19 16:30 06:30 06:30 WBC 10.8 RBC 3.63 L Hgb 9.0 L Hct 27.9 L MCV 76.9 L MCH 24.7 L MCHC 32.1 RDW 18.6 H Plt Count 322 Neut % (Auto) 58.4 Lymph % (Auto) 32.6 [place] % (Auto) 6.8 Eos % (Auto) 1.8 L Baso % (Auto) 0.4 Neut # (Auto) 6300 Lymph # (Auto) 3500 [place] # (Auto) 700 Eos # (Auto) 200 Baso # (Auto) 0 Sodium 138 138 Potassium 2.9 L 3.4 Chloride 102 104 Carbon Dioxide 31 30 BUN 12 10 Creatinine 0.64 0.70 Estimated GFR > 60.0 > 60.0 BUN/Creatinine Ratio 18.8 14.3 Glucose 97 105 H Calcium 10.5 H 9.9 Phosphorus 1.2 L 2.6 D Magnesium 2.1 2.2 Assessment & Plan Assessment & Plan narrative: 54-year-old female with complex medical history admitted with dehydration and electrolyte derangement in setting of chronic constipation. No evidence of acute bowel obstruction. Gastric emptying and small-bowel follow-through studies reviewed grossly normal. -continue clear liquid diet -measure ostomy output -nuclear parathyroid scan Friday -replace electrolytes as needed -out of bed ambulate -SCDs and heparin for VT prophylaxis Quality VTE Deep Vein Thrombosis/Pulmonary Embolism Present on Admission: No
[2019-10-02] MEDS: estradioL 1 MG TABLET PO (12:21)
[2019-10-02 12:38] VITALS: BP 114/52; PULSE 70; RESP 16; TEMP 36.1; O2SAT 98
[2019-10-02] MEDS: ALPRAZolam 0.25 MG TABLET PO (13:03)
--- NOTE | 2019-10-02 15:27 | PM.CN ---
History of Present Illness Consult details Date Patient Seen: 10/02/19 Time Patient Seen: 09:27 Chief complaint: vomiting, but has no BM Reason for consult: hypercalcemia Requesting provider: Kylie Welch Narrative: Patient is a very complicated in a patient who has had a prolonged course of constipation with associated nausea vomiting, poor p.o. intake and then electrolyte abnormalities. Dr. Conde asked that I consult as coverage for her primary care physician Dr. Harvey for the specific purpose to evaluate her hypercalcemia and monitor electrolyte abnormalities as well as rule out other possible etiologies for her chronic constipation. I spent 65 minutes root viewing the case with Dr. Conde and reviewing her chart notes and meeting with the patient. I reviewed her endocrinology consultations. Patient has been hospitalized this hospitalization for approximately 3 days. She is receiving IV replacement for her phosphorus which is now back up to normal and IV replacement for her potassium. She is now making stool output. She is tolerating p.o. intake without nausea or vomiting and has not had further constipation over the last 24 hours. She had a difficult day yesterday because she was unable to take her oral medications and unable to drink water or eat. She is feeling much better today was actually able to sleep yesterday. She initially had a left sigmoid colectomy due to GI bleed secondary to a stercolal ulcer. Since this time she has had repeated hospitalizations for recurrent constipation with associated nausea and vomiting. I believe this is her 3rd hospitalization since this time. She is getting physically and emotionally worn out from this. She has had a life long history of constipation which has progressively worsened over the last several years Past medical history: 1. Hypercalcemia 2. Hyperparathyroidism 3. Depression 4. Anxiety 5. PTSD 6. Surgically postmenopausal on hormone placed min therapy 7. Colonic dysmotility 8. GERD 9. Endometriosis Past surgical history: x2 1st 1 was emergency due to ovarian cyst rupture. Cholecystectomy Total abdominal hysterectomy without BSO secondary to endometriosis and dysfunctional uterine bleeding Bladder sling Sigmoid colectomy in April of 2019 Family history father to surgical complications unsure with complications were Sister who is currently missing but presumed at age 44 Sister was murdered while on vacation age 46 Mother: Depression, personality disorders Social history: Patient is and lives with her in [place]. She has 2 grown children. 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 One of her daughters lives in [place] and is a teacher Review of systems: Negative for any bloody stool Negative for any hematemesis Negative for any unintentional weight loss Negative for headache Negative for history of flank pain or history of kidney stones Negative for chest pain or shortness of breath Meds Home Medications and Allergies Home Medications Medication Instructions Recorded Confirmed Type estradiol 1 mg tablet 1 mg PO QDAY #90 tab 09/07/18 09/30/19 Rx bupropion HCl 150 mg 24 hr tablet, 450 mg PO QAM #90 tab 11/20/18 09/30/19 Rx extended release omeprazole 20 mg PO BID #60 cap 05/09/19 09/30/19 Rx polyethylene glycol 3350 [Miralax] 17 gram PO TID #510 gram 05/09/19 09/30/19 Rx citalopram 20 mg tablet 20 mg PO DAILY #90 tab 09/29/19 09/30/19 Rx diazepam 5 mg tablet 5 mg PO BID #30 tab 09/29/19 09/30/19 Rx furosemide 20 mg tablet 20 mg PO DAILY 09/29/19 09/30/19 History Allergies Allergy/AdvReac Type Severity Reaction Status Date / Time latex Allergy Intermediate Rash Verified 09/29/19 07:57 codeine Allergy Mild VOMITING Verified 09/29/19 07:57 fluoxetine AdvReac Severe Agitated Verified 09/29/19 07:57 pain contract Allergy Unknown Uncoded 09/29/19 07:57 Exam Vital Signs (past 8 hours): - 10/02/19 07:55 10/02/19 12:38 Temperature 96.9 F L 97.0 F L Pulse Rate 60 70 Respiratory Rate 16 16 Blood Pressure 102/76 114/52 L Pulse Oximetry 97 98 Oxygen Delivery Method Room Air Oxygen Flow Rate 0 Narrative Exam Narrative: Alert and oriented x3 and pleasant to talk with. Initially was sleeping but quickly awakened. Appropriate affect HEENT: Unremarkable Neck: Supple without masses thyromegaly or bruits Chest: Clear to auscultation without wheezes rhonchi or crackles Cor: Regular rate and rhythm without any murmur Abdomen: Positive bowel sounds x4. She is nontender. Nondistended. No hepatosplenomegaly. No guarding and no rebound. Her ostomy site is intact and clean and dry Extremities: No edema, pulses intact Neurologic exam nonfocal Objective Labs Result Diagrams: 10/02/19 06:30 10/02/19 06:30 Labs: Laboratory Results - last 24 hr 10/01/19 10/02/19 10/02/19 16:30 06:30 06:30 WBC 10.8 RBC 3.63 L Hgb 9.0 L Hct 27.9 L MCV 76.9 L MCH 24.7 L MCHC 32.1 RDW 18.6 H Plt Count 322 Neut % (Auto) 58.4 Lymph % (Auto) 32.6 [place] % (Auto) 6.8 Eos % (Auto) 1.8 L Baso % (Auto) 0.4 Neut # (Auto) 6300 Lymph # (Auto) 3500 [place] # (Auto) 700 Eos # (Auto) 200 Baso # (Auto) 0 Sodium 138 138 Potassium 2.9 L 3.4 Chloride 102 104 Carbon Dioxide 31 30 BUN 12 10 Creatinine 0.64 0.70 Estimated GFR > 60.0 > 60.0 BUN/Creatinine Ratio 18.8 14.3 Glucose 97 105 H Calcium 10.5 H 9.9 Phosphorus 1.2 L 2.6 D Magnesium 2.1 2.2 Assessment & Plan Assessment & Plan narrative: 54-year-old female admitted for recurrent bouts of constipation with associated nausea vomiting, hypokalemia hypophosphatemia, in the face of hypercalcemia with elevated parathyroid hormone Appreciate the consult and will follow along with you. Appreciate Dr. Vila consult and recommendations. I think from a psychiatric standpoint patient is doing as best she can with the given circumstances. We will continue on the alprazolam twice daily and at bedtime as needed. Will continue on the bupropion 450 mg daily. It does not seem like from her chronologic standpoint that this is clearly associated with her constipation. She will continue on the same citalopram as well. Assessment 2. Postmenopausal on hormone replacement therapy Plan: Will continue on estradiol Assessment 3. Hypercalcemia with elevated parathyroid hormone. I doubt that a parathyroid adenoma is the sole cause of all her abdominal complaints but I feel it is important to rule this out before marking of further intervention unless she should become unstable.. I have discussed this with Dr. Conde. Dr. Conde has already ordered a parathyroid scan for Friday. I will also discuss with endocrinology on Friday. Assessment 4. Chronic constipation with associated bedside nausea vomiting Plan: She is doing well now. Will continue on the same stool softener, Metamucil, MiraLax. We will continue to monitor. Assessment 5. Hypokalemia and hypophosphatemia. I will discuss this with Endocrinology as well and in the meantime we will replace this. Thank you for allowing me to participate in this patient's care
[2019-10-02 16:05] VITALS: BP 108/69; PULSE 61; RESP 16; TEMP 36.4; O2SAT 99
--- NOTE | 2019-10-02 17:51 | PC.NURSE ---
Patient awake and alert, watching TV. Call drake within reach. patient states that she is hungry, asking for solid foods.
[2019-10-02 20:17] VITALS: BP 144/68; PULSE 59; RESP 15; TEMP 36.9; O2SAT 98
[2019-10-02] MEDS: ALPRAZolam 0.5 MG TABLET PO (20:55)
[2019-10-02 23:28] VITALS: BP 104/69; PULSE 60; RESP 16; TEMP 36.5; O2SAT 98
[2019-10-03] VITALS (7 sets, daily range): BP systolic 100–132; BP diastolic 60–84; PULSE 54–64; RESP 15–18; TEMP 36.1–37.1; O2SAT 96–99
--- NOTE | 2019-10-03 01:35 | PC.NURSE ---
Patient is alert and oriented. Breath sounds CTA with RA sat of 98%. HRR. Denies nausea. Complaint of 4/10 abdominal pain at shift change but had been recently given IV Dilaudid. States abdomen is tender. BT are hypoactive. Ostomy to LUQ with no stool in pouch. Is independent to bathroom and denies dysuria, frequency or urgency. Is able to move self in bed. Fall risk score is moderate; alarm not in use as patient is steady on feet. Was instructed to call for assist when out of bed if feeling lightheaded or dizzy.
[2019-10-03] MEDS: KCL 40 MEQ IN NS 1,000 ML 80 MEQ IV (03:28)
[2019-10-03] MEDS: SODIUM CHLORIDE 0.9% FLUSH 10 ML IV ×2 (06:07→20:59)
[2019-10-03 06:38] LABS: Add Manual Diff / Slide Review NO; Basophils Absolute Auto 100 /uL (0-100); Basophils Percent Auto 0.7 % (0-2); Eosinophils Absolute Auto 300 /uL (0-450); Eosinophils Percent Auto 3.8 % (2-4); Hematocrit 25.9 % (36-46); Hemoglobin 8.4 g/dL (12.0-16.0); Lymphocytes Absolute Auto 3700 /uL (1100-4500); Lymphocytes Percent Auto 43.4 % (25-40); Mean Corpuscular HGB Conc 32.3 % (30-36); Mean Corpuscular Volume 77.4 fL (80-100); Monocytes Absolute Auto 500 /uL (0-900); Neutrophils Absolute Auto 3900 /uL (1500-7000); Neutrophils Percent Auto 46.1 % (50-75); Platelet Count 292 X10^3/uL (150-400); Red Blood Cell Count 3.34 X10^6/uL (4.0-5.2); Red Cell Distribution Width 18.6 % (11.6-14.8); White Blood Cell Count 8.5 X10^3/uL (4.5-11.0)
[2019-10-03 06:59] LABS: Alanine Aminotransferase 22 IU/L (<35); Albumin 2.9 g/dL (3.5-5.0); Albumin Globulin Ratio 1.1 (1.0-2.8); Alkaline Phosphatase 50 U/L (38-126); Aspartate Aminotransferase 20 IU/L (14-36); BUN Creatinine Ratio 10.8 (6-22); Bilirubin Total 0.1 mg/dL (0.2-1.3); Blood Urea Nitrogen 7 mg/dL (7-17); Carbon Dioxide 28 mmol/L (22-32); Chloride 109 mmol/L (98-107); Estimated Glomerular Filt Rate > 60.0 mL/min (>60); Globulin 2.6 g/dL (1.7-4.1); Glucose 89 mg/dL (70-100); HEMOLYSIS < 15 (0-50); Potassium 4.3 mmol/L (3.4-5.1); Sodium 138 mmol/L (137-145); Total Protein 5.5 g/dL (6.3-8.2)
[2019-10-03 07:00] LABS: Magnesium 1.9 mg/dL (1.6-2.3); Phosphorous 3.2 mg/dL (2.5-4.5)
[2019-10-03] MEDS: estradioL 1 MG TABLET PO (08:26)
[2019-10-03] MEDS: PANTOPRAZOLE 20 MG TABLET PO ×2 (08:26→20:54)
[2019-10-03] MEDS: CITALOPRAM 20 MG TABLET PO (08:26)
[2019-10-03] MEDS: buPROPion XL 150 MG TAB 450 MG PO (08:26)
[2019-10-03] MEDS: ALPRAZolam 0.25 MG TABLET PO ×2 (08:33→12:25)
[2019-10-03] MEDS: HYDROMORPHONE 0.5 MG INJ IV ×3 (10:59→20:00)
--- NOTE | 2019-10-03 11:02 | PM.PN.1 ---
Subjective Subjective Date Patient Seen: 10/03/19 Time Patient Seen: 11:02 Interval history: No acute overnight events. Abdominal pain has improved but not resolved. Tolerated liquid diet colostomy is functioning. Exam Vital Signs (past 8 hours): - 10/03/19 03:37 10/03/19 08:00 10/03/19 08:20 Temperature 96.9 F L 97.0 F L 97 F L Pulse Rate 54 L 62 62 Respiratory Rate 16 16 16 Blood Pressure 100/60 120/75 120/75 Pulse Oximetry 97 99 99 Oxygen Delivery Method Room Air Oxygen Flow Rate 0 Narrative Exam Narrative: General adult female alert oriented no acute distress Abdomen mildly distended soft minimally tender viable colostomy Objective Labs Result Diagrams: 10/03/19 06:12 10/03/19 06:12 Labs: Laboratory Results - last 24 hr 10/03/19 10/03/19 10/03/19 06:12 06:12 06:12 WBC 8.5 RBC 3.34 L Hgb 8.4 L Hct 25.9 L MCV 77.4 L MCH 25.0 L MCHC 32.3 RDW 18.6 H Plt Count 292 Neut % (Auto) 46.1 L Lymph % (Auto) 43.4 H [place] % (Auto) 6.0 Eos % (Auto) 3.8 Baso % (Auto) 0.7 Neut # (Auto) 3900 Lymph # (Auto) 3700 [place] # (Auto) 500 Eos # (Auto) 300 Baso # (Auto) 100 Sodium 138 Potassium 4.3 Chloride 109 H Carbon Dioxide 28 BUN 7 Creatinine 0.65 Estimated GFR > 60.0 BUN/Creatinine Ratio 10.8 Glucose 89 Calcium 10.0 Phosphorus 3.2 Magnesium 1.9 Total Bilirubin 0.1 L AST 20 ALT 22 Alkaline Phosphatase 50 D Total Protein 5.5 L Albumin 2.9 L Globulin 2.6 Albumin/Globulin Ratio 1.1 Assessment & Plan Assessment & Plan narrative: 54-year-old woman with complex past medical history admitted for dehydration and obstipation. She is now tolerating diet ostomy is functioning abdominal pain has improved, no evidence of obstruction on small-bowel follow-through. -regular diet -DC IV fluids -parathyroid nuclear medicine scan tomorrow for evaluation of hyperparathyroidism -SCDs and subcutaneous heparin Quality VTE Deep Vein Thrombosis/Pulmonary Embolism Present on Admission: No
[2019-10-03 13:00] LABS: HEMOLYSIS < 15 (0-50); Iron 30 ug/dL (37-170)
[2019-10-03 13:11] LABS: Percent Iron Saturation 9 % (15-50); Total Iron Binding Capacity 336 ug/dL (265-497); Transferrin 246 mg/dL (206-381)
--- NOTE | 2019-10-03 13:30 | CM.DPC ---
DCP: continued: EMR reviewed and spoke now with Dr. Jarrell, here to see pt in her role as healthcare consultant. She confirms the POC as it stands at this time as as per her discussion with the surgical team: pt will continue to be treated in the hospital. She will have a parathyroid nuclear medicine scan tomorrow (Friday) and this will determine whether pt will need an urgent abdominal surgery or if this can be done later. Dr. Vila has been following pt while she is in the hospital and will be seeing pt again Friday. She will resume seeing pt in the clinic setting once pt has been ok'd for d/c. Checked in with pt and her daughter Sonia. Introduced self and role. Pt is aware of the plan going forward. 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 She expresses her appreciation to the staff and the physician providers who are seeing her during this stay. P: follow prn for d/c planning needs as this POC unfolds.
--- NOTE | 2019-10-03 13:32 | PC.NURSE ---
Pt A&Ox4, independent in room. C/o abdominal px well controlled w/dilaudid. Colostomy draining scant amt of brown liquid stool. Pt c/o of anxiety, well controlled w/Alprazolam. Using call light appropriately, requested pt call for assistance if she becomes dizzy/lightheaded.
[2019-10-03 13:40] LABS: Ferritin 16 ng/mL (11-264)
--- NOTE | 2019-10-03 13:41 | PM.PN.1 ---
Subjective Subjective Date Patient Seen: 10/03/19 Time Patient Seen: 13:42 Interval history: Patient had unremarkable night. She is feeling better. She is having less anxiety and feels less stressed and out of sorts. She had a large amount of stool output in her ostomy yesterday but has had decrease in the volume today. She is feeling better. She is having less abdominal pain. She is tolerating p.o. without difficulty. She is not having any nausea or vomiting. She did do 1 stool guaiac and it was negative. Review of systems: Negative for headache Negative for shortness breath Negative for chest pain Exam Vital Signs (past 8 hours): - 10/03/19 08:00 10/03/19 08:20 10/03/19 12:32 Temperature 97.0 F L 97 F L 97.2 F L Pulse Rate 62 62 56 L Respiratory Rate 16 16 16 Blood Pressure 120/75 120/75 123/84 Pulse Oximetry 99 99 99 Oxygen Delivery Method Room Air Oxygen Flow Rate 0 Narrative Exam Narrative: Alert and oriented x3, resting comfortably in her hospital bed. Daughter is at bedside. Vital signs are stable patient is afebrile HEENT unremarkable Neck: Supple without adenopathy masses or thyromegaly Chest: Clear to auscultation without wheezes rhonchi or crackles Cor: Regular rate and rhythm without any murmur Abdomen: Ostomy site is clean and dry without abnormalities. Abdomen is obese but positive bowel sounds, soft, nontender, nondistended, no hepatosplenomegaly Extremities: No edema, pulses intact Neurologic exam nonfocal Objective Labs Result Diagrams: 10/03/19 06:12 10/03/19 06:12 Labs: Laboratory Results - last 24 hr 10/03/19 10/03/19 10/03/19 06:12 06:12 06:12 WBC 8.5 RBC 3.34 L Hgb 8.4 L Hct 25.9 L MCV 77.4 L MCH 25.0 L MCHC 32.3 RDW 18.6 H Plt Count 292 Neut % (Auto) 46.1 L Lymph % (Auto) 43.4 H [place] % (Auto) 6.0 Eos % (Auto) 3.8 Baso % (Auto) 0.7 Neut # (Auto) 3900 Lymph # (Auto) 3700 [place] # (Auto) 500 Eos # (Auto) 300 Baso # (Auto) 100 Sodium 138 Potassium 4.3 Chloride 109 H Carbon Dioxide 28 BUN 7 Creatinine 0.65 Estimated GFR > 60.0 BUN/Creatinine Ratio 10.8 Glucose 89 Calcium 10.0 Phosphorus 3.2 Magnesium 1.9 Iron TIBC % Saturation Transferrin Total Bilirubin 0.1 L AST 20 ALT 22 Alkaline Phosphatase 50 D Total Protein 5.5 L Albumin 2.9 L Globulin 2.6 Albumin/Globulin Ratio 1.1 10/03/19 11:05 WBC RBC Hgb Hct MCV MCH MCHC RDW Plt Count Neut % (Auto) Lymph % (Auto) [place] % (Auto) Eos % (Auto) Baso % (Auto) Neut # (Auto) Lymph # (Auto) [place] # (Auto) Eos # (Auto) Baso # (Auto) Sodium Potassium Chloride Carbon Dioxide BUN Creatinine Estimated GFR BUN/Creatinine Ratio Glucose Calcium Phosphorus Magnesium Iron 30 L TIBC 336 % Saturation 9 L Transferrin 246 Total Bilirubin AST ALT Alkaline Phosphatase Total Protein Albumin Globulin Albumin/Globulin Ratio Assessment & Plan Assessment & Plan narrative: [age] female Assessment 1. Anxiety and depression overall stable Plan: Continue on outpatient medications Assessment 2. Hypokalemia improved Plan: Recheck tomorrow Assessment 3. Hypophosphatemia of unclear etiology. Suspect probably absorption issue I do not think this is related to the hypercalcemia but I will discuss with Dr. Maharaj the insole department worker that she saw several times. Assessment 4. Hyper calcemia with elevated PTH. Concerned that this is contributing to her abdominal complaints. Plan: Parathyroid scan ordered for tomorrow Assessment 5. Chronic constipation Plan: Will continue to monitor closely Quality VTE Deep Vein Thrombosis/Pulmonary Embolism Present on Admission: No
[2019-10-03 13:53] LABS: Vitamin B12 388 pg/mL (239-931)
[2019-10-03 14:10] LABS: Folate 8.1 ng/mL (2.76-20.0)
--- NOTE | 2019-10-03 17:07 | PC.NURSE ---
Much more active today but still complaining of pounding headache. Medicated with Dilaudid which had excellent results. Now relaxing in bed eating dinner.
[2019-10-03] MEDS: ALPRAZolam 0.5 MG TABLET PO (20:54)
[2019-10-04 05:35] VITALS: BP 115/76; PULSE 82; RESP 16; TEMP 36.1; O2SAT 98
[2019-10-04 06:16] LABS: Add Manual Diff / Slide Review NO; Basophils Absolute Auto 100 /uL (0-100); Eosinophils Absolute Auto 300 /uL (0-450); Eosinophils Percent Auto 4.3 % (2-4); Hematocrit 26.4 % (36-46); Hemoglobin 8.5 g/dL (12.0-16.0); Lymphocytes Absolute Auto 3100 /uL (1100-4500); Lymphocytes Percent Auto 40.9 % (25-40); Mean Corpuscular HGB Conc 32.3 % (30-36); Mean Corpuscular Hemoglobin 24.9 PG (26-34); Mean Corpuscular Volume 77.1 fL (80-100); Monocytes Absolute Auto 500 /uL (0-900); Monocytes Percent Auto 6.4 % (3-14); Neutrophils Absolute Auto 3600 /uL (1500-7000); Neutrophils Percent Auto 47.4 % (50-75); Platelet Count 297 X10^3/uL (150-400); Red Blood Cell Count 3.43 X10^6/uL (4.0-5.2); Red Cell Distribution Width 18.5 % (11.6-14.8); White Blood Cell Count 7.6 X10^3/uL (4.5-11.0)
[2019-10-04 06:26] LABS: BUN Creatinine Ratio 12.7 (6-22); Blood Urea Nitrogen 8 mg/dL (7-17); Carbon Dioxide 31 mmol/L (22-32); Chloride 106 mmol/L (98-107); Estimated Glomerular Filt Rate > 60.0 mL/min (>60); Glucose 95 mg/dL (70-100); HEMOLYSIS < 15 (0-50); Magnesium 1.9 mg/dL (1.6-2.3); Phosphorous 3.9 mg/dL (2.5-4.5); Potassium 3.8 mmol/L (3.4-5.1); Sodium 138 mmol/L (137-145)
[2019-10-04] MEDS: SODIUM CHLORIDE 0.9% FLUSH 10 ML IV ×4 (06:47→21:22)
[2019-10-04 07:25] VITALS: BP 146/84; PULSE 71; RESP 18; TEMP 36.1; O2SAT 97
[2019-10-04] MEDS: ONDANSETRON 4 MG/2 ML INJ IV (07:25)
[2019-10-04] MEDS: estradioL 1 MG TABLET PO (07:25)
[2019-10-04] MEDS: buPROPion XL 150 MG TAB 450 MG PO (07:26)
[2019-10-04] MEDS: ALPRAZolam 0.25 MG TABLET PO ×2 (07:26→11:20)
[2019-10-04] MEDS: CITALOPRAM 20 MG TABLET PO (07:26)
[2019-10-04] MEDS: PANTOPRAZOLE 20 MG TABLET PO ×2 (07:26→21:22)
[2019-10-04] MEDS: HYDROMORPHONE 0.5 MG INJ IV ×3 (07:40→17:45)
--- NOTE | 2019-10-04 10:39 | PC.NURSE ---
Addendum entered by Edgar Bermudez R.N. 10/04/19 14:58: Back on floor at 1230 from scan, will need to return - pt was falling asleep and moving during scan. Off floor at 1430, returned after scan completed at 1455. Pt stable. Addendum entered by Edgar Bermudez R.N. 10/04/19 11:32: Pt off floor at 1130 for scan. Original Note: Pt resting comfortably in bed. C/o abdominal pain and anxiety in AM, well controlled w/Dilaudid and Xanax. Pt tearful at times, states she, just wants this to be over.
--- NOTE | 2019-10-04 11:01 | P.CONS_ITS ---
History of Present Illness Consult details Date Patient Seen: 10/04/19 Time Patient Seen: 11:01 Chief complaint: vomiting, but has no BM Reason for consult: Continuity of Care, med management Requesting provider: Kylie Welch Narrative: updated treatment course: Notes from the weekend indicate that patient was feeling somewhat better after difficult day on Friday. Electrolytes largely normalized. Parathyroid scan p lanned for today. Started back on alprazolam & has been getting HS dose, one prn dose over the weekend. Jack last night responded to dilaudid; more active yesterday per RN notes. CC: this morning was hard Interview: Mirza reports having a hard morning, even some passive SI & feeling so frustrated like she just wants to have more answers & be able to move onto the next step. NM last night. Enjoyed time with her daughter over the weekend. Alprazolam working better compared to diazepam and some relief in being back on this for now. Ongoing abdominal pain but able to eat some this weekend. Tired of being in the hospital but fearful of returning home & continuing this cycle with nothing changing. Meds Home Medications and Allergies Home Medications Medication Instructions Recorded Confirmed Type estradiol 1 mg tablet 1 mg PO QDAY #90 tab 09/07/18 09/30/19 Rx bupropion HCl 150 mg 24 hr tablet, 450 mg PO QAM #90 tab 11/20/18 09/30/19 Rx extended release omeprazole 20 mg PO BID #60 cap 05/09/19 09/30/19 Rx polyethylene glycol 3350 [Miralax] 17 gram PO TID #510 gram 05/09/19 09/30/19 Rx citalopram 20 mg tablet 20 mg PO DAILY #90 tab 09/29/19 09/30/19 Rx diazepam 5 mg tablet 5 mg PO BID #30 tab 09/29/19 09/30/19 Rx furosemide 20 mg tablet 20 mg PO DAILY 09/29/19 09/30/19 History Allergies Allergy/AdvReac Type Severity Reaction Status Date / Time latex Allergy Intermediate Rash Verified 09/29/19 07:57 codeine Allergy Mild VOMITING Verified 09/29/19 07:57 fluoxetine AdvReac Severe Agitated Verified 09/29/19 07:57 pain contract Allergy Unknown Uncoded 09/29/19 07:57 Review of Systems Constitutional Constitutional: Reports lethargy Gastrointestinal Gastrointestinal: Reports abdominal pain Psychiatric Psychiatric: Reports as per HPI Exam Vital Signs (past 8 hours): - 10/04/19 05:35 10/04/19 07:25 Temperature 97.0 F L 97 F L Pulse Rate 82 71 Respiratory Rate 16 18 Blood Pressure 115/76 146/84 H Pulse Oximetry 98 97 Oxygen Delivery Method Room Air Oxygen Flow Rate 0 Narrative Exam Narrative: MENTAL STATUS EXAM Appearance: Hair pulled back, wearing hospital garb, reasonably groomed for hospital stay, appears stated age Behavior: Sitting up in hospital bed, cooperative, fair eye contact, no psychomotor agitation or slowing, no tremor or involuntary movements observed, briefly tearful Gait: Not observed Speech: Normal rate, volume, and carlos Mood: tired, anxious Affect: Congruent with content, anxious Thought Process: some perseveration, logical Thought Content: +passive SI without plan/intent, no evidence of HI/AVH, no evidence of paranoia or delusions Attention: Attentive to interview Orientation: Oriented to person place and time Memory: Intact for interview, not formally tested Insight: Fair Judgment: Fair Objective Labs Result Diagrams: 10/04/19 06:05 10/04/19 06:05 Labs: Laboratory Results - last 24 hr 10/03/19 10/03/19 10/03/19 11:05 11:05 11:05 WBC RBC Hgb Hct MCV MCH MCHC RDW Plt Count Neut % (Auto) Lymph % (Auto) [place] % (Auto) Eos % (Auto) Baso % (Auto) Neut # (Auto) Lymph # (Auto) [place] # (Auto) Eos # (Auto) Baso # (Auto) Sodium Potassium Chloride Carbon Dioxide BUN Creatinine Estimated GFR BUN/Creatinine Ratio Glucose Calcium Phosphorus Magnesium Iron 30 L TIBC 336 % Saturation 9 L Transferrin 246 Ferritin 16 Vitamin B12 388 Folate 8.1 10/04/19 10/04/19 06:05 06:05 WBC 7.6 RBC 3.43 L Hgb 8.5 L Hct 26.4 L MCV 77.1 L MCH 24.9 L MCHC 32.3 RDW 18.5 H Plt Count 297 Neut % (Auto) 47.4 L Lymph % (Auto) 40.9 H [place] % (Auto) 6.4 Eos % (Auto) 4.3 H Baso % (Auto) 1.0 Neut # (Auto) 3600 Lymph # (Auto) 3100 [place] # (Auto) 500 Eos # (Auto) 300 Baso # (Auto) 100 Sodium 138 Potassium 3.8 Chloride 106 Carbon Dioxide 31 BUN 8 Creatinine 0.63 Estimated GFR > 60.0 BUN/Creatinine Ratio 12.7 Glucose 95 Calcium 10.0 Phosphorus 3.9 Magnesium 1.9 Iron TIBC % Saturation Transferrin Ferritin Vitamin B12 Folate Assessment & Plan Assessment and plan (1) Major depressive disorder, recurrent episode, moderate with atypical f eatures: Problem details: Continue home meds Status: Acute (2) Anxiety: Status: None (3) Abdominal pain: Qualifiers: Abdominal location: generalized Qualified Code(s): R10.84 - Generalized abdominal pain Status: Acute (4) Nausea & vomiting: Status: Acute (5) Colonic dysmotility: Status: Acute Assessment & Plan narrative: ASSESSMENT: Alan Vidal is a 54-year-old female, with complex medical and surgical history, currently admitted for severe abdominal pain, nausea vomiting, and electrolyte abnormalities. Psychiatrically, she has history of trauma and active diagnoses of depression and anxiety. Given long standing anxiety symptoms, I feel that current medical issues are not the cause of specific psychiatric symptoms, although certainly are a perpetuating factor for worsening anxiety due to the stress. Endocrinology issues can certainly contribute, but I do not feel they are a major factor in her psychiatric symptoms. 10/04/19: Some improvement in anxiety compared to Friday, and switching back to alprazolam has been more effective, and not maximizing prn use. Some passive SI today but I do not see evidence of any other increased risk of self-harm and feel she is safe in the hospital setting. We discussed some techniques to try in the hospital (playing relaxing music that she has on her phone, practicing visualization of peaceful space) and will continue to try these together. RECOMMENDATIONS: - continue alprazolam 0.25 mg b.i.d. as needed severe anxiety and 0.5 mg at bedtime - continue citalopram 20 mg daily - Continue bupropion XL 450 mg each morning for now Thank you for involving me in this patient's care. I will continue to follow with you, and will plan to see the patient each day I am on campus, this week M, , W, Th. Please contact me with specific questions or concerns. PSYCHOTHERAPY INTERVENTIONS PERFORMED: Supportive interventions to bolster adaptive coping mechanisms including slow breathing, visualization GOAL: Decrease symptoms of anxiety measured by rating scales & clinical impression PROGRESS TOWARD GOAL: minimal DURATION OF PSYCHOTHERAPY: 18 minutes Time Spent With Patient Time with patient: 15-24 minutes
[2019-10-04 14:07] VITALS: BP 121/80; PULSE 64; RESP 18; TEMP 36.3; O2SAT 96
--- NOTE | 2019-10-04 14:39 | P.PN_ITS ---
Subjective Subjective Date Patient Seen: 10/04/19 Time Patient Seen: 14:39 Interval history: No acute overnight events. Going for parathyroid scan today. Baseline abdominal pain. Colostomy has been functional. Exam Vital Signs (past 8 hours): - 10/04/19 07:25 10/04/19 14:07 Temperature 97 F L 97.4 F L Pulse Rate 71 64 Respiratory Rate 18 18 Blood Pressure 146/84 H 121/80 Pulse Oximetry 97 96 Oxygen Delivery Method Room Air Oxygen Flow Rate 0 Narrative Exam Narrative: General adult female alert oriented not in acute distress Abdomen soft nontender functional colostomy Objective Labs Result Diagrams: 10/04/19 06:05 10/04/19 06:05 Labs: Laboratory Results - last 24 hr 10/04/19 10/04/19 06:05 06:05 WBC 7.6 RBC 3.43 L Hgb 8.5 L Hct 26.4 L MCV 77.1 L MCH 24.9 L MCHC 32.3 RDW 18.5 H Plt Count 297 Neut % (Auto) 47.4 L Lymph % (Auto) 40.9 H [place] % (Auto) 6.4 Eos % (Auto) 4.3 H Baso % (Auto) 1.0 Neut # (Auto) 3600 Lymph # (Auto) 3100 [place] # (Auto) 500 Eos # (Auto) 300 Baso # (Auto) 100 Sodium 138 Potassium 3.8 Chloride 106 Carbon Dioxide 31 BUN 8 Creatinine 0.63 Estimated GFR > 60.0 BUN/Creatinine Ratio 12.7 Glucose 95 Calcium 10.0 Phosphorus 3.9 Magnesium 1.9 Assessment & Plan Assessment & Plan narrative: 54-year-old female admitted hospital with obstipation and dehydration. She is undergoing a parathyroids scan today for evaluation of hyperparathyroidism. Was initially planning on discharging the patient home however in the patient's discussion with her psychiatrist today she expressed some suicidal ideation. I spoke with Dr. Vila of Psychiatry personally feels that this is essentially baseline for the patient and that she was frustrated today. She does not feel like she needs any inpatient suicide prevention measures. In discussion with the patient regarding this issue she tells me that she has no suicidal intention at this time however she feels frustrated with her medical care and she would be most comfortable going home tomorrow after seeing Dr. Welch. Quality VTE Deep Vein Thrombosis/Pulmonary Embolism Present on Admission: No
[2019-10-04 15:19] VITALS: BP 127/77; PULSE 60; RESP 17; TEMP 36.6; O2SAT 96
--- NOTE | 2019-10-04 15:46 | DI.CT.S_ITS ---
PROCEDURE: CT SOFT TISSUE NECK WO/W CON INDICATIONS: dynamic CT with parathyroid protocol TECHNIQUE: Before and after the administration of intravenous contrast, 2.0 mm axial sections acquired through the neck and down to the altagracia. Additional 2.0 mm coronal and sagittal reformats were generated of the contrast enhanced images. For radiation dose reduction, the following was used: automated exposure control. COMPARISON: [facility], CT, CT PARATHYROID SPECT, 10/04/2019, 11:31. [facility], CT, CT ABDOMEN PELVIS W CON, 09/29/2019, 22:15. FINDINGS: Image quality: Excellent. Parathyroid: There is a 1.0 x 0.7 x 0.9 cm nodule adjacent to the posterior-mid portion of the left lobe of thyroid gland. The nodule adjacent to the left lobe of the thyroid gland that demonstrates pre-contrast density measurements of 49 Hounsfield units, early phase postcontrast density measurements of 92 Hounsfield units and delayed phase postcontrast density measurements of 84 Hounsfield units. Thyroid: The thyroid gland is normal in size and contour. 1.2 cm heterogeneously enhancing nodule is noted in the posterior-inferior margin of the right lobe of thyroid gland. Lymph nodes: No enlarged lymph nodes seen throughout the neck. Vessels: Visualized vasculature appears patent. Neck spaces: The oropharynx, nasopharynx, and pharynx demonstrate no mucosal lesions. The vocal cords, false vocal cords, pyriform sinuses, epiglottis, vallecula, and tongue base all appear normal. Extramucosal spaces appear unremarkable. Glands: The parotid and submandibular glands appear normal. Miscellaneous: Visualized lungs appear clear. Superficial soft tissues appear normal. Bones: No suspicious bony lesions. Visualized sinuses and mastoids appear unremarkable. IMPRESSION: 1.0 x 0.7 x 0.9 cm nodule adjacent to the posterior-mid aspect of the left lobe of thyroid gland with imaging characteristics concerning for parathyroid adenoma. Dictated by: Batsheva Rodriguez MD, PhD on 10/04/2019 at 16:32 Approved by: Batsheva Rodriguez MD, PhD on 10/04/2019 at 17:06
--- NOTE | 2019-10-04 17:44 | P.PN_ITS ---
Subjective Subjective Date Patient Seen: 10/04/19 Time Patient Seen: 17:45 Interval history: Patient has not had no stool output since Friday when she had large volumes of stool output. She has continued to eat a fairly regular diet without problems of nausea or vomiting. She is having more cramping abdominal pain now and is worried that she is starting to have obstructive symptoms again. She is receiving delighted for pain. She does not receive this at home. This is her usual pattern at home where she will have stool output a large amount approximately once a week and then will gradually have constipation symptoms which lead to nausea and vomiting. She has not vomited throughout the hospital stay. Her stool has been guaiac negative. She is frustrated today because of the lack of answers and the unknown future of her illness. She did sleep last night. Review of systems Negative other than HPI. No shortness of breath or chest pain. 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 Exam Vital Signs (past 8 hours): - 10/04/19 14:07 10/04/19 15:19 Temperature 97.4 F L 97.8 F Pulse Rate 64 60 Respiratory Rate 18 17 Blood Pressure 121/80 127/77 Pulse Oximetry 96 96 Oxygen Delivery Method Room Air Oxygen Flow Rate 0 Narrative Exam Narrative: Alert and oriented x3 Well groomed and in no apparent distress. Sitting in hospital bed eating. HEENT is unremarkable Neck: Supple, no masses Chest: Clear to auscultation without wheezes rhonchi or crackles Cor: Regular rate and rhythm without murmur Abdomen: Positive bowel sounds, nontender, nondistended, ostomy appears normal Extremities no edema Objective Labs Result Diagrams: 10/04/19 06:05 10/04/19 06:05 Labs: Laboratory Results - last 24 hr 10/04/19 10/04/19 06:05 06:05 WBC 7.6 RBC 3.43 L Hgb 8.5 L Hct 26.4 L MCV 77.1 L MCH 24.9 L MCHC 32.3 RDW 18.5 H Plt Count 297 Neut % (Auto) 47.4 L Lymph % (Auto) 40.9 H [place] % (Auto) 6.4 Eos % (Auto) 4.3 H Baso % (Auto) 1.0 Neut # (Auto) 3600 Lymph # (Auto) 3100 [place] # (Auto) 500 Eos # (Auto) 300 Baso # (Auto) 100 Sodium 138 Potassium 3.8 Chloride 106 Carbon Dioxide 31 BUN 8 Creatinine 0.63 Estimated GFR > 60.0 BUN/Creatinine Ratio 12.7 Glucose 95 Calcium 10.0 Phosphorus 3.9 Magnesium 1.9 Assessment & Plan Assessment & Plan narrative: 54-year-old female with chronic constipation admitted for the same with persistent nausea and vomiting. Overall symptoms have markedly improved. Electrolytes have been corrected. Patient has not had stool output in 48 hours which is concerning. Patient did have nuclear medicine scan of parathyroid and it does show a probable 1 cm adenoma. Unfortunately I was unable to get a hold of the merchant mill utility worker after this was completed because it was not done until after 5. I would like to discuss this with him. I doubt that this is the sole etiology of her chronic constipation but I think it is a contributing factor and it seems that we should remove this. This is a very complicated medical and surgical question and we will discuss with Dr. Conde tomorrow when she returns. Also patient's primary care provider Dr. Harvey will be here as well to get her opinion. In the meantime will continue with same treatment. At this point because of the finding of the parathyroid adenoma I will hold off on starting metoclopramide tonight but we could consider this and would simply need to monitor closely because the patient taking citalopram and bupropion. Appreciate psychiatry input. Overall patient appears stable but understandably frustrated. Thank you for your consultation. Will follow with you. Quality VTE Deep Vein Thrombosis/Pulmonary Embolism Present on Admission: No
[2019-10-04] MEDS: ALPRAZolam 0.5 MG TABLET PO (21:22)
--- NOTE | 2019-10-04 23:31 | PC.NURSE ---
PATIENT IS NOW HEP.LOCKED PER
[2019-10-05] VITALS (7 sets, daily range): BP systolic 112–135; BP diastolic 63–85; PULSE 55–66; RESP 16–21; TEMP 36.1–36.6; O2SAT 96–98
--- NOTE | 2019-10-05 | DI.US.S_ITS ---
PROCEDURE: US THYROID INDICATIONS: RIGHT NODULE SEEN ON CT TECHNIQUE: Real-time scanning was performed of the thyroid gland, with image documentation. COMPARISON: [facility], CT, CT SOFT TISSUE NECK WO/W CON, 10/04/2019, 15:46. FINDINGS: Right: Thyroid lobe measures 3.6 x 1.5 x 1.3 cm, and is homogeneous in echotexture. Sub-5 mm colloid cyst. Left: Thyroid lobe measures 3.6 x 1.3 x 1.3 cm, and is homogenous in echotexture. Hypoechoic nodule adjacent to the posterior aspect of the left thyroid gland inferiorly measuring up to 1.0 cm. Isthmus: 4.1 mm thick. Nodule number: 1 Location: Right mid inferior Size: 1.1 x 1.0 x 1.0 cm. Composition: Solid Echogenicity: Hyperechoic Shape: wider than tall. Margins: Smooth Echogenic foci: None Total points: 4 ACR TI-RADS category: Moderately suspicious Nodule number: 2 Location: Right inferior Size: 0.4 x 0.3 x 0.4 cm. Composition: Solid Echogenicity: Hypoechoic Shape: wider than tall. Margins: Smooth Echogenic foci: Internal punctate echogenic foci Total points: 7 ACR TI-RADS category: Highly suspicious IMPRESSION: 1. Right thyroid nodules as described above. Recommend continued followup ultrasound as detailed below. 2. Left parathyroid adenoma redemonstrated as was seen on prior parathyroid nuclear medicine scan. ACR TI-RADS definitions and recommendations: TI-RADS 1 (benign): 0 points. FNA not needed. TI-RADS 2 (not suspicious): 2 points. FNA not needed. TI-RADS 3 (mildly suspicious): 3 points. * FNA if 2.5 cm or larger, follow up if 1.5 cm or larger (at 1, 3, and 5 years). TI-RADS 4 (moderately suspicious): 4-6 points. * FNA if 1.5 cm or larger, follow up if 1 cm or larger (at 1, 2, 3, and 5 years). TI-RADS 5 (highly suspicious): 7 points or more. * FNA if 1 cm or larger, follow up if 0.5 cm or larger (every year for 5 years). Dictated by: Tahir MARQUES Interpreted: Marianela Ralph MD on 10/05/2019 at 16:17 Approved by: Marianela Ralph M.D. on 10/05/2019 at 18:19
[2019-10-05] MEDS: HYDROMORPHONE 0.5 MG INJ IV (04:17)
[2019-10-05] MEDS: SODIUM CHLORIDE 0.9% FLUSH 10 ML IV ×4 (04:17→21:25)
--- NOTE | 2019-10-05 04:38 | PC.NURSE ---
Patient is alert and oriented. Breath sounds diminished but CTA with RA sat of 98%. HRR but bradycardic with rate of 58 bpm. Denies nausea. BT hypoactive; abdomen soft but tender; ostomy in LUQ. Denies dysuria, frequency or urgency with voiding. Is able to turn self in bed and is out of bed independently. Complains of 7/10 headache and was medicated with Dilaudid. Fall risk score is moderate; steady on feet.
[2019-10-05 04:44] LABS: Add Manual Diff / Slide Review NO; Basophils Absolute Auto 100 /uL (0-100); Basophils Percent Auto 0.7 % (0-2); Eosinophils Absolute Auto 400 /uL (0-450); Hematocrit 27.6 % (36-46); Hemoglobin 8.8 g/dL (12.0-16.0); Lymphocytes Absolute Auto 3300 /uL (1100-4500); Lymphocytes Percent Auto 44.2 % (25-40); Mean Corpuscular HGB Conc 31.9 % (30-36); Mean Corpuscular Hemoglobin 24.6 PG (26-34); Mean Corpuscular Volume 77.3 fL (80-100); Monocytes Absolute Auto 400 /uL (0-900); Monocytes Percent Auto 5.9 % (3-14); Neutrophils Absolute Auto 3300 /uL (1500-7000); Neutrophils Percent Auto 44.2 % (50-75); Platelet Count 293 X10^3/uL (150-400); Red Blood Cell Count 3.57 X10^6/uL (4.0-5.2); Red Cell Distribution Width 18.9 % (11.6-14.8); White Blood Cell Count 7.5 X10^3/uL (4.5-11.0)
[2019-10-05 04:49] LABS: BUN Creatinine Ratio 15.2 (6-22); Blood Urea Nitrogen 10 mg/dL (7-17); Calcium 10.3 mg/dL (8.4-10.2); Carbon Dioxide 31 mmol/L (22-32); Chloride 106 mmol/L (98-107); Estimated Glomerular Filt Rate > 60.0 mL/min (>60); Glucose 105 mg/dL (70-100); HEMOLYSIS < 15 (0-50); Magnesium 1.9 mg/dL (1.6-2.3); Potassium 4.4 mmol/L (3.4-5.1); Sodium 139 mmol/L (137-145)
[2019-10-05] MEDS: MAGNESIUM SULFATE 2 GM/50 ML PIGGYBACK IV (06:22)
[2019-10-05] MEDS: PANTOPRAZOLE 20 MG TABLET PO ×2 (07:17→21:25)
[2019-10-05] MEDS: buPROPion XL 150 MG TAB 450 MG PO (07:17)
[2019-10-05] MEDS: CITALOPRAM 20 MG TABLET PO (07:18)
[2019-10-05] MEDS: estradioL 1 MG TABLET PO (07:18)
[2019-10-05] MEDS: METOCLOPRAMIDE HCL 5 MG TABLET PO ×4 (08:38→21:25)
[2019-10-05] MEDS: HYDROCODONE/ACET 5/325 TABLET 1 TAB PO ×2 (08:38→17:13)
[2019-10-05] MEDS: ALPRAZolam 0.25 MG TABLET PO ×2 (08:38→14:26)
--- NOTE | 2019-10-05 10:42 | PM.PN.1 ---
Subjective Subjective Date Patient Seen: 10/05/19 Time Patient Seen: 08:45 Interval history: No acute events overnight. Pt passing a few small firm pieces of stool through ostomy, but minimal volume since Friday. Exam Vital Signs (past 8 hours): - 10/05/19 03:53 10/05/19 08:05 Temperature 97.4 F L 97.9 F Pulse Rate 58 L 60 Respiratory Rate 18 16 Blood Pressure 119/71 124/68 Pulse Oximetry 98 98 Oxygen Delivery Method Room Air Oxygen Flow Rate 0 Narrative Exam Narrative: GENERAL: Alert, comfortable. Appears stated age. Answers questions promptly and appropriately. Vital signs noted. HENT: Normocephalic, atraumatic. Hearing intact. Oral mucosa is pink and moist. EYES: Conjunctiva pink, sclera white, no periorbital swelling. CARDIOVASCULAR: Regular rate. No pedal edema. RESPIRATORY: Non-tachypneic, breathing comfortably on room air. GASTROINTESTINAL: Abdomen soft, round, mildly distended, ostomy digitized and patent GENITALURINARY: No flank tenderness. MUSCULOSKELETAL: Equal tone and mass bilaterally. SKIN: Warm, dry, soft, appropriate color for ethnicity. No other lesions, rashes, or wounds. NEURO: Alert and Oriented X 3. No gross sensory deficits, or cognitive issues. PSYCH: Appropriate affect and mood. Objective Imaging Multiple: My impression: Gastric emptying: slightly delayed SBFT: normal NM spect scan: increased uptake in left mid and right lower parathyroids Neck CT scan: right inferior thyroid nodule 1.2cm, need US to fully evaluate; left mid thyroid mass consistent with parathyroid adenoma Radiologist's impression: See results in [employer] [facility] Result Diagrams: 10/05/19 04:25 10/05/19 04:25 Labs: Laboratory Results - last 24 hr 10/05/19 10/05/19 04:25 04:25 WBC 7.5 RBC 3.57 L Hgb 8.8 L Hct 27.6 L MCV 77.3 L MCH 24.6 L MCHC 31.9 RDW 18.9 H Plt Count 293 Neut % (Auto) 44.2 L Lymph % (Auto) 44.2 H [place] % (Auto) 5.9 Eos % (Auto) 5.0 H Baso % (Auto) 0.7 Neut # (Auto) 3300 Lymph # (Auto) 3300 [place] # (Auto) 400 Eos # (Auto) 400 Baso # (Auto) 100 Sodium 139 Potassium 4.4 Chloride 106 Carbon Dioxide 31 BUN 10 Creatinine 0.66 Estimated GFR > 60.0 BUN/Creatinine Ratio 15.2 Glucose 105 H Calcium 10.3 H Phosphorus 4.0 Magnesium 1.9 Assessment & Plan Assessment and plan (1) Fecal retention: Qualifiers: Constipation type: unspecified constipation type Qualified Code(s): K59.00 - Constipation, unspecified Status: Acute (2) Colonic dysmotility: Status: Acute (3) Hyperparathyroidism: Status: Acute (4) Hypercalcemia: Status: Acute (5) Colostomy present: Status: Acute (6) Chronic constipation: Status: Acute (7) Anemia: Problem details: Status: Acute (8) Obesity (BMI 30-39.9): Status: Acute (9) Parathyroid adenoma: Status: Acute Assessment & Plan narrative: This is a 54 yo woman with long history of chronic constipation, and a resultant stercoral ulcer which was treated with colon resection and jose's procedure in April of this year. Since then she continues to struggle with chronic constipation as she reports that she has done for most of her life. She reports 4-5 days of no ostomy output, with increasing abdominal pain, often with nausea/vomiting. Finally will have stool output by day 4-5, and relief. This is quite a disruption to her life. In addition she has been found to have hypercalcemia and hyperparathyroidism. We have had some difficulty getting workup done as an outpatient for the colon as well as the hypercalcemia. On this admission, she has been treated for hypophosphatemia, hypokalemia, dehydration, constipation, and has been evaluated for nausea/vomiting, obstruction, and hypercalcemia/hyperPTH. She has a gastric emptying study showing mild gastroparesis, a Sitz marker and SBFT showing no abnormality, and a clinical picture of marked dysmotility and constipation. She has a psych history of trauma which is expected to contribute. The contribution of her parathyroid and hypercalcemia is unclear. The contribution of her thyroid is also unclear. Today I discussed her imaging with Dr. Ruiz, who recommended thyroid US to evaluate the right thyroid nodule. I also discussed her care with Dr. Vila and Dr. Harvey from psych and primary care. They agree with starting Reglan and considering a referral to for coordinated care of her GI dysmotility, endocrine, and colorectal dysfunction. I have also discussed her case with the ostomy care nurse, Eva Ferraro, who will see her today to teach her to irrigate the stoma. I spoke with Dr. Seo, colorectal surgeon at , who agreed to see Ms. Vidal in referral once she is discharged and to coordinate her care with their GI dysmotility clinic for further evaluation and treatment. Plan: Start reglan today Ambulate frequently Ostomy nurse to see for ostomy irrigation Referral to for further evaluation regarding dysmotility, endocrine, and surgical intervention Thyroid US Dispo pending pt is able to tolerate PO and bowel function is manageable Quality VTE Deep Vein Thrombosis/Pulmonary Embolism Present on Admission: No
--- NOTE | 2019-10-05 11:25 | CM.DPC ---
DCP Cont: Discussed patient in team rounds. Dr. Vila, has also been seeing patient secondary to her anxiety. Elissa Ferraro will be here this afternoon to go over irrigation of stoma. Patient is independent at baseline, as far as activities and mobilization. She lives with supportive family, and is alert and oriented. P: DCP to continue to follow. Alise Carmona RN/Sign Out Clerk
--- NOTE | 2019-10-05 12:54 | P.PN_ITS ---
Subjective Subjective Date Patient Seen: 10/05/19 Time Patient Seen: 12:54 Interval history: Saw patient shortly after she had her ostomy bag flushed by the ostomy nurse. She was in quite a bit of pain and cramping at that time and feeling exhausted from her pain. ?I just do not think that I can go on anymore like this.? She did visit with Dr. Conde today regarding a multi specialty consult at [facility] and is receptive to doing that but is worried about being treated in a new hospital. She is also worried about discussing her medical conditions in front of her family and friends. Wants to be autonomous and not ?burden people? with her problems. Reports excellent support from her daughter who lives locally. Feels that she has been snappy with her and wishes that she could have more patience with him. She sometimes feels that he does not understand what she is going through. Exam Vital Signs (past 8 hours): - 10/05/19 08:05 Temperature 97.9 F Pulse Rate 60 Respiratory Rate 16 Blood Pressure 124/68 Pulse Oximetry 98 Oxygen Delivery Method Room Air Oxygen Flow Rate 0 Narrative Exam Narrative: GENERAL: Alert and oriented, appearing stated age and in pain. HEENT: Head normocephalic/atraumatic. Pupils equal, round, and reactive to li ght. Extraocular muscles intact. Nasal mucosa moist, septum midline. Oral mucosa moist, no lesions. Neck soft and supple, no appreciable neck fullness. LUNGS: Clear to ausculation bilaterally, no wheezes, rhonchi or rales. CV: Normal S1 and S2 with regular rate and rhythm, no audible murmurs, rubs or gallops. ABDOMEN: Soft, diffusely-tender, distended, ostomy bag in place, clean. Due to distention, difficult to assess organomegaly. Hypoactive positive bowel sounds. EXTREMITIES: No clubbing, cyanosis, or edema. NEURO: Cranial nerves II through XII grossly intact, no focal deficits. PSYCH: Alert and oriented x 3. Depressed, anxious. SKIN: No concerning lesions. Objective Labs Result Diagrams: 10/05/19 04:25 10/05/19 04:25 Labs: Laboratory Results - last 24 hr 10/05/19 10/05/19 04:25 04:25 WBC 7.5 RBC 3.57 L Hgb 8.8 L Hct 27.6 L MCV 77.3 L MCH 24.6 L MCHC 31.9 RDW 18.9 H Plt Count 293 Neut % (Auto) 44.2 L Lymph % (Auto) 44.2 H [place] % (Auto) 5.9 Eos % (Auto) 5.0 H Baso % (Auto) 0.7 Neut # (Auto) 3300 Lymph # (Auto) 3300 [place] # (Auto) 400 Eos # (Auto) 400 Baso # (Auto) 100 Sodium 139 Potassium 4.4 Chloride 106 Carbon Dioxide 31 BUN 10 Creatinine 0.66 Estimated GFR > 60.0 BUN/Creatinine Ratio 15.2 Glucose 105 H Calcium 10.3 H Phosphorus 4.0 Magnesium 1.9 Assessment & Plan Assessment & Plan narrative: 54-year-old female with chronic constipation admitted for the same with persistent nausea and vomiting. HD#5 Assessment 1: Chronic constipation, likely multifactorial from baseline constipation that has been lifelong, colonic dysmotility, as well as newly diagnosed hyperparathyroidism. Plan: Patient saw Dr. Fitch, endocrinology on 08/04/19 for the first time for her hypercalcemia but thought that it might be secondary to acute illness in the setting of chlorthalidone rather than true hyperparathyroidism. Visit was via telemedicine and Dr. Fitch did not have all of her records. He did advise her to stop chlorthalidone and use furosemide instead. Follow-up blood work and urine was ordered but patient has not yet completed that and has not yet had her follow-up appointment. Due to coronavirus, there are challenges in delivering the level of care that this patient needs with offices that are closed, partially open, etc. She has now been readmitted three times for the same issue and is becoming mentally exhausted. She has significant baseline anxiety and a history of trauma that has exacerbated her ability to manage her current condition which has significantly altered her lifestyle. In addition to the surgical management of this issue, she needs coordination between endocrinology and psychiatry. Discussed with Dr. Conde referring patient to [facility] for multispecialty care including both colorectal surgery as well as endocrinology, possibly psychiatry and others, if deemed appropriate. Patient is amenable to a consult and Dr. Conde has already started the referral process. In the meantime, will consult Dr. Fitch regarding patient's inpatient status, her worsening symptoms, and her recent imaging studies that show a parathyroid adenoma as well as a highly suspicious right-sided thyroid nodule. Anticipate need for ENT referral after speaking with Dr. Fitch. Continue bowel protocol per Dr. Conde. Assessment 2: Thyroid nodule, right-sided, highly suspicious, new. Plan: Please see 1. Will update TSH. Will consult ENT to see if patient is an appropriate candidate for a FNA biopsy. Assessment 3: Depression and anxiety, Dr. Vila consulting. Plan: Continue current treatment plan per Dr. Vila. Assessment 4. Postmenopausal on hormone replacement therapy Plan: Continue estradiol Assessment 5. Hypokalemia and hypophosphatemia, resolved with replacement. Plan: Will discuss with endocrinology. Thank you for allowing me to participate in this patient's care. Quality VTE Deep Vein Thrombosis/Pulmonary Embolism Present on Admission: No
--- NOTE | 2019-10-05 13:52 | P.CONS_ITS ---
History of Present Illness Consult details Date Patient Seen: 10/05/19 Time Patient Seen: 09:00 Chief complaint: vomiting, but has no BM Reason for consult: anxiety Requesting provider: Kylie Welch Narrative: PSYCHIATRY CONSULT - FOLLOW-UP No events overnight, adenoma seen on parathyroid scan, waiting to discuss next steps with Drs. Welch & Wes who are back today. One dose prn alprazolam yesterday, continues prn dilaudid Discussed possibility of starting Reglan with Dr. Jarrell yesterday INTERVIEW: Frank reports feeling frustrated today; relates interaction between her & her last night which was challenging. Discussed some relationship dynamics. Dr. Welch came by to discuss treatment plan while I was present, so stayed to be included in this discussion. Frank & I did a brief mindfulness exercise, practiced visualizing a peaceful place (cabin in [place]) and reflecting on 5 senses of what she experiences when visualizing this. Engages in this with some calming effect. Meds Home Medications and Allergies Home Medications Medication Instructions Recorded Confirmed Type estradiol 1 mg tablet 1 mg PO QDAY #90 tab 09/07/18 09/30/19 Rx bupropion HCl 150 mg 24 hr tablet, 450 mg PO QAM #90 tab 11/20/18 09/30/19 Rx extended release omeprazole 20 mg PO BID #60 cap 05/09/19 09/30/19 Rx polyethylene glycol 3350 [Miralax] 17 gram PO TID #510 gram 05/09/19 09/30/19 Rx citalopram 20 mg tablet 20 mg PO DAILY #90 tab 09/29/19 09/30/19 Rx diazepam 5 mg tablet 5 mg PO BID #30 tab 09/29/19 09/30/19 Rx furosemide 20 mg tablet 20 mg PO DAILY 09/29/19 09/30/19 History Allergies Allergy/AdvReac Type Severity Reaction Status Date / Time latex Allergy Intermediate Rash Verified 09/29/19 07:57 codeine Allergy Mild VOMITING Verified 09/29/19 07:57 fluoxetine AdvReac Severe Agitated Verified 09/29/19 07:57 pain contract Allergy Unknown Uncoded 09/29/19 07:57 Review of Systems Constitutional Constitutional: Reports fatigue and Reports headache(s) ENT Ears, Nose, Mouth, and Throat: Yes headache(s) Neurologic Neurologic: Reports headache(s) Psychiatric Psychiatric: Reports as per HPI Endocrine Endocrine: Reports fatigue Exam Vital Signs (past 8 hours): - 10/05/19 08:05 10/05/19 13:00 Temperature 97.9 F 97.2 F L Pulse Rate 60 63 Respiratory Rate 16 16 Blood Pressure 124/68 120/73 Pulse Oximetry 98 98 Oxygen Delivery Method Room Air Oxygen Flow Rate 0 Narrative Exam Narrative: MENTAL STATUS EXAM Appearance: Hair pulled back, wearing hospital garb, reasonably groomed for hospital stay, appears stated age Behavior: Sitting up in hospital bed, cooperative, fair eye contact, no psychomotor agitation or slowing, no tremor or involuntary movements observed, briefly tearful Gait: Not observed Speech: Normal rate, volume, and carlos Mood: frustrated Affect: Congruent with content, anxious Thought Process: some perseveration, logical Thought Content: denies SI, no evidence of HI/AVH, no evidence of paranoia or delusions Attention: Attentive to interview Orientation: Oriented to person place and time Memory: Intact for interview, not formally tested Insight: Fair Judgment: Fair Objective Labs Result Diagrams: 10/05/19 04:25 10/05/19 04:25 Labs: Laboratory Results - last 24 hr 10/05/19 10/05/19 04:25 04:25 WBC 7.5 RBC 3.57 L Hgb 8.8 L Hct 27.6 L MCV 77.3 L MCH 24.6 L MCHC 31.9 RDW 18.9 H Plt Count 293 Neut % (Auto) 44.2 L Lymph % (Auto) 44.2 H [place] % (Auto) 5.9 Eos % (Auto) 5.0 H Baso % (Auto) 0.7 Neut # (Auto) 3300 Lymph # (Auto) 3300 [place] # (Auto) 400 Eos # (Auto) 400 Baso # (Auto) 100 Sodium 139 Potassium 4.4 Chloride 106 Carbon Dioxide 31 BUN 10 Creatinine 0.66 Estimated GFR > 60.0 BUN/Creatinine Ratio 15.2 Glucose 105 H Calcium 10.3 H Phosphorus 4.0 Magnesium 1.9 Assessment & Plan Assessment and plan (1) Major depressive disorder, recurrent episode, moderate with atypical features: Problem details: Continue home meds Status: Acute (2) Anxiety: Status: None (3) Abdominal pain: Qualifiers: Abdominal location: generalized Qualified Code(s): R10.84 - Generalized abdominal pain Status: Acute (4) Nausea & vomiting: Status: Acute (5) Colonic dysmotility: Status: Acute Assessment & Plan narrative: ASSESSMENT: Alan Vidal is a 54-year-old female, with complex medical and surgical history, currently admitted for severe abdominal pain, nausea vomiting, and electrolyte abnormalities. Psychiatrically, she has history of trauma and active diagnoses of depression and anxiety. Given long standing anxiety symptoms, I feel that current medical issues are not the cause of specific psychiatric symptoms, although certainly are a perpetuating factor for worsening anxiety due to the stress. Endocrinology issues can certainly contribute, but I do not feel they are a major factor in her psychiatric symptoms. 10/04/19: Some improvement in anxiety compared to Friday, and switching back to alprazolam has been more effective, and not maximizing prn use. Some passive SI today but I do not see evidence of any other increased risk of self-harm and feel she is safe in the hospital setting. We discussed some techniques to try in the hospital (playing relaxing music that she has on her phone, practicing visualization of peaceful space) and will continue to try these together. 10/05/19: No SI, engaged in mindfulness exercise, involved in discussion with te am around next steps. Appears to have tolerated first dose reglan today; if no psychiatric SE in the hospital then I am comfortable with her continuing on it upon discharge from a psychiatric perspective. No new recommendations. RECOMMENDATIONS: - continue alprazolam 0.25 mg b.i.d. as needed severe anxiety and 0.5 mg at bedtime - continue citalopram 20 mg daily - Continue bupropion XL 450 mg each morning for now Thank you for involving me in this patient's care. I will continue to follow with you, and will plan to see the patient each day I am on campus while patient is in the hospital, this week M, , , . Please contact me with specific questions or concerns. PSYCHOTHERAPY INTERVENTIONS PERFORMED: Supportive interventions to bolster adaptive coping mechanisms including slow breathing, visualization GOAL: Decrease symptoms of anxiety measured by rating scales & clinical impression PROGRESS TOWARD GOAL: minimal DURATION OF PSYCHOTHERAPY: 16 minutes Time spent in discussion with pt & Dr. Welch: 45 min Time Spent With Patient Time with patient: 15-24 minutes
--- NOTE | 2019-10-05 17:51 | PC.NURSE ---
Ostomy Nurse Note Frank was in bed and told me how she has been doing the last few days and the events that lead up to her admission. I told her I am here to teach her and to preform colostomy irrigation. Her nurse Cyndy is also present to learn how to do colostomy irrigation. Frank's stoma is moist pink/weathers and is above the skin level about .5cc. Her stoma measures about 29mm. She is currently wearing a Coloplast two piece cut to fit, convex non drainable appliance: wafer: [id number], pouch [id number]. I do not have an irrigation system to fit this appliance so I used what we have in house. Convatec 45mm convex moldable wafer with an irrigation sleeve. I gave Frank the [facility] Colostomy Irrigation Patient Education handout as well as the [facility] Colostomy Guide that has colostomy irrigation instructions. I explained to Frank why were were going to irrigate and how this is done. Sense we do not have an irrigation bag, tubing or cone tip I used two Fleet Enema (Normal Saline) bottles, emptying the normal saline out and using warm tap water instead. We used a 60cc syringe and 1000cc of warm tap water. Filling the syringe with the warm tap water and then filling the empty fleet enema bottles and using lubricant for the tips I instilled 1000cc of warm tap water over 15 minutes. Before installing the tap water I placed the Convatec 45mm convex moldable wafer with the irrigation sleeve, as this has much more volume for the return. It took 15 minutes for stool to be expelled. She did not retain the water long as it was coming out as I was installing it. The stool is light brown, foul smelling, long thin soft to semi-hard. Frank was having cramps that felt like childbirth. She says this always happens before she has stool. She was very upset. She states the pain also shoots to her rectum and she began to feel nauseated. She was given Reglan and pain medication. After the return of fluid and stool, Frank put back on her Coloplast appliance with a drainable pouch that I brought. Frank stated over and over how she wants to have her colon removed as she has spent hours on the toilet when she did not have a colostomy, for years and now she has so much pain and feels ill for days until she has any effluent from her stoma and it take another day to get over the pain. She states she can't go home like this. She really seem distraught. She has looked on youtube and the internet regarding ileostomies and continent diversions. I don't think Frank will allow another colostomy irrigation today. The order is for twice a day. I have left instructions for the nursing staff in the patient physical chart at the desk and Frank also has a copy. All the supplies are in Frank's room for irrigation. I am available by phone tomorrow for verbal consultation.
[2019-10-05] MEDS: ALPRAZolam 0.5 MG TABLET PO (21:25)
--- NOTE | 2019-10-05 22:39 | PC.NURSE ---
around 1630 pt had some medium size BM after colostomy irrigation with Elissa. Pt had cramping sensation and felt nauseous after irrigation then she passed some stool, reglan and norco given for nausea and pain. colostomy irrigation in patient's file. safety checks. call light in reach.
--- NOTE | 2019-10-06 02:18 | PC.NURSE ---
Patient seen and assessed at 0030. Is alert and oriented. Breath sounds CTA with RA sat of 97%. HRR with rate in 50's. Denies nausea. BT hypoactive but is passing flatus. Ostomy to LUQ. 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 Voiding without dysuria, frequency or urgency. Independent with mobility. Fall risk score is moderate; patient is steady on feet.
[2019-10-06 03:31] VITALS: BP 117/72; PULSE 58; RESP 20; TEMP 36.3; O2SAT 96
[2019-10-06] MEDS: METOCLOPRAMIDE HCL 5 MG TABLET PO ×2 (06:33→12:53)
[2019-10-06] MEDS: SODIUM CHLORIDE 0.9% FLUSH 10 ML IV ×2 (06:33→07:59)
[2019-10-06 06:56] LABS: Add Manual Diff / Slide Review NO; Basophils Absolute Auto 100 /uL (0-100); Basophils Percent Auto 1.1 % (0-2); Eosinophils Absolute Auto 400 /uL (0-450); Eosinophils Percent Auto 4.3 % (2-4); Hematocrit 28.6 % (36-46); Lymphocytes Absolute Auto 3000 /uL (1100-4500); Lymphocytes Percent Auto 36.9 % (25-40); Mean Corpuscular HGB Conc 31.5 % (30-36); Mean Corpuscular Hemoglobin 24.4 PG (26-34); Mean Corpuscular Volume 77.6 fL (80-100); Monocytes Absolute Auto 500 /uL (0-900); Monocytes Percent Auto 5.7 % (3-14); Neutrophils Absolute Auto 4300 /uL (1500-7000); Platelet Count 269 X10^3/uL (150-400); Red Blood Cell Count 3.69 X10^6/uL (4.0-5.2); Red Cell Distribution Width 18.9 % (11.6-14.8); White Blood Cell Count 8.2 X10^3/uL (4.5-11.0)
[2019-10-06 07:11] LABS: BUN Creatinine Ratio 18.8 (6-22); Blood Urea Nitrogen 13 mg/dL (7-17); Calcium 10.4 mg/dL (8.4-10.2); Carbon Dioxide 32 mmol/L (22-32); Chloride 106 mmol/L (98-107); Estimated Glomerular Filt Rate > 60.0 mL/min (>60); Glucose 91 mg/dL (70-100); HEMOLYSIS < 15 (0-50); Magnesium 2.2 mg/dL (1.6-2.3); Phosphorous 3.7 mg/dL (2.5-4.5); Potassium 4.6 mmol/L (3.4-5.1); Sodium 139 mmol/L (137-145)
[2019-10-06 07:51] LABS: TSH w/ Reflex to FT4 3.53 uIU/mL (0.47-4.68)
[2019-10-06] MEDS: buPROPion XL 150 MG TAB 450 MG PO (08:00)
[2019-10-06] MEDS: CITALOPRAM 20 MG TABLET PO (08:00)
[2019-10-06] MEDS: PANTOPRAZOLE 20 MG TABLET PO (08:00)
[2019-10-06] MEDS: estradioL 1 MG TABLET PO (08:00)
[2019-10-06] MEDS: ALPRAZolam 0.25 MG TABLET PO (08:04)
--- NOTE | 2019-10-06 08:12 | PC.NURSE ---
Patient pleasant, talkative and cooperative this morning. Denies pain or other complaint at this time. Sitting up eating her breakfast. patient states she is hopeful to go home this afternoon, states she went over ostomy irrigation at length yesterday with Eva Ferraro and feels comfortable and capable of continuing this at home. Need to confirm availability of supplies for home. Call light within reach, continue to monitor.
[2019-10-06 08:20] VITALS: BP 119/65; PULSE 49; RESP 16; TEMP 36.2; O2SAT 98
--- NOTE | 2019-10-06 09:26 | P.PN_ITS ---
Subjective Subjective Date Patient Seen: 10/06/19 Time Patient Seen: 09:26 Interval history: Feeling much better this morning, had a soft bowel movement and thinks that this is due to the Reglan. She has been able to tolerate her diet with no nausea or vomiting. Feeling ready to go home. Abdominal pain and distension much improved. Exam Vital Signs (past 8 hours): - 10/06/19 03:31 10/06/19 08:20 Temperature 97.4 F L 97.2 F L Pulse Rate 58 L 49 L Respiratory Rate 20 16 Blood Pressure 117/72 119/65 Pulse Oximetry 96 98 Oxygen Delivery Method Room Air Oxygen Flow Rate 0 Narrative Exam Narrative: GENERAL: Alert and oriented, appearing stated age and in pain. HEENT: Head normocephalic/atraumatic. Pupils equal, round, and reactive to light. Extraocular muscles intact. Nasal mucosa moist, septum midline. Oral mucosa moist, no lesions. Neck soft and supple, no appreciable neck fullness. LUNGS: Clear to ausculation bilaterally, no wheezes, rhonchi or rales. CV: Normal S1 and S2 with regular rate and rhythm, no audible murmurs, rubs or gallops. ABDOMEN: Soft, non-tender, non-distended, ostomy bag in place, clean. Hypoactive positive bowel sounds. EXTREMITIES: No clubbing, cyanosis, or edema. NEURO: Cranial nerves II through XII grossly intact, no focal deficits. PSYCH: Alert and oriented x 3. Depressed, anxious. SKIN: No concerning lesions. Objective Labs Result Diagrams: 10/06/19 06:45 10/06/19 06:45 Labs: Laboratory Results - last 24 hr 10/06/19 10/06/19 10/06/19 06:45 06:45 06:45 WBC 8.2 RBC 3.69 L Hgb 9.0 L Hct 28.6 L MCV 77.6 L MCH 24.4 L MCHC 31.5 RDW 18.9 H Plt Count 269 Neut % (Auto) 52.0 Lymph % (Auto) 36.9 [place] % (Auto) 5.7 Eos % (Auto) 4.3 H Baso % (Auto) 1.1 Neut # (Auto) 4300 Lymph # (Auto) 3000 [place] # (Auto) 500 Eos # (Auto) 400 Baso # (Auto) 100 Sodium 139 Potassium 4.6 Chloride 106 Carbon Dioxide 32 BUN 13 Creatinine 0.69 Estimated GFR > 60.0 BUN/Creatinine Ratio 18.8 Glucose 91 Calcium 10.4 H Phosphorus 3.7 Magnesium 2.2 TSH 3.53 Assessment & Plan Assessment & Plan narrative: 54-year-old female with chronic constipation admitted for the same with persistent nausea and vomiting. HD#6. Patient will be discharged today per Dr. Conde. Please see her discharge summary for complete details. Patient will be discharged on Reglan to aid in gastric motility. Will follow patient closely in the outpatient setting and continue to coordinate care between Dr. Conde (general surgery), Sarah Ortega (colorectal surgery and endocrinology), Dr. Hunt (ENT), and Dr. Vila (psychiatry). TSH today was within normal limits, patient will be seen by Dr. Hunt for both discussion of parathyroidectomy as well as FNA biopsy of her thyroid nodule. Repeat magnesium and phosphorus levels were also within normal limits today, will continue to trend in the outpatient setting at follow-up visit. Quality VTE Deep Vein Thrombosis/Pulmonary Embolism Present on Admission: No
--- NOTE | 2019-10-06 13:00 | PM.DS.1 ---
History of Present Illness History of Present Illness Chief complaint: vomiting, but has no BM Narrative: This patient is well known to me. She is a 54 yo woman with history of hypercalcemia, hyperparathyroidism, chronic constipation, and colonic dysmotility, complicated by obstructing and bleeding stercoral ulcer and emergency surgery for colon resection and colstomy creation in April 2019. Since then the patient has been maintained on a bowel regimen with varying degrees of compliance and varying degrees of success. She was admitted to the hospital in July with obstructive symptoms, and a protruding ostomy. She was found to have a parastomal hernia, which was reduced in the ER, and she was kept for observation. She was able to pass gas and stool, and was discharged on the following day. She was instructed to maintain her bowel regimen. She continues to have 4-5 days of constipation, with subsequent passage of hard stool followed by liquid. She tends to become nauseated and vomits when she gets severely backed up. She had a Sitz Marker study which was read as normal. She continues her endocrine workup with Dr. Fitch. No recommendation for parathyroidectomy has been made. She again had an episode of severe constipation, nausea, and vomiting last night, and was admitted through the ER for IV fluids for dehydration, pain control, and antiemetics. This morning, she passed a lot of stool, and remains very fatigued. She reports ongoing nausea whenever she has pain. She has been requiring IV dilaudid for pain during the night. ROS: As per HPI. Thirteen system review is otherwise negative other than as mentioned below and in HPI. PE: GENERAL: Alert, uncomfortable. In mild distress. Answers questions promptly and appropriately. Vital signs noted. HENT: Normocephalic, atraumatic. Hearing intact. Oral mucosa is pink and moist. EYES: Conjunctiva pink, sclera white, no periorbital swelling. CARDIOVASCULAR: Regular rate. No pedal edema. RESPIRATORY: Non-tachypneic, breathing comfortably on room air. Abdomen: Soft, distended, mild diffuse TTP, ostomy pouch in place. MUSCULOSKELETAL: Equal tone and mass bilaterally. SKIN: Warm, dry, soft, appropriate color for ethnicity. No other lesions, rashes, or wounds. NEURO: Alert and Oriented X 3. No gross sensory deficits, or cognitive issues. 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 visit if here longer than 1 d 10/01/19 17:38 Consult to Physician Routine Comment: Consulting Provider: Sidney Vila Reason for consultation: Depression Has provider been notified: Yes 10/01/19 18:29 Consult After Hours PICC Line RN Routine Comment: Picc for electrolyte replacement Discharge provider: Kylie Welch MD Exam Vital Signs (past 8 hours): - 10/06/19 08:20 Temperature 97.2 F L Pulse Rate 49 L Respiratory Rate 16 Blood Pressure 119/65 Pulse Oximetry 98 Oxygen Delivery Method Room Air Oxygen Flow Rate 0 Objective Imaging Multiple studies: My impression: Sitz marker study: normal transit CT abdomen: constipation without obstruction Gastric emptying: delayed, gastroparesis SBFT: normal transit NM parathyroid scan: left, possible right parathyroid adenoma NeckCT: right thyroid nodule, left thyroid adenoma Neck US: 1.2cm right thyroid nodule; left thyroid adenoma Labs Result Diagrams: 10/06/19 06:45 10/06/19 06:45 Labs: Laboratory Results - last 24 hr 10/06/19 10/06/19 10/06/19 06:45 06:45 06:45 WBC 8.2 RBC 3.69 L Hgb 9.0 L Hct 28.6 L MCV 77.6 L MCH 24.4 L MCHC 31.5 RDW 18.9 H Plt Count 269 Neut % (Auto) 52.0 Lymph % (Auto) 36.9 [place] % (Auto) 5.7 Eos % (Auto) 4.3 H Baso % (Auto) 1.1 Neut # (Auto) 4300 Lymph # (Auto) 3000 [place] # (Auto) 500 Eos # (Auto) 400 Baso # (Auto) 100 Sodium 139 Potassium 4.6 Chloride 106 Carbon Dioxide 32 BUN 13 Creatinine 0.69 Estimated GFR > 60.0 BUN/Creatinine Ratio 18.8 Glucose 91 Calcium 10.4 H Phosphorus 3.7 Magnesium 2.2 TSH 3.53 Discharge Plan Discharge Plan Patient Disposition: Home Discharge comment: Discharge recommendations: Continue Reglan 5mg TID 1-2 times per day irrigation of stoma to effect Regular diet Hold bowel regimen other than Reglan Sarah Jordan referral -- colorectal surgery, GI, pelvic floor and dysmotility evaluation ENT referral for parathyroid (Silver Hunt) Follow up with PCP, Dr. Harvey and Psych Dr. Vila Follow up with Dr. Welch as needed Eva Ferraro RN to follow for ostomy care Discharge orders & Medications Prescriptions: New metoclopramide HCl 5 mg tablet 5 mg PO Q8HR Qty: 90 RF: 6 Continued furosemide 20 mg tablet 20 mg PO DAILY RF: 0 citalopram 20 mg tablet 20 mg PO DAILY Qty: 90 RF: 1 diazepam 5 mg tablet 5 mg PO BID Qty: 30 RF: 0 estradiol [Estrace] 1 mg tablet 1 mg PO QDAY Qty: 90 RF: 3 bupropion HCl 150 mg tablet extended release 24 hr 450 mg PO QAM Qty: 90 RF: 5 omeprazole 20 mg capsule,delayed release(DR/EC) 20 mg PO BID Qty: 60 RF: 6 Discontinued polyethylene glycol 3350 [Miralax] 17 gram/dose powder 17 gram PO TID Qty: 510 RF: 6 Follow up/Referrals: Tammy Harvey MD [Primary Care Provider] - Silver Hunt MD [Physician] - (Can you please see this patient for diagnosed parathyroid adenoma? She has had NM scan, neck CT and US at and elevated calcium and PTH. We do not have intra op PTH at [place]. Would like to send her to you for parathyroidectomy. FYI She also has a right thyroid nodule which is 1.2cm and FNA was not recommended. ) Diet/Activity/Treatments Diet: Diet as Tolerated Activity: Keep active Skin/Wound/Dressing Care Report to your healthcare provider any signs of infection, such as:: chills, fever, night sweats, increased pain, unusual drainage and unusual redness Visit Report/Discharge Packet Instructions: DI for Constipation, Metoclopramide Visit Report Forms: Patient Portal/API, Stroke Signs & Symptoms Discharge Data Primary Care Provider: Tammy Harvey Discharges patient from system. Discharge Date/Time: 10/06/19 15:29 Quality VTE Deep Vein Thrombosis/Pulmonary Embolism Present on Admission: No
--- NOTE | 2019-10-06 15:22 | PC.NURSE ---
Discharge instructions reviewed with patient, she states understanding and has no further questions or concerns. Denies abdominal pain, n/v, or constipation. IV dc'd intact. Patient states she discussed plans for follow ups with referrals at length with Dr. Welch. Patient states she is comfortable and competent with irrigation at home, states she confirmed with Eva that supplies would be arriving tomorrow. Prescription sent in electronically to pharmacy. Patient escorted out via wheelchair with all belongings to be discharged to home with her family.
--- NOTE | 2019-10-06 15:47 | CM.DPC ---
DCP Discharge Home Per Surgeon, pt medically stable to d/c home today with close follow up outpt. sign wirer Eva was able to complete bedside irrigation with pt successfully even though last night pt was feeling tired of having ongoing bowel issues with long lasting pain. Per RN, pt feeling confident with irrigation and care at home with and son available to assist and supplies to arrive tomorrow for ongoing irrigation needs and close follow up with Eva sign wirer and Surgeon. Plan: Patient discharged home today via family POV and close follow up appointments with Surgeon and ongoing appointments at [facility] for additional support. SHELBY Arreola
== END 2019-10-06 15:29 | disposition home or self-care (01) | DRG 392 ==
LOC: ED 20:43 → AC 09-30 00:17
PROVIDERS: Family Medicine; Surgery; Admitting Provider Surgery; Emergency Provider Emergency Medicine; PCP Student in an Organized Health Care Education/Training Program; Referring Provider Surgery; Visit Provider Surgery
DX: K59.09 Other constipation (principal); F33.1 Major depressive disorder, recurrent, moderate; R11.2 Nausea with vomiting, unspecified; E87.6 Hypokalemia; E86.0 Dehydration; K31.84 Gastroparesis; F41.9 Anxiety disorder, unspecified; D35.1 Benign neoplasm of parathyroid gland; E21.3 Hyperparathyroidism, unspecified; E04.1 Nontoxic single thyroid nodule; Z93.3 Colostomy status
CPT/HCPCS: 36415; 36592; 70492; 74177; 74250; 76536; 78071; 78264; 80048; 80053; 81001; 82607; 82728; 82746; 83540; 83550; 83605; 83690; 83735; 84100; 84145; 84443; 85025; 87086; 90833; 96361; 96374; 96375; 96376; 99222; 99231; 99232; 99238; 99284; A9500; A9541; J1170; J1642; J2270; J2405; J3480; Q9967

== ENCOUNTER → 2019-10-26 14:20 | Outpatient (CLI) | payer OTHER, SELFPAY ==
[2019-09-30 01:12] VITALS: BMI 33.8
[2019-10-27 23:17] LABS: COVID19 Sendout Not Detected (Not Detect)
== END ==
PROVIDERS: PCP Student in an Organized Health Care Education/Training Program; Visit Provider Physician Assistant
DX: Z01.812 Encounter for preprocedural laboratory examination (principal)
CPT/HCPCS: 87635

== ENCOUNTER → 2019-12-07 14:03 | Outpatient (CLI) | payer OTHER, SELFPAY ==
[2019-09-30 01:12] VITALS: BMI 33.8
[2019-12-08 09:30] LABS: COVID19 Sendout Not Detected (Not Detect)
== END ==
PROVIDERS: PCP Student in an Organized Health Care Education/Training Program; Visit Provider Nurse Practitioner
DX: Z11.59 Encounter for screening for other viral diseases (principal)
CPT/HCPCS: 87635

== ENCOUNTER → 2019-12-17 15:12 | Outpatient (CLI) | payer OTHER, SELFPAY ==
[2019-09-30 01:12] VITALS: BMI 33.8
[2019-12-20 13:14] LABS: COVID19 Sendout Not Detected (Not Detect)
== END ==
PROVIDERS: PCP Student in an Organized Health Care Education/Training Program; Visit Provider Physician Assistant
DX: Z11.59 Encounter for screening for other viral diseases (principal)
CPT/HCPCS: 87635

== ENCOUNTER → 2019-12-24 13:16 | Outpatient (CLI) | payer OTHER, SELFPAY ==
[2019-09-30 01:12] VITALS: BMI 33.8
[2019-12-26 14:02] LABS: COVID19 Sendout Not Detected (Not Detect)
== END ==
PROVIDERS: PCP Student in an Organized Health Care Education/Training Program; Visit Provider Physician Assistant
DX: Z11.59 Encounter for screening for other viral diseases (principal)
CPT/HCPCS: 87635

== ENCOUNTER → 2019-12-24 13:48 | Outpatient (CLI) | payer OTHER, SELFPAY ==
[2019-09-30 01:12] VITALS: BMI 33.8
--- NOTE | 2019-12-24 | DI.RAD.S_ITS ---
PROCEDURE: XR CHEST 2V INDICATIONS: COUGH TECHNIQUE: 2 views of the chest were acquired. COMPARISON: [facility], CR, XR CHEST FOR PICC 1V, 04/30/2019, 16:44. [facility], CR, XR CHEST 1V, 04/28/2019, 12:35. FINDINGS: Surgical changes and devices: None. Lungs and pleura: Lungs are clear. No pleural effusions or pneumothorax. Mediastinum: Mediastinal contours are normal. Heart size is normal. Bones and chest wall: No suspicious bony abnormalities. Soft tissues appear unremarkable. IMPRESSION: Normal for age, source of current cough symptoms is not seen. Dictated by: Kulwinder Munoz M.D. on 12/24/2019 at 14:45 Approved by: Kulwinder Munoz M.D. on 12/24/2019 at 14:45
== END ==
PROVIDERS: PCP Student in an Organized Health Care Education/Training Program; Referring Provider Otolaryngology; Visit Provider Otolaryngology
DX: R05 Cough (principal)
CPT/HCPCS: 71046

== ENCOUNTER 2019-12-31 11:45 | Emergency (ER) | payer OTHER, SELFPAY ==
[2019-09-30 01:12] VITALS: BMI 33.8
[2019-12-31] VITALS (13 sets, daily range): BP systolic 105–131; BP diastolic 51–64; PULSE 64–88; RESP 12–29; TEMP 36.7; O2SAT 92–98; BMI 34.5
--- NOTE | 2019-12-31 12:01 | ED.ABDPAIN ---
HPI - Abdominal Pain General Chief Complaint: Abdominal Pain Stated Complaint: procedure done,leaking/smells Time Seen by Provider: 12/31/19 12:01 Source: patient Mode of arrival: Ambulatory History of Present Illness HPI narrative: 54-year-old woman with a history of multiple abdominal surgeries presents with acute abdominal pain. On December 26 she had a colostomy takedown and reanastomosis at [facility]. She was discharged home the following day after having a small bowel movement and pain completely controlled with oral Dilaudid. By the she was noticing increasing left upper quadrant pain radiating through to her back. This morning the dressing over the now closed left-sided ostomy site drained a copious amount of serosanguineous smelly fluid according to the patient. Her pain continues and is more noticeably radiating to the left flank and back. She is not sure she has had a fever because she has been taking large amounts of Tylenol and tramadol for the pain. The last dose of Dilaudid was 2 days ago. She notes that she is continuing to pass flatus but has not had a bowel movement since at 1 in the hospital Friday. The week prior to the abdominal surgery she also had a parathyroid surgery done at [facility] with Dr. Max. still has a slight sore throat from this but that seems to be healing nicely She describes no cough, palpitations, chest pain. No increased edema in the lower extremities, no headaches. She does have some mild nausea but more associated with pain than anything else. Related Data Home Medications Medication Instructions Recorded Confirmed furosemide 20 mg tablet 20 mg PO DAILY 09/29/19 12/15/19 omeprazole 20 mg capsule,delayed 40 mg PO DAILY cap 10/25/19 12/15/19 release Linaclotide 72 mcg PO DAILY PRN 12/03/19 12/15/19 Previous Rx's Medication Instructions Recorded estradiol 1 mg tablet 1 mg PO QDAY #90 tab 09/07/18 citalopram 20 mg tablet 20 mg PO DAILY #90 tab 09/29/19 alprazolam 0.5 mg tablet 0.5 mg PO BID PRN #60 tab 11/17/19 bupropion HCl 150 mg 24 hr tablet, 150 mg PO QAM #30 tab 12/15/19 extended release hydrocodone-acetaminophen 1 tab PO Q6H PRN #30 tab 12/31/19 Allergies Allergy/AdvReac Type Severity Reaction Status Date / Time latex Allergy Intermediate Rash Verified 12/31/19 11:50 codeine Allergy Mild VOMITING Verified 12/31/19 11:50 fluoxetine AdvReac Severe Agitated Verified 12/31/19 11:50 pain contract Allergy Unknown Uncoded 12/31/19 11:50 Review of Systems Review of Systems Narrative: Remainder of review of systems including constitutional, ENT, cardiovascular, respiratory, GI, , musculoskeletal, skin, neurologic and psychiatric systems reviewed and are unremarkable except as noted in HPI. Patient History Medical History Anxiety (Chronic 1999) Chronic back pain (Chronic 2008) Depression (Chronic 1999) Endometriosis (Resolved) External hemorrhoid, bleeding (Chronic) Fibroids (Resolved) Hypertension (Chronic) IBS (irritable bowel syndrome) (Chronic 1994) Lumbar spine pain (Chronic) Melanoma of face (Resolved 2013) Migraines (Chronic 1994) Ovarian cyst (Resolved 1984) Urinary incontinence (Chronic) Surgical History Anesthesia (Resolved) History of gynecologic surgery (Resolved 07/07/15) History of ovarian cystectomy (Resolved 1984) Status post delivery (Resolved 1990) Status post delivery (Resolved 1992) Status post colonoscopy (Resolved 10/22/06) Status post hysterectomy (Resolved 2008) Status post laparoscopic cholecystectomy (Resolved 2008) Family History Father Age: 73 Type 1 diabetes Grandfather Cancer Heart disease Hypertension Dementia Grandmother Age: 91 Heart disease Dementia Mother Age: 74 Depression Multiple personality disorder Suicide attempt Sister Age: 48 Depression Sister Homeless Family/Other Family history of thyroid problem Diabetes mellitus Family/Other Diabetes mellitus Family history of thyroid problem Social History household members: spouse and children Smoking Status: Never smoker alcohol intake: never Smoking Status: Never smoker alcohol intake frequency: 0-2 drinks per day Substance Use Type: does not use Exam Narrative Exam Narrative: General: Healthy appearing, in mild distress with abdominal pain Able to give a complete and coherent history. Well-nourished well-developed HEENT: Moist mucous membranes, normal sclera with reactive pupils, Neck: No JVD, supple Respiratory: Lungs are clear to auscultation, no wheezing no rales no rhonchi. Full and symmetrical air movement Cardiac: Regular rate and rhythm no murmurs no bruits Abdomen: Soft, postsurgical bruising as would be expected at trocar site. Left upper abdomen ostomy site is closed and seems to be healing nicely I am not able to express any additional fluid from the site. There is no erythema surrounding. overall abdomen is tender with mild guarding along the left side, no rebound. The left-sided abdominal pain does radiate to the left flank Skin: Warm and dry, well perfused. Bruising consistent with recent hospitalization and IV start. Neurologic: Grossly neurologically intact with no obvious asymmetries or abnormalities Extremities: No trauma, well perfused Psych: Cooperative, appropriate insight and affect Initial Vital Signs Initial Vital Signs: Vital Signs Pulse Rate 66 12/31/19 13:09 Respiratory Rate 22 12/31/19 13:09 Blood Pressure 130/60 12/31/19 13:09 Pulse Oximetry 98 12/31/19 13:09 Course Orders Ordered: ED Orders 12/31/19 12:10 Complete Blood Count AUTO DIFF Stat Comprehensive Metabolic Panel Stat Lactate (Lactic Acid) Stat Lipase Stat Partial Thromboplastin Time Stat Prothrombin Time INR Stat 12/31/19 12:11 CT abdomen pelvis w con Stat 12/31/19 13:15 Blood Culture Stat 12/31/19 15:06 Urinalysis and Microscopic Stat Discontinued Medications Hydromorphone HCl (Dilaudid) 1 mg IV NOW ONE Stop: 12/31/19 12:09 Last Admin: 12/31/19 12:24 Dose: 1 mg Documented by: DAVID Hydromorphone HCl (Dilaudid) 1 mg IV NOW ONE Stop: 12/31/19 14:43 Last Admin: 12/31/19 14:47 Dose: 1 mg Documented by: MARA Hydromorphone HCl (Dilaudid) 1 mg IV NOW ONE Stop: 12/31/19 16:35 Last Admin: 12/31/19 16:40 Dose: 1 mg Documented by: MARA Sodium Chloride (Normal Saline 0.9%) 1,000 mls @ 1,000 mls/hr IV BOLUS ONE Stop: 12/31/19 13:07 Last Infusion: 12/31/19 14:16 Dose: 0 mls/hr Documented by: Admin: 12/31/19 12:24 Dose: 1,000 mls/hr Documented by: DAVID Ondansetron HCl (Zofran) 4 mg IV NOW ONE Stop: 12/31/19 12:09 Last Admin: 12/31/19 12:24 Dose: 4 mg Documented by: DAVID Vital Signs Vital signs: Vital Signs - 8 hr 12/31/19 13:09 12/31/19 13:30 12/31/19 14:13 Pulse Rate 66 66 78 Respiratory Rate 22 18 22 Blood Pressure 130/60 125/64 Pulse Oximetry 98 93 12/31/19 14:30 12/31/19 15:00 12/31/19 15:30 Pulse Rate 70 66 Respiratory Rate 21 20 Blood Pressure 115/56 L 131/58 L Pulse Oximetry 95 95 12/31/19 16:00 12/31/19 16:30 12/31/19 17:05 Pulse Rate 68 72 88 Respiratory Rate 29 H 17 Blood Pressure Pulse Oximetry 96 95 92 MDM - Abdominal Pain Medical Records Attestation: I reviewed the patient's medical records. Medical records narrative: [place]-[address] Bond: Robot colostomy reversal with low anterior resection. Intraoperative immunofluorescence for arterial and bowel perfusion. Leksell sigmoidoscopy. Right adnexal cyst removal and partial salpingectomy. Cystoscopy with placement of bilateral ureteral stents Lab Data Attestation: I reviewed the patient's lab results. Result diagrams: 12/31/19 12:10 12/31/19 12:10 Labs: Lab Results 12/31/19 12/31/19 12/31/19 Range/Units 12:10 12:10 12:10 WBC 13.8 H (4.5-11.0) X10^3/uL RBC 3.92 L (4.0-5.2) X10^6/uL Hgb 8.9 L (12.0-16.0) g/dL Hct 28.6 L (36-46) % MCV 72.9 L (80-100) fL MCH 22.7 L (26-34) PG MCHC 31.1 (30-36) % RDW 18.2 H (11.6-14.8) % Plt Count 338 (150-400) X10^3/uL Neut % (Auto) 65.7 (50-75) % Lymph % (Auto) 18.6 L (25-40) % Orange % (Auto) 4.4 (3-14) % Eos % (Auto) 10.3 H (2-4) % Baso % (Auto) 1.0 (0-2) % Neut # (Auto) 9100 H (3944-7929) /uL Lymph # (Auto) 2600 (5868-9249) /uL Orange # (Auto) 600 (0-900) /uL Eos # (Auto) 1400 H (0-450) /uL Baso # (Auto) 100 (0-100) /uL PT 12.0 (10.1-12.7) SECONDS INR 1.0 (0.9-1.3) APTT 29 D (26.4-36.2) SECONDS Sodium 137 (137-145) mmol/L Potassium 3.1 L (3.4-5.1) mmol/L Chloride 96 L (98-107) mmol/L Carbon Dioxide 34 H (22-32) mmol/L BUN 9 (7-17) mg/dL Creatinine 0.70 (0.52-1.04) mg/dL Estimated GFR > 60.0 (>60) mL/min BUN/Creatinine Ratio 12.9 (6-22) Glucose 101 H (70-100) mg/dL Lactate (0.7-2.1) mmol/L Calcium 9.0 (8.4-10.2) mg/dL Total Bilirubin 0.5 (0.2-1.3) mg/dL AST 28 (14-36) IU/L ALT 20 (<35) IU/L Alkaline Phosphatase 94 (38-126) U/L Total Protein 7.2 (6.3-8.2) g/dL Albumin 3.7 (3.5-5.0) g/dL Globulin 3.5 (1.7-4.1) g/dL Albumin/Globulin Ratio 1.1 (1.0-2.8) Lipase 41 (23-300) U/L Urine Color Urine Appearance Urine pH (4.5-8.0) Ur Specific [place] (1.000-1.035) Urine Protein (Negative) Urine Glucose (UA) (Negative) g/dL Urine Ketones (NEGATIVE) Urine Occult Blood (Negative) Urine Nitrate (Negative) Urine Bilirubin (NEGATIVE) Urine Urobilinogen (0.2) E.U./dL Ur Leukocyte Esterase (NEGATIVE) Urine RBC (0-5/HPF) Urine WBC (0-5/HPF) Ur Squamous Epith Cells (0-5/HPF) Urine Bacteria (None) Ur Culture Indicated? 12/31/19 12/31/19 Range/Units 12:10 15:06 WBC (4.5-11.0) X10^3/uL RBC (4.0-5.2) X10^6/uL Hgb (12.0-16.0) g/dL Hct (36-46) % MCV (80-100) fL MCH (26-34) PG MCHC (30-36) % RDW (11.6-14.8) % Plt Count (150-400) X10^3/uL Neut % (Auto) (50-75) % Lymph % (Auto) (25-40) % Orange % (Auto) (3-14) % Eos % (Auto) (2-4) % Baso % (Auto) (0-2) % Neut # (Auto) (2546-6890) /uL Lymph # (Auto) (2147-0341) /uL Orange # (Auto) (0-900) /uL Eos # (Auto) (0-450) /uL Baso # (Auto) (0-100) /uL PT (10.1-12.7) SECONDS INR (0.9-1.3) APTT (26.4-36.2) SECONDS Sodium (137-145) mmol/L Potassium (3.4-5.1) mmol/L Chloride (98-107) mmol/L Carbon Dioxide (22-32) mmol/L BUN (7-17) mg/dL Creatinine (0.52-1.04) mg/dL Estimated GFR (>60) mL/min BUN/Creatinine Ratio (6-22) Glucose (70-100) mg/dL Lactate 1.1 (0.7-2.1) mmol/L Calcium (8.4-10.2) mg/dL Total Bilirubin (0.2-1.3) mg/dL AST (14-36) IU/L ALT (<35) IU/L Alkaline Phosphatase (38-126) U/L Total Protein (6.3-8.2) g/dL Albumin (3.5-5.0) g/dL Globulin (1.7-4.1) g/dL Albumin/Globulin Ratio (1.0-2.8) Lipase (23-300) U/L Urine Color Yellow Urine Appearance Clear Urine pH 8.0 (4.5-8.0) Ur Specific [place] <=1.005 (1.000-1.035) Urine Protein Negative (Negative) Urine Glucose (UA) Negative (Negative) g/dL Urine Ketones Negative (NEGATIVE) Urine Occult Blood Negative (Negative) Urine Nitrate Negative (Negative) Urine Bilirubin Negative (NEGATIVE) Urine Urobilinogen 0.2 (0.2) E.U./dL Ur Leukocyte Esterase Negative (NEGATIVE) Urine RBC None seen (0-5/HPF) Urine WBC 0-1/hpf (0-5/HPF) Ur Squamous Epith Cells 0-1 /hpf (0-5/HPF) Urine Bacteria None seen (None) Ur Culture Indicated? Cult not indicated Point of care testing: Urine Dip Bedside Urine Glucose Negative Bedside Urine Bilirubin - Negative Bedside Urine Ketone - Negative Urine Specific [place] 1.000 Bedside Urine Occult Blood - Negative Bedside Urine pH 8.5 Bedside Urine Protein - Negative Bedside Urine Urobilinogen - Negative Bedside Urine Nitrite - Negative Bedside Urine Leukocytes - Negative Esterase Imaging Data CT scan - abdomen/pelvis: Radiologist's Impression: FINDINGS: Image quality: Excellent. ABDOMEN: Lung bases: Lung bases are clear. Heart size is normal. Solid organs: Liver is normal in size and enhancement. Gallbladder is surgically absent.. Biliary system is non dilated. Pancreas enhances normally. Spleen is normal in size and enhancement. No adrenal nodules. Kidneys demonstrate normal size and enhancement, without hydronephrosis. Peritoneum and bowel: Interval takedown of left lower quadrant colostomy. Question early abscess cavity formation in subcutaneous tissues at the site of previous colostomy. There are flecks of air in a collection of subcutaneous fluid without a well-defined wall identified. The area with developing fluid measures approximately 4.1 x 7.5 cm. There is been reattachment at the level of the rectosigmoid. The rectum has diffuse mild wall thickening. No pelvic abscess is identified. There is minimal presacral fluid. The vagina is filled with air. Large amount of fecal debris present in the cecum and ascending colon. Nodes and vessels: No retroperitoneal or mesenteric adenopathy by size criteria. Aorta and inferior vena cava are normal in size. Miscellaneous: No ventral hernias. PELVIS: Genitourinary: Bladder wall thickness is normal. Miscellaneous: No inguinal hernias or adenopathy. Bones: No suspicious bony lesions. No vertebral body compression fractures. IMPRESSION: 1. Interval takedown of colostomy and reanastomosis at the level of the rectosigmoid junction. 2. Question postsurgical change versus early abscess formation in the subcutaneous tissues in the region of previous colostomy. 3. The wall of the rectum is mildly diffusely thickened. 4. Vagina is filled with air. This may potentially be a normal finding, or can potentially represent evidence of a colovaginal fistula. 5. Large amount of right colonic fecal debris. Dictated by: Skyler Watkins M.D. on 12/31/2019 at 13:59 MDM Narrative Medical decision making narrative: 54-year-old woman who is 4 days post bowel surgery. Concerned about drainage from her ostomy site CT scan is reviewed in real time with her surgeon at [facility]. He is reassured with each of her complaints and the findings on the CT scan that there is no significant pathology or need for additional hospital stays. The ostomy takedown site does have a seroma and it is draining appropriately he did not feel antibiotics were required. There is no evidence of intra-abdominal mass or abscess. She has quite a bit of stool in the right colon and he has recommended that she continue her Linzess and get restarted on her MiraLax. Regarding pain control if the Dilaudid is ineffective then we can provide other options. In discussion with her, she notes that [place] tends to work better for pain control than the oral Dilaudid even at higher doses has. Will give her prescription for [place]. She is safe for home discharge. Dr. Seo he is on-call this weekend and said he will contact his patient in follow-up to make sure that she is continuing to improve. At this point she is safe for home discharge Discharge Plan Departure Patient Disposition: Home Clinical Impression: Seroma after procedure, Post-operative pain Instructions: DI for Postoperative Pain Activity Restrictions/Additional Instructions: Thank you for coming in today Dr. Simianu and I reviewed your CT scan together. You do not have an abscess or infection inside your belly. All of the anastomoses look like they are supposed to. There is a small collection of fluid just under the skin at the previous ostomy site. This is not uncommon. It is absolutely okay and encouraged to let it drain. If it looks like that side is becoming red or more swollen it would be appropriate to return to the emergency department. He did recommend that you continue your Linzess and restart your MiraLax to help with constipation For pain control I will give you a prescription for hydrocodone as you feel that it is more beneficial than oral Dilaudid. The pain you are experiencing is very likely normal levels of pain after this type of surgery. If you new or developing complaints or concerns, please feel free to return to the emergency department Prescriptions: New hydrocodone-acetaminophen 10-325 mg tablet 1 tab PO Q6H PRN (Reason: pain) Qty: 30 RF: 0 No Action omeprazole 20 mg capsule,delayed release(DR/EC) 40 mg PO DAILY RF: 0 Linaclotide 72 mcg PO DAILY PRN (Reason: nausea ) RF: 0 bupropion HCl 150 mg tablet extended release 24 hr 150 mg PO QAM Qty: 30 RF: 0 furosemide 20 mg tablet 20 mg PO DAILY RF: 0 citalopram 20 mg tablet 20 mg PO DAILY Qty: 90 RF: 1 estradiol [Estrace] 1 mg tablet 1 mg PO QDAY Qty: 90 RF: 3 alprazolam 0.5 mg tablet 0.5 mg PO BID PRN (Reason: severe anxiety ) Qty: 60 RF: 1 Referrals: Tammy Harvey MD [Primary Care Provider] -
--- NOTE | 2019-12-31 12:11 | DI.CT.S_ITS ---
PROCEDURE: CT ABDOMEN PELVIS W CON INDICATIONS: increasing pain, colostomy takedown on 12/26 TECHNIQUE: After the administration of intravenous contrast, 5 mm thick sections acquired from the diaphragm to the symphysis. 5 mm coronal and sagittal reformats were acquired. For radiation dose reduction, the following was used: automated exposure control, adjustment of mA and/or kV according to patient size. COMPARISON: [facility], CT, CT ABDOMEN PELVIS W CON, 09/29/2019, 22:15. FINDINGS: Image quality: Excellent. ABDOMEN: Lung bases: Lung bases are clear. Heart size is normal. Solid organs: Liver is normal in size and enhancement. Gallbladder is surgically absent.. Biliary system is non dilated. Pancreas enhances normally. Spleen is normal in size and enhancement. No adrenal nodules. Kidneys demonstrate normal size and enhancement, without hydronephrosis. Peritoneum and bowel: Interval takedown of left lower quadrant colostomy. Question early abscess cavity formation in subcutaneous tissues at the site of previous colostomy. There are flecks of air in a collection of subcutaneous fluid without a well-defined wall identified. The area with developing fluid measures approximately 4.1 x 7.5 cm. There is been reattachment at the level of the rectosigmoid. The rectum has diffuse mild wall thickening. No pelvic abscess is identified. There is minimal presacral fluid. The vagina is filled with air. Large amount of fecal debris present in the cecum and ascending colon. Nodes and vessels: No retroperitoneal or mesenteric adenopathy by size criteria. Aorta and inferior vena cava are normal in size. Miscellaneous: No ventral hernias. PELVIS: Genitourinary: Bladder wall thickness is normal. Miscellaneous: No inguinal hernias or adenopathy. Bones: No suspicious bony lesions. No vertebral body compression fractures. IMPRESSION: 1. Interval takedown of colostomy and reanastomosis at the level of the rectosigmoid junction. 2. Question postsurgical change versus early abscess formation in the subcutaneous tissues in the region of previous colostomy. 3. The wall of the rectum is mildly diffusely thickened. 4. Vagina is filled with air. This may potentially be a normal finding, or can potentially represent evidence of a colovaginal fistula. 5. Large amount of right colonic fecal debris. Dictated by: Skyler Watkins M.D. on 12/31/2019 at 13:59 Approved by: Skyler Watkins M.D. on 12/31/2019 at 14:04
[2019-12-31 12:20] LABS: Add Manual Diff / Slide Review NO; Basophils Absolute Auto 100 /uL (0-100); Eosinophils Absolute Auto 1400 /uL (0-450); Eosinophils Percent Auto 10.3 % (2-4); Hematocrit 28.6 % (36-46); Hemoglobin 8.9 g/dL (12.0-16.0); Lymphocytes Absolute Auto 2600 /uL (1100-4500); Lymphocytes Percent Auto 18.6 % (25-40); Mean Corpuscular HGB Conc 31.1 % (30-36); Mean Corpuscular Hemoglobin 22.7 PG (26-34); Mean Corpuscular Volume 72.9 fL (80-100); Monocytes Absolute Auto 600 /uL (0-900); Monocytes Percent Auto 4.4 % (3-14); Neutrophils Absolute Auto 9100 /uL (1500-7000); Neutrophils Percent Auto 65.7 % (50-75); Platelet Count 338 X10^3/uL (150-400); Red Blood Cell Count 3.92 X10^6/uL (4.0-5.2); Red Cell Distribution Width 18.2 % (11.6-14.8); White Blood Cell Count 13.8 X10^3/uL (4.5-11.0)
[2019-12-31] MEDS: SODIUM CHLORIDE 0.9% 1,000 ML 1000 ML IV (12:24)
[2019-12-31] MEDS: ONDANSETRON 4 MG/2 ML INJ IV (12:24)
[2019-12-31] MEDS: HYDROMORPHONE 1 MG INJ IV ×3 (12:24→16:40)
[2019-12-31 12:28] LABS: PTT Partial Thromboplastin Tim 29 SECONDS (26.4-36.2)
[2019-12-31 12:32] LABS: Lactate (Lactic Acid) 1.1 mmol/L (0.7-2.1)
[2019-12-31 12:33] LABS: Alanine Aminotransferase 20 IU/L (<35); Albumin 3.7 g/dL (3.5-5.0); Albumin Globulin Ratio 1.1 (1.0-2.8); Alkaline Phosphatase 94 U/L (38-126); Aspartate Aminotransferase 28 IU/L (14-36); BUN Creatinine Ratio 12.9 (6-22); Bilirubin Total 0.5 mg/dL (0.2-1.3); Blood Urea Nitrogen 9 mg/dL (7-17); Carbon Dioxide 34 mmol/L (22-32); Chloride 96 mmol/L (98-107); Estimated Glomerular Filt Rate > 60.0 mL/min (>60); Globulin 3.5 g/dL (1.7-4.1); Glucose 101 mg/dL (70-100); HEMOLYSIS < 15 (0-50); Lipase 41 U/L (23-300); Potassium 3.1 mmol/L (3.4-5.1); Sodium 137 mmol/L (137-145); Total Protein 7.2 g/dL (6.3-8.2)
[2019-12-31 15:23] LABS: Appearance Urine UA CLEAR; Bacteria Urine None Seen; Bilirubin Urine UA NEGATIVE (NEGATIVE); Color Urine UA YELLOW; Glucose Urine UA NEGATIVE (Negative); Ketones Urine UA NEGATIVE (NEGATIVE); Leukocyte Esterase Urine UA NEGATIVE (NEGATIVE); Nitrite Urine UA NEGATIVE (Negative); Occult Blood Urine UA NEGATIVE (Negative); Protein Urine UA NEGATIVE (Negative); RBC Urine None Seen (0-5/HPF); Specific Gravity Urine UA <=1.005 (1.000-1.035); Urobilinogen Urine UA 0.2 E.U./dL (0.2)
[2019-12-31 15:43] LABS: Culture Indicated Urine Cult Not Indicated; Squamous Epithelial Cell Urine 0-1 /HPF (0-5/HPF); WBC Urine 0-1/HPF (0-5/HPF)
== END 2019-12-31 18:34 | disposition home or self-care (01) ==
PROVIDERS: Emergency Provider Emergency Medicine; PCP Student in an Organized Health Care Education/Training Program
DX: L76.34 Postprocedural seroma of skin and subcutaneous tissue following other procedure (principal); G89.18 Other acute postprocedural pain
CPT/HCPCS: 36415; 74177; 80053; 81001; 81003; 83605; 83690; 85025; 85610; 85730; 87040; 96361; 96374; 96375; 96376; 99284; J1170; J2405; Q9967

== ENCOUNTER → 2020-06-10 12:50 | Outpatient (CLI) | payer OTHER, SELFPAY ==
[2020-06-02 15:15] VITALS: BMI 33.8
--- NOTE | 2020-06-10 | DI.MG.S_ITS ---
BILATERAL DIGITAL SCREENING MAMMOGRAM 3D/2D WITH CAD: 06/10/2020 CLINICAL: Routine screening. Comparison is made to exams dated: 10/23/2007 mammogram and 10/16/2007 mammogram - [facility]. There are scattered fibroglandular elements in both breasts. Current study was also evaluated with a Computer Aided Detection (CAD) system. There are benign calcifications in both breasts. No significant masses, calcifications, or other findings are seen in either breast. There has been no significant interval change. IMPRESSION: BENIGN There is no mammographic evidence of malignancy. A 1 year screening mammogram is recommended. This exam was interpreted at Station ID: [id number]. NOTE: For mammograms, a report in lay terms will be sent to the patient. Approximately 15% of breast malignancies will not be visualized mammographically. In the management of a palpable breast mass, a negative mammogram must not discourage biopsy of a clinically suspicious lesion. Electronically Signed By: Patrick [email or web address]/jaki:06/12/2020 08:15:50 letter sent: Normal Exam ACR BI-RADS Category 2: Benign Finding(s) 3342F
== END ==
PROVIDERS: PCP Student in an Organized Health Care Education/Training Program; Referring Provider Student in an Organized Health Care Education/Training Program; Visit Provider Student in an Organized Health Care Education/Training Program
DX: Z12.31 Encounter for screening mammogram for malignant neoplasm of breast (principal)
CPT/HCPCS: 77063; 77067

== ENCOUNTER 2021-07-03 17:55 | Emergency (ER) | payer OTHER, SELFPAY ==
[2021-05-31 09:56] VITALS: BMI 33.8
[2021-07-03] VITALS (15 sets, daily range): BP systolic 111–147; BP diastolic 58–79; PULSE 57–80; RESP 18–20; TEMP 36.6–37; O2SAT 92–99
--- NOTE | 2021-07-03 19:00 | ED_ITS ---
HPI - GI Bleed General Chief complaint: GI Bleed Stated complaint: NEEDS A TRANSFUSION Time Seen by Provider: 07/03/21 18:04 Source: patient Mode of arrival: Ambulatory History of Present Illness HPI Narrative: 55-year-old woman with a history of multiple GI issues as well as hyperparathyroidism. She has a history of chronic constipation which resulted in stercoral ulcer that was treated with colonic resection, Endy pouch with eventually take down and reanastomosis approximately a year later. She has also had 2 parathyroid glands removed due to continued hypophosphatemia, hypokalemia and with concerns that it may have been contributing to her chronic constipation. She has been having difficulty with follow-up with primary care as well as Gastroenterology due to Covid19. She did eventually have some of her GI care addressed at [facility]. She is our primary care doctor a couple of days ago with routine blood work done and found to be significantly anemic with complaints of recurrent bright red blood per rectum for the past 3 months. She also reports of fullness to the right side of her neck and is concerned about recurrent parathyroid issues as well. She is sent to the emergency room for further evaluation as she continues to have bright red blood per rectum and is significantly anemic. She complains of significant fatigue, nausea no vomiting distended abdomen but not particularly painful. She has cold but reports no fevers. She notes she has had no energy she is dizzy when she stands up she has had palpitation she has been short of breath and on Friday, 3 days ago, she was noticing worsening abdominal pain. Related Data Home Medications Medication Instructions Recorded Confirmed omeprazole 20 mg capsule,delayed 40 mg PO DAILY cap 10/25/19 05/11/21 release chlorthalidone 25 mg tablet 25 mg PO DAILY tab 03/15/20 05/11/21 docusate sodium 100 mg capsule 100 mg PO DAILY 07/12/20 05/11/21 (Colace) Previous Rx's Medication Instructions Recorded estradiol 1 mg tablet (Estrace) 1 mg PO QDAY #90 tab 09/07/18 alprazolam 0.5 mg tablet See Rx Instructions PO .COMPLEX 05/11/21 PRN #120 tab MDD 2MG bupropion HCl 150 mg 24 hr tablet, 300 mg PO QAM #180 tab 05/11/21 extended release citalopram 20 mg tablet 20 mg PO DAILY #90 tab 05/11/21 Allergies Allergy/AdvReac Type Severity Reaction Status Date / Time latex Allergy Intermediate Rash Verified 01/24/21 14:52 codeine Allergy Mild VOMITING Verified 01/24/21 14:52 fluoxetine AdvReac Severe Agitated Verified 01/24/21 14:52 lamotrigine AdvReac Intermediate vertigo Verified 01/24/21 14:52 (100mg); migraines (200mg) pain contract Allergy Unknown Uncoded 12/01/20 13:25 Review of Systems Review of Systems Narrative: Remainder of complete review of systems is otherwise unremarkable except for that included in the HPI. Patient History Medical History Acute GI bleeding Anxiety (1999) Chronic back pain (2008) Colostomy present Colostomy prolapse Depression (1999) Disturbance in sleep behavior (12/25/15) Endometriosis External hemorrhoid, bleeding Fibroids Hypertension IBS (irritable bowel syndrome) (1994) Large bowel obstruction Lumbar spine pain Melanoma of face (2013) Migraines (1994) NSAID long-term use Ovarian cyst (1984) Urinary incontinence Surgical History Anesthesia History of gynecologic surgery (07/07/15) History of ovarian cystectomy (1984) Status post delivery (1990) Status post delivery (1992) Status post colonoscopy (10/22/06) Status post hysterectomy (2008) Status post laparoscopic cholecystectomy (2008) Family History Father Age: 74 Type 1 diabetes Grandfather Cancer Heart disease Hypertension Dementia Grandmother Age: 92 Heart disease Dementia Mother Age: 75 Depression Multiple personality disorder Suicide attempt Sister Age: 49 Depression Sister Homeless Family/Other Family history of thyroid problem Diabetes mellitus Family/Other Diabetes mellitus Family history of thyroid problem Social History household members: spouse and children Smoking Status: Never smoker alcohol intake: never Smoking Status: Never smoker alcohol intake frequency: 0-2 drinks per day Substance Use Type: does not use Exam Initial Vital Signs Initial Vital Signs: Vital Signs Temperature 98.6 F 07/03/21 17:59 Pulse Rate 80 07/03/21 17:59 Respiratory Rate 18 07/03/21 17:59 Blood Pressure 147/65 H 07/03/21 17:59 Pulse Oximetry 99 07/03/21 17:59 General: Healthy appearing, in no acute distress. Able to give a complete and coherent history. Well-nourished well-developed HEENT: Moist mucous membranes, normal sclera with reactive pupils, Neck: mild thyroid fullness on the right side of the neck without palpable nodules or thyroid bruits, supple Respiratory: Lungs are clear to auscultation, no wheezing no rales no rhonchi. Full and symmetrical air movement Cardiac: Mild tachycardia otherwise Regular rate and rhythm no murmurs no bruits Abdomen: Soft, mild distension mild diffuse tenderness, no rebound or guarding, no flank pain Skin: Pale, Warm and dry, no rashes Neurologic: Grossly neurologically intact with no obvious asymmetries or abnormalities Extremities: No trauma, well perfused Psych: Cooperative, appropriate insight and affect Course Orders Ordered: ED Orders 07/03/21 20:30 COVID19 -Nasal swab/Pre-Proc Stat 07/03/21 20:37 Complete Blood Count AUTO DIFF Stat PRBC [Packed Cells] Stat Type and Screen Stat 07/03/21 20:40 CT chest abd pel w con Stat CT soft tissue neck w con Stat 07/03/21 21:00 Urinalysis and Microscopic Stat Vital Signs Vital signs: Vital Signs - 8 hr 07/03/21 21:36 07/03/21 22:00 07/03/21 22:30 Temperature Pulse Rate 67 60 57 L Respiratory Rate Blood Pressure Pulse Oximetry 97 96 96 07/03/21 23:00 07/03/21 23:30 07/03/21 23:31 Temperature Pulse Rate 57 L 60 61 Respiratory Rate Blood Pressure 123/60 Pulse Oximetry 95 96 97 07/03/21 23:57 07/04/21 00:00 07/04/21 00:15 Temperature 97.8 F 97.6 F Pulse Rate 62 61 53 L Respiratory Rate 20 18 Blood Pressure 122/66 121/71 123/60 Pulse Oximetry 96 96 96 07/04/21 00:30 07/04/21 00:45 07/04/21 01:00 Temperature Pulse Rate 57 L 55 L 93 H Respiratory Rate Blood Pressure 109/57 L 108/56 L Pulse Oximetry 95 95 95 07/04/21 01:01 07/04/21 01:15 07/04/21 01:30 Temperature Pulse Rate 93 H 56 L 57 L Respiratory Rate Blood Pressure 105/76 115/57 L Pulse Oximetry 96 95 95 07/04/21 01:31 07/04/21 01:51 07/04/21 02:00 Temperature 97.6 F Pulse Rate 57 L 56 L 60 Respiratory Rate 16 Blood Pressure 123/58 L 116/57 L 119/69 Pulse Oximetry 95 96 95 07/04/21 02:04 07/04/21 02:15 07/04/21 02:16 Temperature 97.8 F 97.4 F L Pulse Rate 61 60 58 L Respiratory Rate 18 16 Blood Pressure 119/69 120/67 120/67 Pulse Oximetry 95 07/04/21 02:24 07/04/21 02:30 07/04/21 02:45 Temperature Pulse Rate 60 Respiratory Rate Blood Pressure 119/68 127/72 Pulse Oximetry 94 07/04/21 03:00 07/04/21 03:30 07/04/21 04:01 Temperature Pulse Rate Respiratory Rate Blood Pressure 129/74 132/61 123/60 Pulse Oximetry 07/04/21 04:02 07/04/21 04:03 Temperature 97.4 F L Pulse Rate 53 L 55 L Respiratory Rate 16 Blood Pressure 123/60 Pulse Oximetry 94 MDM - GI Bleed Lab Data Result diagrams: 07/03/21 20:37 07/03/21 19:15 Labs: Lab Results 07/03/21 07/03/21 07/03/21 Range/Units 19:15 19:15 20:30 WBC (4.5-11.0) X10^3/uL RBC (4.0-5.2) X10^6/uL Hgb (12.0-16.0) g/dL Hct (36-46) % MCV (80-100) fL MCH (26-34) PG MCHC (30-36) % RDW (11.6-14.8) % Plt Count (150-400) X10^3/uL Neut % (Auto) (50-75) % Lymph % (Auto) (25-40) % [place] % (Auto) (3-14) % Eos % (Auto) (2-4) % Baso % (Auto) (0-2) % Neut # (Auto) (7481-1333) /uL Lymph # (Auto) (0190-2106) /uL [place] # (Auto) (0-900) /uL Eos # (Auto) (0-450) /uL Baso # (Auto) (0-100) /uL Plt Morphology Comment RBC Morphology Polychromasia Hypochromasia Anisocytosis Microcytosis Sodium 137 (137-145) mmol/L Potassium 3.2 L (3.4-5.1) mmol/L Chloride 98 (98-107) mmol/L Carbon Dioxide 28 (22-32) mmol/L BUN 23 H (7-17) mg/dL Creatinine 0.88 (0.52-1.04) mg/dL Estimated GFR > 60.0 (>60) mL/min BUN/Creatinine Ratio 26.1 H (6-22) Glucose 97 (70-100) mg/dL Calcium 10.7 H (8.4-10.2) mg/dL Magnesium 1.9 (1.6-2.3) mg/dL Total Bilirubin 0.4 (0.2-1.3) mg/dL AST 34 (14-36) IU/L ALT 18 (<35) IU/L Alkaline Phosphatase 62 (38-126) U/L Total Protein 8.2 (6.3-8.2) g/dL Albumin 4.6 (3.5-5.0) g/dL Globulin 3.6 (1.7-4.1) g/dL Albumin/Globulin Ratio 1.3 (1.0-2.8) Procalcitonin 0.07 (<0.5) ng/mL Urine Color Urine Appearance Urine pH (4.5-8.0) Ur Specific [place] (1.000-1.035) Urine Protein (Negative) Urine Glucose (UA) (Negative) g/dL Urine Ketones (NEGATIVE) Urine Occult Blood (Negative) Urine Nitrate (Negative) Urine Bilirubin (NEGATIVE) Urine Urobilinogen (0.2) E.U./dL Ur Leukocyte Esterase (NEGATIVE) Urine RBC (0-5/HPF) Urine WBC (0-5/HPF) Ur Squamous Epith Cells (0-5/HPF) Urine Bacteria (None) Hyaline Casts (None) Ur Culture Indicated? SARS-CoV-2 (PCR) Negative (Negative) Blood Type Antibody Screen Crossmatch 07/03/21 07/03/21 07/03/21 Range/Units 20:37 20:37 21:00 WBC 10.7 (4.5-11.0) X10^3/uL RBC 3.91 L (4.0-5.2) X10^6/uL Hgb 7.1 L (12.0-16.0) g/dL Hct 23.9 L (36-46) % MCV 61.1 L (80-100) fL MCH 18.1 L (26-34) PG MCHC 29.5 L (30-36) % RDW 24.0 H (11.6-14.8) % Plt Count 212 (150-400) X10^3/uL Neut % (Auto) 54.9 (50-75) % Lymph % (Auto) 37.3 (25-40) % [place] % (Auto) 4.8 (3-14) % Eos % (Auto) 2.1 (2-4) % Baso % (Auto) 0.9 (0-2) % Neut # (Auto) 5900 (2524-2250) /uL Lymph # (Auto) 4000 (2197-4207) /uL [place] # (Auto) 500 (0-900) /uL Eos # (Auto) 200 (0-450) /uL Baso # (Auto) 100 (0-100) /uL Plt Morphology Comment 1+ giant platelets RBC Morphology See below Polychromasia 1+ H Hypochromasia 2+ H Anisocytosis 3+ H Microcytosis 3+ H Sodium (137-145) mmol/L Potassium (3.4-5.1) mmol/L Chloride (98-107) mmol/L Carbon Dioxide (22-32) mmol/L BUN (7-17) mg/dL Creatinine (0.52-1.04) mg/dL Estimated GFR (>60) mL/min BUN/Creatinine Ratio (6-22) Glucose (70-100) mg/dL Calcium (8.4-10.2) mg/dL Magnesium (1.6-2.3) mg/dL Total Bilirubin (0.2-1.3) mg/dL AST (14-36) IU/L ALT (<35) IU/L Alkaline Phosphatase (38-126) U/L Total Protein (6.3-8.2) g/dL Albumin (3.5-5.0) g/dL Globulin (1.7-4.1) g/dL Albumin/Globulin Ratio (1.0-2.8) Procalcitonin (<0.5) ng/mL Urine Color Yellow Urine Appearance Clear Urine pH 6.0 (4.5-8.0) Ur Specific [place] 1.020 (1.000-1.035) Urine Protein Negative (Negative) Urine Glucose (UA) Negative (Negative) g/dL Urine Ketones Negative (NEGATIVE) Urine Occult Blood Negative (Negative) Urine Nitrate Negative (Negative) Urine Bilirubin Negative (NEGATIVE) Urine Urobilinogen 0.2 (0.2) E.U./dL Ur Leukocyte Esterase Negative (NEGATIVE) Urine RBC None seen (0-5/HPF) Urine WBC None seen (0-5/HPF) Ur Squamous Epith Cells 0-1 /hpf (0-5/HPF) Urine Bacteria Few (2-10) H (None) Hyaline Casts 0-1/lpf (None) Ur Culture Indicated? Cult not indicated SARS-CoV-2 (PCR) (Negative) Blood Type B Positive Antibody Screen Negative Crossmatch See Detail Imaging Data CT soft tissue neck: Radiologist's Impression: FINDINGS:? Image quality:? Excellent.? ? Lymph nodes:? No enlarged lymph nodes seen throughout the neck.? ? Vessels:? Visualized vasculature appears patent.? ? Neck spaces:? In this patient with this given history, scrutiny is given to parathyroid bed.? The previously seen left parathyroid nodule is no longer seen.? No significant inflammatory changes are seen.? No abnormal gas collections can be seen.? Negative for abscess. ? The oropharynx, nasopharynx, and pharynx demonstrate no mucosal lesions.? The vocal cords, false vocal cords, pyriform sinuses, epiglottis, vallecula, and tongue base all appear normal.? ? Glands:? The parotid and submandibular glands appear normal.? Thyroid gland is mildly lobulated on the right side..? ? Miscellaneous:? Visualized brain and orbits appear normal.? Lung apices appear clear.? Superficial soft tissues appear normal. ? Bones:? No suspicious bony lesions.? Visualized sinuses and mastoids appear unremarkable. ? ? ? IMPRESSION:? No postoperative complication can be seen.? No abscess or signal inflammatory changes are seen.? ? The previously seen left parathyroid nodule has been resected. ? ? ? Dictated by: Heron Kimble M.D. on 07/03/2021 at 20:51 ? ? CT scan - abdomen/pelvis: Radiologist's Impression: FINDINGS:? Image quality:? Excellent.? ? CHEST: Lower Neck: No enlarged lymph nodes.? Thyroid:? The thyroid is lobulated, particularly on the right side.? Axillae: No enlarged lymph nodes. Chest Wall:? Unremarkable.? ? Lungs and Airways: No consolidation or suspicious nodules. Pleura: No pneumothorax or pleural effusions.? ? Heart: Heart size is normal.? No pericardial effusion. Thoracic Vessels: The aorta and pulmonary arteries demonstrate normal size.? Mediastinum and Coretta: No enlarged lymph nodes.? Esophagus: No wall thickening.? There is a small hiatal hernia. ? ? ABDOMEN: Liver:? Unremarkable.? ? Gallbladder:? Resected.? ? Biliary ducts:? Unremarkable.? ? Pancreas:? Unremarkable.? ? Spleen:? Unremarkable.? ? Adrenal Glands:? Unremarkable.? ? Kidneys and Ureters:? Unremarkable.? ? ? Stomach and Bowel:? Stomach, small bowel loops, and colon are unremarkable.? There is an anastomotic staple line seen involving the distal sigmoid.? There is a moderate amount of stool seen within the mid:, yet the descending colon is decompressed. Peritoneum:? No abnormal intraperitoneal fluid.? No free air.? ? Ventral Wall: A mild periumbilical hernia is seen, containing fat. ? The previously seen inflammatory changes of the left anterior abdominal wall are no longer seen. Abdominal Nodes:? No retroperitoneal or mesenteric adenopathy by size criteria.? Vessels:? Aorta and inferior vena cava are normal in size.? ? PELVIS: Pelvic Organs:? Unremarkable.? ? Bladder:? Unremarkable.? ? Pelvic Nodes: No enlarged lymph nodes.? Miscellaneous: No inguinal hernias are seen. ? ? ? Bones:? Age-appropriate bony degenerative changes are seen. This patient has transitional lumbar anatomy.? Twelve pairs of ribs are seen.? Five normal appearing lumbar type vertebral bodies are seen.? The S1 level is transitional and is partially lumbarized, particularly on the right side. ? IMPRESSION:? There is a moderate amount of stool seen within the majority of the colon, although the distal descending colon is relatively decompressed. Please correlate with an underlying history of constipation.? Incidental note is made of: Small hiatal hernia Cholecystectomy Fat containing periumbilical hernia Sigmoid anastomotic staple line Transitional lumbar anatomy, with a partially lumbarized S1 segment ? ? ? Dictated by: Heron Kimble M.D. on 07/03/2021 at 20:55 ? ? MDM Narrative Medical decision making narrative: 55-year-old woman with history of life time of chronic constipation with bowel movements once or twice a week. History of stercoral ulceration due to this. She has been doing well until 3 months ago when she is having increasing pain and bleeding. She has not been as diligent with regular MiraLax. She notes she did just get large bag of prunes and was planning to give this a try. In the meantime she is much more fatigued and having daily bleeding from her rectum. Care is reviewed with Dr. Landa, surgeon on-call after CT scans are obtained. No obvious masses or tumors are appreciated however she does have quite a bit of stool through the right side of her colon. In consultation with Dr. Landa and after discussion and shared decision making with patient, we opted to transfuse with 2 units of packed red blood cells for her significant anemia of 7.1 and 23.9 that is currently symptomatic with palpitations, dyspnea and significant energy limitations. Will have her follow- up as an outpatient with Dr. Landa understanding that she is going to need a colonoscopy in the near future. Also strongly recommended she increase her MiraLax to 1-2 doses a day along with a couple of handfuls of dried fruit. She will follow-up with her primary care physician regarding mild electrolyte abnormalities. Regarding immediate electrolyte abnormalities she is given a L of normal saline and I assume her calcium level will be slightly lower. With 2 units of blood cells her potassium unlikely to increased slightly as well. She is otherwise hemodynamically stable and not needing hospital admission. Discharge Plan Departure Patient Disposition: Home Clinical Impression: Anemia, Chronic constipation, BRBPR (bright red blood per rectum) Instructions: Gastrointestinal Bleeding Activity Restrictions/Additional Instructions: Thank you for coming in today Your CT scan does not show significant masses or tumors in or aroun your thyroid or parathyroid glands, your chest or your abdomen. You do still have a significant amount of stool through the right part of your colon but no obvious obstructions. Because your bleeding has been relatively steady and is not dramatically worse, I do not think that you need to stay in the hospital this evening. Because the bleeding has been chronic for the last number of months I believe that your anemia is causing a significant amount of your fatigue, palpitations and the exertional shortness of breath that you are experiencing. You have been given 2 units of packed red blood cells in the emergency department. You will need to follow-up with general surgery. I spoke with Dr. Landa, one of Dr. Conde's partners. Please contact their office at [phone] to schedule an outpatient appointment as soon as possible to deal with the abdominal pain, chronic constipation and rectal bleeding. Regarding the hypercalcemia and other minor electrolyte abnormalities, you do need follow-up with Dr. Harvey. She will likely want to recheck your red blood cell count as well. If you find that the bleeding dramatically increases, you are getting increasingly symptomatic from your anemia, he develops fevers or worsening abdominal pain you need to return to the emergency department immediately. I do recommend that you continue with at least 1 scoop of MiraLax if not 2 a day and fully enjoyed the giant bag of prunes that you just bought from [employer];) Prescriptions: No Action omeprazole 20 mg capsule,delayed release(DR/EC) 40 mg PO DAILY 0RF chlorthalidone 25 mg tablet 25 mg PO DAILY 0RF docusate sodium [Colace] 100 mg capsule 100 mg PO DAILY 0RF citalopram 20 mg tablet 20 mg PO DAILY Qty: 90 1RF alprazolam 0.5 mg tablet See Rx Instructions PO .COMPLEX MDD 2MG PRN (Reason: severe anxiety) Qty: 120 2RF Rx Instructions: 1mg at bedtime; ok to take 0.5mg BID prn bupropion HCl 150 mg tablet extended release 24 hr 300 mg PO QAM Qty: 180 1RF estradiol [Estrace] 1 mg tablet 1 mg PO QDAY Qty: 90 3RF Rx Instructions: Take 1 tablet by mouth everyday. Please be sure to follow up with PCP Referrals: Tammy Harvey MD [Primary Care Provider] - Prakash Landa MD [Physician] -
[2021-07-03 19:58] LABS: Alanine Aminotransferase 18 IU/L (<35); Albumin 4.6 g/dL (3.5-5.0); Albumin Globulin Ratio 1.3 (1.0-2.8); Alkaline Phosphatase 62 U/L (38-126); Aspartate Aminotransferase 34 IU/L (14-36); BUN Creatinine Ratio 26.1 (6-22); Bilirubin Total 0.4 mg/dL (0.2-1.3); Blood Urea Nitrogen 23 mg/dL (7-17); Calcium 10.7 mg/dL (8.4-10.2); Carbon Dioxide 28 mmol/L (22-32); Chloride 98 mmol/L (98-107); Estimated Glomerular Filt Rate > 60.0 mL/min (>60); Globulin 3.6 g/dL (1.7-4.1); Glucose 97 mg/dL (70-100); HEMOLYSIS 27 (0-50); Potassium 3.2 mmol/L (3.4-5.1); Sodium 137 mmol/L (137-145); Total Protein 8.2 g/dL (6.3-8.2)
[2021-07-03 19:59] LABS: Magnesium 1.9 mg/dL (1.6-2.3)
[2021-07-03 20:15] LABS: Procalcitonin 0.07 ng/mL (<0.5)
--- NOTE | 2021-07-03 20:40 | DI.CT.S_ITS ---
PROCEDURE: CT SOFT TISSUE NECK W CON INDICATIONS: fullness Right side, recent parathyroid surgery TECHNIQUE: After the administration of intravenous contrast, 3.0 mm axial sections acquired from the sella to the aortic arch. Additional oblique axial 3.0 mm sections acquired through the pharynx. 3 mm thick coronal and sagittal reformats were generated. For radiation dose reduction, the following was used: automated exposure control. COMPARISON: [facility], CT, CT CHEST ABD PEL W CON, 07/03/2021, 20:49. [facility], CT, CT SOFT TISSUE NECK WO/W CON, 10/04/2019, 15:46. FINDINGS: Image quality: Excellent. Lymph nodes: No enlarged lymph nodes seen throughout the neck. Vessels: Visualized vasculature appears patent. Neck spaces: In this patient with this given history, scrutiny is given to parathyroid bed. The previously seen left parathyroid nodule is no longer seen. No significant inflammatory changes are seen. No abnormal gas collections can be seen. Negative for abscess. The oropharynx, nasopharynx, and pharynx demonstrate no mucosal lesions. The vocal cords, false vocal cords, pyriform sinuses, epiglottis, vallecula, and tongue base all appear normal. Glands: The parotid and submandibular glands appear normal. Thyroid gland is mildly lobulated on the right side.. Miscellaneous: Visualized brain and orbits appear normal. Lung apices appear clear. Superficial soft tissues appear normal. Bones: No suspicious bony lesions. Visualized sinuses and mastoids appear unremarkable. IMPRESSION: No postoperative complication can be seen. No abscess or signal inflammatory changes are seen. The previously seen left parathyroid nodule has been resected. Dictated by: Heron Kimble M.D. on 07/03/2021 at 20:51 Approved by: Heron Kimble M.D. on 07/03/2021 at 20:54
--- NOTE | 2021-07-03 20:40 | DI.CT.S_ITS ---
PROCEDURE: CT CHEST ABD PEL W CON INDICATIONS: abdominal pain, bloating, GI bleeding, epigastric pain TECHNIQUE: After the administration of oral and intravenous contrast, axial sections acquired from the supraclavicular neck to the pubic symphysis. Coronal and sagittal reformats were performed. For radiation dose reduction, the following was used: automated exposure control, adjustment of mA and/or kV according to patient size. COMPARISON: [facility], CT, CT ABDOMEN PELVIS W CON, 09/29/2019, 22:15. [facility], CT, CT SOFT TISSUE NECK W CON, 07/03/2021, 20:49. [facility], CT, CT ABDOMEN PELVIS W CON, 12/31/2019, 13:45. FINDINGS: Image quality: Excellent. CHEST: Lower Neck: No enlarged lymph nodes. Thyroid: The thyroid is lobulated, particularly on the right side. Axillae: No enlarged lymph nodes. Chest Wall: Unremarkable. Lungs and Airways: No consolidation or suspicious nodules. Pleura: No pneumothorax or pleural effusions. Heart: Heart size is normal. No pericardial effusion. Thoracic Vessels: The aorta and pulmonary arteries demonstrate normal size. Mediastinum and [place]: No enlarged lymph nodes. Esophagus: No wall thickening. There is a small hiatal hernia. ABDOMEN: Liver: Unremarkable. Gallbladder: Resected. Biliary ducts: Unremarkable. Pancreas: Unremarkable. Spleen: Unremarkable. Adrenal Glands: Unremarkable. Kidneys and Ureters: Unremarkable. Stomach and Bowel: Stomach, small bowel loops, and colon are unremarkable. There is an anastomotic staple line seen involving the distal sigmoid. There is a moderate amount of stool seen within the mid:, yet the descending colon is decompressed. Peritoneum: No abnormal intraperitoneal fluid. No free air. Ventral Wall: A mild periumbilical hernia is seen, containing fat. The previously seen inflammatory changes of the left anterior abdominal wall are no longer seen. Abdominal Nodes: No retroperitoneal or mesenteric adenopathy by size criteria. Vessels: Aorta and inferior vena cava are normal in size. PELVIS: Pelvic Organs: Unremarkable. Bladder: Unremarkable. Pelvic Nodes: No enlarged lymph nodes. Miscellaneous: No inguinal hernias are seen. Bones: Age-appropriate bony degenerative changes are seen. This patient has transitional lumbar anatomy. Twelve pairs of ribs are seen. Five normal appearing lumbar type vertebral bodies are seen. The S1 level is transitional and is partially lumbarized, particularly on the right side. IMPRESSION: There is a moderate amount of stool seen within the majority of the colon, although the distal descending colon is relatively decompressed. Please correlate with an underlying history of constipation. Incidental note is made of: Small hiatal hernia Cholecystectomy Fat containing periumbilical hernia Sigmoid anastomotic staple line Transitional lumbar anatomy, with a partially lumbarized S1 segment Dictated by: Heron Kimble M.D. on 07/03/2021 at 20:55 Approved by: Heron Kimble M.D. on 07/03/2021 at 21:02
[2021-07-03 21:15] LABS: COVID19 -Nasal RAPID Negative (Negative)
[2021-07-03 21:16] LABS: Add Manual Diff / Slide Review NO; Basophils Absolute Auto 100 /uL (0-100); Basophils Percent Auto 0.9 % (0-2); Eosinophils Absolute Auto 200 /uL (0-450); Eosinophils Percent Auto 2.1 % (2-4); Hematocrit 23.9 % (36-46); Hemoglobin 7.1 g/dL (12.0-16.0); Lymphocytes Absolute Auto 4000 /uL (1100-4500); Lymphocytes Percent Auto 37.3 % (25-40); Mean Corpuscular HGB Conc 29.5 % (30-36); Mean Corpuscular Hemoglobin 18.1 PG (26-34); Mean Corpuscular Volume 61.1 fL (80-100); Monocytes Absolute Auto 500 /uL (0-900); Monocytes Percent Auto 4.8 % (3-14); Neutrophils Absolute Auto 5900 /uL (1500-7000); Neutrophils Percent Auto 54.9 % (50-75); Platelet Count 212 X10^3/uL (150-400); Red Blood Cell Count 3.91 X10^6/uL (4.0-5.2); White Blood Cell Count 10.7 X10^3/uL (4.5-11.0)
[2021-07-03 22:13] LABS: Appearance Urine UA CLEAR; Bilirubin Urine UA NEGATIVE (NEGATIVE); Color Urine UA YELLOW; Glucose Urine UA NEGATIVE (Negative); Ketones Urine UA NEGATIVE (NEGATIVE); Leukocyte Esterase Urine UA NEGATIVE (NEGATIVE); Nitrite Urine UA NEGATIVE (Negative); Occult Blood Urine UA NEGATIVE (Negative); Protein Urine UA NEGATIVE (Negative); Urobilinogen Urine UA 0.2 E.U./dL (0.2)
[2021-07-03 22:27] LABS: Bacteria Urine Few (2-10); Culture Indicated Urine Cult Not Indicated; Hyaline Casts Urine 0-1/LPF; RBC Urine None Seen (0-5/HPF); Squamous Epithelial Cell Urine 0-1 /HPF (0-5/HPF); WBC Urine None Seen (0-5/HPF)
[2021-07-04] VITALS (22 sets, daily range): BP systolic 105–132; BP diastolic 56–76; PULSE 51–93; RESP 16–18; TEMP 36.3–36.6; O2SAT 94–96
[2021-07-04 00:45] LABS: Anisocytosis 3+; Hypochromasia 2+; Microcytosis 3+; Polychromasia 1+
== END 2021-07-04 04:35 | disposition home or self-care (01) ==
PROVIDERS: Emergency Provider Emergency Medicine; PCP Student in an Organized Health Care Education/Training Program
DX: D64.9 Anemia, unspecified (principal); K59.09 Other constipation; K62.5 Hemorrhage of anus and rectum; Z20.822 Contact with and (suspected) exposure to COVID-19
CPT/HCPCS: 36415; 36430; 70491; 71260; 74177; 80053; 81001; 83735; 84145; 85025; 86850; 86900; 86901; 87635; 99284; 99285; C9803; P9016; Q9967

== ENCOUNTER 2021-11-07 15:54 | Emergency (ER) | payer OTHER, SELFPAY ==
[2021-05-31 09:56] VITALS: BMI 33.8
[2021-11-07] VITALS (23 sets, daily range): BP systolic 135–201; BP diastolic 63–95; PULSE 50–69; RESP 16–24; TEMP 36.4–36.6; O2SAT 96–99; BMI 34.5
[2021-11-07 16:27] LABS: Add Manual Diff / Slide Review NO; Basophils Absolute Auto 100 /uL (0-100); Eosinophils Absolute Auto 300 /uL (0-450); Eosinophils Percent Auto 4.2 % (2-4); Hemoglobin 8.1 g/dL (12.0-16.0); Lymphocytes Absolute Auto 2800 /uL (1100-4500); Lymphocytes Percent Auto 41.8 % (25-40); Mean Corpuscular Hemoglobin 20.2 PG (26-34); Mean Corpuscular Volume 67.3 fL (80-100); Monocytes Absolute Auto 500 /uL (0-900); Monocytes Percent Auto 6.9 % (3-14); Neutrophils Absolute Auto 3100 /uL (1500-7000); Neutrophils Percent Auto 46.1 % (50-75); Platelet Count 286 X10^3/uL (150-400); Red Blood Cell Count 4.02 X10^6/uL (4.0-5.2); Red Cell Distribution Width 18.9 % (11.6-14.8); White Blood Cell Count 6.8 X10^3/uL (4.5-11.0)
[2021-11-07] MEDS: ACETAMINOPHEN 325 MG TABLET 975 MG PO (16:39)
[2021-11-07 16:44] LABS: Anisocytosis 1+; Microcytosis 1+; Ovalocytes 1+; Poikilocytosis 1+
[2021-11-07 16:47] LABS: Alanine Aminotransferase 19 IU/L (<35); Albumin 4.2 g/dL (3.5-5.0); Albumin Globulin Ratio 1.4 (1.0-2.8); Alkaline Phosphatase 62 U/L (38-126); Aspartate Aminotransferase 26 IU/L (14-36); BUN Creatinine Ratio 17.8 (6-22); Bilirubin Total 0.1 mg/dL (0.2-1.3); Blood Urea Nitrogen 13 mg/dL (7-17); Calcium 10.5 mg/dL (8.4-10.2); Carbon Dioxide 28 mmol/L (22-32); Chloride 108 mmol/L (98-107); Estimated Glomerular Filt Rate > 60 mL/min (>60); Glucose 93 mg/dL (70-100); HEMOLYSIS < 15 (0-50); Potassium 4.2 mmol/L (3.4-5.1); Sodium 142 mmol/L (137-145); Total Protein 7.2 g/dL (6.3-8.2)
--- NOTE | 2021-11-07 17:25 | ED_ITS ---
HPI - GI Bleed <Kem Dillon MD - Last Filed: 11/13/21 06:15> General Chief complaint: GI Bleed Stated complaint: Blood counts low- sent by [facility] Time Seen by Provider: 11/07/21 16:09 Source: patient Mode of arrival: Ambulatory History of Present Illness HPI Narrative: Patient here for tired fatigue and generalized weakness. No fall or injury. Patient has long history GI bleed from the colon. Patient a few years ago was seen here and had colon mass removed and was referred to [facility] for reversal the following year. Was doing well and in the past couple months has had daily dark blood per rectum. Patient just followed up with the [facility] 2 days ago and had colonoscopy. She states during the bowel prep for the endoscopy she did lose a lot of blood. She has not had any blood per rectum since Friday the procedure. No bowel movement. She states she only has 1 bowel movement a week. Hemoglobin reviewed from past records. Patient has been waxing and waning with her levels. Tracking patient hemoglobin levels her average is between 7.1 and 9.0 today her hemoglobin is 8.1 and hematocrit 27.0. Patient in no distress She has seen General surgery Dr. Welch as well as Dr. Landa here at this hospital. Related Data Home Medications Medication Instructions Recorded Confirmed omeprazole 20 mg capsule,delayed 40 mg PO DAILY GERD 10/25/19 10/25/21 release docusate sodium 100 mg capsule 100 mg PO DAILY 07/12/20 10/25/21 (Colace) Previous Rx's Medication Instructions Recorded estradiol 1 mg tablet (Estrace) 1 mg PO QDAY #90 tabs 09/07/18 citalopram 20 mg tablet 20 mg PO DAILY #90 tabs 08/09/21 alprazolam 0.25 mg tablet 0.25 mg PO .COMPLEX 30 days #128 10/26/21 tabs bupropion HCl 150 mg 24 hr tablet, 300 mg PO QAM #180 tabs 11/01/21 extended release Allergies Allergy/AdvReac Type Severity Reaction Status Date / Time latex Allergy Intermediate Rash Verified 10/25/21 16:21 codeine Allergy Mild VOMITING Verified 10/25/21 16:21 fluoxetine AdvReac Severe Agitated Verified 10/25/21 16:21 lamotrigine AdvReac Intermediate vertigo Verified 10/25/21 16:21 (100mg); migraines (200mg) pain contract Allergy Unknown Uncoded 10/25/21 16:21 Review of Systems <Kem Dillon MD - Last Filed: 11/13/21 06:15> Review of Systems Narrative: GENERAL: Denies chills, positive for fatigue, malaise, negative for fever, sweats. HEENT: Denies sinus pain, ear pain, sore throat RESPIRATORY: Denies dyspnea, cough CARDIOVASCULAR: Denies chest pain, palpitations GASTROINTESTINAL: Denies nausea, vomiting, abdominal pain, positive for GI bleed : Denies dysuria, frequency, hematuria MUSCULOSKELETAL: denies muscle or bony pain SKIN: Denies rash, skin lesions NEUROLOGIC: Denies weakness, numbness ROS Unobtainable: All systems reviewed & are unremarkable except as noted in HPI and below Patient History <Kem Dillon MD - Last Filed: 11/13/21 06:15> Medical History Acute GI bleeding Anxiety (1999) Chronic back pain (2008) Colostomy present Colostomy prolapse Depression (1999) Disturbance in sleep behavior (12/25/15) Endometriosis External hemorrhoid, bleeding Fibroids Hypertension IBS (irritable bowel syndrome) (1994) Large bowel obstruction Lumbar spine pain Melanoma of face (2013) Migraines (1994) NSAID long-term use Ovarian cyst (1984) Urinary incontinence Surgical History Anesthesia History of gynecologic surgery (07/07/15) History of ovarian cystectomy (1984) Status post delivery (1990) Status post delivery (1992) Status post colonoscopy (10/22/06) Status post hysterectomy (2008) Status post laparoscopic cholecystectomy (2008) Family History Father Age: 74 Type 1 diabetes Grandfather Cancer Heart disease Hypertension Dementia Grandmother Age: 92 Heart disease Dementia Mother Age: 75 Depression Multiple personality disorder Suicide attempt Sister Age: 49 Depression Sister Homeless Family/Other Family history of thyroid problem Diabetes mellitus Family/Other Diabetes mellitus Family history of thyroid problem Social History household members: spouse and children Smoking Status: Never smoker alcohol intake: never Smoking Status: Never smoker alcohol intake frequency: 0-2 drinks per day Substance Use Type: does not use Exam <Kem Dillon MD - Last Filed: 11/13/21 06:15> Narrative Exam Narrative: GENERAL: in no distress, not toxic not dyspneic HEAD: Normocephalic. EYES: Pupils equal round No scleral icterus. Pale conjunctiva ENT: Mucous membranes moist. NECK: Trachea midline. CARDIOVASCULAR: Regular rate and rhythm without murmurs RESPIRATORY: Clear to auscultation. Breath sounds equal bilaterally. No wheezes, rales, or rhonchi. GASTROINTESTINAL: Abdomen soft, non-tender, no peritoneal signs, bowel sounds present. Patient denies any rectal bleeding since 2 days ago. EXTREMITIES: No gross deformities. BACK: No flank tenderness. NEURO: AOx4. SKIN: Warm and dry PSYCH: Not anxious, is cooperative Initial Vital Signs Initial Vital Signs: Vital Signs Temperature 97.7 F 11/07/21 15:58 Pulse Rate 69 11/07/21 15:58 Respiratory Rate 24 11/07/21 15:58 Blood Pressure 201/95 H 11/07/21 15:58 Pulse Oximetry 99 11/07/21 15:58 Oxygen Delivery Method 11/07/21 15:58 <Dami Arellano DO - Last Filed: 11/08/21 06:03> Initial Vital Signs Initial Vital Signs: Vital Signs Temperature 97.7 F 11/07/21 15:58 Pulse Rate 69 11/07/21 15:58 Respiratory Rate 24 11/07/21 15:58 Blood Pressure 201/95 H 11/07/21 15:58 Pulse Oximetry 99 11/07/21 15:58 Oxygen Delivery Method 11/07/21 15:58 Course <Kem Dillon MD - Last Filed: 11/13/21 06:15> Course Course Narrative: No new issues during course of stay No sign out Orders Ordered: Discontinued Medications Acetaminophen (Acetaminophen 325 Mg Tablet) 975 mg PO NOW ONE Stop: 11/07/21 16:36 Last Admin: 11/07/21 16:39 Dose: 975 mg Documented By: KF Reevaluation(s) Reevaluation #1: Patient continues to do well. Agrees with treatment plan for discharge home after transfusion of 1 unit. Time: 19:05 Consultations Consultation #1: Spoke with Dr. Guajardo, general surgeon. Agrees patient should receive 1 unit PRBC Time: 17:50 Vital Signs Vital signs: Vital Signs - 8 hr 11/07/21 15:58 11/07/21 16:17 11/07/21 16:18 Temperature 97.7 F Pulse Rate 69 62 61 Respiratory Rate 24 19 20 Blood Pressure 201/95 H Pulse Oximetry 99 98 98 Oxygen Delivery Method Room Air 11/07/21 16:18 11/07/21 18:26 11/07/21 18:45 Temperature 97.6 F 97.6 F Pulse Rate 55 L 54 L Respiratory Rate 22 20 Blood Pressure 179/83 H 148/73 H 183/81 H Pulse Oximetry Oxygen Delivery Method 11/07/21 16:30 11/07/21 16:30 11/07/21 17:00 Temperature Pulse Rate 62 53 L Respiratory Rate 22 20 Blood Pressure 179/85 H Pulse Oximetry 98 96 Oxygen Delivery Method 11/07/21 17:01 11/07/21 17:01 11/07/21 17:30 Temperature Pulse Rate 52 L Respiratory Rate 18 Blood Pressure 135/63 150/72 H Pulse Oximetry 96 Oxygen Delivery Method 11/07/21 17:30 11/07/21 18:00 11/07/21 18:12 Temperature Pulse Rate 51 L 54 L 53 L Respiratory Rate 20 16 Blood Pressure Pulse Oximetry 96 97 98 Oxygen Delivery Method 11/07/21 18:12 11/07/21 18:30 11/07/21 18:31 Temperature Pulse Rate 52 L 52 L Respiratory Rate 20 20 Blood Pressure 148/73 H Pulse Oximetry 98 98 Oxygen Delivery Method 11/07/21 18:31 11/07/21 18:34 11/07/21 18:34 Temperature Pulse Rate 54 L Respiratory Rate 22 Blood Pressure 199/86 H 189/88 H Pulse Oximetry 98 Oxygen Delivery Method <Dami Arellano, DO - Last Filed: 11/08/21 06:03> Orders Ordered: Discontinued Medications Acetaminophen (Acetaminophen 325 Mg Tablet) 975 mg PO NOW ONE Stop: 11/07/21 16:36 Last Admin: 11/07/21 16:39 Dose: 975 mg Documented By: KF Vital Signs Vital signs: Vital Signs - 8 hr 11/07/21 15:58 11/07/21 16:17 11/07/21 16:18 Temperature 97.7 F Pulse Rate 69 62 61 Respiratory Rate 24 19 20 Blood Pressure 201/95 H Pulse Oximetry 99 98 98 Oxygen Delivery Method Room Air 11/07/21 16:18 11/07/21 18:26 11/07/21 18:45 Temperature 97.6 F 97.6 F Pulse Rate 55 L 54 L Respiratory Rate 22 20 Blood Pressure 179/83 H 148/73 H 183/81 H Pulse Oximetry Oxygen Delivery Method 11/07/21 16:30 11/07/21 16:30 11/07/21 17:00 Temperature Pulse Rate 62 53 L Respiratory Rate 22 20 Blood Pressure 179/85 H Pulse Oximetry 98 96 Oxygen Delivery Method 11/07/21 17:01 11/07/21 17:01 11/07/21 17:30 Temperature Pulse Rate 52 L Respiratory Rate 18 Blood Pressure 135/63 150/72 H Pulse Oximetry 96 Oxygen Delivery Method 11/07/21 17:30 11/07/21 18:00 11/07/21 18:12 Temperature Pulse Rate 51 L 54 L 53 L Respiratory Rate 20 16 Blood Pressure Pulse Oximetry 96 97 98 Oxygen Delivery Method 11/07/21 18:12 11/07/21 18:30 11/07/21 18:31 Temperature Pulse Rate 52 L 52 L Respiratory Rate 20 20 Blood Pressure 148/73 H Pulse Oximetry 98 98 Oxygen Delivery Method 11/07/21 18:31 11/07/21 18:34 11/07/21 18:34 Temperature Pulse Rate 54 L Respiratory Rate 22 Blood Pressure 199/86 H 189/88 H Pulse Oximetry 98 Oxygen Delivery Method MDM - GI Bleed <Kem Dillon MD - Last Filed: 11/13/21 06:15> Differential Diagnosis Differential diagnosis: Likely Upper gastrointestinal hemorrhage, Lower gastrointestinal hemorrhage, hematochezia and melena Lab Data Result diagrams: 11/07/21 16:11 11/07/21 16:11 Labs: Lab Results 11/07/21 11/07/21 11/07/21 Range/Units 16:11 16:11 16:11 WBC 6.8 (4.5-11.0) X10^3/uL RBC 4.02 (4.0-5.2) X10^6/uL Hgb 8.1 L (12.0-16.0) g/dL Hct 27.0 L (36-46) % MCV 67.3 L (80-100) fL MCH 20.2 L (26-34) PG MCHC 30.0 (30-36) % RDW 18.9 H (11.6-14.8) % Plt Count 286 (150-400) X10^3/uL Neut % (Auto) 46.1 L (50-75) % Lymph % (Auto) 41.8 H (25-40) % [place] % (Auto) 6.9 (3-14) % Eos % (Auto) 4.2 H (2-4) % Baso % (Auto) 1.0 (0-2) % Neut # (Auto) 3100 (8239-4078) /uL Lymph # (Auto) 2800 (5992-6495) /uL [place] # (Auto) 500 (0-900) /uL Eos # (Auto) 300 (0-450) /uL Baso # (Auto) 100 (0-100) /uL RBC Morphology See below Poikilocytosis 1+ H Anisocytosis 1+ H Microcytosis 1+ H Ovalocytes 1+ H Sodium 142 (137-145) mmol/L Potassium 4.2 (3.4-5.1) mmol/L Chloride 108 H (98-107) mmol/L Carbon Dioxide 28 (22-32) mmol/L BUN 13 (7-17) mg/dL Creatinine 0.73 (0.52-1.04) mg/dL Estimated GFR > 60 (>60) mL/min BUN/Creatinine Ratio 17.8 (6-22) Glucose 93 (70-100) mg/dL Calcium 10.5 H (8.4-10.2) mg/dL Total Bilirubin 0.1 L (0.2-1.3) mg/dL AST 26 (14-36) IU/L ALT 19 (<35) IU/L Alkaline Phosphatase 62 (38-126) U/L Total Protein 7.2 (6.3-8.2) g/dL Albumin 4.2 (3.5-5.0) g/dL Globulin 3.0 (1.7-4.1) g/dL Albumin/Globulin Ratio 1.4 (1.0-2.8) Blood Type B Positive Antibody Screen Negative Crossmatch See Detail ECG Data Interpretation: Normal sinus rhythm rate [address] elevation or depression [facility] Narrative Medical decision making narrative: Appropriate for discharge home. Patient case reviewed with general surgery Dr. Landa. Hemoglobin is stable and patient does have chronic lower GI bleed. Is being followed closely by her specialists. Patient nontoxic. No hypotension. has not had any bleeding in 2 days. Appropriate for 1 unit of red blood cells as patient did have a lot of bleeding 2 days ago for a bowel prep for colonoscopy. Return precautions reviewed with her. Exam and laboratory studies otherwise reassuring <Dami Arellano DO - Last Filed: 11/08/21 06:03> Lab Data Labs: Lab Results 11/07/21 11/07/21 11/07/21 Range/Units 16:11 16:11 16:11 WBC 6.8 (4.5-11.0) X10^3/uL RBC 4.02 (4.0-5.2) X10^6/uL Hgb 8.1 L (12.0-16.0) g/dL Hct 27.0 L (36-46) % MCV 67.3 L (80-100) fL MCH 20.2 L (26-34) PG MCHC 30.0 (30-36) % RDW 18.9 H (11.6-14.8) % Plt Count 286 (150-400) X10^3/uL Neut % (Auto) 46.1 L (50-75) % Lymph % (Auto) 41.8 H (25-40) % [place] % (Auto) 6.9 (3-14) % Eos % (Auto) 4.2 H (2-4) % Baso % (Auto) 1.0 (0-2) % Neut # (Auto) 3100 (9006-5115) /uL Lymph # (Auto) 2800 (2427-9714) /uL [place] # (Auto) 500 (0-900) /uL Eos # (Auto) 300 (0-450) /uL Baso # (Auto) 100 (0-100) /uL RBC Morphology See below Poikilocytosis 1+ H Anisocytosis 1+ H Microcytosis 1+ H Ovalocytes 1+ H Sodium 142 (137-145) mmol/L Potassium 4.2 (3.4-5.1) mmol/L Chloride 108 H (98-107) mmol/L Carbon Dioxide 28 (22-32) mmol/L BUN 13 (7-17) mg/dL Creatinine 0.73 (0.52-1.04) mg/dL Estimated GFR > 60 (>60) mL/min BUN/Creatinine Ratio 17.8 (6-22) Glucose 93 (70-100) mg/dL Calcium 10.5 H (8.4-10.2) mg/dL Total Bilirubin 0.1 L (0.2-1.3) mg/dL AST 26 (14-36) IU/L ALT 19 (<35) IU/L Alkaline Phosphatase 62 (38-126) U/L Total Protein 7.2 (6.3-8.2) g/dL Albumin 4.2 (3.5-5.0) g/dL Globulin 3.0 (1.7-4.1) g/dL Albumin/Globulin Ratio 1.4 (1.0-2.8) Blood Type B Positive Antibody Screen Negative Crossmatch See Detail MDM Narrative Medical decision making narrative: Appropriate for discharge home. Patient case reviewed with general surgery Dr. Landa. Hemoglobin is stable and patient does have chronic lower GI bleed. Is being followed closely by her specialists. Patient nontoxic. No hypotension. has not had any bleeding in 2 days. Appropriate for 1 unit of red blood cells as patient did have a lot of bleeding 2 days ago for a bowel prep for colonoscopy. Return precautions reviewed with her. Exam and laboratory studies otherwise reassuring 1800 (Adan) patient had briefly been signed out to me, however became admitted prior to my involvement, I did not evaluate or examined the patient Discharge Plan Departure Patient Disposition: Home Clinical Impression: Chronic gastrointestinal bleeding, Lower gastrointestinal hemorrhage Activity Restrictions/Additional Instructions: Please see your specialist at [facility] this week for re-evaluation and results of your colonoscopy. Return if worsening questions or concerns. Return if he trouble breathing or chest pain or abdominal pain or dizziness or passing out. Continue home medications. Prescriptions: No Action omeprazole 20 mg capsule,delayed release(DR/EC) 40 mg PO DAILY docusate sodium [Colace] 100 mg capsule 100 mg PO DAILY alprazolam 0.25 mg tablet 0.25 mg PO .COMPLEX MDD 1.25MG 30 Days Qty: 128 0RF Rx Instructions: 0.25 mg orally; 0.25mg QAM, 0.25mg QNoon, 0.5mg QHS. 2 additional doses of 0.25mg available per week as needed for severe anxiety only. estradiol [Estrace] 1 mg tablet 1 mg PO QDAY Qty: 90 3RF Rx Instructions: Take 1 tablet by mouth everyday. Please be sure to follow up with PCP citalopram 20 mg tablet 20 mg PO DAILY Qty: 90 0RF bupropion HCl 150 mg tablet extended release 24 hr 300 mg PO QAM Qty: 180 0RF Referrals: Michael Eagle MD [Primary Care Provider] - Visit Report Forms: Patient Portal/API
== END 2021-11-07 22:12 | disposition home or self-care (01) ==
PROVIDERS: Emergency Provider Emergency Medicine; PCP Family Medicine
DX: K92.2 Gastrointestinal hemorrhage, unspecified (principal)
CPT/HCPCS: 36415; 36430; 80053; 85025; 86850; 86900; 86901; 93005; 99284; P9016

== ENCOUNTER → 2022-02-16 08:55 | Outpatient (CLI) | payer OTHER, SELFPAY ==
[2021-05-31 09:56] VITALS: BMI 33.8
[2022-02-16 10:11] LABS: Influenza A - CEPHEID Flu A POSITIVE (NEGATIVE); Influenza B - CEPHEID Flu B NEGATIVE (NEGATIVE); Respiratory Syncytial Virus Negative (Negative)
[2022-02-16 10:12] LABS: COVID-19 CEPHEID 4-PLEX PCR Negative (Negative)
== END ==
PROVIDERS: PCP Internal Medicine; Visit Provider Physician Assistant
DX: R50.9 Fever, unspecified (principal); R05.9 Cough, unspecified
CPT/HCPCS: 0241U

== ENCOUNTER 2022-03-12 17:00 | Emergency (ER) | payer OTHER, SELFPAY ==
[2021-05-31 09:56] VITALS: BMI 33.8
[2022-03-12 17:05] VITALS: BP 150/90; PULSE 77; RESP 18; TEMP 36.2; O2SAT 99; BMI 34.7
[2022-03-12 17:57] LABS: Alanine Aminotransferase 19 IU/L (<35); Albumin 4.2 g/dL (3.5-5.0); Albumin Globulin Ratio 1.2 (1.0-2.8); Alkaline Phosphatase 89 U/L (38-126); Aspartate Aminotransferase 24 IU/L (14-36); BUN Creatinine Ratio 29.6 (6-22); Bilirubin Total 0.2 mg/dL (0.2-1.3); Blood Urea Nitrogen 21 mg/dL (7-17); Calcium 10.2 mg/dL (8.4-10.2); Carbon Dioxide 25 mmol/L (22-32); Chloride 104 mmol/L (98-107); Estimated Glomerular Filt Rate > 60 mL/min (>60); Globulin 3.4 g/dL (1.7-4.1); Glucose 101 mg/dL (70-100); HEMOLYSIS < 15 (0-50); Potassium 3.7 mmol/L (3.4-5.1); Sodium 137 mmol/L (137-145); Total Protein 7.6 g/dL (6.3-8.2)
[2022-03-12 18:19] LABS: Add Manual Diff / Slide Review NO; Basophils Absolute Auto 100 /uL (0-100); Basophils Percent Auto 0.8 % (0-2); Eosinophils Absolute Auto 300 /uL (0-450); Eosinophils Percent Auto 3.7 % (2-4); Hemoglobin 8.2 g/dL (12.0-16.0); Lymphocytes Absolute Auto 1900 /uL (1100-4500); Lymphocytes Percent Auto 27.8 % (25-40); Mean Corpuscular HGB Conc 30.5 % (30-36); Mean Corpuscular Volume 65.8 fL (80-100); Monocytes Absolute Auto 400 /uL (0-900); Monocytes Percent Auto 5.6 % (3-14); Neutrophils Absolute Auto 4300 /uL (1500-7000); Neutrophils Percent Auto 62.1 % (50-75); Platelet Count 268 X10^3/uL (150-400); Red Cell Distribution Width 18.8 % (11.6-14.8); White Blood Cell Count 6.8 X10^3/uL (4.5-11.0)
[2022-03-12 18:26] LABS: Prothrombin Time 11.8 SECONDS (10.1-12.7)
[2022-03-12 18:29] LABS: PTT Partial Thromboplastin Tim 21 SECONDS (26-36)
[2022-03-12 19:22] LABS: Hypochromasia 2+; Polychromasia 1+
[2022-03-12 19:23] LABS: Microcytosis 2+
[2022-03-12 21:19] VITALS: BP 155/72; PULSE 80
[2022-03-12 22:30] VITALS: BP 135/62; PULSE 58; RESP 16; TEMP 37.1; O2SAT 98
[2022-03-12 22:32] VITALS: PULSE 57; O2SAT 98
--- NOTE | 2022-03-12 22:33 | ED_ITS ---
HPI - GI Bleed General Chief complaint: GI Bleed Stated complaint: Rectal Bleeding, Flu A Time Seen by Provider: 03/12/22 17:45 Mode of arrival: Family Vehicle History of Present Illness HPI Narrative: 56-year-old woman with a history of anxiety and depression, colon mass was removed with colectomy and colectomy takedown now with rectal prolapse recent GI visit with colonoscopy within the last 2 months and anticipated surgical revision for her prolapse this summer presents complaining of rectal bleeding. She was diagnosed with influenza a recently and this caused vomiting and diarrhea which exacerbated her rectal bleeding. Fatigue, decreased overall appe tite, hemorrhoid pain, clots per rectum, nausea has resolved, no headaches, overall malaise and body aches. Related Data Home Medications Medication Instructions Recorded Confirmed omeprazole 20 mg capsule,delayed 40 mg PO DAILY GERD 10/25/19 10/25/21 release docusate sodium 100 mg capsule 100 mg PO DAILY 07/12/20 10/25/21 (Colace) Previous Rx's Medication Instructions Recorded estradiol 1 mg tablet (Estrace) 1 mg PO QDAY #90 tabs 09/07/18 bupropion HCl 150 mg 24 hr tablet, 300 mg PO QAM #180 tabs 12/12/21 extended release citalopram 20 mg tablet 20 mg PO DAILY #90 tabs 12/12/21 alprazolam 0.25 mg tablet 0.25 mg PO .COMPLEX 30 days #100 03/12/22 tabs hydrocortisone 2.5 % topical cream 1 applic WI QD-BID PRN hemorrhoids 03/12/22 with perineal applicator #30 grams (Anusol-HC) oxycodone-acetaminophen 5 mg-325 1 tab PO Q6H PRN pain #14 tabs 03/12/22 mg tablet Allergies Allergy/AdvReac Type Severity Reaction Status Date / Time latex Allergy Intermediate Rash Verified 03/12/22 17:12 codeine Allergy Mild VOMITING Verified 03/12/22 17:12 fluoxetine AdvReac Severe Agitated Verified 03/12/22 17:12 lamotrigine AdvReac Intermediate vertigo Verified 03/12/22 17:12 (100mg); migraines (200mg) pain contract Allergy Unknown Uncoded 03/12/22 17:12 Review of Systems Review of Systems Narrative: Remainder of complete review of systems is otherwise unremarkable except for that included in the HPI. Patient History Medical History Acute GI bleeding Anxiety (1999) Chronic back pain (2008) Colostomy present Colostomy prolapse Depression (1999) Disturbance in sleep behavior (12/25/15) Endometriosis External hemorrhoid, bleeding Fibroids Hypertension IBS (irritable bowel syndrome) (1994) Large bowel obstruction Lumbar spine pain Melanoma of face (2013) Migraines (1994) NSAID long-term use Ovarian cyst (1984) Urinary incontinence Surgical History Anesthesia History of gynecologic surgery (07/07/15) History of ovarian cystectomy (1984) Status post delivery (1990) Status post delivery (1992) Status post colonoscopy (10/22/06) Status post hysterectomy (2008) Status post laparoscopic cholecystectomy (2008) Family History Father Age: 75 Type 1 diabetes Grandfather Cancer Heart disease Hypertension Dementia Grandmother Age: 93 Heart disease Dementia Mother Age: 76 Depression Multiple personality disorder Suicide attempt Sister Age: 50 Depression Sister Homeless Family/Other Family history of thyroid problem Diabetes mellitus Family/Other Diabetes mellitus Family history of thyroid problem Social History household members: spouse and children Smoking Status: Never smoker alcohol intake: never Smoking Status: Never smoker alcohol intake frequency: 0-2 drinks per day Substance Use Type: does not use Exam Initial Vital Signs Initial Vital Signs: Vital Signs Temperature 97.1 F L 03/12/22 17:05 Pulse Rate 77 03/12/22 17:05 Respiratory Rate 18 03/12/22 17:05 Blood Pressure 150/90 H 03/12/22 17:05 Pulse Oximetry 99 03/12/22 17:05 Oxygen Delivery Method 03/12/22 17:05 General: Pale and appears uncomfortable but in no acute distress. Able to give a complete and coherent history. Well-nourished well-developed HEENT: Moist mucous membranes, normal sclera with reactive pupils, Respiratory: Lungs are clear to auscultation, no wheezing no rales no rhonchi. Full and symmetrical air movement Cardiac: Regular rate and rhythm no murmurs no bruits Abdomen: Soft, nontender, good bowel tones, no flank pain Rectum: Large external hemorrhoids with swollen internal hemorrhoids as well. There is some clot but the entire mass is not clotted. There is some excoriation to the mucosal membranes and minor bleeding. Skin: Warm and dry, no rashes Neurologic: Grossly neurologically intact with no obvious asymmetries or abnormalities Extremities: No trauma, well perfused Psych: Cooperative, appropriate insight and affect Course Orders Ordered: ED Orders 03/12/22 17:12 EKG-12 Lead Stat 03/12/22 17:26 Complete Blood Count AUTO DIFF Stat Comprehensive Metabolic Panel Stat Partial Thromboplastin Time Stat Prothrombin Time INR Stat Type and Screen Stat Ondansetron HCl (Ondansetron 4 Mg/2 Ml Inj) 4 mg IV NOW PRN PRN Reason: Nausea And Vomiting Discontinued Medications Loperamide HCl (Loperamide 2 Mg Capsule) 4 mg PO NOW ONE Stop: 03/12/22 22:49 Oxycodone/Acetaminophen (Oxycodone/Apap 5/325 Prepack) 1 bottle MISC SEEINSTR ONE Stop: 03/12/22 22:49 Vital Signs Vital signs: Vital Signs - 8 hr 03/12/22 17:05 03/12/22 21:19 03/12/22 22:30 Temperature 97.1 F L 98.7 F Pulse Rate 77 80 58 L Respiratory Rate 18 16 Blood Pressure 150/90 H 155/72 H 135/62 Pulse Oximetry 99 98 Oxygen Delivery Method Room Air Room Air MDM - GI Bleed Lab Data Result diagrams: 03/12/22 17:26 03/12/22 17:26 Labs: Lab Results 03/12/22 03/12/22 03/12/22 Range/Units 17:26 17:26 17:26 WBC 6.8 (4.5-11.0) X10^3/uL RBC 4.10 (4.0-5.2) X10^6/uL Hgb 8.2 L (12.0-16.0) g/dL Hct 27.0 L (36-46) % MCV 65.8 L (80-100) fL MCH 20.0 L (26-34) PG MCHC 30.5 (30-36) % RDW 18.8 H (11.6-14.8) % Plt Count 268 (150-400) X10^3/uL Neut % (Auto) 62.1 (50-75) % Lymph % (Auto) 27.8 (25-40) % Terry % (Auto) 5.6 (3-14) % Eos % (Auto) 3.7 (2-4) % Baso % (Auto) 0.8 (0-2) % Neut # (Auto) 4300 (4383-8840) /uL Lymph # (Auto) 1900 (3460-5023) /uL Terry # (Auto) 400 (0-900) /uL Eos # (Auto) 300 (0-450) /uL Baso # (Auto) 100 (0-100) /uL RBC Morphology See below Polychromasia 1+ H Hypochromasia 2+ H Microcytosis 2+ H PT 11.8 (10.1-12.7) SECONDS INR 1.0 (0.9-1.3) APTT 21 L (26-36) SECONDS Sodium 137 (137-145) mmol/L Potassium 3.7 (3.4-5.1) mmol/L Chloride 104 (98-107) mmol/L Carbon Dioxide 25 (22-32) mmol/L BUN 21 H (7-17) mg/dL Creatinine 0.71 (0.52-1.04) mg/dL Estimated GFR > 60 (>60) mL/min BUN/Creatinine Ratio 29.6 H (6-22) Glucose 101 H (70-100) mg/dL Calcium 10.2 (8.4-10.2) mg/dL Total Bilirubin 0.2 (0.2-1.3) mg/dL AST 24 (14-36) IU/L ALT 19 (<35) IU/L Alkaline Phosphatase 89 (38-126) U/L Total Protein 7.6 (6.3-8.2) g/dL Albumin 4.2 (3.5-5.0) g/dL Globulin 3.4 (1.7-4.1) g/dL Albumin/Globulin Ratio 1.2 (1.0-2.8) Blood Type Antibody Screen 03/12/22 Range/Units 17:26 WBC (4.5-11.0) X10^3/uL RBC (4.0-5.2) X10^6/uL Hgb (12.0-16.0) g/dL Hct (36-46) % MCV (80-100) fL MCH (26-34) PG MCHC (30-36) % RDW (11.6-14.8) % Plt Count (150-400) X10^3/uL Neut % (Auto) (50-75) % Lymph % (Auto) (25-40) % Terry % (Auto) (3-14) % Eos % (Auto) (2-4) % Baso % (Auto) (0-2) % Neut # (Auto) (2973-4389) /uL Lymph # (Auto) (4316-0715) /uL Terry # (Auto) (0-900) /uL Eos # (Auto) (0-450) /uL Baso # (Auto) (0-100) /uL RBC Morphology Polychromasia Hypochromasia Microcytosis PT (10.1-12.7) SECONDS INR (0.9-1.3) APTT (26-36) SECONDS Sodium (137-145) mmol/L Potassium (3.4-5.1) mmol/L Chloride (98-107) mmol/L Carbon Dioxide (22-32) mmol/L BUN (7-17) mg/dL Creatinine (0.52-1.04) mg/dL Estimated GFR (>60) mL/min BUN/Creatinine Ratio (6-22) Glucose (70-100) mg/dL Calcium (8.4-10.2) mg/dL Total Bilirubin (0.2-1.3) mg/dL AST (14-36) IU/L ALT (<35) IU/L Alkaline Phosphatase (38-126) U/L Total Protein (6.3-8.2) g/dL Albumin (3.5-5.0) g/dL Globulin (1.7-4.1) g/dL Albumin/Globulin Ratio (1.0-2.8) Blood Type B Positive Antibody Screen Negative MDM Narrative Medical decision making narrative: 56-year-old woman still recovering from influenza a with the vomiting and diarrhea related to that causing increasing rectal bleeding exacerbating her chronic colon problems. Labs do not suggest any worsening of her acute anemia. She is not tachycardic, tachypneic nor hypotensive. At this point I believe additional rest, some Percocet to help with the pain with a possible side effect of slowing the diarrhea but, Imodium to truly help slow the diarrhea and reassurance are all given. Did recommend that she follow-up with her primary care doctor and/or immunochemist should she continue to have increased amounts of bleeding. I did give her a prescription for Anusol HC to help soothe the irritated hemorrhoidal tissue. Questions are answered and she is safe for discharge home at this time Discharge Plan Departure Patient Disposition: Home Clinical Impression: Influenza A, Chronic lower gastrointestinal bleeding Instructions: DI for Influenza -- Adult Activity Restrictions/Additional Instructions: Thank you for coming in today Your labs were actually quite reassuring. You are anemic but a slight bit hig her than your baseline. Despite the amount of blood your losing your body does appear to be keeping up with this. You are still testing positive for influenza A. I suspect that the general malaise and fatigue is still related to the influenza. Certainly the diarrhea which is irritating your already somewhat irritated: Is causing the additional bleeding. If the bleeding is continuing to worsen please contact your surgeon at [facility]. In the meantime you can use Percocet and Tylenol to help with the body aches as well as the rectal pain and abdominal cramping. You can also consider small doses of Imodium to help slow down the diarrhea. I have also given you a prescription for hydrocortisone cream to use on your hemorrhoids that can help slightly with the pain and itching. Prescriptions were electronically transmitted to [facility] in [place] If you find that you are getting worse or develop any new symptoms, please feel free to return to the emergency department for further evaluation. Prescriptions: New oxycodone-acetaminophen 5-325 mg tablet 1 tab PO Q6H PRN (Reason: pain) Qty: 14 0RF hydrocortisone [Anusol-HC] 2.5 % cream with perineal applicator 1 applic WI QD-BID PRN (Reason: hemorrhoids) Qty: 30 1RF No Action omeprazole 20 mg capsule,delayed release(DR/EC) 40 mg PO DAILY docusate sodium [Colace] 100 mg capsule 100 mg PO DAILY bupropion HCl 150 mg tablet extended release 24 hr 300 mg PO QAM Qty: 180 1RF citalopram 20 mg tablet 20 mg PO DAILY Qty: 90 1RF estradiol [Estrace] 1 mg tablet 1 mg PO QDAY Qty: 90 3RF Rx Instructions: Take 1 tablet by mouth everyday. Please be sure to follow up with PCP alprazolam 0.25 mg tablet 0.25 mg PO .COMPLEX MDD 1MG 30 Days Qty: 100 2RF Rx Instructions: Take 0.5mg each night; ok to take 0.25mg up to twice daily in addition to scheduled dose Referrals: Anita Eagle ARNP [Primary Care Provider] - Stand Alone Forms: Work Release Note
[2022-03-12 23:00] VITALS: BP 142/76; PULSE 74; RESP 16; TEMP 36.6; O2SAT 97
[2022-03-12] MEDS: LOPERAMIDE 2 MG CAPSULE 4 MG PO (23:06)
[2022-03-12] MEDS: OXYCODONE/APAP 5/325 PREPACK 1 BOTTLE MISC (23:06)
== END 2022-03-12 23:10 | disposition home or self-care (01) ==
PROVIDERS: Emergency Medicine; Emergency Provider Emergency Medicine; PCP Internal Medicine
DX: J10.1 Influenza due to other identified influenza virus with other respiratory manifestations (principal); K92.2 Gastrointestinal hemorrhage, unspecified; Z20.822 Contact with and (suspected) exposure to COVID-19
CPT/HCPCS: 36415; 80053; 85025; 85610; 85730; 86850; 86900; 86901; 99283

== ENCOUNTER → 2022-11-09 10:08 | Outpatient (CLI) | payer OTHER, SELFPAY ==
[2022-06-28 08:17] VITALS: BMI 33.8
--- NOTE | 2022-11-09 10:10 | DI.MG.S_ITS ---
BILATERAL DIGITAL SCREENING MAMMOGRAM 3D/2D WITH CAD: 11/09/2022 CLINICAL: Routine screening. Comparison is made to exams dated: 06/10/2020 mammogram, 10/23/2007 mammogram, and 10/16/2007 mammogram - [facility]. There are scattered areas of fibroglandular density in both breasts (category b / 25%-50% glandular tissue). Current study was also evaluated with a Computer Aided Detection (CAD) system. There are benign calcifications in both breasts. No significant masses, calcifications, or other findings are seen in either breast. There has been no significant interval change. IMPRESSION: BENIGN There is no mammographic evidence of malignancy. A 1 year screening mammogram is recommended. Based on the Tyrer Cuzick model (a risk assessment model) the patient's lifetime risk is 4.8% and her 10 year risk is 1.4%. According to the ACR, ACS, and NCCN guidelines, an annual breast MRI exam along with mammogram is recommended if the patient's lifetime risk is 20% or greater. This exam was interpreted at Station ID: [id number]. NOTE: For mammograms, a report in lay terms will be sent to the patient. Approximately 15% of breast malignancies will not be visualized mammographically. In the management of a palpable breast mass, a negative mammogram must not discourage biopsy of a clinically suspicious lesion. Electronically Signed By: Sky bell/jaki:11/11/2022 08:11:45 letter sent: Normal Exam ACR BI-RADS Category 2: Benign Finding(s) [id number]
== END ==
PROVIDERS: PCP Internal Medicine; Referring Provider Internal Medicine; Visit Provider Internal Medicine
DX: Z12.31 Encounter for screening mammogram for malignant neoplasm of breast (principal)
CPT/HCPCS: 77063; 77067

== ENCOUNTER → 2024-03-17 15:55 | Outpatient (CLI) | payer OTHER, SELFPAY ==
[2022-06-28 08:17] VITALS: BMI 33.8
--- NOTE | 2024-03-17 15:56 | DI.MG.S_ITS ---
BILATERAL DIGITAL SCREENING MAMMOGRAM 3D/2D WITH CAD: 03/17/2024 CLINICAL: Routine screening. Comparison is made to exams dated: 11/09/2022 mammogram, 06/10/2020 mammogram, and 10/23/2007 mammogram - [facility]. There are scattered areas of fibroglandular density (category b / 25%-50% glandular tissue). Current study was also evaluated with a Computer Aided Detection (CAD) system. There are benign calcifications in both breasts. No significant masses, calcifications, or other findings are seen in either breast. There has been no significant interval change. IMPRESSION: BENIGN There is no mammographic evidence of malignancy. A 1 year screening mammogram is recommended. Based on the Tyrer Cuzick model (a risk assessment model) the patient's lifetime risk is 4.7% and her 10 year risk is 1.5%. According to the ACR, ACS, and NCCN guidelines, an annual breast MRI exam along with mammogram is recommended if the patient's lifetime risk is 20% or greater. This exam was interpreted at Station ID: [id number]. NOTE: For mammograms, a report in lay terms will be sent to the patient. Approximately 15% of breast malignancies will not be visualized mammographically. In the management of a palpable breast mass, a negative mammogram must not discourage biopsy of a clinically suspicious lesion. Electronically Signed By: Samia laguna/jaki:03/18/2024 09:39:54 letter sent: Normal Exam ACR BI-RADS Category 2: Benign
== END ==
PROVIDERS: PCP Internal Medicine; Referring Provider Internal Medicine; Visit Provider Internal Medicine
DX: Z12.31 Encounter for screening mammogram for malignant neoplasm of breast (principal)
CPT/HCPCS: 77063; 77067

== ENCOUNTER 2024-04-03 13:48 | Emergency (ER) | payer OTHER, SELFPAY ==
[2022-06-28 08:17] VITALS: BMI 33.8
[2024-04-03] VITALS (10 sets, daily range): BP systolic 136–161; BP diastolic 76–100; PULSE 62–84; RESP 16–17; TEMP 36.5–36.8; O2SAT 93–97; BMI 30.2
--- NOTE | 2024-04-03 14:57 | DI.RAD.S_ITS ---
PROCEDURE: XR ACUTE ABDOMEN SERIES INDICATIONS: constipation, no abd pain TECHNIQUE: One view chest and two views of the abdomen were acquired. COMPARISON: None. Findings and impression: Chest: Single view of the chest without dense consolidation or pleural effusion. Normal heart size. Degenerative osseous changes. Abdomen: There is moderate fecal loading. No specific radiographic signs of obstruction. No definite pneumoperitoneum. No suspicious soft tissue calcifications. Suspected pelvic phleboliths are present. Osseous degenerative changes. Calcific tendinopathy on the left trochanter. Cholecystectomy clips. If there is high concern for acute abdomen, consider CT. Dictated by: Yung Castaneda M.D. on 04/03/2024 at 14:48 Approved by: Yung Castaneda M.D. on 04/03/2024 at 14:50
--- NOTE | 2024-04-03 18:02 | DI.CT.S_ITS ---
PROCEDURE: CT ABDOMEN PELVIS W CON INDICATIONS: Constipation versus obstruction TECHNIQUE: After the administration of intravenous contrast, axial sections acquired from the lung bases to the pubic symphysis. Coronal and sagittal reformats were performed. For radiation dose reduction, the following was used: automated exposure control, adjustment of mA and/or kV according to patient size. COMPARISON: [facility], CT, CT ABDOMEN PELVIS W CON, 12/31/2019, 13:45. [facility], CT, CT ABDOMEN PELVIS W CON, 09/29/2019, 22:15. [facility], CT, CT ABDOMEN PELVIS W CON, 07/30/2019, 21:15. [facility], CT, CT ABDOMEN PELVIS W CON, 04/24/2019, 13:16. FINDINGS: Image quality: Diagnostic. Peritoneum: No pneumoperitoneum or ascites. Bones: No acute osseous abnormality. Lower Chest: No acute abnormality. Liver: Normal in size and contour. Gallbladder: Surgically absent. Biliary tree: No intrahepatic or extrahepatic biliary ductal dilatation. Pancreas: Within normal limits. Spleen: Normal in size and contour. Kidneys: No hydronephrosis or obstructive urolithiasis. Adrenals: No adrenal nodularity. Bladder: Normal in size and wall thickness. : Status post hysterectomy. No abnormal adnexal lesions. Stomach: Normal in size and contour. Bowel: Mild mural thickening of the distal esophagus. No small bowel structure obstruction. Appendix within normal limits (3/61). Status post partial left hemicolectomy with a surgical reanastomosis at the distal sigmoid colon. Large volume stool burden within the cecum and transverse colon (06/29-51) with borderline dilatation up to 5.8 cm (2/57). No significant stool within the anastomotic loop of bowel between the remnant transverse colon and anastomosed distal colon (-66) Lymph Nodes: No retroperitoneal, mesenteric, or inguinal lymphadenopathy. Vascular: No abdominal aortic aneurysm. The visualized arterial vasculature is patent. Soft Tissues: No acute abnormality. IMPRESSION: 1. Status post partial left hemicolectomy with large volume proximal stool burden and decompressed anastomotic loop between the proximal and distal colonic segments. This finding may represent a long segment stricture, resulting in proximal partial obstruction. 2. Otherwise, no acute CT abnormality of the abdomen/pelvis. Dictated by: Aníbal Herrera M.D. on 04/03/2024 at 19:45 Approved by: Aníbal Herrera M.D. on 04/03/2024 at 19:54
[2024-04-03 19:16] LABS: Alanine Aminotransferase 30 IU/L (<35); Albumin 4.5 g/dL (3.5-5.0); Albumin Globulin Ratio 1.4 (1.0-2.8); Alkaline Phosphatase 83 U/L (38-126); Aspartate Aminotransferase 33 IU/L (14-36); BUN Creatinine Ratio 21.7 (6-22); Bilirubin Total 0.3 mg/dL (0.2-1.3); Blood Urea Nitrogen 18 mg/dL (7-17); Carbon Dioxide 25 mmol/L (22-32); Chloride 108 mmol/L (98-107); Estimated Glomerular Filt Rate > 60 mL/min (>60); Globulin 3.2 g/dL (1.7-4.1); Glucose 88 mg/dL (70-100); HEMOLYSIS < 15 (0-50); Lipase 178 U/L (23-300); Potassium 4.2 mmol/L (3.4-5.1); Sodium 139 mmol/L (137-145); Total Protein 7.7 g/dL (6.3-8.2)
[2024-04-03 19:29] LABS: Add Manual Diff / Slide Review NO; Basophils Absolute Auto 0 /uL (0-100); Basophils Percent Auto 0.5 % (0-2); Eosinophils Absolute Auto 200 /uL (0-450); Eosinophils Percent Auto 2.3 % (2-4); Hematocrit 42.5 % (36-46); Hemoglobin 14.2 g/dL (12.0-16.0); Lymphocytes Absolute Auto 3300 /uL (1100-4500); Lymphocytes Percent Auto 35.4 % (25-40); Mean Corpuscular HGB Conc 33.4 % (30-36); Mean Corpuscular Hemoglobin 31.2 PG (26-34); Mean Corpuscular Volume 93.6 fL (80-100); Monocytes Absolute Auto 500 /uL (0-900); Monocytes Percent Auto 5.1 % (3-14); Neutrophils Absolute Auto 5300 /uL (1500-7000); Neutrophils Percent Auto 56.7 % (50-75); Platelet Count 309 X10^3/uL (150-400); Red Blood Cell Count 4.54 X10^6/uL (4.0-5.2); Red Cell Distribution Width 13.6 % (11.6-14.8); White Blood Cell Count 9.4 X10^3/uL (4.5-11.0)
--- NOTE | 2024-04-03 20:11 | ED.RECABL ---
HPI - Recheck/Abnormal Lab/Rx General Chief Complaint: Recheck/Abnormal Lab/Rx Stated Complaint: Haven't had a Bowel since Mar 20 Time Seen by Provider: 04/03/24 20:00 Source: patient Mode of arrival: Ambulatory History of Present Illness HPI narrative: Patient is a 58-year-old female. Here for evaluation of constipation. States she has not had a bowel movement in the past 2 weeks. She does have a history of chronic constipation. She has had a bowel resection in the past secondary to a noncancerous mass. Had a colostomy for a short period of time and then reanastomosis. She was here because she has been using laxatives at home without improvement. Is having some nausea and vomiting. No fevers. Is still passing flatus. No urinary symptoms. Related Data Home Medications Medication Instructions Recorded Confirmed omeprazole 20 mg capsule,delayed 40 mg PO DAILY GERD 10/25/19 10/25/21 release docusate sodium 100 mg capsule 100 mg PO DAILY 07/12/20 10/25/21 (Colace) Previous Rx's Medication Instructions Recorded estradiol 1 mg tablet (Estrace) 1 mg PO QDAY #90 tabs 09/07/18 hydrocortisone 2.5 % topical cream 1 applic MS QD-BID PRN hemorrhoids 03/12/22 with perineal applicator #30 grams (Anusol-HC) oxycodone-acetaminophen 5 mg-325 1 tab PO Q6H PRN pain #14 tabs 03/12/22 mg tablet bupropion HCl 150 mg 24 hr tablet, 300 mg (2 x 150 mg) PO QAM #180 06/04/23 extended release tabs alprazolam 0.25 mg tablet 0.125 mg (1/2 x 0.25 mg) PO DAILY 07/09/23 anxiety. #15 tabs citalopram 20 mg tablet 20 mg PO DAILY #90 tabs 01/26/24 metoclopramide HCl 10 mg tablet 10 mg PO Q6H PRN nausea and 04/03/24 (Reglan) vomiting #14 tabs Allergies Allergy/AdvReac Type Severity Reaction Status Date / Time fluoxetine AdvReac Severe Agitated Verified 04/03/24 14:48 lamotrigine AdvReac Intermediate vertigo Verified 04/03/24 14:48 (100mg); migraines (200mg) latex AdvReac Intermediate Rash Verified 04/03/24 14:48 codeine AdvReac Mild VOMITING Verified 04/03/24 14:48 Review of Systems Review of Systems ROS Unobtainable: All systems reviewed & are unremarkable except as noted in HPI and below Patient History Medical History Colostomy prolapse Colostomy present Large bowel obstruction NSAID long-term use Acute GI bleeding External hemorrhoid, bleeding Lumbar spine pain Melanoma of face (2013) Chronic back pain (2008) IBS (irritable bowel syndrome) (1994) Fibroids Urinary incontinence Hypertension Anxiety (1999) Depression (1999) Migraines (1994) Endometriosis Ovarian cyst (1984) Disturbance in sleep behavior (12/25/15) Surgical History History of ovarian cystectomy (1984) Anesthesia History of gynecologic surgery (07/07/15) Status post delivery (1992) Status post colonoscopy (10/22/06) Status post delivery (1990) Status post laparoscopic cholecystectomy (2008) Status post hysterectomy (2008) Family History Father Age: 77 Type 1 diabetes Grandfather Cancer Heart disease Hypertension Dementia Grandmother Age: 95 Heart disease Dementia Mother Age: 78 Depression Multiple personality disorder Suicide attempt Sister Age: 52 Depression Sister Homeless Family/Other Family history of thyroid problem Diabetes mellitus Family/Other Diabetes mellitus Family history of thyroid problem Social History household members: spouse and children Smoking Status: Never smoker alcohol intake: never Smoking Status: Never smoker alcohol intake frequency: 0-2 drinks per day Exam Initial Vital Signs Initial Vital Signs: Vital Signs Temperature 98.2 F 04/03/24 14:48 Pulse Rate 83 04/03/24 14:48 Respiratory Rate 17 04/03/24 14:48 Blood Pressure 156/92 H 04/03/24 14:48 Pulse Oximetry 97 04/03/24 14:48 Oxygen Delivery Method Room Air 04/03/24 14:48 Const General: cooperative, comfortable and No ill appearing HENMT Head: normal to inspection and normocephalic Resp Effort & Inspection: normal respiratory effort Auscultation: clear to auscultation bilaterally Cardio Rate: regular rate Rhythm: regular rhythm GI Inspection: normal to inspection and non-distended Palpation: soft, No firm and No guarding Skin General: no rashes or lesions noted Neuro General: patient alert, patient awake and moves all extremities Course Orders Ordered: ED Orders 04/03/24 18:02 CT abdomen pelvis w con Stat 04/03/24 18:55 Complete Blood Count AUTO DIFF Stat Comprehensive Metabolic Panel Stat Lipase Stat Discontinued Medications Lactulose (Lactulose 20 Gm/30 Ml Solution) 20 gm PO NOW ONE Stop: 04/03/24 21:18 Last Admin: 04/03/24 21:24 Dose: 20 gm Documented By: MARIELLA Vital Signs Vital signs: Vital Signs - 8 hr 04/03/24 18:23 04/03/24 18:55 04/03/24 18:56 Temperature 97.7 F Pulse Rate 83 84 Respiratory Rate 16 Blood Pressure 136/80 150/100 H Pulse Oximetry 95 97 Oxygen Delivery Method Room Air 04/03/24 19:00 04/03/24 19:00 04/03/24 19:38 Temperature Pulse Rate 83 Respiratory Rate Blood Pressure 153/99 H Pulse Oximetry 97 94 Oxygen Delivery Method Room Air 04/03/24 19:39 04/03/24 19:39 04/03/24 20:00 Temperature Pulse Rate 69 Respiratory Rate Blood Pressure 161/94 H 158/81 H Pulse Oximetry 96 Oxygen Delivery Method 04/03/24 20:00 04/03/24 20:30 04/03/24 21:00 Temperature Pulse Rate 67 62 65 Respiratory Rate Blood Pressure Pulse Oximetry 96 96 93 Oxygen Delivery Method Room Air 04/03/24 21:00 Temperature Pulse Rate Respiratory Rate Blood Pressure 139/76 Pulse Oximetry Oxygen Delivery Method MDM - Recheck/Abnormal Lab/Rx Lab Data Attestation: I reviewed the patient's lab results. 04/03/24 18:55 04/03/24 18:55 Labs: Lab Results 04/03/24 Range/Units 18:55 WBC 9.4 (4.5-11.0) X10^3/uL RBC 4.54 (4.0-5.2) X10^6/uL Hgb 14.2 (12.0-16.0) g/dL Hct 42.5 (36-46) % MCV 93.6 (80-100) fL MCH 31.2 (26-34) PG MCHC 33.4 (30-36) % RDW 13.6 (11.6-14.8) % Plt Count 309 (150-400) X10^3/uL Neut % (Auto) 56.7 (50-75) % Lymph % (Auto) 35.4 (25-40) % Andrews % (Auto) 5.1 (3-14) % Eos % (Auto) 2.3 (2-4) % Baso % (Auto) 0.5 (0-2) % Neut # (Auto) 5300 (8236-4315) /uL Lymph # (Auto) 3300 (4267-4522) /uL Andrews # (Auto) 500 (0-900) /uL Eos # (Auto) 200 (0-450) /uL Baso # (Auto) 0 (0-100) /uL Sodium 139 (137-145) mmol/L Potassium 4.2 (3.4-5.1) mmol/L Chloride 108 H (98-107) mmol/L Carbon Dioxide 25 (22-32) mmol/L BUN 18 H (7-17) mg/dL Creatinine 0.83 (0.52-1.04) mg/dL Estimated GFR > 60 (>60) mL/min BUN/Creatinine Ratio 21.7 (6-22) Glucose 88 (70-100) mg/dL Calcium 11.0 H (8.4-10.2) mg/dL Total Bilirubin 0.3 (0.2-1.3) mg/dL AST 33 (14-36) IU/L ALT 30 (<35) IU/L Alkaline Phosphatase 83 (38-126) U/L Total Protein 7.7 (6.3-8.2) g/dL Albumin 4.5 (3.5-5.0) g/dL Globulin 3.2 (1.7-4.1) g/dL Albumin/Globulin Ratio 1.4 (1.0-2.8) Lipase 178 (23-300) U/L Imaging Data Abdominal x-ray: Radiologist's Impression: PROCEDURE: XR ACUTE ABDOMEN SERIES INDICATIONS: constipation, no abd pain TECHNIQUE: One view chest and two views of the abdomen were acquired. COMPARISON: None. Findings and impression: Chest: Single view of the chest without dense consolidation or pleural effusion. Normal heart size. Degenerative osseous changes. Abdomen: There is moderate fecal loading. No specific radiographic signs of obstruction. No definite pneumoperitoneum. No suspicious soft tissue calcifications. Suspected pelvic phleboliths are present. Osseous degenerative changes. Calcific tendinopathy on the left trochanter. Cholecystectomy clips. If there is high concern for acute abdomen, consider CT. CT scan - abdomen/pelvis: Radiologist's Impression: PROCEDURE: CT ABDOMEN PELVIS W CON INDICATIONS: Constipation versus obstruction TECHNIQUE: After the administration of intravenous contrast, axial sections acquired from the lung bases to the pubic symphysis. Coronal and sagittal reformats were performed. For radiation dose reduction, the following was used: automated exposure control, adjustment of mA and/or kV according to patient size. COMPARISON: [facility], CT, CT ABDOMEN PELVIS W CON, 12/31/2019, 13:45. [facility], CT, CT ABDOMEN PELVIS W CON, 09/29/2019, 22:15. [facility], CT, CT ABDOMEN PELVIS W CON, 07/30/2019, 21:15. [facility], CT, CT ABDOMEN PELVIS W CON, 04/24/2019, 13:16. FINDINGS: Image quality: Diagnostic. Peritoneum: No pneumoperitoneum or ascites. Bones: No acute osseous abnormality. Lower Chest: No acute abnormality. Liver: Normal in size and contour. Gallbladder: Surgically absent. Biliary tree: No intrahepatic or extrahepatic biliary ductal dilatation. Pancreas: Within normal limits. Spleen: Normal in size and contour. Kidneys: No hydronephrosis or obstructive urolithiasis. Adrenals: No adrenal nodularity. Bladder: Normal in size and wall thickness. : Status post hysterectomy. No abnormal adnexal lesions. Stomach: Normal in size and contour. Bowel: Mild mural thickening of the distal esophagus. No small bowel structure obstruction. Appendix within normal limits (361). Status post partial left hemicolectomy with a surgical reanastomosis at the distal sigmoid colon. Large volume stool burden within the cecum and transverse colon (06/29-51) with borderline dilatation up to 5.8 cm (257). No significant stool within the anastomotic loop of bowel between the remnant transverse colon and anastomosed distal colon (58-66) Lymph Nodes: No retroperitoneal, mesenteric, or inguinal lymphadenopathy. Vascular: No abdominal aortic aneurysm. The visualized arterial vasculature is patent. Soft Tissues: No acute abnormality. IMPRESSION: 1. Status post partial left hemicolectomy with large volume proximal stool burden and decompressed anastomotic loop between the proximal and distal colonic segments. This finding may represent a long segment stricture, resulting in proximal partial obstruction. 2. Otherwise, no acute CT abnormality of the abdomen/pelvis. MDM Narrative Medical decision making narrative: Patient has stool noted on the CT scan which is consistent with her presentation of constipation. I did discuss the case with Dr. Archuleta on-call for General surgery who evaluated the CT scan. Since the patient does not have obstructive symptoms to include persistent vomiting, inability tolerating oral intake, and the fact that she was still passing flatus and has a minimally tender abdominal exam without distention there was no indication for admission to the hospital or emergent surgical intervention. He recommended a clear liquid diet. He also recommended following up with the General surgery or Gastroenterology for a flex sig. I discussed this with the patient. She would like to try laxatives at home and we discussed MiraLax. We discussed the findings of her CT scan in the importance of follow-up. Patient was given return precautions and follow-up instructions. She expressed understanding and agreement with plan. Discharge Plan Departure Patient Disposition: Home Clinical Impression: Constipation Instructions: DI for Constipation Activity Restrictions/Additional Instructions: For the time being do recommend a clear liquid diet. I also recommend that you increase the amount of MiraLax that you were taking. You can try other stool softeners and laxatives as well. Contact your primary care doctor for a follow-up return to the emergency for new symptoms Prescriptions: New metoclopramide HCl [Reglan] 10 mg tablet 10 mg PO Q6H PRN (Reason: nausea and vomiting) Qty: 14 0RF No Action omeprazole 20 mg capsule,delayed release(DR/EC) 40 mg PO DAILY docusate sodium [Colace] 100 mg capsule 100 mg PO DAILY bupropion HCl 150 mg tablet extended release 24 hr 300 mg PO QAM Qty: 180 3RF estradiol [Estrace] 1 mg tablet 1 mg PO QDAY Qty: 90 3RF Rx Instructions: Take 1 tablet by mouth everyday. Please be sure to follow up with PCP alprazolam 0.25 mg tablet 0.125 mg PO DAILY Qty: 15 0RF Rx Instructions: Continuing planned tapering dose. 0.125 mg once a day for the month of June. citalopram 20 mg tablet 20 mg PO DAILY Qty: 90 1RF oxycodone-acetaminophen 5-325 mg tablet 1 tab PO Q6H PRN (Reason: pain) Qty: 14 0RF hydrocortisone [Anusol-HC] 2.5 % cream with perineal applicator 1 applic MS QD-BID PRN (Reason: hemorrhoids) Qty: 30 1RF Referrals: Elier Archuleta MD [Physician] - Anita Eagle ARNP [Primary Care Provider] - Stand Alone Forms: Patient Portal/API/Survey
[2024-04-03] MEDS: LACTULOSE 20 GM/30 ML SOLUTION PO (21:24)
== END 2024-04-03 21:30 | disposition home or self-care (01) ==
PROVIDERS: Emergency Provider Emergency Medicine; PCP Internal Medicine
DX: K59.00 Constipation, unspecified (principal); Z90.49 Acquired absence of other specified parts of digestive tract
CPT/HCPCS: 74022; 74177; 80053; 83690; 85025; 99284; Q9967

== ENCOUNTER 2024-04-27 09:53 | Day surgery (SDC) | payer OTHER, SELFPAY ==
[2022-06-28 08:17] VITALS: BMI 33.8
--- NOTE | 2024-04-27 | PATH_ITS ---
[facility] Accession Number: [id number] No. of containers..04 Tissue . 01 Material submitted: . PART A: gastrointestinal site - FUNDIC GLAND POLYP PART B: gastrointestinal site - ANTRUM PART C: esophagus, E-G Junction - GE JUNCTION PART D: anastomosis - ANASTOMOSIS . 01 Diagnosis: A. FUNDIC GLAND POLYP: Fundic gland polyp. No Helicobacter pylori organisms identified on H/E slide. No intestinal metaplasia, dysplasia, or malignancy. . B. ANTRUM: Gastric mucosa with mild reactive gastropathy alteration and minimal chronic inflammation. No Helicobacter pylori organisms identified on immunohistochemical evaluation. No intestinal metaplasia, dysplasia, or malignancy. . C. GE JUNCTION: Squamocolumnar junctional mucosa with changes suggestive of reflux. No goblet cell metaplasia or fungal organisms identified on AB/PAS stain, with controls staining appropriately. No dysplasia or malignancy. . D. ANASTOMOSIS: Colonic mucosa with no significant diagnostic alterations. No active inflammation, dysplasia, or malignancy identified. [facility] 04/30/2024 1507 Local . 01 Electronically signed: . Mary Orellana MD, Pathologist NPI- [id number] . 01 Gross description: . A. Received in formalin with two patient identifiers and 1. Fundic gland polyp, and consists of two dacosta-white polypoid tissues measuring 0.2 and 0.5 cm in greatest dimension, submitted in A1. B. Received in formalin with two patient identifiers and 2. Antrum biopsy, and consists of two dacosta-white irregular soft tissues averaging 0.2 cm in greatest dimension, which are entirely submitted into cassette B1. C. Received in formalin with two patient identifiers and 3. GE junction biopsy, and consists of two white irregular soft tissues measuring 0.1 and 0.2 cm in greatest dimension, submitted in C1. D. Received in formalin with two patient identifiers and 4. Anastomosis biopsy, and consists of two dacosta-brown irregular soft tissues averaging 0.2 cm in greatest dimension, submitted in D1. ([id number]) /MRV 04/28/20241999 Local . 01 Pathologist provided ICD-10: D13.1, K29.70, K29.60, K21.9 . 01 CPT . 170823, 585151, [id number], [id number], [id number], [id number] Specimen Comment: A courtesy copy of this report has been sent to Pathology Performed at: [address] [facility] [address], [place], [place] [id number] MD Patrick Mohr MD Phone: [phone]
[2024-04-27] MEDS: SODIUM CHLORIDE 0.9% 100 ML IV (10:40)
[2024-04-27] MEDS: FLEETS ENEMA 1 EACH PR (10:40)
[2024-04-27 10:47] VITALS: BP 157/87; PULSE 62; RESP 17; TEMP 36.5; O2SAT 99
--- NOTE | 2024-04-27 10:57 | PM.PREOP ---
Pre-operative Note COVID-19 COVID-19 status: Not tested Interval Note History & Physical reviewed/Exam performed by Physician: Yes Changes to H&P: No
--- NOTE | 2024-04-27 11:50 | PM.OP.EC ---
Operative Date/Time/Diagnoses Date of procedure: 04/27/24 Time of procedure: 11:50 Pre-op diagnosis: Abnormal CT of the esophagus and abnormal CT of the anastomosis of the colon Post-op diagnosis: same (Gastritis, fundic gland polyps, mucosal ischemia proximal to the anastomosis) Procedure & Clinicians Study performed: 1. EGD with biopsies 2. Colonoscopy with biopsy Same procedure as scheduled: Yes Indications: Abnormal CT scans of the esophagus and anastomosis Surgeon: Gabriel Fall Procedure Notes SCOAP/Timeout: Performed Procedure in detail: Time-out was performed. Mac was induced. Patient was placed in left lateral decubitus position. Bite block was placed. Gastroscope was inserted to the 2nd portion of the duodenal. Duodenal appeared normal. Stomach showed some fundic gland polyps, 2 of which were obtained for sample by cold snare polypectomy. Retroflexed view of the GE junction showed a small hiatal hernia. There was some antral gastritis. Cold biopsy forceps were used to perform antral biopsy. The GE junction was noted to be regular at 40 cm. Random biopsies of the GE junction were taken with cold forceps. There were no masses or strictures of the esophagus. Gastroscope was withdrawn and we switched to colonoscopy. The perineum was inspected without any gross abnormality. Lubricated pediatric colonoscope was inserted and advanced to the cecum. The terminal ileum was intubated. The colonoscope was withdrawn slowly inspecting the circumference of the colon. Very small polyps may have been missed, prep quality was marginal and copious irrigation was required to get a good view of the colon. It was adequate for identification of polyps greater than 5 mm in size. The anastomosis was noted approximately 18 cm from the anal verge. There was a silk stitch at the distal end. The mucosa of the descending colon proximal to the anastomosis was pale purple and ischemic in appearance over 30% of the circumference. Biopsies were taken of the suspected ischemic mucosa. Retroflexed view of the rectum showed large, grade 4 prolapsed nonbleeding internal hemorrhoids. The scope was withdrawn the patient was taken to PACU in good condition. Scope withdrawal time: 24 Sedation minutes: 33 Findings: gastritis, internal hemorrhoids, polyp (Fundic gland polyps) and other findings (Dark mucosa proximal to the anastomosis) Specimen(s): other (1. Fundic gland polyp2. Antral biopsy3. GE junction biopsy4. Anastomosis biopsy) Complications: none Impression: Fundic gland polyps, gastritis, suspected hypoperfusion of the anastomosis Post-procedure Recommendations: High fiber diet and Other recommendation (Follow-up with colorectal surgery at [facility] where your previous surgery was performed) Follow up: as needed Disposition: PACU
[2024-04-27 11:52] VITALS: BP 102/65; PULSE 68; RESP 18; TEMP 36.3; O2SAT 93
[2024-04-27 11:57] VITALS: BP 110/66; PULSE 61; RESP 14; O2SAT 96
[2024-04-27 12:03] VITALS: BP 128/73; PULSE 70; RESP 16; TEMP 36.4; O2SAT 98
[2024-04-27 12:08] VITALS: BP 125/71; PULSE 65; RESP 16; O2SAT 98
[2024-04-27] MEDS: SODIUM CHLORIDE 0.9% 1,000 ML 84 ML IV (12:17)
[2024-04-27] MEDS: ONDANSETRON 4 MG/2 ML INJ IV (12:45)
== END 2024-04-27 13:00 | disposition home or self-care (01) ==
PROVIDERS: PCP Internal Medicine; Referring Provider Surgery; Visit Provider Surgery
PROC: 0DJ08ZZ Inspection of Upper Intestinal Tract, Via Natural or Artificial Opening Endoscopic (ICD-10-PCS; CPT 43251; principal; 2024-04-27 11:15)
PROC: 0DJD8ZZ Inspection of Lower Intestinal Tract, Via Natural or Artificial Opening Endoscopic (ICD-10-PCS; CPT 45378; 2024-04-27 11:15)
DX: K64.3 Fourth degree hemorrhoids (principal); K91.89 Other postprocedural complications and disorders of digestive system; R93.89 Abnormal findings on diagnostic imaging of other specified body structures; K44.9 Diaphragmatic hernia without obstruction or gangrene; K29.50 Unspecified chronic gastritis without bleeding; K31.7 Polyp of stomach and duodenum; K31.9 Disease of stomach and duodenum, unspecified; I10 Essential (primary) hypertension; E78.5 Hyperlipidemia, unspecified; E03.9 Hypothyroidism, unspecified
CPT/HCPCS: 43251; 45380; 43239; J2250; J2405; J2704